=== PATIENT | female | born 1970 | race Caucasian/White ===

== ENCOUNTER 2020-04-15 09:43 | Outpatient (REF) | payer OTHER, SELFPAY ==
--- NOTE | 2020-04-15 | MM_ITS ---
EXAMINATION: MM SCREENING DIGITAL BREAST TOMOSYNTHESIS, BILATERAL CLINICAL INFORMATION: Screening. Asymptomatic. The lifetime risk of breast cancer based on the Tyrer-Cuzick Model is 11%. COMPARISON: Mammography: 04/10/2019, 04/07/2018 TECHNIQUE: Digital breast tomosynthesis is performed in both the craniocaudal and mediolateral oblique views along with computer-aided detection (CAD). Synthesized 2D images are generated from the tomosynthesis. FINDINGS: There are scattered areas of fibroglandular density (ACR BI-RADS breast composition Category b). There are no significant masses, abnormal calcifications, or other abnormalities. The skin contours are smooth. No significant changes. IMPRESSION: No mammographic evidence of malignancy. ASSESSMENT: BI-RADS 1: Negative RECOMMENDATION: Routine annual mammography screening. This patient's information was entered into a reminder system with a target due date for their next mammogram.
== END 2020-04-15 09:44 | disposition home or self-care (01) ==
LOC: HO.MAMMO 09:43
PROVIDERS: PCP Internal Medicine; Visit Provider Internal Medicine
DX: Z12.31 Encounter for screening mammogram for malignant neoplasm of breast (principal)
CPT/HCPCS: 77063; 77067

== ENCOUNTER 2020-08-25 10:12 | Day surgery (SDC) | payer OTHER, SELFPAY ==
[2020-08-21 15:36] VITALS: BMI 27.9
[2020-08-22 09:03] VITALS: BMI 27.9
--- NOTE | 2020-08-23 14:17 | P.CONAN_ITS ---
HPI - Anesthesia Eval Consult details Narrative: 50yo F for Colonoscopy [facility] Past Medical History Medical History (Updated 08/21/20 @ 15:35 by Trish Lopez) History of anxiety Social History Social History (Updated 08/21/20 @ 15:35 by Trish Lopez) Smoking Status: Current every day smoker Tobacco Type: Cigarette Cigarettes Per Day: 10 Years Smoked: 33 Advance Directives Information Provided: No Meds Allergies Allergy/AdvReac Type Severity Reaction Status Date / Time No Known Allergies Allergy Verified 08/21/20 15:36 Home Medications Medication Instructions Recorded Confirmed Last Taken Type fluoxetine 1 cap PO DAILY 08/21/20 08/25/20 08/25/20 07:30 History 10 mg norethindrone (contraceptive) 1 tab PO DAILY 08/21/20 08/21/20 Unknown History vitamin B complex 1 tab PO DAILY 08/21/20 08/21/20 Unknown History Exam Exam Date and Time: August 23, 2020 1417 Height,Weight and Vital Signs: Height 5 ft 4 in Weight 73.936 kg Assessment and Plan Assessment Anesthesia Assessment: Chart Reviewed
[2020-08-25] VITALS (9 sets, daily range): BP systolic 134–182; BP diastolic 69–90; PULSE 56–68; RESP 17–20; TEMP 36.3–36.6; O2SAT 96–100
[2020-08-25 11:39] LABS: UPreg QC Valid YES; Urine Pregnancy NEGATIVE (NEGATIVE)
[2020-08-25] MEDS: Lactated Ringers 1,000 ML 100 ML IVCONT (11:54)
--- NOTE | 2020-08-25 11:57 | MHC.SHP ---
Pre-Procedural Eval Section A The patient is an INPATIENT: No Changes since office visit: No Cold of Flu in the past 2 weeks, No New Medical Problems, No Changes in Medication and No Patient answered all questions The History & Physical has been completed within 30 days and I have reviewed it.: Yes Section B Chief Complaint: bowel change Allergies: Allergies Allergy/AdvReac Type Severity Reaction Status Date / Time No Known Allergies Allergy Verified 08/21/20 15:36 Plan I have reviewed the history and physical and performed a pertinent physical examination on my patient. No changes have occurred unless specified.
--- NOTE | 2020-08-25 13:18 | PM.OP ---
Brief Operative Note Date of Service: 08/25/20 Pre-op diagnosis: change in bowels Post-op diagnosis: same (colon polyps) Surgeon: Jam Kebede Anesthesia: MAC Estimated blood loss (mL): 10 Pathology: other (multiple polyps, bxs, see nursing note) Condition: stable Disposition: PACU
[2020-08-25] MEDS: ondansetron HCL 4 MG/2 ML VIAL IVPUSH (15:13)
--- NOTE | 2020-08-25 23:15 | OP_ITS ---
SURGEON: Jam Kebede MD INDICATIONS: Change in bowel habits. PREOPERATIVE DIAGNOSIS: POSTOPERATIVE DIAGNOSIS: PROCEDURE PERFORMED: Colonoscopy to the terminal ileum with biopsy, snare polypectomy, and cauterization of colon polyps. ESTIMATED BLOOD LOSS: COMPLICATIONS: ANESTHESIA: ASSISTANTS: SPECIMENS: MEDICATIONS: Monitored anesthesia care. DESCRIPTION OF PROCEDURE: History and physical performed. The risks and benefits of the procedure were explained to the patient. Informed consent was obtained. The patient was placed in left lateral decubitus position. A digital rectal exam was performed and was found to be normal. The Olympus pediatric video colonoscope was introduced into the rectum and advanced to the cecum without difficulty. The cecum was identified by transillumination, palpation, and identification of ileocecal valve. Examination was performed and the scope was removed. She tolerated the procedure well and was taken to recovery area in stable condition. FINDINGS: The terminal ileum was normal. The visualized colonic mucosa was normal. There was no evidence of Crohn disease or inflammatory bowel disease. Random sigmoid biopsies were obtained to rule out microscopic colitis rather as well. Multiple colonic polyps were present. These were removed with combination of snare polypectomy, biopsy and cauterization. Several were large and required piecemeal resection with a Grey Net removal. This made the procedure extended and difficult. The polyps were located as follows. 1. 5 mm in the cecum removed with a snare and recovered by suction. 2. 3 x 2 sessile polyp in the cecum, piecemeal resected and the base cauterized. Question if resection is complete. 3. Right colon polyps x2, largest measuring 15 mm piecemeal snare resected and recovered with the Grey Net, second one less than 5 mm snared and suctioned. 4. The polyp at 70 cm was removed with a snare and recovered via suction measuring less than 5 mm. 5. At 10 cm, was a 3.5 cm polyp, which was piecemeal resected with a snare and then recovered with a Grey Net and by suction. The base was cauterized. Retroflexed examination showed internal hemorrhoids. Moderate sized diverticulosis was noted in the sigmoid. IMPRESSION: 1. Diverticulosis. 2. Multiple colonic polyps. 3. Extended/difficult procedure. RECOMMENDATIONS: 1. Follow up the biopsy results. 2. The polyp in the cecum will need followup endoscopy in the next 3 to 6 months pending the pathology results to assure completeness of resection. MD JONATHAN Hudson/[place] / [id number]
== END 2020-08-25 16:55 | disposition home or self-care (01) ==
PROVIDERS: Nurse Practitioner; PCP Internal Medicine; Visit Provider Internal Medicine Gastroenterology
PROC: 0DJD8ZZ Inspection of Lower Intestinal Tract, Via Natural or Artificial Opening Endoscopic (ICD-10-PCS; CPT 45378; principal; 2020-08-25 12:10)
DX: R19.4 Change in bowel habit (principal); K63.5 Polyp of colon; K62.1 Rectal polyp; K57.30 Diverticulosis of large intestine without perforation or abscess without bleeding; K64.8 Other hemorrhoids; F17.210 Nicotine dependence, cigarettes, uncomplicated; Z79.899 Other long term (current) drug therapy
CPT/HCPCS: 45385; 45380; 81025; 88305; 88341; 88342; J2405; J3010

== ENCOUNTER 2021-02-02 07:36 | Day surgery (SDC) | payer OTHER, SELFPAY ==
[2021-01-26 15:25] VITALS: BMI 27.9
--- NOTE | 2021-02-01 09:25 | P.CONAN_ITS ---
Documented by User: Licha Parks 02/01/21 09:25 HPI - Anesthesia Eval Consult details Narrative: 51yo F for Colonoscopy s/p colo with MAC 07/2020 [facility] Past Medical History Medical History History of anxiety Surgical History Surgical History H/O colonoscopy Social History Social History Patient Tobacco Use Status: Current everyday Tobacco user Tobacco use type: Cigarette Cigarettes Per Day: 10 Years Smoked: 34 Use of substances other than those prescribed or required for medical reasons: No Advance Directives Information Provided: No Meds Allergies Allergy/AdvReac Type Severity Reaction Status Date / Time No Known Allergies Allergy Verified 08/21/20 15:36 Home Medications Medication Instructions Recorded Confirmed Last Taken Type fluoxetine 10 mg capsule 1 cap PO DAILY 08/21/20 01/26/21 08/25/20 07:30 History 10 mg norethindrone (contraceptive) 0.35 1 tab PO DAILY 08/21/20 01/26/21 Unknown History mg tablet vitamin B complex 1 tab PO DAILY 08/21/20 01/26/21 Unknown History Exam Exam Date and Time: February 01, 2021 0925 Height,Weight and Vital Signs: Height 5 ft 4 in Weight 73.936 kg Assessment and Plan Assessment Anesthesia Assessment: Chart Reviewed Documented by User: Andriy Penn 02/02/21 08:07 [facility] Past Medical History Medical History History of anxiety Cognitive capacity: AAO X3 Functional capacity: independent ambulation Patient : No Family History Family history of problems with anesthesia: No Surgical History Surgical History H/O colonoscopy History of Problems with Anesthesia: No Social History Social History Patient Tobacco Use Status: Current everyday Tobacco user Tobacco use type: Cigarette Cigarettes Per Day: 10 Years Smoked: 34 Use of substances other than those prescribed or required for medical reasons: No Advance Directives Information Provided: No Meds Allergies Allergy/AdvReac Type Severity Reaction Status Date / Time No Known Allergies Allergy Verified 08/21/20 15:36 Home Medications Medication Instructions Recorded Confirmed Last Taken Type fluoxetine 10 mg capsule 1 cap PO DAILY 08/21/20 01/26/21 08/25/20 07:30 History 10 mg norethindrone (contraceptive) 0.35 1 tab PO DAILY 08/21/20 01/26/21 Unknown History mg tablet vitamin B complex 1 tab PO DAILY 08/21/20 01/26/21 Unknown History Exam Airway Mallampati Class: II TM Dist: >3cm Neck ROM: Full Loose/Missing/Broken Teeth: No Heart: rr+[id number] Lungs: cta b/l Assessment and Plan Assessment Anesthesia Assessment: Anesthesia Plan Discussed and PAT Visit Final Anesthetic Review Family History of Problems with Anesthesia: No History of Problems with Anesthesia: No NPO: Yes ASA Class: II Final Preanesthetic Review: No Changes in Pt Med Stat, Meds/Allgs Chart Reviewed, Consent Obtained/Reviewed and Anes Risks/Benef Reviewed Patient Risk: Low Procedure Risk: Low Assessment/Block/Sedation in SS: Assess/Block/Sedation-SS Anesthetic Plan Anesthetic Plan: MAC: and Agree w/ Assess. and Plan Disposition: Standard PACU
[2021-02-02 07:59] VITALS: BP 124/72; PULSE 61; RESP 18; TEMP 36.3; O2SAT 97
--- NOTE | 2021-02-02 08:21 | HO.ANESPROP2 ---
[facility] Past Medical History Medical History History of anxiety Functional capacity: independent ambulation Patient : No Family History Family history of problems with anesthesia: No Surgical History Surgical History H/O colonoscopy History of Problems with Anesthesia: No Social History Social History Patient Tobacco Use Status: Current everyday Tobacco user Tobacco use type: Cigarette Cigarettes Per Day: 10 Years Smoked: 34 Use of substances other than those prescribed or required for medical reasons: No Advance Directives Information Provided: No Patient : No Meds Allergies Allergy/AdvReac Type Severity Reaction Status Date / Time No Known Allergies Allergy Verified 08/21/20 15:36 Active Medications: Current Medications Generic Name Dose Route Start Last Admin Trade Name Freq PRN Reason Stop Dose Admin Acetaminophen 650 mg 02/02/21 08:07 Acetaminophen 325 Mg Tablet PO ONCE PRN Pain, Mild (Pain Scale 1-3) Ondansetron HCl 4 mg 02/02/21 08:07 Ondansetron Hcl 4 Mg/2 Ml Vial IVPUSH ONCE PRN Nausea and Vomiting Home Medications Medication Instructions Recorded Confirmed Last Taken Type fluoxetine 10 mg capsule 1 cap PO DAILY 08/21/20 01/26/21 08/25/20 07:30 History 10 mg norethindrone (contraceptive) 0.35 1 tab PO DAILY 08/21/20 01/26/21 Unknown History mg tablet vitamin B complex 1 tab PO DAILY 08/21/20 01/26/21 Unknown History Exam Exam Date and Time: February 02, 202121 Height,Weight and Vital Signs: Height 5 ft 4 in Weight 73.936 kg Last Vital Signs Temp 97.4 F 02/02/21 07:59 Pulse 61 02/02/21 07:59 Resp 18 02/02/21 07:59 BP 124/72 02/02/21 07:59 Pulse Ox 97 02/02/21 07:59 Airway TM Dist: >3cm Neck ROM: Full Heart: RRR Lungs: CTA Assessment and Plan Final Anesthetic Review Family History of Problems with Anesthesia: No History of Problems with Anesthesia: No
--- NOTE | 2021-02-02 08:27 | MHC.SHP ---
Pre-Procedural Eval Section A Date of Service: 02/02/21 Section B Chief Complaint: benign neoplasm of colon Details of Present Illness: colon polyps Relevant Family History (Specify if Yes): No Relevant Social History: None Present Medications: see Short Stay Collaborative assessment Medical History: No relevant PMH History of Previous Operations: No relevant previous surgery Allergies: Allergies Allergy/AdvReac Type Severity Reaction Status Date / Time No Known Allergies Allergy Verified 08/21/20 15:36 Review of Systems Sugical H&P ROS: Negative: Constitution, Cardiovascular, Respiratory, Neurological, Psychiatric, Hem-Onc, Allergic/Immunologic, Gastrointestinal, Genitourinary, Musculoskeletal, Integumentary, Endocrine and Eyes/Ears/Nose/Throat Exam Surgical H&P Exam: Normal: HEENT, Normal: Heart, Normal: Lungs, Normal: Extremities, Normal: Abdomen, Normal: Skin and Normal: Neurological Plan Diagnosis/Plan: Unchanged I have reviewed the history and physical and performed a pertinent physical examination on my patient. No changes have occurred unless specified.
--- NOTE | 2021-02-02 08:44 | P.CONAN_ITS ---
[facility] Past Medical History Medical History History of anxiety Functional capacity: independent ambulation Family History Family history of problems with anesthesia: No Surgical History Surgical History H/O colonoscopy History of Problems with Anesthesia: No Social History Social History Patient Tobacco Use Status: Current everyday Tobacco user Tobacco use type: Cigarette Cigarettes Per Day: 10 Years Smoked: 34 Use of substances other than those prescribed or required for medical reasons: No Advance Directives Information Provided: No Patient : No Meds Allergies Allergy/AdvReac Type Severity Reaction Status Date / Time No Known Allergies Allergy Verified 08/21/20 15:36 Active Medications: Current Medications Generic Name Dose Route Start Last Admin Trade Name Freq PRN Reason Stop Dose Admin Acetaminophen 650 mg 02/02/21 08:07 Acetaminophen 325 Mg Tablet PO ONCE PRN Pain, Mild (Pain Scale 1-3) Ondansetron HCl 4 mg 02/02/21 08:07 Ondansetron Hcl 4 Mg/2 Ml Vial IVPUSH ONCE PRN Nausea and Vomiting Oxycodone HCl 5 mg 02/02/21 08:22 Oxycodone Hcl Immed Release 5 Mg Tablet PO ONCE PRN Pain, Severe (Pain Scale 7-10) Home Medications Medication Instructions Recorded Confirmed Last Taken Type fluoxetine 10 mg capsule 1 cap PO DAILY 08/21/20 01/26/21 08/25/20 07:30 History 10 mg norethindrone (contraceptive) 0.35 1 tab PO DAILY 08/21/20 01/26/21 Unknown History mg tablet vitamin B complex 1 tab PO DAILY 08/21/20 01/26/21 Unknown History Exam Exam Date and Time: February 02, 2021 0844 Height,Weight and Vital Signs: Height 5 ft 4 in Weight 73.936 kg Last Vital Signs Temp 97.4 F 02/02/21 07:59 Pulse 61 02/02/21 07:59 Resp 18 02/02/21 07:59 BP 124/72 02/02/21 07:59 Pulse Ox 97 02/02/21 07:59 Assessment and Plan Final Anesthetic Review Family History of Problems with Anesthesia: No History of Problems with Anesthesia: No
[2021-02-02 09:16] VITALS: BP 121/67; PULSE 62; RESP 16; TEMP 36.6; O2SAT 100
--- NOTE | 2021-02-02 09:26 | PM.OP ---
Brief Operative Note Date of Service: 02/02/21 Pre-op diagnosis: colon polyp Post-op diagnosis: same Procedure: colonoscopy Surgeon: Jam Kebede Anesthesia: MAC Was an Logging Engineer used for this Procedure?: No Estimated blood loss (mL): 5 Pathology: other (polyps) Condition: stable Disposition: PACU
[2021-02-02 09:31] VITALS: BP 142/69; PULSE 57; RESP 16; TEMP 36.6; O2SAT 100
--- NOTE | 2021-02-02 09:51 | OP_ITS ---
SURGEON: Jam Kebede MD INDICATIONS: Prior history of colon polyps and intramucosal adenocarcinoma. PREOPERATIVE DIAGNOSIS: POSTOPERATIVE DIAGNOSIS: PROCEDURE PERFORMED: Colonoscopy to the terminal ileum with snare polypectomy, biopsy, and an injection of Norma ink. ESTIMATED BLOOD LOSS: COMPLICATIONS: ANESTHESIA: Medications, monitored anesthesia care. ASSISTANTS: SPECIMENS: DESCRIPTION OF PROCEDURE: History and physical performed. The risks and benefits of the procedure were explained to the patient. An informed consent was obtained. The patient was placed in left lateral decubitus position. A digital rectal exam was performed and was found to be normal. The Olympus pediatric video colonoscope was introduced into the rectum and advanced to the cecum without difficulty. The cecum was identified by transillumination, palpation, and identification of ileocecal valve. Examination was performed. The scope was removed. She tolerated the procedure well and was taken to recovery area in stable condition. FINDINGS: The terminal ileum was examined and appeared normal. The visualized colonic mucosa was normal. The quality of the prep was good. In the cecum, there was a 2.5 x 3 cm sessile polyp on a fold. Piecemeal resection was attempted, but it became obvious that this polyp could not be resected endoscopically based on its configuration. The polyp was located in the cecum across from the ileocecal valve. A total of 2 mL of Norma ink were injected in the vicinity of the polyp using sclerotherapy needle. The remainder of the colon appeared within normal limits without evidence of colitis. There was diverticulosis present throughout the colon. In the rectum, the site of the previously resected polyp with intramucosal adenocarcinoma was identified. Two biopsies were taken from the polypectomy site where scar tissue was present, but no residual polyp was present. Two other less than 10 mm polyps in the rectum were resected using a snare. Retroflexed examination showed moderate-sized internal hemorrhoids. IMPRESSION: 1. Cecal polyp, unresectable endoscopically. 2. Rectal polyps. 3. Diverticulosis. RECOMMENDATION: 1. Followup biopsy results. 2. Referral for surgical resection of the cecal polyp. MD JONATHAN Hudson/[place] / [id number]
--- NOTE | 2021-02-02 12:18 | HO.POSTANES ---
Post Anesthesia Evaluation Post Anesthesia Evaluation Vital Signs: Vital Signs Temp Pulse Resp BP Pulse Ox 02/02/21 09:31 97.8 F 57 16 142/69 H 100 02/02/21 09:16 97.8 F 62 16 121/67 100 02/02/21 07:59 97.4 F 61 18 124/72 97 Anesthesia: Monitored Mental Status: Awake Pain Control: Satisfactory Hydration: Adequate Anesthesia-Related Issues: No Anes. Related Issues
== END 2021-02-02 10:08 | disposition home or self-care (01) ==
PROVIDERS: PCP Internal Medicine; Visit Provider Internal Medicine Gastroenterology
PROC: 0DJD8ZZ Inspection of Lower Intestinal Tract, Via Natural or Artificial Opening Endoscopic (ICD-10-PCS; CPT 45378; principal; 2021-02-02 08:30)
DX: Z12.11 Encounter for screening for malignant neoplasm of colon (principal); Z85.038 Personal history of other malignant neoplasm of large intestine; Z86.010 Personal history of colon polyps; D12.0 Benign neoplasm of cecum; D12.8 Benign neoplasm of rectum; K63.89 Other specified diseases of intestine; K57.30 Diverticulosis of large intestine without perforation or abscess without bleeding; K64.8 Other hemorrhoids; F41.9 Anxiety disorder, unspecified; F17.210 Nicotine dependence, cigarettes, uncomplicated; Z79.899 Other long term (current) drug therapy
CPT/HCPCS: 45385; 45380; 45381; 88305

== ENCOUNTER 2021-03-01 15:45 | Outpatient (REF) | payer OTHER, SELFPAY ==
[2021-03-01 17:15] LABS: Blood Urea Nitrogen 11 mg/dL (9-16); Estimated Glomerular Filt Rate 57
== END 2021-03-01 15:46 | disposition home or self-care (01) ==
LOC: HO.LAB 15:45
PROVIDERS: PCP Internal Medicine; Referring Provider Internal Medicine; Visit Provider Surgery
DX: D12.0 Benign neoplasm of cecum (principal)
CPT/HCPCS: 36415; 82565; 84520

== ENCOUNTER 2021-03-15 15:40 | Outpatient (REF) | payer OTHER, SELFPAY ==
--- NOTE | ~2021-03-15 | CT_ITS ---
EXAMINATION: CT ABDOMEN AND PELVIS WITH CONTRAST CLINICAL INFORMATION: Benign neoplasm of cecum. COMPARISON: None TECHNIQUE: Multidetector volumetric images were obtained from the superior aspect of the liver through the pubic symphysis following administration 85 mL of Omnipaque 350 intravenous contrast. Sagittal and coronal reformatted images were obtained on the technologist's workstation. Oral Contrast: No. This CT examination was performed using dose optimization techniques as appropriate, variously including the following: *Automated exposure control. *Adjustment of mA and/or kV according to patient size (this includes techniques or standardized protocols for targeted exams where dose is matched to indication/reason for exam; i.e. extremities or head). *Use of iterative reconstruction technique. DLP: 549 mGy-cm FINDINGS: LUNG BASES: The visualized lung bases are unremarkable. LIVER, GALLBLADDER, AND BILIARY TREE: The liver is normal in size, shape, and attenuation. No focal hepatic lesion or biliary ductal dilatation is present. The gallbladder is unremarkable with no evidence of radiopaque gallstones, gallbladder wall thickening, or obvious pericholecystic inflammatory changes. PANCREAS: Unremarkable. SPLEEN: Unremarkable. ADRENAL GLANDS: Unremarkable. KIDNEYS AND URETERS: The kidneys are normal in size, shape, and attenuation. No hydronephrosis, hydroureter, or calculi seen. No perinephric stranding. Small 7 mm cyst lower pole left kidney. BLADDER: Unremarkable. GASTROINTESTINAL TRACT: There is diffuse colonic diverticulosis without diverticulitis. There is mild mural thickening involving the cecum. The appendix appears normal caliber. No pericolic fat stranding seen. The small bowel loops are normal caliber. The stomach is distended with recently ingested food. ABDOMINAL WALL: No significant hernia is appreciated. LYMPH NODES: Normal. VASCULAR: Unremarkable. PELVIC VISCERA: The uterus is anteverted and appears unremarkable. There is no free fluid. No abnormal lymph nodes seen. OSSEOUS STRUCTURES: Mild degenerative disc changes with vacuum disc phenomena at L5-S1 disc level with endplate sclerosis. CT/CT abdomen pelvis w con IMPRESSION: 1. Mild mural thickening involving the cecum but no pericolic fat stranding seen. The ileocecal junction is normal. 2. Colonic diverticulosis without diverticulitis. Mild constipation. 3. No abnormal retroperitoneal mesenteric lymphadenopathy.
[2021-03-15] MEDS: iohexoL 350 MG/ML 100 ML INFUS..BTL IV (17:16)
== END 2021-03-15 15:41 | disposition home or self-care (01) ==
LOC: HO.CT 15:40
PROVIDERS: Visit Provider Surgery
DX: D12.0 Benign neoplasm of cecum (principal)
CPT/HCPCS: 74177; Q9967

== ENCOUNTER 2021-03-30 10:30 | Inpatient (IN) | payer OTHER, SELFPAY ==
--- NOTE | 2021-03-19 | ECG_ITS ---
Test Reason : preop, smoker Blood Pressure : / mmHG Vent. Rate : 050 BPM Atrial Rate : 050 BPM P-R Int : 118 ms QRS Dur : 080 ms QT Int : 466 ms P-R-T Axes : 064 050 055 degrees QTc Int : 424 ms Sinus bradycardia Possible Left atrial enlargement Borderline ECG No previous ECGs available Referred By: Licha Parks Electronically Signed By:SAE ALMEIDA
[2021-03-19 11:55] VITALS: BP 144/82; PULSE 59; RESP 16; O2SAT 97; BMI 27.8
--- NOTE | 2021-03-19 12:28 | P.CONAN_ITS ---
Documented by User: Licha Parks NP 03/26/21 15:32 HPI - Anesthesia Eval Consult details Narrative: 51yo F for Hand Assisted Laparoscopic Right Colon Resection, Poss Open 03/30/21 s/p colonoscopy 07/2020 and 01/2021 with MAC PMFSH Active Problems Active Problems: All Active Problems (Updated 03/19/21 @ 12:19 by Nissa Hollins RN) Adenomatous polyp of cecum (Acute) Past Medical History Medical History Adenomatous polyp of cecum Arthritis Depression History of anxiety History of kidney infection Spinal stenosis Family History Family history of problems with anesthesia: No Surgical History Surgical History H/O colonoscopy History of Problems with Anesthesia: No Social History Social History Are you a primary residential care officer to a significant other at home: Yes (S.O. at home disabled) Do you presently have visiting nurse or other home services: No Patient Tobacco Use Status: Current everyday Tobacco user Tobacco use type: Cigarette Cigarettes Per Day: 9 Years Smoked: 37 Second Hand Smoke Exposure: Yes Use of substances other than those prescribed or required for medical reasons: Yes Substance Use Type: Marijuana Substance Use Frequency: Daily Narrative Narrative: No recent illness No CP/SOB with walking. >4 mets Meds Allergies Allergy/AdvReac Type Severity Reaction Status Date / Time Latex, Natural Rubber Allergy Rash Verified 03/19/21 12:16 Home Medications Medication Instructions Recorded Confirmed Last Taken Type fluoxetine 10 mg capsule 1 cap PO DAILY 08/21/20 03/19/21 03/30/21 History norethindrone (contraceptive) 0.35 1 tab PO DAILY 08/21/20 03/19/21 03/30/21 History mg tablet buspirone 5 mg tablet 1 tab PO BID PRN 03/20/21 03/20/21 Unknown History Exam Exam Date and Time: March 19, 2021 1228 Height,Weight and Vital Signs: Height 5 ft 3 in Weight 71.2 kg Last Vital Signs Pulse 59 03/19/21 11:55 Resp 16 03/19/21 11:55 BP 144/82 H 03/19/21 11:55 Pulse Ox 97 09/20/21 11:55 Pertinent Lab Results Pertinent Lab Results: Lab Results 03/19/21 03/19/21 03/19/21 Range/Units 13:07 13:07 13:07 WBC 8.4 (4.8-10.8) X10*3/uL RBC 4.70 (4.20-5.50) X10*6/uL Hgb 14.6 (12.0-16.0) g/dl Hct 43.3 (37-47) % MCV 92.1 (80-98) fL MCH 31.1 (27.0-33.0) pg MCHC 33.7 (31.0-35.0) g/dl RDW 12.1 (11.0-16.0) % Plt Count 337 (160-400) X10*3/uL MPV 9.7 (9.4-12.3) fL Absolute Nucleated RBC 0.000 (0.0-0.012) X10*3/uL Nucleated RBC % (auto) 0.0 (0.0-0.2) /100WBC Sodium 141 (135-145) mmol/L Potassium 4.5 (3.3-5.1) mmol/L Chloride 106 (96-108) mmol/L Carbon Dioxide 26 (22-29) mmol/L Anion Gap 14 (12-20) BUN 8 L (9-16) mg/dL Creatinine 0.82 (0.5-1.4) mg/dL Estim Creat Clear Calc 77.6 Estimated GFR > 60 Random Glucose 92 (60-115) mg/dL Calcium 10.0 (8.4-10.2) mg/dL Blood Type O Positive Antibody Screen NEGATIVE Narrative Narrative: EKG 02/2021 SB@50 ?LAE Airway Mallampati Class: II TM Dist: >3cm Neck ROM: Full Loose/Missing/Broken Teeth: No Heart: RRR Lungs: CTAB Assessment and Plan Assessment Anesthesia Assessment: Anesthesia Plan Discussed and PAT Visit Final Anesthetic Review Family History of Problems with Anesthesia: No History of Problems with Anesthesia: No Documented by User: Frances Mcqueen MD 03/30/21 08:21 PMFSH Past Medical History Medical History Adenomatous polyp of cecum Arthritis Depression History of anxiety History of kidney infection Spinal stenosis Surgical History Surgical History H/O colonoscopy Social History Social History Are you a primary residential care officer to a significant other at home: Yes (S.O. at home disabled) Do you presently have visiting nurse or other home services: No Patient Tobacco Use Status: Current everyday Tobacco user Tobacco use type: Cigarette Cigarettes Per Day: 9 Years Smoked: 37 Second Hand Smoke Exposure: Yes Use of substances other than those prescribed or required for medical reasons: Yes Substance Use Type: Marijuana Substance Use Frequency: Daily Meds Allergies Allergy/AdvReac Type Severity Reaction Status Date / Time Latex, Natural Rubber Allergy Rash Verified 03/19/21 12:16 Home Medications Medication Instructions Recorded Confirmed Last Taken Type fluoxetine 10 mg capsule 1 cap PO DAILY 08/21/20 03/19/21 03/30/21 History norethindrone (contraceptive) 0.35 1 tab PO DAILY 08/21/20 03/19/21 03/30/21 History mg tablet buspirone 5 mg tablet 1 tab PO BID PRN 03/20/21 03/20/21 Unknown History Assessment and Plan Final Anesthetic Review ASA Class: II Final Preanesthetic Review: Meds/Allgs Chart Reviewed, Consent Obtained/Reviewed and Anes Risks/Benef Reviewed Patient Risk: Low Procedure Risk: Intermediate Anesthetic Plan Anesthetic Plan: GA Disposition: Standard PACU
[2021-03-19 14:02] LABS: Hematocrit 43.3 % (37-47); Hemoglobin 14.6 g/dl (12.0-16.0); Mean Corpuscular HGB Conc 33.7 g/dl (31.0-35.0); Mean Corpuscular Hemoglobin 31.1 pg (27.0-33.0); Mean Corpuscular Volume 92.1 fL (80-98); Mean Platelet Volume 9.7 fL (9.4-12.3); Platelet Count 337 X10*3/uL (160-400); Red Cell Distribution Width 12.1 % (11.0-16.0); White Blood Count 8.4 X10*3/uL (4.8-10.8)
[2021-03-19 15:11] LABS: Anion Gap 14 (12-20); Blood Urea Nitrogen 8 mg/dL (9-16); Carbon Dioxide 26 mmol/L (22-29); Chloride 106 mmol/L (96-108); Creatinine Clr Calc Pharmacy 77.6; Estimated Glomerular Filt Rate > 60; Glucose Random 92 mg/dL (60-115); Potassium 4.5 mmol/L (3.3-5.1); Sodium 141 mmol/L (135-145)
[2021-03-30] VITALS (15 sets, daily range): BP systolic 119–159; BP diastolic 59–85; PULSE 51–79; RESP 12–18; TEMP 35.9–37.3; O2SAT 94–99
[2021-03-30 06:40] LABS: UPreg QC Valid YES; Urine Pregnancy NEGATIVE (NEGATIVE)
[2021-03-30] MEDS: Lactated Ringers 1,000 ML 50 ML IVCONT (06:50)
[2021-03-30 06:57] LABS: COVID-19 Test Negative (Negative)
--- NOTE | 2021-03-30 10:12 | P.OP_ITS ---
Operative Note Operative Note Date of Service: 03/30/21 Narrative: Preop diagnosis: Cecal polyp Postop diagnosis: Cecal polyp Procedure: Hand assisted laparoscopic right colon resection, extensive lysis of adhesions with the LigaSure Surgeon: Kieran Villanueva MD 1st certified ophthalmic assistant: NITESH Brown The patient is a 51-year-old female who had undergone anoscopy with Dr. Kebede and was noted to have an unresectable polyp in the cecum. This was relatively flat and regards. She was therefore referred to me for resection. I had a long discussion with her about the technique of hand assisted laparoscopic right colon resection. I reviewed the risks including but not limited to bleeding, infections, bowel injury, staple line leak, obstruction, as well as the benefits and alternatives. She understood and had given consent. I had reviewed her CAT scan images as well. She was brought to the operating room and placed supine on the table under general anesthesia via endotracheal tube. Both arms were tucked at the side with pressure points protected. The abdomen is prepped and draped in the usual sterile fashion. A surgical time-out was done. The patient received Cefotan 2 g IV preoperatively. I made a short incision on the skin on the midline just at the level of the umbilicus using blade 15. And this carried down through the full-thickness of the skin subcutaneous fat down to the fascia. The fascia was incised. The peritoneum was entered and the incision was enlarged to accommodate my hand through a GelPort. The Otis wound retractor was position. The GelPort along with a 5/12 mm port is then applied to the wound retractor. Insufflation was done a pressure 15 minutes mercury. The laparoscope was positioned through this port. With laparoscopic visualization, I proceeded to then apply a 5/12 mm port in the epigastric area below the subcostal margin. The camera was then transferred to this. I inserted my hand through the GelPort . The patient was then placed in a head-down [id number]-[id number]-[id number] position to retract the bowel loops away from the right side. I inserted 5 mm port through a small stab incision in the left upper quadrant. At this point we werel using a 30 degree 10 mm scope. There was note of large amounts of adhesions on the right lower quadrant and the right colon involving omentum. Had to do a lot of dissection with the LigaSure to carefully free this up starting from the right lower quadrant at the pelvis all the way to the right upper quadrant using the LigaSure. This took some time for able to completely release all these adhesions and omental fat. Ventrio is able to release the omentum and have good visualization and exposure of the right colon. laparoscopic visualization, I proceeded to then reflect all the rest of the bowel loops away from the right lower quadrant. I was able to see the cecum. The tattoo marking from the recent colonoscopy was seen at the cecum itself. I mobilized the cecum by dividing the its ligamentous attachments along the white line of Toldt using the LigaSure. We continued to do this dissection with the LigaSure all the way to the hepatic flexure. I then proceeded to turn the patient in head-up position to allow the transverse colon retract downwards. By doing so was able to visualize the hepatic colic ligaments. I gently retracted the hepatic flexure off of the liver to carefully visualize the hepatic colic ligaments. I dissected this hepatic colic ligaments using the LigaSure from lateral to medial. Proceeded to also gently sweep off the filmy adhesions to the retroperitoneum to further mobilize the right colon and hepatic flexure By doing so was able to eventually see the duodenum and this defined the limits of medial mobilization. I continue to therefore divide the adhesions along the retroperitoneum of the mesentery of the right colon using the LigaSure, carefully protecting the duodenum during this part of the procedure. I had to continue to further divide more of the hepatic colic ligaments towards the distal transverse colon. Eventually, I felt that we had adequate mobilization of the right colon and the hepatic flexure at this point. I then proceeded to continue to mobilize the cecum. The cecum appeared to be tethered to the right lower quadrant from multiple adhesions. The appendix was also stuck to the area of the ovaries and the fallopian tube. I had to carefully and gently divide the rest of this adhesions on this side of the cecum until was able to clearly define the appendix. I traced the appendix and carefully dissected with my index finger to free this up from the fallopian tube and the right ovary. Eventually I was able to release this appendix and bring this up into the field of view. I continued to divide the ligamentous attachments surrounding cecum and the terminal ileum to free this up. I proceeded to test the entire right colon, terminal ileum and hepatic flexure for mobilization and this seemed to reach the incision without difficulty. At this point therefore I opened up the GelPort and released desufflation. I proceeded to pull up the terminal ileum, cecum, right colon and hepatic flexure out in the field. I was able to feel a small mass in the cecum. There were no other palpable masses in the right colon. I proceeded to choose a my point of dissection in the distal ileum about 10 cm from the ileocecal valve. I created a mesenteric window through this and transected the terminal ileum using PAUL 60 mm stapler. I proceeded to then define my point of transection in the hepatic flexure at the proximal transverse. I created a mesenteric window as well and used the PAUL 80 mm s tapler to divide this. At this point therefore we proceeded to then pull up the colon to put the mesentery on stretch. I marked my planned resection on the mesentery by scoring the peritoneum. I then used the LigaSure starting from the ileal side to divide the mesentery. I alternated this with dividing the mesentery of the colon from the distal transection side. We proceeded to then continue to divide all the way to the palpable pulsation of the ileo colic pedicle. I paid particular attention to including the mesenteric lymph node basin of the right colon with the high ligation of the pedicle. I thinned out the pedicle with electrocautery. I applied clamps across the pedicle. The pedicle was then divided with Metzenbaum scissors. The right colon was therefore completely and was sent for immediate gross exam. I doubly ligated the pedicle at the proximal side. Clamp was released and there was note of good hemostasis. There was note of some oozing from the mesentery which had to control with the LigaSure however. At this point therefore, I proceeded to prepare the hepatic flexure for our anastomosis. There was note of large amounts of omentum adherent to this area so we had to clear this up using the LigaSure to make sure that we had good visualization of the colon wall for our [id number]-st-owiu anastomosis. We had to do extensive dissection of the adherent omentum to be able to achieve this. I noticed that there was a small diverticulum near the staple line so we had to resect more of the staple line to avoid this diverticulum. I also noticed that we had excised a lot of the attached mesentery of the divided distal ileum so I decided to resect more of the length of this distal ileum to avoid ischemia of the remaining stump. Again I resected more of the distal ileum proximal to the original staple line using the PAUL 60 mm stapler I then proceeded to align our staple lines together and positioned the limbs of the colon and the terminal ileum in a [id number] fashion. I opened up the apex of each staple line. I entered the lumen and positioned each arm of the PAUL 60 mm stapler through the lumen. I positioned the staplers to lock them in place at the anti mesenteric border, with care being taken so as to make sure that we were not catching any bowel loop nor mesentery. Once this was confirmed, we fired the PAUL 60 mm stapler to create our [id number]-[id number] anastomosis. The anastomosis was completed by closing the enterotomy with a TA 60 mm stapler. I examined the staple lines and these all appeared to be intact. There was no evidence of any ischemia of the anastomotic site. I then closed the mesenteric defect with Dexon 3-0 running stitch. I examined the staple lines further and this again appeared to be intact and viable I replaced this back into the peritoneal cavity. I re-insufflated. I reapplied the GelPort and the camera. I had changed gloves at this time. With laparoscopic mobilization again I proceeded to examine the entire peritoneal cavity. There was note of some old blood on the right gutter from previous dissection but there was no active bleeding. I suctioned this out and irrigated a little bit, and examined all 4 quadrants. There was no evidence of any bowel injury any other pathology. I positioned the omentum to cover the area of the anastomosis. Once hemostasis was ensured, I proceeded then desufflate through the port sites. All the ports were removed and the Otis wound retractor was removed as well. I closed the fascia of the midline incision with a running Maxon 1 stitch. The subcutaneous layer of all the incisions were irrigated. I closed all incisions with subcuticular running Dexon 4-0 sutures. All incisions were infiltrated with Marcaine 0.5% for postop analgesia. Steri-Strips and dressings were applied. The procedure was then completed. The patient tolerated the procedure well. There were no complications noted. Initial and final counts of sponges and instruments were correct. Estimated blood loss was about 200 cc. The patient was extubated without difficulty and transferred to the recovery room with stable vital signs. Colon Resection Tumor location: Right colon Extent of lymphovascular resection Right colon (cecum and ascending colon): from distal ileum to proximal transverse at the proximal ileocolic pedicle General Surg. - Synoptic Notes Colon Resection Tumor location: Right colon Extent of Lymphovascular Resection: Right colon (cecum and ascending colon): from distal ileum to proximal transverse at the proximal ileocolic pedicle
--- NOTE | 2021-03-30 10:28 | PM.OP ---
Brief Operative Note Date of Service: 03/30/21 <Sheyla Brown PA-C - Last Filed: 03/30/21 10:29> Pre-op diagnosis: Cecal polyp <Sheyla Brown PA-C - Last Filed: 03/30/21 10:29> Post-op diagnosis: same <Sheyla Brown PA-C - Last Filed: 03/30/21 10:29> Procedure: hand assisted laparoscopic right colon resection <Sheyla Brown PA-C - Last Filed: 03/30/21 10:29> hand assisted laparoscopic right colon resection, extensive lysis of adhesions <Leslie Knapp MD - Last Filed: 03/30/21 10:30> Surgeon: LESLIE KNAPP MD <Sheyla Brown PA-C - Last Filed: 03/30/21 10:29> Anesthesia: GETA <Sheyla Brown PA-C - Last Filed: 03/30/21 10:29> Was an Mattress Renovator used for this Procedure?: Yes <Sheyla Brown PA-C - Last Filed: 03/30/21 10:29> No <Leslie Knapp MD - Last Filed: 03/30/21 10:30> Mattress Renovator: Sheyla Brown <Sheyla Brown PA-C - Last Filed: 03/30/21 10:29> Estimated blood loss (mL): 200 <Sheyla Brown PA-C - Last Filed: 03/30/21 10:29> Pathology: other (CECAL POLYP, SMALL BOWEL) <Sheyla Brown PA-C - Last Filed: 03/30/21 10:29> Condition: stable <EMMA Steen Last Filed: 03/30/21 10:29> Disposition: PACU <EMMA Steen Last Filed: 03/30/21 10:29>
[2021-03-30] MEDS: ondansetron HCL 4 MG/2 ML VIAL IVPUSH ×3 (10:37→21:01)
[2021-03-30] MEDS: Scopolamine 1.5 MG PATCH.TD.3 TRANSDERMA (10:52)
[2021-03-30] MEDS: HYDROmorphone HCl 0.5 MG/0.5 ML SYRINGE 0.25 MG IVPUSH (11:02)
[2021-03-30] MEDS: oxyCODONE HCl Immed Release 5 MG TABLET 10 MG PO (12:26)
[2021-03-30] MEDS: Lactated Ringers 1,000 ML 80 ML IVCONT (12:27)
[2021-03-30] MEDS: 0.9 % Sodium Chloride Flush 3 ML SYRINGE IVFLUSH (14:29)
[2021-03-30] MEDS: Morphine Sulfate 2 MG/ML CARTRIDGE 4 MG IVPUSH (14:29)
--- NOTE | 2021-03-30 15:22 | PM.EVENT ---
Event Note Date of Service: 03/30/21 Event Note: Seen postop - underwent right colon resection with extensive lysis of adhesions earlier Complaints of nausea Pain level okay Stable vital signs Abdomen soft Good urine output Continue pain management Out of bed Doing well postoperatively [place] updated [phone]
[2021-03-31] MEDS: Lactated Ringers 1,000 ML 80 ML IVCONT ×2 (00:23→13:12)
[2021-03-31 04:00] VITALS: BP 149/75; PULSE 78; RESP 16; TEMP 36.7; O2SAT 93
[2021-03-31 05:58] LABS: MANUAL DIFF FLAG NO
[2021-03-31 06:11] LABS: Basophils Percent Auto 0.1 % (0-2); Hematocrit 31.8 % (37-47); Hemoglobin 10.8 g/dl (12.0-16.0); Imm Gran Abs Auto 0.07 X10*3/uL (0.00-0.03); Imm Gran Pct Auto 0.5 % (0.0-0.4); Lymphocytes Absolute Auto 2.1 X10*3/uL (1.2-4.9); Lymphocytes Percent Auto 15.3 % (20-40); Mean Corpuscular Hemoglobin 30.7 pg (27.0-33.0); Mean Corpuscular Volume 90.3 fL (80-98); Monocytes Percent Auto 6.9 % (2-11); Neutrophils Absolute Auto 10.6 X10*3/uL (2.0-8.3); Neutrophils Percent Auto 77.2 % (45-73); Platelet Count 297 X10*3/uL (160-400); Red Blood Count 3.52 X10*6/uL (4.20-5.50); Red Cell Distribution Width 12.2 % (11.0-16.0); White Blood Count 13.8 X10*3/uL (4.8-10.8)
[2021-03-31 06:44] LABS: Anion Gap 12 (12-20); Blood Urea Nitrogen 8 mg/dL (9-16); Calcium 8.4 mg/dL (8.4-10.2); Carbon Dioxide 26 mmol/L (22-29); Chloride 106 mmol/L (96-108); Creatinine Clr Calc Pharmacy 84.8; Estimated Glomerular Filt Rate > 60; Glucose Random 151 mg/dL (60-115); Potassium 3.8 mmol/L (3.3-5.1); Sodium 140 mmol/L (135-145)
[2021-03-31 07:35] VITALS: BP 139/69; PULSE 73; RESP 18; TEMP 37.4; O2SAT 93
--- NOTE | 2021-03-31 09:34 | PM.PNGS ---
Subjective Subjective Date of Service: 03/31/21 Interval history: Feels better. Has good pain control. Nausea has resolved. Has not passed flatus yet. Not taking much p.o.. Physical Exam Vital Signs: Vital Signs: Last Vital Signs Temp 99.3 F 03/31/21 07:35 Pulse 73 03/31/21 07:35 Resp 18 03/31/21 07:35 BP 139/69 03/31/21 07:35 Pulse Ox 93 03/31/21 07:35 Body Mass Index 27.8 Const: General: cooperative, comfortable and no acute distress Resp: Effort & Inspection: normal respiratory effort Auscultation: clear to auscultation bilaterally Cardio: Rate: regular rate Rhythm: regular rhythm GI: Other: Soft, round, bowel sounds active, dressings clean dry and intact Skin: Other: Warm and dry Procedures Date of Service Date of Service: 03/31/21 Progress Note: A&P Assessment and plan (1) S/P right colectomy: Status: Acute (2) Adenomatous polyp of cecum: Status: Acute Assessment and Plan: Postop day 1 following hand assisted laparoscopic right colectomy for sessile polyp. She appears stable, but no flatus yet and not much appetite. Will continue IV fluids, clear liquid diet. DC Pan. Ambulate. Fall Risk Details Current Medications: Current Medications Buspirone HCl (Buspirone Hcl 5 Mg Tablet) 5 mg PO BID PRN PRN Reason: Anxiety Diphenhydramine HCl (Diphenhydramine Hcl 50 Mg/Ml Vial) 25 mg IVPUSH Q6H PRN PRN Reason: Itching Fluoxetine HCl (Fluoxetine Hcl 10 Mg Capsule) 10 mg PO DAILY CHENTE Heparin Sodium (Porcine) (Heparin Sodium,Porcine 5,000 Unit/Ml Vial) 5,000 unit SUBCUT Q8H CHENTE Acetaminophen (Ofirmev) 1,000 mg in 100 mls @ 400 mls/hr IV Q6H CHENTE Last Infusion: 03/31/21 04:57 Dose: Infused Documented by: Lactated Ringer's (Lr) 1,000 mls @ 80 mls/hr IVCONT .[id number] CHENTE Last Admin: 03/31/21 00:23 Dose: 80 mls/hr Documented by: Promethazine HCl 6.25 mg/ (Sodium Chloride) 50.25 mls @ 201 mls/hr IV ONCE PRN PRN Reason: Nausea and Vomiting Last Infusion: 03/30/21 11:58 Dose: Infused Documented by: Promethazine HCl 12.5 mg/ (Sodium Chloride) 50.5 mls @ 202 mls/hr IV Q6H PRN PRN Reason: Nausea and Vomiting Last Infusion: 03/30/21 15:47 Dose: Infused Documented by: Morphine Sulfate (Morphine Sulfate 2 Mg/Ml Cartridge) 4 mg IVPUSH Q4H PRN; Protocol PRN Reason: Pain, Severe (Pain Scale 7-10) Last Admin: 03/30/21 14:29 Dose: 4 mg Documented by: Ondansetron HCl (Ondansetron Hcl 4 Mg/2 Ml Vial) 4 mg IVPUSH Q8H PRN PRN Reason: Nausea and Vomiting Last Admin: 03/30/21 21:01 Dose: 4 mg Documented by: Ondansetron HCl (Ondansetron Hcl 4 Mg/2 Ml Vial) 4 mg IVPUSH ONCE PRN PRN Reason: Nausea and Vomiting Last Admin: 03/30/21 10:37 Dose: 4 mg Documented by: Oxycodone HCl (Oxycodone Hcl Immed Release 5 Mg Tablet) 5 mg PO Q4H PRN PRN Reason: Pain, Moderate (Pain Scale 4-6 Oxycodone HCl (Oxycodone Hcl Immed Release 5 Mg Tablet) 10 mg PO Q4H PRN PRN Reason: Pain, Severe (Pain Scale 7-10) Last Admin: 03/30/21 12:26 Dose: 10 mg Documented by: Sodium Chloride (0.9 % Sodium Chloride Flush 3 Ml Syringe) 3 ml [facility] [place] Last Admin: 03/31/21 00:02 Dose: Not Given Documented by: Zolpidem Tartrate (Zolpidem Tartrate 5 Mg Tablet) 5 mg PO BEDTIME PRN PRN Reason: Insomnia Time Spent With Patient Time: Total time spent is greater than 50% in coordination of care (as documented) at patient's floor/unit and/or counseling patient: Time with patient: less than 15 minutes Quality Stroke Does the patient have a stroke diagnosis?: No VTE Prior VTE?: No VTE Risk Level:: Surgical - moderate VTE Device Contraindication: N/A - Device Ordered VTE Drug Contraindication: Treatment Not Indicated
[2021-03-31] MEDS: Heparin Sodium,Porcine 5,000 UNIT/ML VIAL 5000 UNIT SUBCUT ×2 (10:17→18:23)
[2021-03-31] MEDS: FLUoxetine HCl 10 MG CAPSULE PO (10:18)
--- NOTE | 2021-03-31 10:37 | HO.POSTANES ---
Post Anesthesia Evaluation Post Anesthesia Evaluation Vital Signs: Vital Signs Temp Pulse Resp BP Pulse Ox 03/31/21 07:35 99.3 F 73 18 139/69 93 03/31/21 04:00 98.1 F 78 16 149/75 H 93 03/30/21 23:21 98.3 F 66 16 140/73 H 94 Anesthesia: General Endotracheal-GETA Mental Status: Awake Pain Control: Satisfactory Nausea/Vomiting: None Hydration: Adequate Anesthesia-Related Issues: No Anes. Related Issues
[2021-03-31 12:00] VITALS: BP 145/68; PULSE 68; RESP 18; TEMP 37.5; O2SAT 94
--- NOTE | 2021-03-31 15:59 | MHC.CM.PN ---
CM MET WITH PT WHO REPORTS SHE LIVES WITH HER S/O. PT REPORTS SHE IS INDEPENDENT, WORKS AND DRIVES PT DENIES USE OF DME OR HOME SERVICES PT CONFIRMS HER PCP IS LESLIE LOPEZ PT COMPLETED A HCP TODAY NAMING HER S/O, NEAL QUIROS, HER AGENT. CURRENT DC PLAN IS HOME WITH NO SERVICES PT TO ARRANGE TRANSPORT
[2021-03-31 16:00] VITALS: BP 152/76; PULSE 72; RESP 16; TEMP 36.6; O2SAT 95
[2021-03-31 19:08] VITALS: BP 144/64; PULSE 64; RESP 18; TEMP 37.3; O2SAT 94
[2021-03-31 23:16] VITALS: BP 141/81; PULSE 70; RESP 16; TEMP 35.7; O2SAT 95
[2021-04-01] VITALS (7 sets, daily range): BP systolic 105–146; BP diastolic 55–69; PULSE 55–70; RESP 16–18; TEMP 36.8–37.3; O2SAT 93–97
[2021-04-01] MEDS: Lactated Ringers 1,000 ML 80 ML IVCONT (01:12)
[2021-04-01] MEDS: Heparin Sodium,Porcine 5,000 UNIT/ML VIAL 5000 UNIT SUBCUT ×3 (01:15→17:56)
[2021-04-01] MEDS: FLUoxetine HCl 10 MG CAPSULE PO (09:49)
[2021-04-01] MEDS: 0.9 % Sodium Chloride Flush 3 ML SYRINGE IVFLUSH ×2 (09:49→17:53)
[2021-04-01] MEDS: Acetaminophen 325 MG TABLET 650 MG PO ×2 (11:11→17:52)
--- NOTE | 2021-04-01 12:54 | PM.PNGS ---
Subjective Subjective Date of Service: 04/01/21 Interval history: Feels better. Nausea has resolved. Tolerating clear liquid diet. Incisional pain is decreasing. Physical Exam Vital Signs: Vital Signs: Last Vital Signs Temp 99.1 F 04/01/21 11:55 Pulse 62 04/01/21 11:55 Resp 18 04/01/21 11:55 BP 125/65 04/01/21 11:55 Pulse Ox 96 04/01/21 11:55 Body Mass Index 27.8 Const: General: cooperative, comfortable and alert Resp: Effort & Inspection: normal respiratory effort Auscultation: clear to auscultation bilaterally Cardio: Rate: regular rate Rhythm: regular rhythm GI: Other: Soft, nondistended, bowel sounds active. Incisions intact, clean and dry. Nontender generally with appropriate incisional tenderness. Skin: Other: Warm and dry General skin exam: no rashes or lesions noted Procedures Date of Service Date of Service: 04/01/21 Progress Note: A&P Assessment and plan (1) S/P right colectomy: Status: Acute (2) Adenomatous polyp of cecum: Status: Acute Assessment and Plan: Day 2 post hand assisted laparoscopic right colectomy for sessile adenomatous polyp. She is doing well. Will advance to low residue diet, discontinue IV fluids, switch acetaminophen to p.o. continue to increase ambulation. Fall Risk Details Current Medications: Current Medications Acetaminophen (Acetaminophen 325 Mg Tablet) 650 mg PO Q6H [facility] Last Admin: 04/01/21 11:11 Dose: 650 mg Documented by: Buspirone HCl (Buspirone Hcl 5 Mg Tablet) 5 mg PO BID PRN PRN Reason: Anxiety Diphenhydramine HCl (Diphenhydramine Hcl 50 Mg/Ml Vial) 25 mg IVPUSH Q6H PRN PRN Reason: Itching Fluoxetine HCl (Fluoxetine Hcl 10 Mg Capsule) 10 mg PO DAILY [facility] Last Admin: 04/01/21 09:49 Dose: 10 mg Documented by: Heparin Sodium (Porcine) (Heparin Sodium,Porcine 5,000 Unit/Ml Vial) 5,000 unit SUBCUT Q8H [facility] Last Admin: 04/01/21 09:48 Dose: 5,000 unit Documented by: Promethazine HCl 6.25 mg/ (Sodium Chloride) 50.25 mls @ 201 mls/hr IV ONCE PRN PRN Reason: Nausea and Vomiting Last Infusion: 03/30/21 11:58 Dose: Infused Documented by: Promethazine HCl 12.5 mg/ (Sodium Chloride) 50.5 mls @ 202 mls/hr IV Q6H PRN PRN Reason: Nausea and Vomiting Last Infusion: 03/31/21 17:40 Dose: Infused Documented by: Morphine Sulfate (Morphine Sulfate 2 Mg/Ml Cartridge) 4 mg IVPUSH Q4H PRN; Protocol PRN Reason: Pain, Severe (Pain Scale 7-10) Last Admin: 03/30/21 14:29 Dose: 4 mg Documented by: Ondansetron HCl (Ondansetron Hcl 4 Mg/2 Ml Vial) 4 mg IVPUSH Q8H PRN PRN Reason: Nausea and Vomiting Last Admin: 03/30/21 21:01 Dose: 4 mg Documented by: Ondansetron HCl (Ondansetron Hcl 4 Mg/2 Ml Vial) 4 mg IVPUSH ONCE PRN PRN Reason: Nausea and Vomiting Last Admin: 03/30/21 10:37 Dose: 4 mg Documented by: Oxycodone HCl (Oxycodone Hcl Immed Release 5 Mg Tablet) 5 mg PO Q4H PRN PRN Reason: Pain, Moderate (Pain Scale 4-6 Oxycodone HCl (Oxycodone Hcl Immed Release 5 Mg Tablet) 10 mg PO Q4H PRN PRN Reason: Pain, Severe (Pain Scale 7-10) Last Admin: 03/30/21 12:26 Dose: 10 mg Documented by: Sodium Chloride (0.9 % Sodium Chloride Flush 3 Ml Syringe) 3 ml [facility] Last Admin: 04/01/21 09:49 Dose: 3 ml Documented by: Zolpidem Tartrate (Zolpidem Tartrate 5 Mg Tablet) 5 mg PO BEDTIME PRN PRN Reason: Insomnia Time Spent With Patient Time: Total time spent is greater than 50% in coordination of care (as documented) at patient's floor/unit and/or counseling patient: Time with patient: less than 15 minutes Quality Stroke Does the patient have a stroke diagnosis?: No VTE Prior VTE?: No VTE Risk Level:: Surgical - moderate VTE Device Contraindication: N/A - Device Ordered VTE Drug Contraindication: Treatment Not Indicated
[2021-04-02] MEDS: 0.9 % Sodium Chloride Flush 3 ML SYRINGE IVFLUSH ×2 (03:35→10:02)
[2021-04-02] MEDS: Heparin Sodium,Porcine 5,000 UNIT/ML VIAL 5000 UNIT SUBCUT ×2 (03:35→10:01)
[2021-04-02] MEDS: Acetaminophen 325 MG TABLET 650 MG PO ×2 (03:35→13:41)
[2021-04-02 04:00] VITALS: BP 131/65; PULSE 66; RESP 17; TEMP 36.7; O2SAT 96
[2021-04-02 08:00] VITALS: BP 118/64; PULSE 55; RESP 18; TEMP 36.8; O2SAT 98
--- NOTE | 2021-04-02 08:06 | P.PNGS_ITS ---
Subjective Subjective Date of Service: 04/02/21 Interval history: Feels well Pain level acceptable Passing flatus Tolerating diet Physical Exam Vital Signs: Vital Signs: Last Vital Signs Temp 98.3 F 04/02/21 08:00 Pulse 55 04/02/21 08:00 Resp 18 04/02/21 08:00 BP 118/64 04/02/21 08:00 Pulse Ox 98 04/02/21 08:00 Body Mass Index 27.8 Const: General: comfortable and no acute distress Resp: Effort & Inspection: normal respiratory effort Cardio: Rhythm: regular rhythm GI: Other: Incisions clean and dry Palpation (GI): Soft to palpation, not firm, no guarding and not rigid Procedures Date of Service Date of Service: 04/02/21 Progress Note: A&P Assessment and plan (1) Adenomatous polyp of cecum: Status: Acute Assessment and Plan: Status post right colon resection Clinically doing very well Pain well controlled Abdomen soft Good vital signs Possible DC home today Fall Risk Details Current Medications: Current Medications Acetaminophen (Acetaminophen 325 Mg Tablet) 650 mg PO Q6H [facility] Last Admin: 04/02/21 03:35 Dose: 650 mg Documented by: Buspirone HCl (Buspirone Hcl 5 Mg Tablet) 5 mg PO BID PRN PRN Reason: Anxiety Diphenhydramine HCl (Diphenhydramine Hcl 50 Mg/Ml Vial) 25 mg IVPUSH Q6H PRN PRN Reason: Itching Fluoxetine HCl (Fluoxetine Hcl 10 Mg Capsule) 10 mg PO DAILY [facility] Last Admin: 04/01/21 09:49 Dose: 10 mg Documented by: Heparin Sodium (Porcine) (Heparin Sodium,Porcine 5,000 Unit/Ml Vial) 5,000 unit SUBCUT Q8H [facility] Last Admin: 04/02/21 03:35 Dose: 5,000 unit Documented by: Promethazine HCl 6.25 mg/ (Sodium Chloride) 50.25 mls @ 201 mls/hr IV ONCE PRN PRN Reason: Nausea and Vomiting Last Infusion: 03/30/21 11:58 Dose: Infused Documented by: Promethazine HCl 12.5 mg/ (Sodium Chloride) 50.5 mls @ 202 mls/hr IV Q6H PRN PRN Reason: Nausea and Vomiting Last Infusion: 03/31/21 17:40 Dose: Infused Documented by: Morphine Sulfate (Morphine Sulfate 2 Mg/Ml Cartridge) 4 mg IVPUSH Q4H PRN; Protocol PRN Reason: Pain, Severe (Pain Scale 7-10) Last Admin: 03/30/21 14:29 Dose: 4 mg Documented by: Ondansetron HCl (Ondansetron Hcl 4 Mg/2 Ml Vial) 4 mg IVPUSH Q8H PRN PRN Reason: Nausea and Vomiting Last Admin: 03/30/21 21:01 Dose: 4 mg Documented by: Ondansetron HCl (Ondansetron Hcl 4 Mg/2 Ml Vial) 4 mg IVPUSH ONCE PRN PRN Reason: Nausea and Vomiting Last Admin: 03/30/21 10:37 Dose: 4 mg Documented by: Oxycodone HCl (Oxycodone Hcl Immed Release 5 Mg Tablet) 5 mg PO Q4H PRN PRN Reason: Pain, Moderate (Pain Scale 4-6 Oxycodone HCl (Oxycodone Hcl Immed Release 5 Mg Tablet) 10 mg PO Q4H PRN PRN Reason: Pain, Severe (Pain Scale 7-10) Last Admin: 03/30/21 12:26 Dose: 10 mg Documented by: Sodium Chloride (0.9 % Sodium Chloride Flush 3 Ml Syringe) 3 ml [facility] Last Admin: 04/02/21 03:35 Dose: 3 ml Documented by: Zolpidem Tartrate (Zolpidem Tartrate 5 Mg Tablet) 5 mg PO BEDTIME PRN PRN Reason: Insomnia Time Spent With Patient Time: Total time spent is greater than 50% in coordination of care (as documented) at patient's floor/unit and/or counseling patient: Time with patient: 15 - 24 minutes Quality Stroke Does the patient have a stroke diagnosis?: No VTE Prior VTE?: No VTE Risk Level:: Surgical - moderate VTE Device Contraindication: N/A - Device Ordered VTE Drug Contraindication: Treatment Not Indicated
--- NOTE | 2021-04-02 09:30 | MHC.CLN ---
NUTRITION REVIEW OF WEIGHT HISTORY SHOWS -3.7% WEIGHT LOSS X 7 MONTHS. WEIGHT LOSS NOT SIGNIFICANT.
[2021-04-02] MEDS: FLUoxetine HCl 10 MG CAPSULE PO (10:01)
[2021-04-02 11:43] VITALS: BP 115/63; PULSE 61; RESP 18; TEMP 37.1; O2SAT 95
[2021-04-02 15:36] VITALS: BP 123/61; PULSE 63; RESP 18; TEMP 36.8; O2SAT 96
--- NOTE | 2021-04-02 16:42 | PM.EVENT ---
Event Note Date of Service: 04/02/21 Event Note: She remains comfortable Denies significant pain Passing good amount of flatus Abdomen soft, minimally tender on in incisions, nondistended Tolerating diet well She says she wants to go home Okay to discharge home and given discharge instructions Patient looks well
--- NOTE | 2021-04-03 09:41 | PM.DS ---
DS: Providers Provider Date of Service: 04/02/21 Date of admission: 03/30/21 10:30 Primary care physician: Kieran Mayo MD Attending physician on discharge: Kieran Villanueva DS: Diagnosis Discharge Diagnosis (1) Adenomatous polyp of cecum: Status: Acute DS: Summary Hospital Course Hospital Course: BRIEF HPI: The patient is a 51-year-old female who had undergone colonoscopy with Dr. Kebede and was noted to have an unresectable sessile polyp in the cecum. Pathology revealed tubular adenoma with focal high-grade dysplasia.?She was therefore referred to Dr. Villanueva for resection.? She now presents for the procedure. HOSPITAL COURSE: On 03/30/21, a FLORES right colon resection was performed by Dr. Villanueva without complication. The patient tolerated the procedure well, completed routine recovery in PACU and was admitted to the medical/surgical floor for observation. She had an uncomplicated recovery course. On POD #1, she had some nausea and her appetite was poor. She was continued on clear liquids. Her pain control was adequate. Her rodgers was removed and she was ambulated. Over the next two days, her nausea resolved and she was tolerating clear liquids. She was advanced to a solid diet. Her incisional pain improved. She began to pass flatus. On POD #3, she felt well with her pain controlled on PO analgesics, she was tolerating a solid diet without N/V, was ambulating without difficulty with good flatus. Her abdomen was benign with appropriate post op tenderness and clean incision. She felt ready for discharge to home. She was discharged to home on 04/02/21 in stable condition. She is to follow up with Dr. Villanueva in office 2 weeks. Status at Discharge Functional status at discharge: independent ambulation Overall status at discharge: patient is progressing back to baseline Time Spent with Patient Time attestation: Total time spent providing and/or coordinating discharge services: Discharge coordination time: Greater than 30 minutes Quality: Stroke Does the patient have a stroke diagnosis?: No Physical Exam Vital Signs: Vital Signs: Last Vital Signs Temp 98.2 F 04/02/21 15:36 Pulse 63 04/02/21 15:36 Resp 18 04/02/21 15:36 BP 123/61 04/02/21 15:36 Pulse Ox 96 04/02/21 15:36 Body Mass Index 27.8 Const: General: healthy appearing, comfortable, no acute distress and alert Orientation/consciousness: patient oriented x3 Resp: Effort & Inspection: normal respiratory effort GI: Inspection: No distended and Yes incision (clean) Palpation (GI): Soft to palpation, Tenderness to palpation present (GI) (mild, incisional), no guarding and not rigid Percussion: Yes normal to percussion Skin: General skin exam: no rashes or lesions noted Neuro: General: patient oriented x3 Extrem: General: Yes no clubbing, cyanosis or edema DS: Data Data Completed and Pending Pending studies at discharge: Pending at discharge 03/30/21 09:21 Surgical [PTH] Stat Discharge Plan Discharge Patient Disposition: Home, Self-Care Discharge Diagnosis: cecal polyp Referrals: Kieran Mayo MD [Primary Care Provider] - 1 Week Kieran Villanueva MD [Physician] - 2 Weeks Discharge Medications: New oxycodone-acetaminophen [Percocet] 5-325 mg tablet 1 tab PO Q4-6H PRN (Reason: pain) Qty: 30 RF: 0 ibuprofen 600 mg tablet 600 mg PO Q6H PRN (Reason: pain) Qty: 30 RF: 0 Continued buspirone 5 mg tablet 1 tab PO BID PRN (Reason: Anxiety) RF: 0 fluoxetine 10 mg capsule 1 cap PO DAILY RF: 0 norethindrone (contraceptive) 0.35 mg tablet 1 tab PO DAILY RF: 0 Discharge Orders: Discharge Order (Routine); Ordered 04/02/21 Ordered By: Kieran Villanueva Diet: advance to usual diet Activity on Discharge: No heavy lifting Stand Alone Forms: Patient Portal Discharge page Activity Restrictions/Additional Instructions: If the incision area is tender, you may apply an ice pack for short intervals (No more than 20 minutes on, followed by at least 20 minutes off). Do not apply heat. Do not use creams, lotions, or topical antibiotics unless instructed to do so by your surgeon. These can cause infection or allergic reaction. OK to shower No lifting more than 20 lb No strenuous activities Call the office for follow-up in 2 weeks - with Dr. Villanueva Call Your Doctor If: -Your temperature exceeds 101.5? F -You experience excessive pain or swelling -You have an unexpected reaction to medication -You have excessive bleeding -You experience continued vomiting/nausea -Your incision begins to separate -Your incision shows signs of infection such as increased redness, swelling, excessive pain, drainage (light blood or clear fluid is normal) or heat Care Plan Goals: pain control with oral meds Health Concerns: cecal polyp Plan of Treatment: oral pain meds ffu[ in office Assessment: doing very well Discharge Date/Time: 04/02/21 17:45
== END 2021-04-02 17:45 | disposition home or self-care (01) | DRG 231 ==
LOC: HO.SSSA 10:43 → HO.S3 11:08
PROVIDERS: Nurse Practitioner; Physician Assistant Surgical; Admitting Provider Surgery; PCP Internal Medicine; Visit Provider Surgery
PROC: 0DBF0ZZ Excision of Right Large Intestine, Open Approach (ICD-10-PCS; principal; 2021-03-30 07:30)
DX: D12.0 Benign neoplasm of cecum (principal); F17.210 Nicotine dependence, cigarettes, uncomplicated; N73.6 Female pelvic peritoneal adhesions (postinfective); Z71.6 Tobacco abuse counseling; Z20.822 Contact with and (suspected) exposure to COVID-19; Z79.3 Long term (current) use of hormonal contraceptives; Z79.899 Other long term (current) drug therapy
CPT/HCPCS: 36415; 80048; 81025; 85025; 85027; 86850; 86900; 86901; 87635; 88305; 88307; 88309; 88329; 88341; 88342; 93005; 99024; C1758; J0131; J1100; J1170; J1885; J2250; J2270; J2405; J2550; J3010

== ENCOUNTER 2021-04-12 10:25 | Outpatient (REF) | payer OTHER, SELFPAY | END 2021-04-12 10:26 | disposition home or self-care (01) | LOC: HO.LAB 10:25 | PROVIDERS: PCP Internal Medicine; Visit Provider Surgery | DX: Z48.3 Aftercare following surgery for neoplasm (principal); C18.9 Malignant neoplasm of colon, unspecified | CPT/HCPCS: 36415; 82378 ==

== ENCOUNTER → 2021-04-13 11:20 | Outpatient (BNV) | payer OTHER, SELFPAY | PROVIDERS: Referring Provider Surgery; Visit Provider Internal Medicine | DX: C18.9 Malignant neoplasm of colon, unspecified (principal) | CPT/HCPCS: 99204; 99213; 99214 ==

== ENCOUNTER 2021-04-26 07:48 | Day surgery (SDC) | payer OTHER, SELFPAY ==
--- NOTE | ~2021-04-26 | IR_ITS ---
CLINICAL HISTORY: The patient is a 51-year-old female with colon cancer requiring chemotherapy, who presents to interventional radiology for placement of a right chest port as requested. PROCEDURES: 1. Real-time ultrasound-guided access into the right internal jugular vein after documentation of selected vessel patency, and permanent imaging storing in the patient records. 2. Placement of single lumen port catheter. FLUOROSCOPY TIME: 0.7 minutes DAP: 101 cGy centimeter squared PROCEDURE NOTE: Informed consent was obtained from the patient prior to the procedure. During this process, the procedure and potential alternatives were explained along with the intended outcome and benefits. The risks of the procedure, including the possibility of an unsuccessful procedure, as well as the risk of not doing the procedure, were discussed. The patient was given the opportunity to ask questions regarding the procedure and appeared competent to make decisions. A signed consent form documenting this discussion was placed in the medical record. A time-out procedure was performed. The patient was placed supine on the fluoroscopy table. The right neck and chest were prepped and draped in usual sterile fashion. ?All elements of maximal sterile barrier technique followed including use of cap, mask, sterile gown, sterile gloves, a sterile full body drape and hand hygiene. Also followed skin preparation with 2% chlorhexidine for cutaneous antisepsis, and sterile ultrasound preparation with sterile gel and probe cover when applicable.? Venous access was achieved into the right IJ vein using ultrasound and fluoroscopic guidance with a 5 F Micropuncture set. A small skin tawanna was made at the access site. The 0.018 wire was exchanged for a 0.035 in J wire, which was advanced to the IVC to maintain access during dissection of the pocket and the tunneling process. Attention was then directed to the chest where the port pocket was to be made a few centimeters below the clavicle. Lidocaine with 1:100,000 epinephrine was used for local anesthetic and a 3 cm incision was made. The pocket was dissected to the size of the port and then a subcutaneous tunnel was made to connect to the venotomy site. The pocket was flushed with normal saline. The catheter was pulled through the tunnel. The micropuncture set sheath in the IJ was exchanged over the wire for a peel-away sheath. The inner dilator and J wire were removed and the catheter was advanced through the peel away sheath until the tip lying within the region of the proximal and mid right atrium. The peel away sheath was subsequently removed. The catheter was then trimmed to size at the port pocket and connected to the port reservoir. The port was then sutured in the pocket with 2-0 monofilament sutures. The port incision site was closed with a running 4-0 absorbable suture. Dermabond was placed over the port pocket incision site and the internal jugular puncture site in the neck. The port reservoir was accessed and flushed without difficulty. FINDINGS: 1. Patent right IJ vein. 2. Tip of catheter in the proximal to mid right atrium. 3. Catheter flushes and aspirates well. 4. No pneumothorax. 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
[2021-04-26 08:14] VITALS: BMI 25.7
[2021-04-26 08:25] LABS: MANUAL DIFF FLAG NO
[2021-04-26 08:27] LABS: Basophils Percent Auto 0.6 % (0-2); Eosinophils Absolute Auto 0.4 X10*3/uL (0.0-0.4); Eosinophils Percent Auto 4.8 % (0-4); Hematocrit 35.1 % (37-47); Hemoglobin 11.9 g/dl (12.0-16.0); Imm Gran Abs Auto 0.02 X10*3/uL (0.00-0.03); Imm Gran Pct Auto 0.3 % (0.0-0.4); Lymphocytes Absolute Auto 2.9 X10*3/uL (1.2-4.9); Lymphocytes Percent Auto 39.6 % (20-40); Mean Corpuscular HGB Conc 33.9 g/dl (31.0-35.0); Mean Corpuscular Hemoglobin 31.4 pg (27.0-33.0); Mean Corpuscular Volume 92.6 fL (80-98); Mean Platelet Volume 8.9 fL (9.4-12.3); Monocytes Absolute Auto 0.4 X10*3/uL (0.1-1.2); Monocytes Percent Auto 5.9 % (2-11); Neutrophils Absolute Auto 3.5 X10*3/uL (2.0-8.3); Neutrophils Percent Auto 48.8 % (45-73); Platelet Count 336 X10*3/uL (160-400); Red Blood Count 3.79 X10*6/uL (4.20-5.50); Red Cell Distribution Width 13.1 % (11.0-16.0); White Blood Count 7.2 X10*3/uL (4.8-10.8)
[2021-04-26 08:35] LABS: Prothrombin Time 11.2 SEC (9.9-13.0)
[2021-04-26 08:50] LABS: Partial Thromboplastin Time 43.5 SEC (24.1-38.0)
[2021-04-26] MEDS: Lidocaine HCl 1 % MPF 5 ML VIAL SUBCUT (11:14)
[2021-04-26 11:34] VITALS: BP 101/61; PULSE 60; RESP 18; TEMP 36.4; O2SAT 95
[2021-04-26 11:50] VITALS: BP 110/69; PULSE 59; RESP 16; O2SAT 96
[2021-04-26 12:05] VITALS: BP 103/63; PULSE 62; RESP 16; TEMP 36.4; O2SAT 97
[2021-04-26 12:45] VITALS: BP 113/64; PULSE 58; RESP 16; O2SAT 97
== END 2021-04-26 13:04 | disposition home or self-care (01) ==
PROVIDERS: Radiology Diagnostic Radiology; PCP Internal Medicine; Visit Provider Radiology Diagnostic Radiology
DX: C18.9 Malignant neoplasm of colon, unspecified (principal); Z90.49 Acquired absence of other specified parts of digestive tract; F32.9 Major depressive disorder, single episode, unspecified; M48.00 Spinal stenosis, site unspecified; Z79.1 Long term (current) use of non-steroidal anti-inflammatories (NSAID); Z79.899 Other long term (current) drug therapy; Z91.040 Latex allergy status; F17.210 Nicotine dependence, cigarettes, uncomplicated
CPT/HCPCS: 36415; 36561; 76937; 85025; 85610; 85730; 99152; 99153; C1769; C1788; J0690; J2250; J2405; J3010

== ENCOUNTER 2021-05-04 08:50 | Outpatient (REF) | payer OTHER, SELFPAY ==
--- NOTE | ~2021-05-04 | PE_ITS ---
EXAMINATION: FLUORINE-18 FDG PET/CT SCAN CLINICAL INDICATION: Initial treatment management. Colon cancer, staging. COMPARISON: CT scan of the abdomen and pelvis 03/15/2021 TECHNIQUE: 60 minutes following the intravenous administration of 16.2 mCi of fluorine 18 FDG, images from the base of the skull to the mid thighs were obtained using a combined PET/CT scanner with CT scan based attenuation correction. No intravenous contrast was administered. Oral contrast consisting of 450 mL of Readi-Cat was administered prior to the scan. No oral contrast was administered. Transverse, coronal, sagittal, and volume reconstruction projections were obtained. The patient's blood glucose as determined by a finger stick, was 91 mg/dL immediately prior to injection. DLP: 456.57 mGy-cm FINDINGS: NECK AND VISUALIZED HEAD: No abnormal FDG activity. Physiologic FDG activity is noted within the head and neck, with mildly intense uptake in the lingual tonsils. No pathologically enlarged cervical lymph nodes. There is mucoperiosteal thickening in the right maxillary sinus. THORAX: There is a 4 mm nodule at the right lung apex (image 54/287). There is a 4 mm subpleural nodule in the right upper lobe posteriorly (image 57/267). There is a 4 mm subpleural nodule in the right upper lobe anteriorly (image 70/267). There is a 4 mm subpleural nodule in the left upper lobe (image 62/267). None of these foci demonstrate abnormal FDG uptake. There is no abnormal FDG uptake elsewhere. There is mild activity in the region of the surgery in the cecum, with a maximum SUV of 3.5. No edema, effusion, consolidation or pneumothorax. No pathologically enlarged mediastinal or axillary lymphadenopathy. A Port-A-Cath is noted from the right chest. Physiologic myocardial uptake is present. ABDOMEN AND PELVIS: No abnormal FDG activity within the liver, spleen, pancreas, gallbladder, adrenal glands or kidneys. The liver, gallbladder, spleen, pancreas, adrenal glands and kidneys are unremarkable on this unenhanced scan. There is a small hiatal hernia. There is diverticulosis involving the entire bowel. There are now surgical clips in the region of the cecum. There is mild activity in the anterior abdominal wall with slight increased attenuation in the fat with an SUV of 2.4; this is consistent with postoperative changes. No pathologically enlarged mesenteric, retroperitoneal or inguinal lymphadenopathy. The uterus appears normal. MUSCULOSKELETAL: No pathologic metabolically active areas are noted within the soft tissues or osseous structures. Multifocal mild non-specific abnormalities which are likely arthritic or traumatic in etiology. VASCULAR: Minimal atherosclerotic calcification is visualized. PET/PET CT fusion skull to thigh IMPRESSION: 1. There is no abnormal FDG activity to suggest focal, metastatic or recurrent tumor. 2. There is diffuse diverticulosis in the bowel. There are surgical clips in the region of the cecum. There is a small hiatal hernia. 3. There are multiple small nodules in the lungs, without abnormal FDG uptake. According to the UPDATED 2017 Fleischner Society recommendations, the advised followup imaging for solid nodules < 6 mm is: LOW RISK PATIENT: No routine followup. HIGH RISK PATIENT: Optional CT at 12 months.
== END 2021-05-04 08:51 | disposition home or self-care (01) ==
LOC: HO.PET 08:50
PROVIDERS: Visit Provider Internal Medicine
DX: Z13.89 Encounter for screening for other disorder (principal)

== ENCOUNTER → 2021-05-14 15:56 | Outpatient (BNVA) | payer OTHER, SELFPAY | PROVIDERS: PCP Internal Medicine; Referring Provider Internal Medicine; Visit Provider Surgery ==

== ENCOUNTER 2021-05-28 16:19 | Outpatient (REF) | payer OTHER, SELFPAY ==
--- NOTE | ~2021-05-28 | MM_ITS ---
EXAMINATION: MM SCREENING DIGITAL BREAST TOMOSYNTHESIS, BILATERAL CLINICAL INFORMATION: Screening. Asymptomatic. The lifetime risk of breast cancer based on the Tyrer-Cuzick Model is 11%. COMPARISON: Mammography: 04/15/2020, 04/10/2019, 04/07/2018 TECHNIQUE: Digital breast tomosynthesis is performed in both the craniocaudal and mediolateral oblique views along with computer-aided detection (CAD). Synthesized 2D images are generated from the tomosynthesis. Additional right MLO view is provided. FINDINGS: There are scattered areas of fibroglandular density (ACR BI-RADS breast composition Category b). Breast tissue composition borders on predominantly fatty. Background fibroglandular and stromal densities are stable. No interval mass or architectural abnormality. No abnormal calcifications. MM/MM tomosynthesis screening BI IMPRESSION: No mammographic evidence of malignancy. ASSESSMENT: BI-RADS 1: Negative RECOMMENDATION: Routine annual mammography screening. This patient's information was entered into a reminder system with a target due date for their next mammogram.
== END 2021-05-28 16:20 | disposition home or self-care (01) ==
LOC: HO.MAMMO 16:19
PROVIDERS: Visit Provider Internal Medicine
DX: Z12.31 Encounter for screening mammogram for malignant neoplasm of breast (principal)
CPT/HCPCS: 77063; 77067

== ENCOUNTER 2021-12-20 07:38 | Outpatient (REF) | payer OTHER, SELFPAY ==
--- NOTE | ~2021-12-20 | CT_ITS ---
EXAMINATION: CT CHEST WITH CONTRAST CT ABDOMEN PELVIS WITH CONTRAST CLINICAL INFORMATION: Surveillance for colon cancer. COMPARISON: CT PET exam 05/04/2021. TECHNIQUE: 5 mm thin axial and reformatted 3 mm thin sagittal and coronal images of chest, abdomen pelvis were obtained following IV 85 mL Omnipaque 350. DLP: 387 mGy-cm FINDINGS: CHEST: Lungs: There is a 3 mm nodule right posterior lung apex image 34/6, 3 mm nodule right upper lobe adjacent to the major fissure axial image 209/6. No additional lung nodules seen. No acute process. Mediastinum: There is asymmetry of thyroid gland with the right thyroid lobe appearing slightly enlarged. The central trachea and the bronchi are widely patent. The heart size and the great vessels are normal caliber. There is no pericardial effusion. No abnormal sized mediastinal or hilar lymph nodes seen. There are tortuous vessels seen in esophageal hiatus likely varices secondary to portal hypertension. Pleura: There is no pleural effusion or thickening. Axilla: There are no abnormal axillary lymph nodes. The chest wall is unremarkable. ABDOMEN AND PELVIS: Liver, Ducts and Gallbladder: The liver is diffusely attenuated without any focal lesion. No intrahepatic ductal dilatation seen. The portal vein is patent. Hepatic veins are patent as well. The gallbladder is unremarkable. Spleen: There is borderline splenomegaly with spleen measuring 14 cm. Pancreas: Unremarkable. Kidneys, Ureter and Bladder: Both kidney nephrograms are symmetrical in size, contour and position. There is a nonenhancing 8 mm hypodensity lower pole left kidney. No additional lesions seen. There is no radiopaque calculi or hydronephrosis. The bladder is nondistended and appears unremarkable. Lymphovascular Structures: There are no abnormal size pretracheal lymph nodes. The abdominal aorta is normal caliber. Abdominal Wall: There are postsurgical changes along the mid abdominal wall from previous intervention. No evidence of hernia seen. GI Tract: There is scattered oral contrast. Diverticula are seen throughout the colon without distention or diverticulitis. Mild nonspecific mural thickening involving the rectum and distal sigmoid colon is noted. The small bowel loops are normal caliber. Appendix not seen. There is mild fat stranding seen in the right paracolic gutter likely postoperative changes similar to previous CT. Pelvis: The uterus is anteverted and appears unremarkable. There is a 2.24 cm cyst in right adnexa. There is no free fluid. No solid adnexal mass or abnormal lymphadenopathy seen. Osseous Structures: No aggressive lytic or sclerotic process seen. There are mild degenerative disc changes with vacuum disc phenomena L5-S1 disc level and mild ventral and posterior spondylosis. CT/CT abdomen pelvis w con IMPRESSION: Only 2 right upper lobe lung former nodules are seen instead of 3 visualized on the previous PET/CT exam 05/04/2021. No additional lung nodules, mass or consolidation seen. No abnormal mediastinal or axillary lymphadenopathy. Diffuse hepatic steatosis without focal lesion. Varices at the esophageal hiatus likely from elevated portal hypertension. Borderline splenomegaly. No abnormal retroperitoneal or pelvic lymphadenopathy seen. Likely small cyst lower pole left kidney. Postsurgical changes mid abdominal wall. Sigmoid colon diverticulosis with mild constipation and mild fat stranding along the right paracolic gutter likely postsurgical.
[2021-12-20] MEDS: iohexoL 350 MG/ML 100 ML INFUS..BTL IV (11:16)
[2021-12-20] MEDS: Barium Sulfate Oral (Berry) 450 ML ORAL.SUSP 900 ML PO (11:16)
== END 2021-12-20 07:39 | disposition home or self-care (01) ==
LOC: HO.CT 07:38
PROVIDERS: PCP Internal Medicine; Visit Provider Internal Medicine
DX: C18.9 Malignant neoplasm of colon, unspecified (principal); R91.1 Solitary pulmonary nodule
CPT/HCPCS: 71260; 74177; Q9967

== ENCOUNTER 2022-05-10 07:07 | Day surgery (SDC) | payer OTHER, SELFPAY ==
--- NOTE | 2022-05-09 09:06 | P.CONAN_ITS ---
Documented by User: Licha Parks NP 05/09/22 09:08 HPI - Anesthesia Eval Consult details Narrative: 52yo F for Upper Endoscopy and Colonoscopy Colon ca s/p resection 2020 and chemo PMFSH Active Problems Active Problems: All Active Problems (Updated 07/11/21 @ 11:33 by Tessa Joyce MD) Colon cancer (Chronic) S/P right colectomy (Acute) Past Medical History Medical History Adenomatous polyp of cecum Arthritis Colon cancer Depression History of anxiety History of kidney infection Spinal stenosis Family History Family History Mother Diabetes Afib Heart murmur Family history of problems with anesthesia: No Surgical History Surgical History H/O colonoscopy History of colon resection History of Problems with Anesthesia: No Social History Social History Household Members: Significant Other Housing: House Are you a primary physician primary care sports medicine to a significant other at home: No (S.O. at home disabled) Do you presently have visiting nurse or other home services: No Patient Tobacco Use Status: Current everyday Tobacco user Tobacco use type: Cigarette Cigarettes Per Day: 5 Years Smoked: 37 Second Hand Smoke Exposure: Yes Use of substances other than those prescribed or required for medical reasons: Yes Substance Use Type: Marijuana Advance Directives: No Advance Directives Information Provided: Yes service: No Current occupational status: employed Current occupation: billing Meds Allergies Allergy/AdvReac Type Severity Reaction Status Date / Time mushroom Allergy Intermediate Vomiting Verified 12/14/21 13:36 Latex, Natural Rubber Allergy Rash Verified 12/14/21 13:35 Home Medications Medication Instructions Recorded Confirmed Last Taken Type fluoxetine 10 mg capsule 1 cap PO DAILY 08/21/20 03/15/22 03/30/21 History Vitamin B and C 1 tab PO DAILY 08/01/21 03/15/22 Unknown History Vitamin D3 1 tab PO DAILY 08/01/21 03/15/22 Unknown History Exam Exam Date and Time: May 09, [id number] Pertinent Lab Results Pertinent Lab Results: Laboratory Tests 03/15/22 03/15/22 14:47 14:47 WBC 6.6 Hgb 12.0 Hct 35.1 L Plt Count 102 L D Sodium 142 Potassium 4.1 D Chloride 104 Carbon Dioxide 27 BUN 7 L Creatinine 0.77 Assessment and Plan Assessment Anesthesia Assessment: Chart Reviewed Final Anesthetic Review Family History of Problems with Anesthesia: No History of Problems with Anesthesia: No Documented by User: Andriy Penn MD 05/10/22 07:50 PMFSH Past Medical History Medical History Adenomatous polyp of cecum Arthritis Colon cancer Depression History of anxiety History of kidney infection Spinal stenosis Family History Family History Mother Diabetes Afib Heart murmur Surgical History Surgical History H/O colonoscopy History of colon resection Social History Social History Household Members: Significant Other Housing: House Are you a primary physician primary care sports medicine to a significant other at home: No (S.O. at home disabled) Do you presently have visiting nurse or other home services: No Patient Tobacco Use Status: Current everyday Tobacco user Tobacco use type: Cigarette Cigarettes Per Day: 5 Years Smoked: 37 Second Hand Smoke Exposure: Yes Use of substances other than those prescribed or required for medical reasons: Yes Substance Use Type: Marijuana Advance Directives: No Advance Directives Information Provided: Yes service: No Current occupational status: employed Current occupation: billing Meds Allergies Allergy/AdvReac Type Severity Reaction Status Date / Time mushroom Allergy Intermediate Vomiting Verified 12/14/21 13:36 Latex, Natural Rubber Allergy Rash Verified 12/14/21 13:35 Home Medications Medication Instructions Recorded Confirmed Last Taken Type fluoxetine 10 mg capsule 1 cap PO DAILY 08/21/20 03/15/22 03/30/21 History Vitamin B and C 1 tab PO DAILY 08/01/21 03/15/22 Unknown History Vitamin D3 1 tab PO DAILY 08/01/21 03/15/22 Unknown History Exam Airway Mallampati Class: II TM Dist: >3cm Neck ROM: Full Loose/Missing/Broken Teeth: No Heart: rrr+[id number] Lungs: cta b/l Assessment and Plan Assessment Anesthesia Assessment: Anesthesia Plan Discussed Final Anesthetic Review NPO: Yes ASA Class: III Final Preanesthetic Review: No Changes in Pt Med Stat, Meds/Allgs Chart Reviewed, Consent Obtained/Reviewed and Anes Risks/Benef Reviewed Patient Risk: Intermediate Procedure Risk: Intermediate Assessment/Block/Sedation in SS: Assess/Block/Sedation-SS Anesthetic Plan Anesthetic Plan: MAC: and Agree w/ Assess. and Plan Disposition: Standard PACU
[2022-05-10 07:18] VITALS: BMI 21.4
[2022-05-10 07:42] LABS: Hematocrit 43.8 % (37.0-47.0); Mean Corpuscular HGB Conc 34.2 g/dl (31.0-35.0); Mean Corpuscular Hemoglobin 30.5 pg (27.0-33.0); Mean Platelet Volume 8.6 fL (9.4-12.3); Platelet Count 161 X10*3/uL (160-400); Red Blood Count 4.92 X10*6/uL (4.20-5.50); Red Cell Distribution Width 13.9 % (11.0-16.0); White Blood Count 11.5 X10*3/uL (4.8-10.8)
[2022-05-10] MEDS: Lactated Ringers 1,000 ML 100 ML IVCONT (07:46)
[2022-05-10 07:47] VITALS: BP 110/68; PULSE 82; RESP 16; TEMP 36.8; O2SAT 97
--- NOTE | 2022-05-10 08:28 | MHC.SHP ---
Pre-Procedural Eval Section A Date of Service: 05/10/22 The patient is an INPATIENT: No Changes since office visit: No Cold of Flu in the past 2 weeks, No New Medical Problems, No Changes in Medication and No Patient answered all questions The History & Physical has been completed within 30 days and I have reviewed it.: Yes Section B Chief Complaint: Malignant neoplasm of colon,abnormal findings Allergies: Allergies Allergy/AdvReac Type Severity Reaction Status Date / Time mushroom Allergy Intermediate Vomiting Verified 12/14/21 13:36 Latex, Natural Rubber Allergy Rash Verified 12/14/21 13:35 Plan I have reviewed the history and physical and performed a pertinent physical examination on my patient. No changes have occurred unless specified.
[2022-05-10 09:25] VITALS: BP 125/75; PULSE 74; RESP 16; TEMP 36.9; O2SAT 98
--- NOTE | 2022-05-10 09:25 | PM.OP ---
Brief Operative Note Date of Service: 05/10/22 Pre-op diagnosis: abnl ct colon cancer Post-op diagnosis: same Surgeon: Jam Kebede Anesthesia: MAC Was an Inker [employer] O[employer] used for this Procedure?: No Estimated blood loss (mL): 5 Pathology: other Condition: stable Disposition: PACU
[2022-05-10 09:40] VITALS: BP 109/59; PULSE 61; RESP 18; TEMP 36.7; O2SAT 96
--- NOTE | 2022-05-10 12:10 | OP_ITS ---
SURGEON: Jam Kebede MD INDICATIONS: 1. Abnormal CT scan of the GI tract. 2. Adenocarcinoma of the colon. PREOPERATIVE DIAGNOSIS: POSTOPERATIVE DIAGNOSIS: PROCEDURE PERFORMED: Upper with biopsy, colonoscopy to the neoterminal ileum with balloon dilation and biopsy. ESTIMATED BLOOD LOSS: COMPLICATIONS: ANESTHESIA: Monitored anesthesia care. ASSISTANTS: SPECIMENS: DESCRIPTION OF PROCEDURE: The procedure was performed on 05/10/2022. History and physical performed. The risks and benefits of the procedure were explained to the patient. Informed consent was obtained. The patient was placed in the left lateral decubitus position. The Olympus video gastroscope was introduced into the esophagus, stomach, and duodenum. Examination was performed. The scope was removed. She was repositioned for colonoscopy. A digital rectal exam was performed and was found to be normal. The Olympus pediatric video colonoscope was introduced into the a rectum and advanced to the ileocolonic anastomosis which was at about an 80 cm. Examination was performed and scope was removed. She tolerated both procedures well and was returned to the recovery area in stable condition. FINDINGS: Upper endoscopy: 1. Esophagus: The esophagus showed 3 chains of grade 1 varices extending from the EG junction at 36 cm to about 28 cm. There was no stigmata of recent hemorrhage. No therapy was performed. 2. Stomach: The stomach showed portal hypertensive gastropathy. There were several less than 10 mm benign-appearing gastric polyps, 2 of these were biopsied. Antral biopsies were obtained to rule out H pylori. 3. Duodenum: The bulb and second portion were normal. Colonoscopy: There was a mild stricture at the ileocolonic anastomosis, which did not permit passage of the pediatric colonoscope. This was dilated with a balloon from 15 to 18 mm with multiple inflations at the recommended pressures for 60 seconds each. The stricture was widely patent at the termination of the procedure. There was no evidence of recurrent adenocarcinoma. There were mild inflammatory changes at the stricture consistent with postoperative changes. Biopsies were obtained from the stricture. The remainder of the colon appeared within normal limits. The juan miguel terminal ileum was normal. No polyps were identified. There was diffuse diverticulosis of the colon. The quality of the prep was good. Retroflexed examination showed some hypertrophic anal papillae and moderate-sized internal hemorrhoids. IMPRESSION: 1. Esophageal varices. 2. Portal hypertensive gastropathy. 3. Mild stricture at the ileocolonic anastomosis, dilated and biopsied. RECOMMENDATION: Follow up the biopsy results. MD JONATHAN Hudson/[place] / [id number] MTDD
== END 2022-05-10 10:45 | disposition home or self-care (01) ==
PROVIDERS: Nurse Practitioner; PCP Internal Medicine; Visit Provider Internal Medicine Gastroenterology
PROC: (CPT 45380; principal; 2022-05-10 07:30)
DX: C18.9 Malignant neoplasm of colon, unspecified (principal); K91.89 Other postprocedural complications and disorders of digestive system; Z98.0 Intestinal bypass and anastomosis status; K57.30 Diverticulosis of large intestine without perforation or abscess without bleeding; K64.8 Other hemorrhoids; Y83.2 Surgical operation with anastomosis, bypass or graft as the cause of abnormal reaction of the patient, or of later complication, without mention of misadventure at the time of the procedure; Y73.3 Surgical instruments, materials and gastroenterology and urology devices (including sutures) associated with adverse incidents; Y92.9 Unspecified place or not applicable; R93.3 Abnormal findings on diagnostic imaging of other parts of digestive tract; I85.00 Esophageal varices without bleeding; K76.6 Portal hypertension; K31.89 Other diseases of stomach and duodenum; K31.7 Polyp of stomach and duodenum; F17.210 Nicotine dependence, cigarettes, uncomplicated; F12.90 Cannabis use, unspecified, uncomplicated
CPT/HCPCS: 45380; 45386; 43239; 36415; 85027; 88305; 88342; C1726

== ENCOUNTER 2022-05-24 08:12 | Outpatient (REF) | payer OTHER, SELFPAY | END 2022-05-24 08:13 | disposition home or self-care (01) | LOC: HO.US 08:12 | PROVIDERS: Visit Provider Internal Medicine Gastroenterology | DX: Z13.89 Encounter for screening for other disorder (principal) ==

== ENCOUNTER 2022-05-31 09:18 | Outpatient (REF) | payer OTHER, SELFPAY ==
--- NOTE | ~2022-05-31 | US_ITS ---
EXAMINATION: US ABDOMEN LIMITED WITH LIVER ELASTOGRAPHY CLINICAL INFORMATION: Elevated liver function tests COMPARISON: Previous CT November 2021. TECHNIQUE: Real-time imaging of the abdominal viscera. Noninvasive ultrasound liver fibrosis assessment is performed using Jonathan ElastPQ point quantification shear wave elastography (2D-SWE) with a C5-2 MHz transducer. Multiple elastography samples are obtained. FINDINGS: PANCREAS: Slightly heterogeneous-appearing pancreas. No focal lesion. LIVER: Echogenic liver. Normal contour and size. No focal lesion or intrahepatic biliary duct dilatation. The right lobe measures 13 cm in length. The left lobe measures 8 cm in length. Portal flow is normal/hepatopedal. Shear wave liver elastography median stiffness is 2 m/s (reference: normal median stiffness is 1.3 m/s or less). IQR/median stiffness to assess sampling precision is 0.12 (reference: good quality data set is IQR/median stiffness of 0.15 or less). GALLBLADDER: Multiple gallbladder wall polyps, largest measuring 1 x 8 x 7 mm. No gallstones. COMMON BILE DUCT: Normal in caliber measuring 0.6 cm in diameter. RIGHT KIDNEY: Normal. No hydronephrosis. No renal calculi or focal parenchymal lesions. The kidney measures 10 cm in maximum dimension. FREE FLUID: None US/US abdomen camarena w elastography IMPRESSION: 1. Echogenic liver. Multiple gallbladder wall polyps largest measuring 1 x 0.8 x 0.7 cm. Ultrasound followup in 6 months recommended as large polyps have increased risk of malignancy. Slightly heterogeneous appearance of the pancreas. No focal pancreatic lesion. 2. Liver elastography: Adequate liver sampling. Slightly increased liver stiffness. Suggestive of compensated advanced chronic liver disease but need further test for confirmation. REFERENCE: Society of Radiologists in Ultrasound Liver Stiffness Thresholds (2020): LIVER STIFFNESS THRESHOLDS: *Liver Stiffness equal or less than 1.3 m/s: High probability of being normal. *Liver Stiffness less than 1.7 m/s: In the absence of other known clinical signs, rules out compensated advanced chronic liver disease. *Liver Stiffness 1.7-2.1 m/s: Suggestive of compensated advanced chronic liver disease but need further test for confirmation. *Liver Stiffness over 2.1 m/s: Rules in compensated advanced chronic liver disease. *Liver Stiffness over 2.4 m/s: Suggestive of clinically significant portal hypertension. QUALITY OF DATA SET: *IQR/Median value equal or less than 0.15 implies a quality data set. *IQR/Median value over 0.15 implies a poor quality data set. SIGNIFICANT CHANGE FROM PRIOR EXAM: Significant change if liver stiffness measurement is 10% or greater from prior exam. OTHER CONSIDERATIONS: The stage of liver fibrosis may be overestimated in the setting of acute hepatitis, liver inflammation, elevated liver function tests, hepatic vascular congestion, obstructive cholestasis, non-fasting state, and infiltrative diseases such as amyloidosis and lymphoma. In some patients with NAFLD, the liver stiffness thresholds for compensated advanced chronic liver disease may be lower. In causes other than viral hepatitis and NAFLD, liver stiffness thresholds are not well established.
== END 2022-05-31 09:19 | disposition home or self-care (01) ==
LOC: HO.US 09:18
PROVIDERS: PCP Internal Medicine; Visit Provider Internal Medicine Gastroenterology
DX: R79.89 Other specified abnormal findings of blood chemistry (principal)
CPT/HCPCS: 76705; 76981

== ENCOUNTER 2022-08-16 07:42 | Outpatient (REF) | payer OTHER, SELFPAY ==
--- NOTE | ~2022-08-16 | CT_ITS ---
EXAMINATION: CT ABDOMEN AND PELVIS WITH CONTRAST CLINICAL INFORMATION: Colon cancer COMPARISON: 12/20/2021, 03/15/2021 TECHNIQUE: Multidetector volumetric images were obtained from the superior aspect of the liver through the pubic symphysis following administration 85 mL of Omnipaque 350 intravenous contrast. Sagittal and coronal reformatted images were obtained on the technologist's workstation. Oral contrast: No This CT examination was performed using dose optimization techniques as appropriate, variously including the following: *Automated exposure control *Adjustment of mA and/or kV according to patient size (this includes techniques or standardized protocols for targeted exams where dose is matched to indication/reason for exam; i.e. extremities or head) *Use of iterative reconstruction technique DLP: 279 mGy-cm FINDINGS: LUNG BASES: The visualized lung bases are unremarkable. LIVER, GALLBLADDER, AND BILIARY TREE: Hepatic dome 6 mm hypoattenuating lesion (3:10) not definitively seen on most recent prior study, but unchanged since 03/15/2021. The gallbladder is unremarkable with no evidence of radiopaque gallstones, gallbladder wall thickening, or obvious pericholecystic inflammatory changes. PANCREAS: Unremarkable. SPLEEN: Unremarkable. ADRENAL GLANDS: Left adrenal gland 1.1 x 1.0 cm nodule is unchanged (3:25). KIDNEYS AND URETERS: The kidneys are normal in size, shape, and attenuation. No hydronephrosis, hydroureter, or calculi seen. No perinephric stranding. BLADDER: Unremarkable. GASTROINTESTINAL TRACT: Colonic diverticulosis no CT findings of diverticulitis. Status post right partial colectomy. ABDOMINAL WALL: The midline anterior abdominal wall again seen is soft tissue nodularity (3:36), unchanged from prior study and may be postsurgical in nature. Redemonstration of 2.2 cm cyst in the right adnexal region. LYMPH NODES: Normal. VASCULAR: Unremarkable. PELVIC VISCERA: Unremarkable. OSSEOUS STRUCTURES: Unremarkable. CT/CT abdomen pelvis w IV con IMPRESSION: 1. Hepatic dome 6 mm hypoattenuating lesion, not definitively seen on most recent prior study, but unchanged since 03/15/2021. 2. Left adrenal gland 1.1 cm nodule is unchanged. Fleischner guidelines were followed.
[2022-08-16] MEDS: iohexoL 350 MG/ML 100 ML INFUS..BTL IV (08:38)
== END 2022-08-16 07:43 | disposition home or self-care (01) ==
LOC: HO.CT 07:42
PROVIDERS: PCP Internal Medicine; Visit Provider Internal Medicine
DX: C18.9 Malignant neoplasm of colon, unspecified (principal)
CPT/HCPCS: 74177; Q9967

== ENCOUNTER 2022-11-08 08:44 | Outpatient (REF) | payer OTHER, SELFPAY ==
--- NOTE | ~2022-11-08 | US_ITS ---
EXAMINATION: US ABDOMEN LIMITED CLINICAL INFORMATION: Gallbladder polyp. COMPARISON: CT abdomen and pelvis 08/16/2022. Limited abdominal ultrasound with elastography 05/31/2022. TECHNIQUE: Real-time imaging of the right upper quadrant abdominal viscera. FINDINGS: PANCREAS: Visualized portions of pancreas are normal in appearance. LIVER: The liver is normal in size. The liver contour is normal. Liver echogenicity is increased diffusely. No focal hepatic lesion. There is no intrahepatic biliary duct dilatation seen. GALLBLADDER: The gallbladder is physiologically distended. There are a few echogenic nonshadowing foci contiguous with the gallbladder wall which are most suggestive of polyps, largest measuring 1.2 cm. No definitive shadowing gallstones identified. No gallbladder wall thickening or pericholecystic fluid appreciated. Negative sonographic Lloyd's sign. COMMON BILE DUCT: Normal in caliber measuring 0.3 cm in diameter. RIGHT KIDNEY: Normal. No hydronephrosis. No renal calculi or focal parenchymal lesions. The kidney measures 8.7 cm in maximum dimension. FREE FLUID: None. US/US abdomen limited IMPRESSION: 1. Suspected gallbladder polyps, the largest measuring 1.2 cm. (Previously 1 cm). No definitive shadowing gallstones identified. No ultrasound evidence to suggest acute cholecystitis. 2. Diffusely increased liver echogenicity. This is a nonspecific finding but most suggestive of hepatic steatosis. Correlation with liver enzymes recommended.
== END 2022-11-08 08:45 | disposition home or self-care (01) ==
LOC: HO.US 08:44
PROVIDERS: PCP Internal Medicine; Visit Provider Internal Medicine Gastroenterology
DX: K82.4 Cholesterolosis of gallbladder (principal)
CPT/HCPCS: 76705

== ENCOUNTER → 2022-11-27 14:41 | Outpatient (BNVA) | payer OTHER, SELFPAY | PROVIDERS: PCP Internal Medicine; Referring Provider Internal Medicine Gastroenterology; Visit Provider Surgery ==

== ENCOUNTER 2023-01-03 08:50 | Day surgery (SDC) | payer OTHER, SELFPAY ==
[2023-01-01 15:13] VITALS: BMI 22.7
--- NOTE | 2023-01-02 08:49 | HO.ANESPROP2 ---
Documented by User: Licha Parks NP 01/02/23 08:50 HPI - Anesthesia Eval Consult details Narrative: 52yo F for Cholecystectomy Laparoscopic,poss open s/p colo and egd 04/2022 with MAC Colon ca s/p resection 2020 and chemo PMFSH Active Problems Active Problems: All Active Problems (Updated 11/27/22 @ 14:52 by Kieran Villanueva MD) Gallbladder polyp (Acute) Colon cancer (Chronic) S/P right colectomy (Acute) Past Medical History Medical History Adenomatous polyp of cecum Arthritis Colon cancer Depression Gallbladder polyp History of anxiety History of kidney infection Port-A-Cath in place Spinal stenosis Family History Family History Mother Diabetes Afib Heart murmur Family history of problems with anesthesia: No Surgical History Surgical History H/O colonoscopy History of colon resection History of Problems with Anesthesia: No Social History Social History Household Members: Significant Other Housing: House Are you a primary career development coordinator/teacher to a significant other at home: No (S.O. at home disabled) Do you presently have visiting nurse or other home services: No Alcohol intake: current Alcohol intake frequency: holidays/special occasions only Patient Tobacco Use Status: Current everyday Tobacco user Tobacco use type: Cigarette Cigarettes Per Day: 6 Years Smoked: 37 Second Hand Smoke Exposure: Yes Use of substances other than those prescribed or required for medical reasons: Yes Substance Use Type: Marijuana Are you DNR?: No Advance Directives: No Advance Directives Information Provided: Yes service: No Current occupational status: employed Current occupation: billing Meds Allergies Allergy/AdvReac Type Severity Reaction Status Date / Time mushroom Allergy Intermediate Vomiting Verified 11/27/22 14:47 Latex, Natural Rubber Allergy Rash Verified 11/27/22 14:47 Home Medications Medication Instructions Recorded Confirmed Last Taken Type fluoxetine 10 mg capsule 1 cap PO DAILY 08/21/20 07/19/22 03/30/21 History Vitamin B and C 1 tab PO DAILY 08/01/21 07/19/22 Unknown History Vitamin D3 1 tab PO DAILY 08/01/21 07/19/22 Unknown History Exam Exam Date and Time: January 02, 2023 0849 Height,Weight and Vital Signs: Height 5 ft 3 in Weight 58.06 kg Pertinent Lab Results Pertinent Lab Results: Laboratory Tests 09/13/22 09/13/22 14:45 14:45 WBC 6.0 Hgb 12.2 Hct 35.6 L Plt Count 164 D Sodium 142 Potassium 3.7 Chloride 106 Carbon Dioxide 26 BUN 11 Creatinine 0.87 Assessment and Plan Assessment Anesthesia Assessment: Chart Reviewed Final Anesthetic Review Family History of Problems with Anesthesia: No History of Problems with Anesthesia: No Documented by User: Trisha Brand MD 01/03/23 09:12 PMFSH Past Medical History Medical History Adenomatous polyp of cecum Arthritis Colon cancer Depression Gallbladder polyp History of anxiety History of kidney infection Port-A-Cath in place Spinal stenosis Family History Family History Mother Diabetes Afib Heart murmur Surgical History Surgical History H/O colonoscopy History of colon resection Social History Social History Household Members: Significant Other Housing: House Are you a primary career development coordinator/teacher to a significant other at home: No (S.O. at home disabled) Do you presently have visiting nurse or other home services: No Alcohol intake: current Alcohol intake frequency: holidays/special occasions only Patient Tobacco Use Status: Current everyday Tobacco user Tobacco use type: Cigarette Cigarettes Per Day: 6 Years Smoked: 37 Second Hand Smoke Exposure: Yes Use of substances other than those prescribed or required for medical reasons: Yes Substance Use Type: Marijuana Are you DNR?: No Advance Directives: No Advance Directives Information Provided: Yes service: No Current occupational status: employed Current occupation: billing Meds Allergies Allergy/AdvReac Type Severity Reaction Status Date / Time mushroom Allergy Intermediate Vomiting Verified 11/27/22 14:47 Latex, Natural Rubber Allergy Rash Verified 11/27/22 14:47 Home Medications Medication Instructions Recorded Confirmed Last Taken Type fluoxetine 10 mg capsule 1 cap PO DAILY 08/21/20 07/19/22 03/30/21 History Vitamin B and C 1 tab PO DAILY 08/01/21 07/19/22 Unknown History Vitamin D3 1 tab PO DAILY 08/01/21 07/19/22 Unknown History Exam Airway Mallampati Class: II TM Dist: >3cm Neck ROM: Full Heart: rrr Lungs: cta Assessment and Plan Assessment Anesthesia Assessment: Anesthesia Plan Discussed and Chart Reviewed Final Anesthetic Review NPO: Yes ASA Class: III Final Preanesthetic Review: No Changes in Pt Med Stat, Meds/Allgs Chart Reviewed, Consent Obtained/Reviewed and Anes Risks/Benef Reviewed Patient Risk: Intermediate Procedure Risk: Intermediate Anesthetic Plan Anesthetic Plan: GA and Agree w/ Assess. and Plan Disposition: Standard PACU (continues to smoke, smoked this Am, marihuana smoker , high use )
[2023-01-03] VITALS (8 sets, daily range): BP systolic 114–136; BP diastolic 63–72; PULSE 58–89; RESP 13–20; TEMP 36.4–36.6; O2SAT 96–99; BMI 21.9
--- NOTE | 2023-01-03 09:08 | MHC.SHP ---
Pre-Procedural Eval Section A Date of Service: 01/03/23 Section B Chief Complaint: Cholesterolosis of gallbladder Details of Present Illness: has GB polyp with increasing size, now 1.2 cm Relevant Family History (Specify if Yes): No Relevant Social History: None Present Medications: None Medical History: Significant History (hx of colon ca;) History of Previous Operations: Relevant previous surgery/procedure and date(s) (right colon resection in 2020) Allergies: Allergies Allergy/AdvReac Type Severity Reaction Status Date / Time mushroom Allergy Intermediate Vomiting Verified 11/27/22 14:47 Latex, Natural Rubber Allergy Rash Verified 11/27/22 14:47 Review of Systems Sugical H&P ROS: Negative: Constitution, Cardiovascular, Respiratory, Neurological, Psychiatric, Hem-Onc, Allergic/Immunologic, Gastrointestinal, Genitourinary, Musculoskeletal, Integumentary, Endocrine and Eyes/Ears/Nose/Throat Exam Surgical H&P Exam: Normal: HEENT, Normal: Heart, Normal: Lungs, Normal: Extremities, Normal: Abdomen, Normal: Skin and Normal: Neurological Plan Diagnosis/Plan: Unchanged I have reviewed the history and physical and performed a pertinent physical examination on my patient. No changes have occurred unless specified. Time Spent With Patient Time: Total time managing care of this patient today ____ minutes.
--- NOTE | 2023-01-03 10:34 | W.PM.OPN ---
Operative Note Operative Note Date of Service: 01/03/23 Narrative: Preop diagnosis: Gallbladder polyp, increasing in size Postop diagnosis: The same Procedure: Laparoscopic cholecystectomy Surgeon: Kieran Villanueva MD assistant speech language pathologist: NITESH Brown The patient is a 52 year female, with note of a gallbladder polyp that had been increasing in size on ultrasound. She understood the technique of laparoscopic cholecystectomy. She was aware of the risks, benefits, and alternatives and had given consent She was brought to the operating room. She was placed supine under general anesthesia via endotracheal tube. The abdomen was prepped and draped in the usual sterile fashion. A surgical time-out was done. The patient received Cefotan 2 g IV preoperatively I made a short incision on the supraumbilical margin using blade 15. The patient had previous surgery in this area is note of significant fibrosis but were able to eventually expose the fascia. The fascia was incised. The peritoneum was entered. Through this incision a Krystal port was introduced. Pneumoperitoneum was introduced to a pressure of 15 mm hg. From here on the rest of the procedure was done under vision with the laparoscope. Laparoscopic visualization using a 10 mm scope, I proceeded to insert a 5/12 mm port in the epigastric area below the subcostal margin through a small stab incision. Two 5 mm ports introduced a small seizures below the subcostal margin along the anterior axillary and midclavicular line. Graspers were placed through these working ports. The patient was placed in head-up and [id number] position Gallbladder was seen. This was supple and non inflamed. I was able to apply a grasper at its fundus and this was used to retract the gallbladder cephalad. Another grasper was light towards the pouch to retract this laterally. The gallbladder was therefore being placed on a cephalad and lateral fashion to place the cystic duct on stretch. The cystic duct was seen and a. I carefully dissected this using the [place] dissector to these off peritoneal tissue and define its he wants a neck of the gallbladder. Once this was done, I was able to this confluence with the neck of the gallbladder. I was able to therefore achieve a critical view as well of the hepatocystic triangle. A small cystic artery could be seen as well adjacent to this. I apply clips on the cystic duct with 2 clips to blade distally. The cystic duct was transected clips with Endo scissors I applied clips on the cystic artery as well and this was transected between clips with Endo scissors. With traction on the gallbladder off of the liver bed, proceeded then divide through the hilum using the electrocautery spatula. I incised the peritoneum of the gallbladder using the spatula and carefully separate the gallbladder from the liver bed along this well-defined plane using a combination of electrocautery as well as blood dissection with the tip of the spatula all to the fundus. The entire gallbladder was completely . This was retrieved through an endobag through the umbilical incision. I reinserted all ports and re-insufflated I cauterized some of the liver bed because of some oozing to achieve hemostasis . Once hemostasis was confirmed, I irrigated the area as there was a little bit of bile spillage from a small tear of the gallbladder. I examined the peritoneal cavity. There was note of some adhesions immediatelu to the right of the midline of the supraumbilical port site but there was no bowel seen adjacent to this and there was no evidence any injury Once examination of the peritoneal cavity did reveal any obvious in bowel injury or any bile leak or bleeding, I proceeded to then desufflate through the port sites. I removed all ports under vision with the laparoscope. The umbilical port was removed last. The fascia of the umbilical incision was closed with a figure-eight extensor stitch. Skin incisions were closed with subcuticular running polyps of 4-0sutures. All incisions were infiltrated with Marcaine 0.5% for postop analgesia. Dressings were applied and the procedure was completed The patient tolerated procedure well. There were no immediate complications. Initial and final counts of sponges and instruments were correct. Estimated blood loss was about 20 cc. The patient was extubated without difficulty and transferred to the recovery room with stable vital signs.
== END 2023-01-03 12:00 | disposition home or self-care (01) ==
PROVIDERS: PCP Internal Medicine; Visit Provider Surgery
PROC: 0FT44ZZ Resection of Gallbladder, Percutaneous Endoscopic Approach (ICD-10-PCS; CPT 47562; principal; 2023-01-03 11:50)
DX: K81.1 Chronic cholecystitis (principal); K82.8 Other specified diseases of gallbladder; Z85.038 Personal history of other malignant neoplasm of large intestine; Z92.21 Personal history of antineoplastic chemotherapy; M19.90 Unspecified osteoarthritis, unspecified site; F32.A Depression, unspecified; Z90.49 Acquired absence of other specified parts of digestive tract; Z91.040 Latex allergy status; F17.210 Nicotine dependence, cigarettes, uncomplicated; F12.90 Cannabis use, unspecified, uncomplicated
CPT/HCPCS: 47562; 88304; 94640; J0131; J1100; J1885; J2250; J2405; J2795; J3010

== ENCOUNTER → 2023-01-03 08:50 | Outpatient (BNV) | payer OTHER, SELFPAY | PROVIDERS: PCP Internal Medicine; Visit Provider Surgery | DX: K82.4 Cholesterolosis of gallbladder (principal) | CPT/HCPCS: 47562 ==

== ENCOUNTER 2023-01-15 15:20 | Outpatient (AMB) | payer OTHER, SELFPAY ==
--- NOTE | 2023-01-15 15:22 | A.OFFVIS_ITS ---
Intake Vital Signs 01/15/23 15:29 Weight 130 lb BP 120/61 Blood Pressure Location Rt brachial Position Sitting Pulse 60 Intake Visit Reasons: Post-op lap walt Intake Note: This patient presents for a post-op assessment status post laparoscopic cholecystectomy. Patient denies complaints at this time. Md Urologist Required: No Accompanied by: Self / Same As Patient Allergies mushroom Allergy (Intermediate, Verified 01/15/23 15:29) Vomiting Latex, Natural Rubber Allergy (Verified 01/15/23 15:29) Rash HPI Post-op lap walt HPI Details She underwent uneventful laparoscopic cholecystectomy for a preop diagnosis of gallbladder polyps last 01/03/2023. She tolerated procedure well. She currently denies significant complaints. She has good oral intake. [facility] Medical History Adenomatous polyp of cecum Arthritis Colon cancer Depression Gallbladder polyp History of anxiety History of kidney infection Port-A-Cath in place Spinal stenosis Surgical History H/O colonoscopy History of colon resection Family History Mother Diabetes Afib Heart murmur Social History Household Members: Significant Other Housing: House Are you a primary child care attendant school to a significant other at home: No (S.O. at home disabled) Do you presently have visiting nurse or other home services: No Alcohol intake: current Alcohol intake frequency: holidays/special occasions only Patient Tobacco Use Status: Current everyday Tobacco user Tobacco use type: Cigarette Cigarettes Per Day: 6 Years Smoked: 37 Second Hand Smoke Exposure: Yes Substance Use Type: Marijuana service: No Current occupational status: employed Current occupation: billing Review of Systems Const Denies chills and Denies fever(s) Card Denies chest pain, Denies dyspnea and Denies dyspnea on exertion Resp Denies cough, Denies dyspnea and Denies dyspnea on exertion GI Denies hematochezia and Denies change in bowel habits Denies hematuria Musc Denies back pain and Denies limited range of motion Neuro Denies focal weakness and Denies convulsions Psych Denies depression and Denies mood swings Physical Exam Const General: comfortable and no acute distress Eyes Sclerae: sclerae normal GI Other: All incisions are well healing Palpation (GI): Soft to palpation, not firm, nontender and no guarding Assessment & Plan Assessment & Plan (1) Gallbladder polyp: Code(s): K82.4 - Cholesterolosis of gallbladder Plan: Status post laparoscopic cholecystectomy. All incisions are well healed. Her path report shows chronic cholecystitis although there was no large gallbladder polyp seen. She advised to avoid any lifting more than 20 lb for at least 2 more weeks. She can otherwise follow up on a p.r.n. basis. Coding Level of Care Code Global (29504) Diagnoses Gallbladder polyp K82.4
[2023-01-15 15:29] VITALS: BP 120/61; PULSE 60
== END 2023-01-15 15:33 | disposition home or self-care (01) ==
PROVIDERS: PCP Internal Medicine; Visit Provider Surgery
DX: K82.4 Cholesterolosis of gallbladder (principal)
CPT/HCPCS: 99024

== ENCOUNTER → 2023-01-15 15:20 | Outpatient (BNVA) | payer OTHER, SELFPAY | PROVIDERS: PCP Internal Medicine; Visit Provider Surgery ==

== ENCOUNTER 2023-02-28 09:48 | Outpatient (REF) | payer OTHER, SELFPAY ==
--- NOTE | ~2023-02-28 | CT_ITS ---
EXAMINATION: CT CHEST WITH INTRAVENOUS CONTRAST CT ABDOMEN AND PELVIS WITH INTRAVENOUS CONTRAST CLINICAL INDICATION: Colon cancer surveillance. COMPARISON: CT abdomen and pelvis 08/16/2022. TECHNIQUE: 5 mm thin axial and reformatted 3 mm thin sagittal and coronal images of chest, abdomen and pelvis were obtained following IV 100 mL Omnipaque 350. This CT examination was performed using dose optimization technique as appropriate, variously including the following: Automated exposure control Adjustment of MA and/or KV according to patient size(this includes techniques or standardized protocols for targeted exams where dose is matched to indication/reason for exam; extremities or head. Use of iterative reconstruction techniques. DLP 353 mGy-cm FINDINGS: CHEST: Lungs: The lungs are well-expanded without acute pneumonic process. There is a 3 mm nodule right upper lobe axial image 104/6, two small nodules measuring 2 mm and 3 mm adjacent to each other right upper lobe axial image 112/6, 3 mm peripheral nodule left upper lobe axial image 156/6, several scattered 2 mm pulmonary nodules in both upper lobes and lower lobes. A 3 mm nodule right lower lobe image 235/6 and a 5 mm nodule left lower lobe axial image 395/6. Mediastinum: The thyroid lobes are asymmetric with likely small nonenhancing 6 mm nodule left lobe. The central trachea and the bronchi are widely patent. The heart size and the great vessels are normal caliber. Thoracic aorta is of normal caliber. There are small shotty lymph nodes in the left para-aortic and pretracheal space. The largest lymph node short axis para-aortic measures 4 mm and 5 mm in the precarinal space. A right chest wall port is noted with its tip at the cavoatrial junction. Pleura: There is no pleural thickening, effusion or calcification. Axillae: No abnormal size axillary lymph nodes seen. There is a right chest wall port. Osseous structures: No aggressive lytic or sclerotic process seen. The paravertebral soft tissues are normal. ABDOMEN AND PELVIS: Liver, ducts and gallbladder: The liver is normal size, contour and density. There is a 7 mm hypodensity segment 8 along the dome of diaphragm image 5/3, stable. No additional lesions seen. No intrahepatic duct dilatation. Gallbladder has been surgically removed. Spleen: Unremarkable. Adrenal glands: A 1.1 cm nodule left adrenal gland is stable. The right adrenal gland is unremarkable.. Genitourinary tract: There is normal symmetry of bilateral kidney nephrograms without radiopaque calculi, enhancing renal mass or hydronephrosis. There is a small 8 mm cyst lower pole left kidney. Lymphovascular structures: Abdominal aorta is of normal caliber. There are small shotty lymph nodes in the retroperitoneum which are nonspecific. Abdominal wall: There are post-incisional changes along the anterior abdominal wall at the level of umbilicus. There is some scarring along the anterior peritoneum. GI tract: There is scattered stool, gas and diverticula seen in the colon without distention. There is annular suture in right colon with mild narrowing but patent lumen. Pelvis: The uterus is anteverted and unremarkable. No free fluid. No adnexal mass or lymph nodes. The bladder is nondistended. Osseous structures: There is a small sclerotic lesion left posterior iliac bone, stable. There is vacuum disc phenomenon and endplate sclerosis L5-S1 disc level. CT/CT abdomen pelvis w IV con IMPRESSION: Tiny pulmonary nodules largest measuring 5 mm, suspicious. No abnormal mediastinal axillary lymphadenopathy seen. Stable hypoattenuating lesion left hepatic lobe. No additional lesions seen. Anastomotic suture line along the right colon is slightly narrowed but no obstruction seen. Colonic diverticulosis without diverticulitis. Postsurgical changes midline anterior abdominal wall periumbilical region. Sclerotic lesion left posterior iliac bone, stable. Vacuum disc phenomenon and degenerative disc changes L5-S1 disc level are stable.
[2023-02-28] MEDS: iohexoL 350 MG/ML 100 ML INFUS..BTL IV (10:35)
[2023-02-28 13:19] LABS: Creatinine POC 0.6 mg/dL (0.5-1.4); GFR POC > 60
== END 2023-02-28 09:49 | disposition home or self-care (01) ==
LOC: HO.CT 09:48
PROVIDERS: PCP Internal Medicine; Visit Provider Internal Medicine
DX: C18.9 Malignant neoplasm of colon, unspecified (principal)
CPT/HCPCS: 71260; 74177; 82565; Q9967

== ENCOUNTER 2023-07-16 14:17 | Outpatient (REF) | payer OTHER, SELFPAY ==
--- NOTE | ~2023-07-16 | CT_ITS ---
EXAMINATION: CT CHEST WITH CONTRAST CLINICAL INFORMATION: Evaluate for pulmonary metastases. History of colon cancer. Rising CEA level. COMPARISON: 02/28/2023 and 12/20/2021 TECHNIQUE: Multidetector volumetric CT imaging of the chest was obtained after the administration of 65 mL of Omnipaque 350 intravenous contrast without immediate adverse reactions. Axial MIP volume rendering provided. Sagittal and coronal reformatted images were obtained. This CT examination was performed using dose optimization techniques as appropriate, variously including the following: *Automated exposure control *Adjustment of mA and/or kV according to patient size (this includes techniques or standardized protocols for targeted exams where dose is matched to indication/reason for exam; i.e. extremities or head) *Use of iterative reconstruction technique DLP: 132 mGy-cm FINDINGS: LUNGS: There are numerous bilateral pulmonary nodules involving all 5 lobes. The largest pulmonary nodule measures 1.1 cm in the left lower lobe on image 118, previously measuring 0.8 cm. There has been interval increase in number and size compared with 02/28/2023. MEDIASTINUM: Imaged thyroid gland is heterogeneous. Great vessels are of normal caliber. Heart size is normal. No pericardial effusion. No bulky axillary, hilar or mediastinal lymphadenopathy. Paraesophageal hernia containing fat. PLEURA: There is no pleural effusion. No pleural mass or thickening. CHEST WALL: Right chest wall Port-A-Cath with tip at the cavoatrial junction. UPPER ABDOMEN: Hepatic steatosis. 8 mm hypodensity at the hepatic dome is unchanged. Status post cholecystectomy. 1.0 cm indeterminate left adrenal nodule is stable. OSSEOUS STRUCTURES: No destructive bone lesions. CT/CT chest w IV con IMPRESSION: Marked interval increase in number and size of innumerable pulmonary nodules with the largest measuring 1.1 cm in the left lower lobe. This most likely represents pulmonary metastatic disease.
[2023-07-16] MEDS: iohexoL 350 MG/ML 75 ML INFUS..BTL 65 ML IV (14:45)
== END 2023-07-16 14:18 | disposition home or self-care (01) ==
LOC: HO.CT 14:17
PROVIDERS: PCP Internal Medicine; Visit Provider Internal Medicine
DX: R91.1 Solitary pulmonary nodule (principal); C18.9 Malignant neoplasm of colon, unspecified
CPT/HCPCS: 71260; Q9967

== ENCOUNTER 2023-08-05 09:54 | Outpatient (REF) | payer OTHER, SELFPAY ==
--- NOTE | ~2023-08-05 | PE_ITS ---
EXAMINATION: Fluorine-18 FDG PET/CT Scan CLINICAL INDICATION: Subsequent treatment management. History of colon cancer with rising CEA. For restaging. PROCEDURE: 61 minutes following the intravenous administration of 16.16 mCi of fluorine 18 FDG, images from the base of the skull to the mid thighs were obtained using a combined PET/CT scanner with CT scan based attenuation correction. No intravenous contrast was administered. Transverse, coronal, sagittal, and volume reconstruction projections were obtained. The patient's blood glucose as determined by a finger stick, was 88 mg/dl immediately prior to injection. The radiotracer was injected intravenously through the left antecubital superficial vein, without any complications. Total CT exam dose-length product 607.68 mGy-cm * These CT images were obtained using dose optimization techniques as appropriate, variously including the following: Automated exposure control * Adjustment of mA and/or kV according to patient size (this includes techniques or standardized protocols for targeted exams where dose is matched to indication/reason for exam; i.e. extremities or head) * Use of iterative reconstruction technique COMPARISON: Baseline PET/CT study done on 05/04/[address] of the chest abdomen and pelvis done on 02/28/[address] of the chest done on 07/16/2023. FINDINGS: SUV max REFERENCE: Blood: 3.8 (current). 2.7 (baseline-05/04/2021). Liver: 3.0 (current). 3.6 (baseline-05/04/2021). HEAD AND NECK: No abnormal radiotracer uptake. No large intracranial hemorrhage, acute territorial infarct or significant shift of midline structures. CHEST: Ports and Devices: Right-sided Port-A-Cath is noted with its tip seen at the cavoatrial junction, unchanged. Lungs: Previously documented multiple subcentimeter scattered bilateral noncalcified lung nodules are noted, appear similar to most recent prior CT of the chest done on 07/16/2023, appear new since the baseline study dated 05/04/2021. Nonspecific patchy groundglass airspace disease is noted at left lower lobe of the lung associated with no significant tracer avidity (119/349), new since 07/16/2023. Previously documented dominant 1.1 cm central left lower lobar lung nodule is not tracer avid that evaluation however is technically limited due to motion artifacts. Subcentimeter subpleural lung nodule seen at right lower lobe posteromedially however shows mild tracer avidity just above the background with SUV max of 1.7 (99/267). The findings remain suspicious for evolving pulmonary metastases. Pleura: No significant pleural effusion. Lymph Nodes: No tracer-avid mediastinal, hilar or internal mammary or axillary lymphadenopathy. Mediastinum: There is no significant pericardial effusion/thickening. Breasts/Chest Wall: No abnormal radiotracer uptake. ABDOMEN/PELVIS: Liver/Biliary System: No focal tracer-avid liver lesion. The gallbladder is surgically absent. Pancreas: Normal.No evidence of pancreatic ductal dilatation. Spleen: No abnormal radiotracer uptake. No evidence of splenomegaly. Adrenal Glands: No abnormal radiotracer uptake. Kidneys: No hydronephrosis, hydroureter or renal calculi bilaterally. Bowel: Focal tracer avidity is noted just above the surgical anastomosis site at the right mid to upper abdomen with SUV max of 5.8 (150/267), new since baseline PET/CT study done on 05/04/2021. Follow-up direct visualization is recommended for further clarification. Moderate size hiatal hernia. Significant fecal residual within the large bowel. Lymph Nodes: No tracer avid retroperitoneal, mesenteric or pelvic and/or groin lymphadenopathy. Pelvic Organs: The urinary bladder is underdistended. A fluid containing partially rim calcified nontracer avid soft tissue mass is noted within the right superior lateral hemipelvis, measures 3.3 x 2.0 cm with mean Hounsfield value of 13.9 (250/349), has increased since the baseline study dated 05/04/2021 and appears much more pronounced since 02/28/2023. MUSCULOSKELETAL: No suspicious focal tracer avid disease. VASCULAR: No significant calcific atherosclerotic disease of the thoracic aorta or coronary arteries. Calcific infrarenal atherosclerotic disease of the abdominal aorta and is branches is however noted. THE SITE(S) OF MOST INTENSE FDG AVIDITY AND SUV max: Subcentimeter subpleural noncalcified mild tracer avid right lower lobar lung nodule seen posteromedially with SUV max of 1.7, suspicious for evolving pulmonary metastases. Focal tracer avidity involving the right-sided colon above the surgical anastomosis with SUV max of 5.8. PET/PET CT fusion skull to thigh IMPRESSION: 1. Previously documented enlarging multifocal bilateral noncalcified subcentimeter lung nodules are not optimally characterized given their size as well as related to motion. However the findings remain suspicious for evolving pulmonary metastases, better visualized and evaluated on prior diagnostic CT of the chest done on 07/16/2023. Note is made of mild tracer avidity involving the right lower lobar subpleural subcentimeter noncalcified nodule with SUV max of 1.7. 2. No evidence of tracer avid focal liver disease to suspect hepatic metastases. 3. Interval development of focal tracer avidity (SUV max of 5.8) just superior to the anastomotic site involving the right-sided colon for which direct visualization is recommended. 4. Enlarging partially calcified right superior lateral hemipelvic cystic lesion, may represent ovarian/adnexal cyst. Follow-up pelvic ultrasound and/or pelvic MRI as appropriate may be considered for further clarification.
== END 2023-08-05 09:55 | disposition home or self-care (01) ==
LOC: HO.PET 09:54
PROVIDERS: PCP Internal Medicine; Visit Provider Internal Medicine
DX: Z13.89 Encounter for screening for other disorder (principal)

== ENCOUNTER 2023-11-28 14:25 | Outpatient (REF) | payer OTHER, SELFPAY | END 2023-11-28 14:26 | disposition home or self-care (01) | LOC: HO.MAMMO 14:25 | PROVIDERS: PCP Internal Medicine; Visit Provider Internal Medicine | DX: Z12.31 Encounter for screening mammogram for malignant neoplasm of breast (principal) | CPT/HCPCS: 77063; 77067 ==

== ENCOUNTER → 2023-11-28 15:30 | Outpatient (BNV) | payer OTHER, SELFPAY | PROVIDERS: PCP Internal Medicine; Visit Provider Radiology Diagnostic Radiology | DX: Z12.31 Encounter for screening mammogram for malignant neoplasm of breast (principal) | CPT/HCPCS: 77063; 77067 ==

== ENCOUNTER 2024-01-27 07:31 | Outpatient (REF) | payer OTHER, SELFPAY ==
--- NOTE | ~2024-01-27 | CT_ITS ---
EXAMINATION: CT ABDOMEN AND PELVIS WITH CONTRAST CLINICAL INFORMATION: Evaluate response to treatment,: Colon CA status post resection, increasing activity on PET/CT abutting anastomotic site. COMPARISON: PET/CT dated 08/05/2023, CT abdomen and pelvis 02/28/2023, 08/16/2022, 12/20/2021. TECHNIQUE: Multidetector volumetric images were obtained from the superior aspect of the liver through the pubic symphysis following administration 85 mL of Omnipaque 350 intravenous contrast. Sagittal and coronal reformatted images were obtained on the technologist's workstation. Oral contrast: No This CT examination was performed using dose optimization techniques as appropriate, variously including the following: *Automated exposure control *Adjustment of mA and/or kV according to patient size (this includes techniques or standardized protocols for targeted exams where dose is matched to indication/reason for exam; i.e. extremities or head) *Use of iterative reconstruction technique DLP: 281 mGy-cm FINDINGS: LUNG BASES: Refer to the dedicated chest CT performed concurrently. LIVER, GALLBLADDER, AND BILIARY TREE: Mild diffuse fatty infiltration. The liver demonstrates a tiny poorly defined hypoechoic focus segment 8 measuring approximately 7 mm along the dome of the diaphragm, similar to the prior exams. No PET avid activity in the liver on recent scan. -The gallbladder is surgically absent. The common bile duct is prominent, measuring up to 13 mm in the temo hepatis and gradually tapering into the papilla. Minimal intrahepatic biliary dilatation is also noted, which is stable and likely due to the post cholecystectomy state. PANCREAS: Unremarkable. SPLEEN: Unremarkable. ADRENAL GLANDS: Right is normal. Tiny nodule lateral hilda left adrenal gland is stable measuring 1.1 cm. This is most likely an adenoma. KIDNEYS AND URETERS: The kidneys are normal in size, shape, and attenuation. No hydronephrosis, hydroureter, or calculi seen. No perinephric stranding. Stable lower pole 8 mm cyst left kidney. BLADDER: Bladder is decompressed but images grossly normally. GASTROINTESTINAL TRACT: -There is a small type I hiatus hernia containing fat with small anterior esophageal varices. The stomach is somewhat decompressed but appears grossly normal. The duodenal sweep appears normal. -The small bowel appears normal in course and caliber without wall thickening or dilatation. -Patient is status post right hemicolectomy with: Coloenteric anastomosis in the right midabdomen. The anastomosis appears patent, with no CT evidence of stricturing. -There is a mild rind of soft tissue immediately proximal to the anastomosis measuring up to 6 mm (series 4, image 36) possibly postsurgical although recurrent disease would be difficult to exclude. In addition, just proximal to the anastomotic suture within the right colon, there is an area of mild narrowing (series 3, image 41) which may correlate with the increased FDG activity on PET. The sagittal and coronal reformats this appears to represent a normal haustra with no definite associated soft tissue mass. Findings on PET could have been inflammatory. -The remainder of the colon demonstrates diffuse mild wall thickening, suggestive of colitis. This involves the entire residual colon, and appears to involve the rectum as well. This could be inflammatory or infectious. ABDOMINAL WALL: Post laparoscopy changes in the periumbilical region. No hernia or adenopathy identified. LYMPH NODES: No abnormal lymphadenopathy. No lymph nodes are present abutting the anastomotic site or within the ileocolonic mesentery. No retroperitoneal nodes. VASCULAR: Mild to moderate calcification of the aorta and iliac arteries with no aneurysm. No venous thrombosis identified. PELVIC VISCERA: 2.1 cm peripherally calcified right adnexal cystic lesion, unchanged from 02/28/2023. No FDG activity. Normal left ovary. Uterus unremarkable. PERITONEUM: No free air and no free fluid. OSSEOUS STRUCTURES: Minimal wedging of the superior endplate of L3. Sclerotic changes L5-S1 with severe disc degeneration and vacuum phenomenon, similar. There is a bone island in the left medial iliac bone. This is unchanged. A second enostosis is present in the right femoral head. These are benign and unchanged from 2020. There are no foci suspicious for osseous metastases. CT/CT abdomen pelvis w IV con IMPRESSION: 1. Diffuse thickening of the entire colon extending from the anastomosis to the rectum, most likely representing MOONEY COLITIS, either infectious or inflammatory. Consider C. difficile colitis. 2. Increased area of FDG uptake on the recent PET/CT shows no definitive soft tissue correlate on today's examination, and may have been the beginning of inflammatory or infectious colitis. Continued CT monitoring highly suggested. 3. There are no abnormal lymph nodes or evidence of metastatic disease. 4. Sclerotic bony foci in the left medial iliac bone and right femoral head are consistent with enostoses and unchanged from 2020. 5. Fatty infiltration of the liver. Stable 7 mm segment 8 hypoattenuating lesion appears benign with no previous FDG uptake. No new liver abnormality. 6. Mild intra and more prominent extrahepatic biliary dilatation, most likely on the basis of reservoir effect from cholecystectomy. Correlate with laboratory values. 7. No change in the peripherally calcified cystic right adnexal lesion measuring 2.1 cm. This did not demonstrate increased FDG uptake, presumably a benign entity although continued monitoring recommended. 8. Small to moderate-sized type I hiatus hernia. There are small anterior esophageal varices. 9. Refer to the dedicated chest CT report for thoracic findings.
--- NOTE | ~2024-01-27 | CT_ITS ---
EXAMINATION: CT CHEST WITH CONTRAST CLINICAL INFORMATION: Colon CA, assess response to therapy. Pulmonary nodules. COMPARISON: Recent PET/CT to 08/05/2023. CT chest 07/16/2023, and 02/28/2023. TECHNIQUE: Multidetector volumetric CT imaging of the chest was obtained after the administration of 85 mL of Omnipaque 350 intravenous contrast without immediate adverse reactions. Axial MIP volume rendering provided. Sagittal and coronal reformatted images were obtained. This CT examination was performed using dose optimization techniques as appropriate, variously including the following: *Automated exposure control *Adjustment of mA and/or kV according to patient size (this includes techniques or standardized protocols for targeted exams where dose is matched to indication/reason for exam; i.e. extremities or head) *Use of iterative reconstruction technique DLP: 137 mGy-cm Please note, due to [employer] technical systems, staffing, and internal issues, this examination was not available for dictation until 02/04/2024. FINDINGS: GEODETIC ADVISOR: Surgical clips seen right upper quadrant. Right-sided chest wall port in place with tip extending into the cavoatrial junction region. LUNGS: -Innumerable bilateral pulmonary nodules previously seen 07/16/2023 have all significantly decreased in size. -For example, the previously seen anterior segment subpleural right upper lobe pair of nodules has significantly decreased in size, previously measuring 8 mm and 5 mm respectively, and currently measuring 4 mm, and 3 mm (series 8, image 44). -A previously seen 5 mm nodule in the subpleural superior segment left lower lobe has decreased to 2 mm. A more medial 8 mm nodule at this level has also near completely resolved. (Series 8, image 51). -A superior lingular nodule previously measuring 5 mm in diameter, currently measures 2 mm in diameter (series 8, image 59). -A prominent right middle lobe subpleural nodule previously measured approximately 7 mm in diameter, currently measuring 4 mm in diameter (series 8, image 75). -No definitive new nodules are identified. -There are no airspace opacities or groundglass opacities. -The trachea and major bronchi are normal in appearance without evidence of thickening or bronchiectasis. MEDIASTINUM: -Small calcification in the right thyroid lobe, and subcentimeter nodule in the left thyroid lobe. Thyroid otherwise normal. -There is a two-vessel branching pattern of the aortic arch, which is normal in course and caliber. There is no significant atheromatous calcification. -Main pulmonary artery is normal in size. -The esophagus appears normal aside from a small to moderate-sized type I hiatus hernia with associated fat and tiny anterior esophageal varices. -There is a 5 mm lymph node just posterior to the distal esophagus (series 3, image 42), previously measuring 9 mm in diameter. -No additional mediastinal lymphadenopathy is present on the current exam. Small previously seen Station 4R lymph nodes have remained similar in appearance without enlargement. -Heart size is normal. There is lipomatous infiltration of the intra-atrial septum. No significant coronary calcification. PLEURA: There is no pleural effusion. No pleural mass or thickening. AXILLA/CHEST WALL: No lymphadenopathy. No mass is identified. Right chest port in place. UPPER ABDOMEN: Refer to the dedicated CT abdomen and dictated separately. OSSEOUS STRUCTURES: There is a tiny sclerotic focus in the base of the coracoid process the left shoulder, stable from previous, indeterminate. No definite lytic or blastic suspicious lesions identified. CT/CT chest w IV con IMPRESSION: 1. Markedly improved examination; innumerable pulmonary nodules either resolved or significantly smaller than when compared with 07/16/2023. No new or enlarging nodules. No evidence of osseous metastases. 2. No pathologic adenopathy. A retroesophageal lymph node has decreased in size from 9 mm to 5 mm as discussed. 3. Lungs are clear, there is no active lung disease. 4. Right-sided chest port with tip in the cavoatrial junction. 5. Small to moderate-sized type I hiatus hernia. 6. Please refer to the body the report for additional ancillary findings. Fleischner guidelines were followed.
[2024-01-27] MEDS: iohexoL 350 MG/ML 100 ML INFUS..BTL IV (08:37)
== END 2024-01-27 07:32 | disposition home or self-care (01) ==
LOC: HO.CT 07:31
PROVIDERS: PCP Internal Medicine; Visit Provider Internal Medicine
DX: C18.9 Malignant neoplasm of colon, unspecified (principal)
CPT/HCPCS: 71260; 74177; Q9967

== ENCOUNTER → 2024-01-27 07:34 | Outpatient (BNV) | payer OTHER, SELFPAY | PROVIDERS: PCP Internal Medicine; Visit Provider Radiology Diagnostic Radiology | DX: C18.9 Malignant neoplasm of colon, unspecified (principal); R91.8 Other nonspecific abnormal finding of lung field | CPT/HCPCS: 71260; 74177 ==

== ENCOUNTER 2024-05-04 12:37 | Outpatient (REF) | payer OTHER, SELFPAY ==
--- NOTE | ~2024-05-04 | PE_ITS ---
EXAMINATION: FLUORINE-18 FDG PET/CT SCAN CLINICAL INFORMATION: Subsequent treatment management. A 54-year-old female with history of colon cancer. For follow-up/restaging. TECHNIQUE: 74 minutes following the intravenous administration of 17.6 mCi of fluorine 18 FDG, images from the base of skull to mid-thigh were obtained using a combined PET/CT scanner with CT scan based attenuation correction. No intravenous contrast was administered. Transverse, coronal, sagittal, and volume reconstruction projections were obtained. The patient's blood glucose as determined by a finger stick, was 91 mg/dL immediately prior to injection. The radiotracer was injected intravenously through a left antecubital superficial vein, without any complications. Total CT exam dose-length product 544.27 mGy-cm. * These CT images were obtained using dose optimization techniques as appropriate, variously including the following: Automated exposure control * Adjustment of mA and/or kV according to patient size (this includes techniques or standardized protocols for targeted exams where dose is matched to indication/reason for exam; i.e. extremities or head) * Use of iterative reconstruction technique COMPARISON: Most recent prior PET CT scan done on 08/05/2023 and the baseline study done on 05/04/[address] of the chest abdomen and pelvis done on 01/27/2024. FINDINGS: SUV MAX REFERENCE: Blood: 2.3 (2.9-prior and 2.4 on the baseline). Liver: 3.3 (2.6-prior and 2.8-baseline). HEAD AND NECK: No abnormal radiotracer uptake. No large intracranial hemorrhage, acute territorial infarct or significant shift of midline structures. CHEST: Ports and Devices: Right-sided Port-A-Cath its tip seen at the distal SVC, unchanged. Lungs: No abnormal radiotracer uptake. Pleura: No significant pleural effusion. Lymph Nodes: No tracer-avid mediastinal, hilar or internal mammary or axillary lymphadenopathy. Mediastinum: There is no significant pericardial effusion/thickening. Esophagus: Mild focal tracer activity involving mid thoracic esophagus and the distal thoracic esophagus with SUV max of 5.0 (168/267) may represent inflammatory changes including reflux. Breasts/Chest Wall: No abnormal radiotracer uptake. ABDOMEN/PELVIS: Liver/Biliary System: No focal tracer avid liver lesion. The gallbladder is surgically absent. Pancreas: Normal. Spleen: No abnormal radiotracer uptake. No evidence of splenomegaly. Adrenal Glands: No abnormal radiotracer uptake. Kidneys: No hydronephrosis, hydroureter or renal calculi bilaterally. Bowel: There is no significant bowel dilatation to suggest obstruction. Moderate size hiatal hernia, unchanged. Focal tracer activity at the ileocolic anastomotic site within the right mid abdomen persists, for which direct visualization may be considered if clinically appropriate. Nonspecific heterogenous diffuse tracer activity within the remainder of the large bowel may represent physiologic variable uptake versus changes related to mild colitis, effect of metformin or combination thereof. Lymph Nodes: No tracer avid retroperitoneal, mesenteric or pelvic and/or groin lymphadenopathy. Pelvic Organs: The urinary bladder is underdistended. MUSCULOSKELETAL: No suspicious focal tracer avid disease. VASCULAR: Mild calcific atherosclerotic disease. No evidence of aneurysm. THE SITE(S) OF MOST INTENSE FDG AVIDITY AND SUV MAX: The distal thoracic esophagus with SUV max of 5.3. PET/PET CT fusion skull to thigh IMPRESSION: * Compared to most recent prior PET CT scan done on 08/05/2023: * Persistent focal tracer activity at the ileocolic anastomotic site within the right mid abdomen, for which direct visualization may be considered if clinically appropriate. * Nonspecific heterogenous diffuse tracer activity within the remainder of the large bowel may represent physiologic variable uptake versus changes related to mild colitis, effect of metformin or combination thereof. * Mild focal tracer activity involving mid thoracic esophagus and the distal thoracic esophagus with SUV max of 5.0 may represent inflammatory changes including reflux. * No other significant change. Electronically signed by: Sam Jorgensen MD 05/12/2024 12:23 PM [facility]
== END 2024-05-04 12:38 | disposition home or self-care (01) ==
LOC: HO.PET 12:37
PROVIDERS: PCP Internal Medicine; Visit Provider Internal Medicine
DX: Z13.89 Encounter for screening for other disorder (principal)

== ENCOUNTER 2024-10-27 08:06 | Emergency (ER) | payer OTHER, SELFPAY ==
[2024-10-27 08:12] VITALS: BP 139/84; PULSE 66; RESP 14; TEMP 36; O2SAT 96; BMI 21.3
--- NOTE | 2024-10-27 08:38 | ED.NAVMDI ---
HPI - Nausea/Vomiting/Diarrhea General Chief complaint: Nausea/Vomiting/Diarrhea Stated complaint: Vomiting Time Seen by Provider: 10/27/24 08:20 Source: patient, RN notes reviewed and old records reviewed Mode of arrival: ambulatory Limitations: no limitations History of Present Illness ED Provider: Pop Bates PA-C HPI Narrative: 54 yo female with history of stage IV colon cancer s/p right hemicolectomy on chemotherapy w/ Dr. Joyce who presents to the ER for evaluation of nausea and vomiting since yesterday afternoon. Symptoms started shortly after went out to lunch at [facility]. She ate pot roast and chicken. She started vomiting 1 hour after she got home and has vomited several times since. Her vomitus is bilious and nonbloody. She denies any associated diarrhea, she has chronically loose stools. No blood. She reports upset upper stomach and soreness but no severe abdominal pain. No fever, chills, urinary symptoms. Her last chemo was about 1 month ago. MD elicited complaint: nausea, vomiting and abdominal pain Pertinent past history: other (history of colon cancer) Onset (ago): day(s) (1) Description of vomiting: bilious Description of diarrhea: loose Associated nausea: Yes Associated abdominal pain: Yes Location of pain: epigastric Pain consistency: intermittent Severity: moderate Exacerbating factors: none Relieving factors: none Context: possible food poisoning Associated symptoms: denies other symptoms Treatment prior to arrival: other (zofran) Related Data Home Medications ?Medication ?Instructions ?Recorded ?Confirmed fluoxetine 10 mg capsule 30 mg PO DAILY 08/21/20 06/29/24 Vitamin B and C 1 tab PO DAILY 08/01/21 06/29/24 Vitamin D3 1 tab PO DAILY 08/01/21 06/29/24 Previous Rx's ?Medication ?Instructions ?Recorded ibuprofen 600 mg tablet 600 mg PO Q6H PRN pain #30 tabs 04/02/21 dexamethasone 2 mg tablet 2 mg PO BID #30 tabs 09/19/23 loperamide 2 mg capsule (Imodium 2 mg PO Q6H PRN Diarrhea #30 caps 09/19/23 A-D) ondansetron 8 mg disintegrating 8 mg PO Q8H PRN Nausea #60 tabs 09/19/23 tablet prochlorperazine maleate 10 mg 10 mg PO Q6H PRN Nausea #30 tabs 10/08/23 tablet Magic Mouthwash 5 ml PO 3XD #240 mL 10/21/23 Diphen/Nystat/Antacid 1:1:1 240 mL suspension sennosides 8.6 mg-docusate sodium 1 tab-cap PO BEDTIME PRN 10/24/23 50 mg tablet (Senna with Docusate Constipation #30 tabs Sodium) lisinopril 10 1 tab PO DAILY #30 tabs 11/19/23 mg-hydrochlorothiazide 12.5 mg tablet chlorhexidine gluconate 0.12 % 15 ml buccal BID #100 mL 12/02/23 mouthwash (Paroex Oral Rinse) meclizine 25 mg tablet 25 mg PO TID PRN Vertigo #15 tabs 09/29/24 prochlorperazine maleate 10 mg 10 mg PO Q8H PRN nausea and 10/27/24 tablet (Compazine) vomiting #10 tabs Allergies Allergy/AdvReac Type Severity Reaction Status Date / Time mushroom Allergy Intermediate Vomiting Verified 10/27/24 08:15 Latex, Natural Rubber Allergy Rash Verified 10/27/24 08:15 Review of Systems Review of Systems: Yes all other systems are reviewed and are negative Gastrointestinal: Gastrointestinal: Reports nausea PMFSH Past Medical History Medical History Adenomatous polyp of cecum Arthritis Colon cancer Depression Gallbladder polyp History of anxiety History of kidney infection Port-A-Cath in place Spinal stenosis Surgical History H/O colonoscopy History of colon resection History of laparoscopic cholecystectomy Family History Family History Mother Diabetes Afib Heart murmur Social History Social History Household Members: Significant Other Housing: House Are you a primary healthcare consultant to a significant other at home: No (S.O. at home disabled) Do you presently have visiting nurse or other home services: No Alcohol intake: current Alcohol intake frequency: holidays/special occasions only Patient Tobacco Use Status: Current everyday Tobacco user Tobacco use type: Cigarette Cigarettes Per Day: 6 Years Smoked: 37 Smoked in Last 30 Days: No Second Hand Smoke Exposure: Yes Use of substances other than those prescribed or required for medical reasons: No Substance Use Type: Marijuana Advance Directives: No Advance Directives Information Provided: Yes Patient : No service: No Current occupational status: employed Current occupation: billing Physical Exam Vital Signs: Vital Signs: Last Vital Signs Temp 97.9 F 10/27/24 09:27 Pulse 55 10/27/24 09:27 Resp 20 10/27/24 09:27 BP 163/76 H 10/27/24 09:27 Pulse Ox 94 10/27/24 09:27 O2 Del Method Room Air 10/27/24 09:27 BMI result Body Mass Index 21.3 Appearance: Alert. Oriented X3. No acute distress. Head: normocephalic, atraumatic. Eyes: Pupils equal, round and reactive to light. ENT: Pharynx normal. No tonsillar swelling or exudate. Neck: Normal inspection. Neck supple. CVS: Normal heart rate and rhythm. Pulses normal. Respiratory: No respiratory distress. Breath sounds normal. Abdomen: Soft and nontender. decreased but present +BS x4 Skin: Skin warm and dry. Normal skin color. Normal skin turgor. No rashes. Extremities: No lower extremity edema. No joint swelling. Neuro/psych: Oriented X 3. No motor deficit. No sensory deficit. CN II-XII intact. Normal speech and cognition. Medications Administered Discontinued Medications Generic Name Dose Route Start Last Admin Trade Name Freq PRN Reason Stop Dose Admin Lactated Ringer's 1,000 mls @ 999 mls/hr 10/27/24 08:30 10/27/24 09:58 Lr IV 10/27/24 09:30 Infused .Q1H1M CHENTE Infusion Metoclopramide HCl 10 mg 10/27/24 09:15 10/27/24 09:28 Metoclopramide Hcl 10 Mg/2 Ml Vial IVPUSH 10/27/24 09:16 10 mg ONCE ONE Administration Ondansetron HCl 4 mg 10/27/24 08:21 10/27/24 08:52 Ondansetron Hcl 4 Mg/2 Ml Vial IVPUSH 10/27/24 08:22 4 mg ONCE ONE Administration Prochlorperazine Edisylate 10 mg 10/27/24 10:18 10/27/24 10:27 Prochlorperazine Edisylate 10 Mg/2 Ml Vial IVPUSH 10/27/24 10:19 10 mg ONCE ONE Administration Medical Decision Making Medical Decision Making [facility] Narrative: 54 yo female presenting with N/V after eating out yesterday. No relief w/ PO zofran at home. IVF and IV zofran given with no improvement, IV reglan ordered. Labs reassuring with no leukocytosis, no metabolic derangements 10:21 pt continues to vomit. IV compazine ordered 11:20 - after compazine patients N/V seemed to resolve. she feels much better. repeat abd exam remains benign. at this time she is stable for discharge home with PO antiemetics PRN. return precautions discussed. Differential Diagnosis Differential Diagnoses: The differential diagnosis associated with the presentation includes gastritis, food poisoning, gastroenteritis, pancreatitis, dehydration, TITO, low suspicion for bowel obstruction or acute infectious process Admission/Observation Consideration of admission/observation: Escalation of care including admission/observation considered Lab Data [facility] Lab Attestation statement: I reviewed the patient's lab results. 10/27/24 08:48 10/27/24 08:48 Labs: Lab Results 10/27/24 10/27/24 Range/Units 08:48 10:30 WBC 5.2 (4.8-10.8) X10*3/uL RBC 4.44 (4.20-5.50) X10*6/uL Hgb 13.9 (12.0-16.0) g/dl Hct 40.6 (37.0-47.0) % MCV 91.4 (80.0-98.0) fL MCH 31.3 (27.0-33.0) pg MCHC 34.2 (31.0-35.0) g/dl RDW 14.0 (11.0-16.0) % Plt Count 143 L D (160-400) X10*3/uL MPV 9.1 L (9.4-12.3) fL Immature Gran % (Auto) Cancelled Neut % (Auto) Cancelled Lymph % (Auto) Cancelled [place] % (Auto) Cancelled Eos % (Auto) Cancelled Baso % (Auto) Cancelled Lymph # (Auto) Cancelled [place] # (Auto) Cancelled Eos # (Auto) Cancelled Baso # (Auto) Cancelled Abs Immat Gran (auto) Cancelled Absolute Neuts (auto) Cancelled Absolute Nucleated RBC 0.000 (0.0-0.012) X10*3/uL Nucleated RBC % (auto) 0.0 (0.0-0.2) /100WBC Neutrophils % (Manual) 62 (45-73) % Band Neutrophils % 2 L (3-5) % Lymphocytes % (Manual) 25 (20-40) % Atypical Lymphs % (Man) 5 (0-6) % Monocytes % (Manual) 3 (2-11) % Eosinophils % (Manual) 2 (0-4) % Basophils % (Manual) 1 (0-2) % Abs Neuts (Manual) 3.3 (2.0-8.3) X10*3/uL Lymphocytes # (Manual) 1.3 (1.2-4.9) X10*3/uL Atyp Lymphs # (Manual) 0.3 x10*3/uL Monocytes # (Manual) 0.2 (0.1-1.2) X10*3/uL Eosinophils # (Manual) 0.1 (0.0-0.4) X10*3/uL Basophils # (Manual) 0.1 (0.0-0.2) X10*3/uL Platelet Estimate SLIGHTLY DECREASED (NORMAL) Plt Morphology Comment NORMAL RBC Morphology NORMAL Smear Tech's Comments MANUAL DIFF Sodium 141 (135-145) mmol/L Potassium 3.8 (3.3-5.1) mmol/L Chloride 104 (96-108) mmol/L Carbon Dioxide 25 (22-29) mmol/L Anion Gap 16 (12-20) BUN 9 (9-16) mg/dL Creatinine 0.77 (0.5-1.4) mg/dL Estim Creat Clear Calc 72.9 Estimated GFR > 60 Random Glucose 130 H (60-115) mg/dL Calcium 9.4 (8.4-10.2) mg/dL Magnesium 1.9 (1.6-2.6) mg/dL Total Bilirubin 0.6 (0.0-1.0) mg/dL Direct Bilirubin 0.2 (0.0-0.5) mg/dL AST 25 (5-31) U/L ALT 18 (0-31) U/L Alkaline Phosphatase 62 (39-117) U/L Total Protein 6.6 (6.5-8.0) g/dL Albumin 4.1 (3.5-5.0) g/dL Lipase 21 (8-78) U/L Urine Color Yellow Urine Appearance Cloudy Urine pH 7.0 (5.0-9.0) Ur Specific [place] 1.020 (1.005-1.025) Urine Protein Trace (Neg-Trace) mg/dL Urine Glucose (UA) Negative (Negative) mg/dL Urine Ketones 15 (Negative) mg/dL Urine Blood Negative (Negative) Urine Nitrite Negative (Negative) Ur Leukocyte Esterase Trace H (Negative) Urine RBC 0-2 (0-2) /HPF Urine WBC 0-5 (0-5) /HPF Ur Squamous Epith Cells 6-10 (0-2) /HPF Calcium Oxalate Crystal Present Urine Bacteria Trace (None Seen) Hyaline Casts 0-2 (0-2) /LPF External Record Review External record reviewed: Outpatient record, Prior outpatient labs and Prior outpatient radiology Tests considered The following testing was considered but not selected: considered CT abd/pelvis but low suspicion for obstruction, not an acute abdomen Prescription Management I considered prescription management with: Other (antiemetic) Chronic Conditions Patient?s care impacted by: Other (colon cancer) Critical Care Time Critical Care Time Critical Care Time: Yes Total Critical Care Time: 31 Attestation: I have personally provided critical care time exclusive of time spent on separately billable procedures. Time includes review of lab data, bedside re-evaluation after IV anti-emetics and monitoring for potential decompensation. Intervention performed as documented. Discharge Plan Discharge Clinical Impression: Nausea & vomiting Qualifiers: Vomiting type: bilious vomiting Qualified Code(s): R11.14 - Bilious vomiting Patient Disposition: Home, Self-Care Instructions: Acute Nausea and Vomiting (ED) Additional Instructions: You lab workup today was unremarkable. Treatment is supportive care, symptoms usually resolve on their own in 48-72 hours. Recommend rest and plenty of oral hydration. Stick to a bland diet like soup and toast while you are not feeling well. Take the prescribed medication as needed for nausea. Recommend over the counter Pepto Bismol or Imodium for upset stomach and diarrhea. Follow up with your doctor as needed. If you develop new or worsening symptoms call 911 or come back to the ER for further evaluation. Prescriptions: New prochlorperazine maleate [Compazine] 10 mg tablet 10 mg PO Q8H PRN (Reason: nausea and vomiting) Qty: 10 0RF No Action ibuprofen 600 mg tablet 600 mg PO Q6H PRN (Reason: pain) Qty: 30 0RF fluoxetine 10 mg capsule 30 mg PO DAILY Vitamin B and C 1 tab PO DAILY Vitamin D3 1 tab PO DAILY dexamethasone 2 mg Tablet 2 mg PO BID Qty: 30 3RF Rx Instructions: For 2 days after chemotherapy loperamide [Imodium A-D] 2 mg Capsule 2 mg PO Q6H PRN (Reason: Diarrhea) Qty: 30 2RF ondansetron 8 mg Tablet,Disintegrating 8 mg PO Q8H PRN (Reason: Nausea) Qty: 60 2RF prochlorperazine maleate 10 mg Tablet 10 mg PO Q6H PRN (Reason: Nausea) Qty: 30 3RF Magic Mouthwash Diphen/Nystat/Antacid 1:1:1 240 mL Suspension 5 ml PO 3XD Qty: 240 3RF Rx Instructions: nystatin 100,000 unit/mL oral suspension 80 mL; diphenhydramine 12.5 mg/5 mL oral liquid 80 mL; aluminum-mag hydroxide-simethicone 400 mg-400 mg-40 mg/5 mL oral susp 80 mL; Per 240 mL sennosides-docusate sodium [Senna with Docusate Sodium] 8.6-50 mg Tablet 1 tab-cap PO BEDTIME PRN (Reason: Constipation) Qty: 30 0RF lisinopril-hydrochlorothiazide 10-12.5 mg Tablet 1 tab PO DAILY Qty: 30 3RF chlorhexidine gluconate [Paroex Oral Rinse] 0.12 % Mouthwash 15 ml BUCCAL BID Qty: 100 2RF meclizine 25 mg Tablet 25 mg PO TID PRN (Reason: Vertigo ) Qty: 15 0RF Print Language: Bulgarian
[2024-10-27] MEDS: ondansetron HCL 4 MG/2 ML VIAL IVPUSH (08:52)
[2024-10-27] MEDS: Lactated Ringers 1,000 ML 999 ML IV (08:52)
[2024-10-27 08:53] LABS: Hematocrit 40.6 % (37.0-47.0); Hemoglobin 13.9 g/dl (12.0-16.0); Mean Corpuscular HGB Conc 34.2 g/dl (31.0-35.0); Mean Corpuscular Hemoglobin 31.3 pg (27.0-33.0); Mean Corpuscular Volume 91.4 fL (80.0-98.0); Mean Platelet Volume 9.1 fL (9.4-12.3); Platelet Count 143 X10*3/uL (160-400); Red Blood Count 4.44 X10*6/uL (4.20-5.50); White Blood Count 5.2 X10*3/uL (4.8-10.8)
--- OUTSIDE RECORDS SUMMARY | 2024-10-27 09:08 | XMS_ITS | Clinical Summary ---
Author Organization [employer] Address [address] [place] [address] Care Team Providers Care Pan Washer Name Role Phone Unavailable Primary Care Provider Unavailabl e Medications ofloxacin (Floxin) 300 MG tablet Take 30 mg by mouth 1 (one) time each day. Active Social History Tobacco Use Types Packs/Day Years Used Date Smoking Tobacco: Never Assessed Comments Unknown Sex and Gender Information Value Date Recorded Sex Assigned at Female 11/19/2023 1:15 PM EDT Legal Sex Female 1:14 PM EDT Gender Identity Female 11/19/2023 1:15 PM EDT Sexual Orientation Straight 11/19/2023 1: 15 PM EDT Plan of Treatment Health Maintenance Due Date Last Done Comments CT Colonography 1971 Colonoscopy 1971 Colorectal Cancer Screening 1971 Dental Oral Exam 1971 Dental Prophylaxis 1971 Dental X-Ray: Bitewings 1971 Depression Screening 1971 FIT DNA/Cologuard 1971 FIT 1971 FOBT 1971 HIV Screening 1971 SDOH Screening 1971 Sigmoidoscopy 1971 Alcohol/Substance Use Screening 1983 Tobacco Screening 1983 Hepatitis C Screening 1989 DTaP/Tdap/Td Vaccines (1 - Tdap) 1990 Hepatitis A Vaccines (1 of 2 - Risk 2-dose series) 1990 Hepatitis B Vaccines (1 of 3 - 19+ 3-dose series) 1990 Pap Smear 01/13/1992 Cervical Cancer Screening 2001 HPV/Cotest 2001 Mammogram 2011 Pneumococcal Vaccine: 50+ Ye ars (1 of 1 - PCV) 2021 Zoster Vaccines (1 of 2) 2021 COVID-19 Vaccine (2023-2 5 season) 2024 Influenza Vaccine (#1) 2024 Dental X-Ray: Full Mouth 11/19/2026 11/19/2023 RSV Patients and Pa tients Aged 60 years or older (1 - 1-dose 75+ series) 2046 HIB Vaccines Aged Out No longer eligi ble based on patient's age to complete this topic HPV Vaccines Aged Out No longer eligi ble based on patient's age to complete this topic IPV Vaccines Aged Out No longer eligi ble based on patient's age to complete this topic Meningococcal Vaccine Aged Out No becky yue eligible based on patient's age to complete this topic RSV under 20 months Aged Out No longe r eligible based on patient's age to complete this topic Rotavirus Vaccines Aged Out No longer eligible based on patient's age to complete this topic Procedures Procedure Name Priority Date/Time Associated Diagnosis Comments PANORAMIC RADIOGRAPHIC IMAGE Routine 11/19/2023 1:00 PM EDT from Last 3 Months or Most Recently Relevant to Health Maintenance
[2024-10-27 09:10] LABS: Alanine Aminotransferase 18 U/L (0-31); Albumin Level 4.1 g/dL (3.5-5.0); Alkaline Phosphatase 62 U/L (39-117); Anion Gap 16 (12-20); Aspartate Amino Transferase 25 U/L (5-31); Bilirubin Direct 0.2 mg/dL (0.0-0.5); Bilirubin Total 0.6 mg/dL (0.0-1.0); Blood Urea Nitrogen 9 mg/dL (9-16); Calcium 9.4 mg/dL (8.4-10.2); Carbon Dioxide 25 mmol/L (22-29); Chloride 104 mmol/L (96-108); Creatinine Clr Calc Pharmacy 72.9; Estimated Glomerular Filt Rate > 60; Glucose Random 130 mg/dL (60-115); Lipase 21 U/L (8-78); Magnesium 1.9 mg/dL (1.6-2.6); Potassium 3.8 mmol/L (3.3-5.1); Sodium 141 mmol/L (135-145); Total Protein 6.6 g/dL (6.5-8.0)
[2024-10-27 09:27] VITALS: BP 163/76; PULSE 55; RESP 20; TEMP 36.6; O2SAT 94
[2024-10-27] MEDS: Metoclopramide HCl 10 MG/2 ML VIAL IVPUSH (09:28)
[2024-10-27 09:39] LABS: SLIDE REVIEW MANUAL DIFF
[2024-10-27 09:57] LABS: Atypical Lymph Absolute Manual 0.3 x10*3/uL; Atypical Lymphs Percent Manual 5 % (0-6); Band Neutrophils Percent 2 % (3-5); Basophils Abs Manual 0.1 X10*3/uL (0.0-0.2); Basophils Percent Manual 1 % (0-2); Eosinophils Absolute Manual 0.1 X10*3/uL (0.0-0.4); Eosinophils Percent Manual 2 % (0-4); Lymphocytes Absolute Manual 1.3 X10*3/uL (1.2-4.9); Lymphocytes Percent Manual 25 % (20-40); Monocytes Absolute Manual 0.2 X10*3/uL (0.1-1.2); Monocytes Percent Manual 3 % (2-11); Neutrophils Absolute Manual 3.3 X10*3/uL (2.0-8.3); Neutrophils Percent Manual 62 % (45-73); Platelet Estimate SLIGHTLY DECREASED (NORMAL); RBC Morphology NORMAL
[2024-10-27 09:58] LABS: Platelet Morphology Comment NORMAL
[2024-10-27] MEDS: Prochlorperazine Edisylate 10 MG/2 ML VIAL IVPUSH (10:27)
[2024-10-27 10:47] LABS: Appearance Urine Cloudy; Color Urine Yellow; Glucose Urine UA Negative (Negative); Leukocyte Esterase Urine Trace (Negative); Nitrite Urine Negative (Negative); UMIC TRIGGER UACC YES; Urine Blood Negative (Negative); Urine Ketones 15 mg/dL (Negative); Urine Protein Trace mg/dL (Neg-Trace)
[2024-10-27 11:04] LABS: Bacteria Urine Trace (None Seen); Calcium Oxalate Crystals Urine Present; Hyaline Casts Urine 0-2 /LPF (0-2); WBC Urine 0-5 /HPF (0-5)
[2024-10-27 11:05] LABS: RBC Urine 0-2 /HPF (0-2)
[2024-10-27 11:38] VITALS: BP 157/73; PULSE 56; RESP 14; TEMP 36.9; O2SAT 97
[2024-10-27 11:48] VITALS: BP 157/73; PULSE 56; RESP 16; TEMP 36.9; O2SAT 97
== END 2024-10-27 11:48 | disposition home or self-care (01) ==
PROVIDERS: Physician Assistant; Emergency Provider Emergency Medicine; PCP Nurse Practitioner Adult Health
DX: R11.14 Bilious vomiting (principal); C18.9 Malignant neoplasm of colon, unspecified; Z92.21 Personal history of antineoplastic chemotherapy; Z90.49 Acquired absence of other specified parts of digestive tract; F17.210 Nicotine dependence, cigarettes, uncomplicated; F12.90 Cannabis use, unspecified, uncomplicated; Z79.899 Other long term (current) drug therapy
CPT/HCPCS: 36415; 80048; 80076; 81001; 83690; 83735; 85007; 85025; 85027; 96361; 96374; 96375; 99284; J0737; J2405; J2765; J7120

== ENCOUNTER 2024-11-26 08:46 | Outpatient (REF) | payer OTHER, SELFPAY ==
--- NOTE | ~2024-11-26 | CT_ITS ---
EXAMINATION: CT ABDOMEN PELVIS WITH IV CONTRAST, CT CHEST WITHOUT IV CONTRAST INDICATION: Assess response to treatment. History of colon cancer. COMPARISON: Comparison is made with the prior chest, abdomen, and pelvic CT scan dated 01/27/2024. Correlation is also made with a PET/CT scan dated 05/04/[address] dated 07/16/2023. TECHNIQUE: Unenhanced CT of the chest was performed followed by contrast-enhanced CT of the abdomen and pelvis using standard departmental protocol. The patient received a 5 mL Omnipaque 350 intravenously. Coronal and sagittal reformatted images were generated and reviewed. Oral contrast material was not administered at the request of the referring physician. This CT exam was performed with one or more of the following dose reduction techniques: automated exposure control, adjustment of the mA and/or kV according to patient size, use of iterative reconstruction technique. DLP: 378 mGy-cm CHEST: THYROID: Again seen is a calcification in the right thyroid lobe. LUNGS: There is mild emphysema. There are extensive reticulonodular opacities at the peripheral aspects of both lungs which are new from the prior study. MEDIASTINUM: A right-sided port is again seen in place. There is an 8 mm paratracheal lymph node which is new from the prior study. TIMOTEO: Evaluation of the hilar regions is limited by lack of intravenous contrast material. CARDIOVASCULATURE: The heart is normal in size. There is no pericardial effusion. The thoracic aorta is normal in caliber. DEGREE OF CORONARY CALCIFICATION: none PLEURA: There is no pleural effusion. No pneumothorax. MAIN AIRWAYS: The mainstem bronchi and proximal branches are patent. AXILLA: There is no axillary lymphadenopathy. SOFT TISSUES: Unremarkable. BONES: The bones are intact. ABDOMEN: LIVER: The liver is normal in size and contour. Again seen is a subcentimeter hypodense focus at the dome of the left lobe. No new liver mass is identified. The hepatic and portal veins are patent. GALLBLADDER / BILE DUCTS: The gallbladder is surgically absent. There is no intra or extrahepatic biliary ductal dilatation. SPLEEN: The spleen is normal in size and has an unremarkable unenhanced appearance. PANCREAS: The pancreas has an unremarkable unenhanced appearance. ADRENAL GLANDS: Unremarkable. KIDNEYS/RETROPERITONEUM: No renal calculi are identified. There is no hydronephrosis. LYMPH NODES: No retroperitoneal lymphadenopathy is identified in the abdomen or pelvis. VASCULATURE: The abdominal aorta demonstrates atherosclerotic calcification, but is normal in caliber. MESENTERY/PERITONEUM: No free fluid. No masses. There is no free intraperitoneal gas. STOMACH: Again seen is a small hiatal hernia. The stomach is otherwise unremarkable. SMALL BOWEL: The small bowel is normal in caliber. COLON: The patient is status post ascending colectomy. There is diverticulosis of the remainder of the colon, without evidence of diverticulitis. There is mucosal hyperenhancement of the transverse and descending colon without change from the prior study. APPENDIX: The appendix is surgically absent. URINARY BLADDER/PELVIC ORGANS: The urinary bladder is collapsed, limiting detailed evaluation. The uterus is unremarkable. Again seen is a 1.8 cm cystic focus in the right adnexa, likely related to the right ovary. BONES / SOFT TISSUES: There is degenerative disc disease of the spine. CT/CT abdomen pelvis w IV con IMPRESSION: 1. Diffuse reticulonodular opacities at the peripheral aspects of both lungs which are new from the prior study. Metastatic disease is not excluded. 2. New 8 mm right paratracheal lymph node. 3. Stable subcentimeter hypodense focus of the dome of the left lobe of the liver is too small to accurately characterize. 4. Stable mucosal hyperenhancement of the transverse and descending colon, of uncertain significance. Electronically signed by: Monico Godinez MD 11/26/2024 10:39 AM EDT
--- OUTSIDE RECORDS SUMMARY | 2024-11-26 08:49 | XMS_ITS | Clinical Summary ---
Author Organization [employer] Address [address] [facility] [address] [place] [address] Care Team Providers Care Mail Delivery Supervisor Name Role Phone Unavailable Primary Care Provider [...] Screening 1971 SDOH Screening 1971 Sigmoidoscopy 1971 Disability Screening 1971 Alcohol/Substance Use Screening 1983 Tobacco Screening 1983 Hepatitis C Screening 1989 DTaP/Tdap/Td Vaccines (1 - Tdap) 1990 Hepatitis B Vaccines (1 of 3 [...] on patient's age to complete this topic Hepatitis A Vaccines Aged Out No long er eligible based on patient's age to complete this topic IPV Vaccines Aged Out No longer eligi ble based on patient's age to complete this topic Meningococcal B Vaccine Aged Out No l onger eligible based on patient's age to complete [...]
[2024-11-26] MEDS: iohexoL 350 MG/ML 100 ML INFUS..BTL IV (10:02)
== END 2024-11-26 08:47 | disposition home or self-care (01) ==
LOC: HO.CT 08:46
PROVIDERS: PCP Nurse Practitioner Adult Health; Visit Provider Internal Medicine
DX: C18.9 Malignant neoplasm of colon, unspecified (principal)
CPT/HCPCS: 71250; 74177; Q9967

== ENCOUNTER → 2024-11-26 08:50 | Outpatient (BNV) | payer OTHER, SELFPAY | PROVIDERS: PCP Nurse Practitioner Adult Health; Visit Provider Radiology Diagnostic Radiology | DX: R91.8 Other nonspecific abnormal finding of lung field (principal); R59.0 Localized enlarged lymph nodes | CPT/HCPCS: 71250; 74177 ==

== ENCOUNTER 2024-11-30 11:01 | Emergency (ER) | payer OTHER, SELFPAY ==
--- NOTE | ~2024-11-30 | CT_ITS ---
EXAMINATION: CT ABDOMEN PELVIS WITH IV CONTRAST HISTORY: lower abd pain COMPARISON: Patent is made with the prior examination dated 11/26/2024. TECHNIQUE: CT scan of the abdomen and pelvis was performed following administration of 85 mL Omnipaque 350 using standard departmental protocol. Coronal and sagittal reformatted images were generated and reviewed. Oral contrast material was not administered at the request of the referring physician. This CT exam was performed with one or more of the following dose reduction techniques: automated exposure control, adjustment of the mA and/or kV according to patient size, use of iterative reconstruction technique. DLP: 3:15 2 mGy-cm FINDINGS: LOWER CHEST: Reticulonodular opacities in the lung bases are unchanged. There is no pleural effusion. CARDIOVASCULATURE: The heart is normal in size. There is no pericardial effusion. LIVER: The liver is normal in size and contour. Subcentimeter hypodensity at the dome is unchanged. The hepatic and portal veins are patent. GALLBLADDER / BILE DUCTS: The patient is status post cholecystectomy. Mild dilatation of the intra and extrahepatic bile ducts is unchanged, likely related to prior cholecystectomy. SPLEEN: The spleen is normal in size. No focal splenic lesion is identified. PANCREAS: There is a 10 mm hypodensity in the uncinate process, unchanged since 02/28/2023. The pancreatic duct is normal in caliber. ADRENAL GLANDS: Within normal limits. KIDNEYS/RETROPERITONEUM: No renal calculi are identified. There is no hydronephrosis. No renal masses are identified. LYMPH NODES: No abdominal or pelvic lymphadenopathy. VASCULATURE: The abdominal aorta is normal in caliber. MESENTERY/PERITONEUM: No free fluid. No masses. There is no free intraperitoneal gas. STOMACH: The stomach is collapsed, limiting evaluation. SMALL BOWEL: The small bowel is normal in caliber. COLON: The patient is again noted to be status post ascending colectomy. There is colonic diverticulosis without evidence of diverticulitis. APPENDIX: The appendix is surgically absent. URINARY BLADDER/PELVIC ORGANS: The urinary bladder is collapsed, limiting evaluation. The uterus and left ovary are unremarkable. Again seen is a 1.8 cm cystic focus in the right adnexa. BONES / SOFT TISSUES: Again seen are mild compression deformities of L2 and L4. CT/CT abdomen pelvis w IV con IMPRESSION: Stable exam from 11/26/2024. No acute abnormality is identified. Electronically signed by: Monico Godinez MD 11/30/2024 01:29 PM EDT
[2024-11-30 11:18] VITALS: BP 155/89; PULSE 85; RESP 16; TEMP 36.6; O2SAT 96; BMI 22.0
[2024-11-30 11:36] VITALS: BP 184/75; PULSE 59; RESP 16; O2SAT 99
--- NOTE | 2024-11-30 11:57 | ED.NAVMDI ---
HPI - Nausea/Vomiting/Diarrhea General Chief complaint: Nausea/Vomiting/Diarrhea Stated complaint: Nausea, back pain Time Seen by Provider: 11/30/24 11:33 History of Present Illness HPI Narrative: patient is a 54-year-old with a history of colon cancer metastatic to the lungs currently undergoing chemotherapy last time got chemo was about a month ago status post resection many years ago patient presented today with having nausea vomiting diarrhea generalized malaise unable to keep any food down. Patient from home. Blood in the stool Related Data Home Medications ?Medication ?Instructions ?Recorded ?Confirmed fluoxetine 10 mg capsule 30 mg PO DAILY 08/21/20 06/29/24 Vitamin B and C 1 tab PO DAILY 08/01/21 06/29/24 Vitamin D3 1 tab PO DAILY 08/01/21 06/29/24 Previous Rx's ?Medication ?Instructions ?Recorded ibuprofen 600 mg tablet 600 mg PO Q6H PRN pain #30 tabs 04/02/21 dexamethasone 2 mg tablet 2 mg PO BID #30 tabs 09/19/23 loperamide 2 mg capsule (Imodium 2 mg PO Q6H PRN Diarrhea #30 caps 09/19/23 A-D) ondansetron 8 mg disintegrating 8 mg PO Q8H PRN Nausea #60 tabs 09/19/23 tablet prochlorperazine maleate 10 mg 10 mg PO Q6H PRN Nausea #30 tabs 10/08/23 tablet Magic Mouthwash 5 ml PO 3XD #240 mL 10/21/23 Diphen/Nystat/Antacid 1:1:1 240 mL suspension sennosides 8.6 mg-docusate sodium 1 tab-cap PO BEDTIME PRN 10/24/23 50 mg tablet (Senna with Docusate Constipation #30 tabs Sodium) lisinopril 10 1 tab PO DAILY #30 tabs 11/19/23 mg-hydrochlorothiazide 12.5 mg tablet chlorhexidine gluconate 0.12 % 15 ml buccal BID #100 mL 12/02/23 mouthwash (Paroex Oral Rinse) meclizine 25 mg tablet 25 mg PO TID PRN Vertigo #15 tabs 09/29/24 prochlorperazine maleate 10 mg 10 mg PO Q8H PRN nausea and 10/27/24 tablet (Compazine) vomiting #10 tabs Allergies Allergy/AdvReac Type Severity Reaction Status Date / Time mushroom Allergy Intermediate Vomiting Verified 11/30/24 11:21 Latex, Natural Rubber Allergy Rash Verified 11/30/24 11:21 Review of Systems Review of Systems: Positive nausea vomiting diarrhea Yes all other systems are reviewed and are negative [facility] Past Medical History Attestation statement: The following information was validated with the patient. Medical History Port-A-Cath in place Gallbladder polyp Colon cancer Spinal stenosis Arthritis History of kidney infection Depression Adenomatous polyp of cecum History of anxiety Surgical History History of laparoscopic cholecystectomy History of colon resection H/O colonoscopy Family History Family History Mother Diabetes Afib Heart murmur Social History Social History Household Members: Significant Other Housing: House Are you a primary child care associate to a significant other at home: No (S.O. at home disabled) Do you presently have visiting nurse or other home services: No Alcohol intake: current Alcohol intake frequency: holidays/special occasions only Patient Tobacco Use Status: Current everyday Tobacco user Tobacco use type: Cigarette Cigarettes Per Day: 6 Years Smoked: 37 Smoked in Last 30 Days: Yes Second Hand Smoke Exposure: Yes Substance Use Type: Marijuana Advance Directives: No Advance Directives Information Provided: Yes service: No Current occupational status: employed Current occupation: billing Physical Exam Vital Signs: Vital Signs: Last Vital Signs Temp 98.1 F 11/30/24 13:09 Pulse 70 11/30/24 13:09 Resp 18 11/30/24 13:09 BP 124/70 11/30/24 13:09 Pulse Ox 95 11/30/24 13:09 O2 Del Method Room Air 11/30/24 13:09 BMI result Body Mass Index 22.0 Appearance: Sick appearing female looks stated age Eyes: Pupils equal, round and reactive to light. ENT: Pharynx normal. Neck: Normal inspection. Neck supple. No lymph nodes noted. No crepitus CVS: Normal heart rate and rhythm. Pulses normal. Normal S1 and S2 Respiratory: No respiratory distress. Breath sounds normal. No Wheezing. No rales Abdomen: Soft and nontender. No rigidity. No distention. good BS x4 Skin: Skin warm and dry. Normal skin color. Normal skin turgor. Extremities: No lower extremity edema. Neurovascular intact to all extremities. No Lacerations. No Rash Neuro: Oriented X 3. No motor deficit. No sensory deficit. Moving all extermities. No slurred speech Medications Administered Discontinued Medications Generic Name Dose Route Start Last Admin Trade Name [place]ac[place] PRN Reason Stop Dose Admin Hydromorphone HCl 1 mg 11/30/24 11:55 11/30/24 12:19 Hydromorphone Hcl 1 Mg/Ml Syringe IVPUSH 11/30/24 11:56 1 mg ONCE ONE Administration Protocol Sodium Chloride 1,000 mls @ 999 mls/hr 11/30/24 12:00 11/30/24 12:17 Ns IV 11/30/24 13:00 999 mls/hr .Q1H1M CHENTE Administration Sodium Chloride 1,000 mls @ 999 mls/hr 11/30/24 12:00 11/30/24 12:27 Ns IV 11/30/24 13:00 999 mls/hr .Q1H1M CHENTE Administration Iohexol 100 ml 11/30/24 12:56 11/30/24 13:02 Iohexol 350 Mg/Ml 100 Ml Infus..Btl IV 11/30/24 12:57 85 ml ONCE ONE Administration Ondansetron HCl 4 mg 11/30/24 11:55 11/30/24 12:19 Ondansetron Hcl 4 Mg/2 Ml Vial IVPUSH 11/30/24 11:56 4 mg ONCE ONE Administration Medical Decision Making Medical Decision Making [facility] Narrative: Patient 54 years old presents today with having nausea vomiting diarrhea. Positive history of colon cancer in the past. Status post chemo about a month ago. patient is given Zofran IV fluids with good results. Patient's CT scan of the abdomen on my interpretation showed no acute obstruction abscess perforation. I reviewed radiology's reading which showed no acute finding. Now tolerating p.o. symptomatically feels much improved wants to go home. Patient has chemo tomorrow. Has Zofran at home. Will discharge home. Differential Diagnosis Differential Diagnoses: The differential diagnosis associated with the presentation includes Nausea vomiting, obstruction Admission/Observation Consideration of admission/observation: Escalation of care including admission/observation considered Lab Data MDM Lab Attestation statement: I reviewed the patient's lab results. 11/30/24 12:13 11/30/24 12:13 Labs: Lab Results 11/30/24 11/30/24 Range/Units 12:13 14:25 WBC 10.2 (4.8-10.8) X10*3/uL RBC 4.61 (4.20-5.50) X10*6/uL Hgb 14.4 (12.0-16.0) g/dl Hct 41.6 (37.0-47.0) % MCV 90.2 (80.0-98.0) fL MCH 31.2 (27.0-33.0) pg MCHC 34.6 (31.0-35.0) g/dl RDW 14.2 (11.0-16.0) % Plt Count 252 (160-400) X10*3/uL MPV 8.8 L (9.4-12.3) fL Immature Gran % (Auto) 0.6 H (0.0-0.4) % Neut % (Auto) 83.0 H (45-73) % Lymph % (Auto) 13.3 L (20-40) % [place] % (Auto) 2.5 (2-11) % Eos % (Auto) 0.2 (0-4) % Baso % (Auto) 0.4 (0-2) % Lymph # (Auto) 1.4 (1.2-4.9) X10*3/uL [place] # (Auto) 0.3 (0.1-1.2) X10*3/uL Eos # (Auto) 0.0 (0.0-0.4) X10*3/uL Baso # (Auto) 0.0 (0.0-0.2) X10*3/uL Abs Immat Gran (auto) 0.06 H (0.00-0.03) X10*3/uL Absolute Neuts (auto) 8.5 H (2.0-8.3) x10*3/uL Absolute Nucleated RBC 0.000 (0.0-0.012) X10*3/uL Nucleated RBC % (auto) 0.0 (0.0-0.2) /100WBC Sodium 144 (135-145) mmol/L Potassium 4.1 (3.3-5.1) mmol/L Chloride 107 (96-108) mmol/L Carbon Dioxide 27 (22-29) mmol/L Anion Gap 14 (12-20) BUN 13 (9-16) mg/dL Creatinine 0.74 (0.5-1.4) mg/dL Estim Creat Clear Calc 75.9 Estimated GFR > 60 Random Glucose 148 H (60-115) mg/dL Calcium 10.3 H D (8.4-10.2) mg/dL Total Bilirubin 0.6 (0.0-1.0) mg/dL AST 23 (5-31) U/L ALT 14 (0-31) U/L Alkaline Phosphatase 66 (39-117) U/L Total Protein 7.2 (6.5-8.0) g/dL Albumin 4.8 (3.5-5.0) g/dL Lipase 24 (8-78) U/L Urine Color Yellow Urine Appearance Clear Urine pH 8.0 (5.0-9.0) Ur Specific [place] >= 1.030 H (1.005-1.025) Urine Protein Negative (Neg-Trace) mg/dL Urine Glucose (UA) Negative (Negative) mg/dL Urine Ketones 15 (Negative) mg/dL Urine Blood Negative (Negative) Urine Nitrite Negative (Negative) Ur Leukocyte Esterase Negative (Negative) Urine RBC 0-2 (0-2) /HPF Urine WBC 0-5 (0-5) /HPF Ur Squamous Epith Cells 0-2 (0-2) /HPF Urine Bacteria None Seen (None Seen) Hyaline Casts 0-2 (0-2) /LPF Independent Interpretation I performed an independent interpretation of an: CT Scan ( CT scan of the abdomen pelvis was grossly negative for obstruction abscess perforation) Radiology Impression Discussion of test interpretation with radiology: I have reviewed the radiologist's reading. External Record Review External record reviewed: Inpatient record Chronic Conditions Patient?s care impacted by: Cancer Social Determinants Patient?s care significantly limited by Social Determinants of Health including: Problems related to primary support group Discharge Plan Discharge Clinical Impression: Nausea & vomiting Patient Disposition: Home, Self-Care Instructions: Acute Nausea and Vomiting (ED) Prescriptions: No Action ibuprofen 600 mg tablet 600 mg PO Q6H PRN (Reason: pain) Qty: 30 0RF fluoxetine 10 mg capsule 30 mg PO DAILY Vitamin B and C 1 tab PO DAILY Vitamin D3 1 tab PO DAILY dexamethasone 2 mg Tablet 2 mg PO BID Qty: 30 3RF Rx Instructions: For 2 days after chemotherapy loperamide [Imodium A-D] 2 mg Capsule 2 mg PO Q6H PRN (Reason: Diarrhea) Qty: 30 2RF ondansetron 8 mg Tablet,Disintegrating 8 mg PO Q8H PRN (Reason: Nausea) Qty: 60 2RF prochlorperazine maleate 10 mg Tablet 10 mg PO Q6H PRN (Reason: Nausea) Qty: 30 3RF Magic Mouthwash Diphen/Nystat/Antacid 1:1:1 240 mL Suspension 5 ml PO 3XD Qty: 240 3RF Rx Instructions: nystatin 100,000 unit/mL oral suspension 80 mL; diphenhydramine 12.5 mg/5 mL oral liquid 80 mL; aluminum-mag hydroxide-simethicone 400 mg-400 mg-40 mg/5 mL oral susp 80 mL; Per 240 mL sennosides-docusate sodium [Senna with Docusate Sodium] 8.6-50 mg Tablet 1 tab-cap PO BEDTIME PRN (Reason: Constipation) Qty: 30 0RF lisinopril-hydrochlorothiazide 10-12.5 mg Tablet 1 tab PO DAILY Qty: 30 3RF chlorhexidine gluconate [Paroex Oral Rinse] 0.12 % Mouthwash 15 ml BUCCAL BID Qty: 100 2RF meclizine 25 mg Tablet 25 mg PO TID PRN (Reason: Vertigo ) Qty: 15 0RF prochlorperazine maleate [Compazine] 10 mg tablet 10 mg PO Q8H PRN (Reason: nausea and vomiting) Qty: 10 0RF Referrals: Kieran Mayo MD [Primary Care Provider] - 12/02/24 Print Language: Algerian
[2024-11-30 12:17] LABS: MANUAL DIFF FLAG NO
[2024-11-30] MEDS: 0.9 % Sodium Chloride 1,000 ML 999 ML IV ×2 (12:17→12:27)
[2024-11-30] MEDS: ondansetron HCL 4 MG/2 ML VIAL IVPUSH (12:19)
[2024-11-30] MEDS: HYDROmorphone HCl 1 MG/ML SYRINGE IVPUSH (12:19)
[2024-11-30 12:20] LABS: Basophils Percent Auto 0.4 % (0-2); Eosinophils Percent Auto 0.2 % (0-4); Hematocrit 41.6 % (37.0-47.0); Hemoglobin 14.4 g/dl (12.0-16.0); Imm Gran Abs Auto 0.06 X10*3/uL (0.00-0.03); Imm Gran Pct Auto 0.6 % (0.0-0.4); Lymphocytes Absolute Auto 1.4 X10*3/uL (1.2-4.9); Lymphocytes Percent Auto 13.3 % (20-40); Mean Corpuscular HGB Conc 34.6 g/dl (31.0-35.0); Mean Corpuscular Hemoglobin 31.2 pg (27.0-33.0); Mean Corpuscular Volume 90.2 fL (80.0-98.0); Mean Platelet Volume 8.8 fL (9.4-12.3); Monocytes Absolute Auto 0.3 X10*3/uL (0.1-1.2); Monocytes Percent Auto 2.5 % (2-11); Neutrophils Absolute Auto 8.5 x10*3/uL (2.0-8.3); Platelet Count 252 X10*3/uL (160-400); Red Blood Count 4.61 X10*6/uL (4.20-5.50); Red Cell Distribution Width 14.2 % (11.0-16.0); White Blood Count 10.2 X10*3/uL (4.8-10.8)
[2024-11-30 12:23] VITALS: BP 173/73
[2024-11-30 12:33] LABS: Alanine Aminotransferase 14 U/L (0-31); Albumin Level 4.8 g/dL (3.5-5.0); Alkaline Phosphatase 66 U/L (39-117); Anion Gap 14 (12-20); Aspartate Amino Transferase 23 U/L (5-31); Bilirubin Total 0.6 mg/dL (0.0-1.0); Blood Urea Nitrogen 13 mg/dL (9-16); Calcium 10.3 mg/dL (8.4-10.2); Carbon Dioxide 27 mmol/L (22-29); Chloride 107 mmol/L (96-108); Creatinine Clr Calc Pharmacy 75.9; Estimated Glomerular Filt Rate > 60; Glucose Random 148 mg/dL (60-115); Lipase 24 U/L (8-78); Potassium 4.1 mmol/L (3.3-5.1); Sodium 144 mmol/L (135-145); Total Protein 7.2 g/dL (6.5-8.0)
[2024-11-30] MEDS: iohexoL 350 MG/ML 100 ML INFUS..BTL IV (13:02)
[2024-11-30 13:09] VITALS: BP 124/70; PULSE 70; RESP 18; TEMP 36.7; O2SAT 95
--- NOTE | 2024-11-30 13:19 | PC.NURSE ---
Pt reports relief, denies pain and no vomiting since medication interventions VSS
--- OUTSIDE RECORDS SUMMARY | 2024-11-30 13:53 | XMS_ITS | Clinical Summary ---
Author Organization [employer] Address [address] [place] [address] Care Team Providers Care Revenue Liaison Name Role Phone Unavailable Primary Care Provider [...] Vaccine (2023-2 5 season) 2024 Influenza Vaccine (Season Ended) 2025 Dental X-Ray: Full Mouth 11/19/2026 11/19/2023 RSV [...]
--- NOTE | 2024-11-30 14:21 | PC.NURSE ---
Pt ambulated to and from BR well no complaints no acute distress. Pt states I feel better
[2024-11-30 14:32] LABS: Appearance Urine Clear; Color Urine Yellow; Glucose Urine UA Negative (Negative); Leukocyte Esterase Urine Negative (Negative); Nitrite Urine Negative (Negative); Specific Gravity - Urine >= 1.030 (1.005-1.025); Urine Blood Negative (Negative); Urine Ketones 15 mg/dL (Negative); Urine Protein Negative (Neg-Trace)
[2024-11-30 14:35] LABS: Bacteria Urine None Seen (None Seen); Hyaline Casts Urine 0-2 /LPF (0-2); RBC Urine 0-2 /HPF (0-2); Squamous Epithelial Cell Urine 0-2 /HPF (0-2); WBC Urine 0-5 /HPF (0-5)
[2024-11-30 15:00] VITALS: BP 124/70; PULSE 70; RESP 18; TEMP 36.7; O2SAT 95
--- NOTE | 2024-11-30 16:17 | PC.NURSE ---
Wrong d/c in chart D/C by this RN Port a cath flushed and removed by this food and beverage checker, awaits in car A/O Understands instructions given Will return for worsening sx
== END 2024-11-30 16:18 | disposition home or self-care (01) ==
PROVIDERS: Emergency Provider Emergency Medicine Emergency Medical Services; PCP Internal Medicine
DX: R11.2 Nausea with vomiting, unspecified (principal); C18.9 Malignant neoplasm of colon, unspecified; C78.00 Secondary malignant neoplasm of unspecified lung; Z90.49 Acquired absence of other specified parts of digestive tract; F17.210 Nicotine dependence, cigarettes, uncomplicated; Z79.899 Other long term (current) drug therapy
CPT/HCPCS: 36415; 74177; 80053; 81001; 83690; 85025; 96361; 96374; 96375; 99284; 99285; J1171; J1642; J2405; Q9967

== ENCOUNTER → 2024-11-30 11:55 | Outpatient (BNV) | payer OTHER, SELFPAY | PROVIDERS: Emergency Provider Emergency Medicine Emergency Medical Services; PCP Internal Medicine; Visit Provider Radiology Diagnostic Radiology | DX: R10.30 Lower abdominal pain, unspecified (principal) | CPT/HCPCS: 74177 ==

== ENCOUNTER 2024-12-03 13:33 | Outpatient (REF) | payer OTHER, SELFPAY | END 2024-12-03 13:34 | disposition home or self-care (01) | LOC: HO.MAMMO 13:33 | PROVIDERS: Absent Provider Internal Medicine; PCP Nurse Practitioner Adult Health; Visit Provider Internal Medicine | DX: Z12.31 Encounter for screening mammogram for malignant neoplasm of breast (principal) | CPT/HCPCS: 77063; 77067 ==

== ENCOUNTER → 2024-12-03 14:30 | Outpatient (BNV) | payer OTHER, SELFPAY | PROVIDERS: Absent Provider Internal Medicine; PCP Nurse Practitioner Adult Health; Visit Provider Internal Medicine | DX: Z12.31 Encounter for screening mammogram for malignant neoplasm of breast (principal) | CPT/HCPCS: 77063; 77067 ==

== ENCOUNTER 2024-12-24 15:01 | Outpatient (AMB) | payer OTHER, SELFPAY ==
--- OUTSIDE RECORDS SUMMARY | 2024-12-24 15:13 | XMS_ITS | Clinical Summary ---
Author Organization [employer] Address [address] [place] [address] Care Team Providers Care Marine Design Engineer Name Role Phone Unavailable Primary Care Provider [...]
--- NOTE | 2024-12-24 15:15 | A.OFFPC_ITS ---
Vital Signs 12/24/24 15:35 Height 5 ft 3 in Weight 56.699 kg BMI 22.1 BP 106/66 Temp 97.4 F Temp Source Temporal Artery Scan Pulse Oximetry (%) 98 Oxygen Delivery Method Room Air Intake Visit Reasons: Physical Therapeutic Riding Instructor Required: No Accompanied by: Self / Same As Patient Allergies mushroom Allergy (Intermediate, Verified 11/30/24 11:21) Vomiting Latex, Natural Rubber Allergy (Verified 11/30/24 11:21) Rash HPI HPI Comments History of Present Illness Details 54-year-old female with history of stage IV colon cancer, osteoarthritis, spinal stenosis, anxiety, vertigo presents to the office today for management of chronic conditions, to establish care, and for annual physical exam. She is currently living with her and assists in taking care of her mother who is ill. She is smoking marijuana and recently relapsed on crack cocaine. See janine charles. No other substance use. No alcohol use. She had stopped smoking cigarettes but recently relapsed smoking about 6 cigarettes on a daily basis. She does feel like she can quit on her own. 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 Colon cancer-diagnosed March 2021 s/p right hemicolectomy revealing adenocarcinoma, moderately differentiated, invasive into subserosa. Most recently, CT chest/abdomen and pelvis 10/2024 demonstrated diffuse reticulonodular opacities in the peripheral aspects of both lungs which were felt to be more inflammatory versus infectious, possibly secondary to smoking cocaine which could have affected the lungs in this way. Per onc note, lung ct shoed improvement in pulmonary nodules. She undergoes chemotherapy every 2 weeks and does have port in the right chest. She is on FMLA. She reports she is feeling okay physically overall but her cancer has really taken a toll on her mentally. Has FMLA. Chemo every 2 weeks with port. Reports s/e including vertigo and nausea. Depression/anxiety-she has been quite depressed secondary to her cancer and is awaiting an appointment with a counselor as referred by her oncologist. She previously was doing raking and massages which were helpful and would like to start this again. Unfortunately, she did relapse smoking crack cocaine about 2 months ago but has not used this substance in the last 2 weeks. She had been sober for 30 years prior to this. She will be starting oncology support groups next month. She tells me that she has had thoughts of hurting herself but has never had a plan. States the last time this occurred was several weeks ago. Taking fluoxetine 30 mg daily. Substance use disorder- as above Concerns: As above Health maintenance: Last mammogram 12/03/2024, negative for malignancy. One year follow-up advised Last colonoscopy 05/2022 Dr. Kebede. Upon coming next week ROS: General: No fevers, malaise, unintentional weight loss HEENT: No blurred vision, diplopia. No sore throat, nasal congestion, rhinorrhea, sinus pain, ear pain Neck - no adenopathy Cardiovascular: No chest pain, palpitations, or leg edema Respiratory: No shortness of breath, wheezing, cough GI: No abdominal pain, nausea, vomiting, diarrhea, constipation, melena, hematochezia : No dysuria, hematuria, increased urinary frequency, decreased urinary output. See HPI MSK: No myalgia, back pain, arthralgias Neuro: No headaches, weakness, paresthesias Psych: See HPI Skin: No rashes or lesions EXAM: Constitutional - Awake and Alert, No apparent distress Eyes - PERRLA, EOMI. Anicteric Nose- septum midline, nares clear, no sinus tenderness Mouth/throat- mucosa moist, tongue and uvula midline, no erythema/edema or tonsillar adenopathy. Neck-trachea midline, thyroid symmetric without palpable nodules, no adenopathy Cardiovascular - S1S2, RRR, No edema Respiratory - Normal lung expansion, Normal respiratory effort, No respiratory distress, CTA bilaterally Gastrointestinal - NT / ND; +BS; No rebound or guarding - No CVA tenderness Extremities - no calf tenderness bilaterally, no swelling Musculoskeletal - Normal inspection, normal ROM Skin - Warm/Dry Neurological - Alert & oriented x3, CN II-XII in tact, 5/5 strength BUE and BLE Psychological - Appropriate affect [facility] Medical History (Updated 12/24/24 @ 15:40 by NITESH Henry) Cocaine use Port-A-Cath in place Gallbladder polyp Colon cancer Spinal stenosis Arthritis History of kidney infection Depression Adenomatous polyp of cecum History of anxiety Surgical History History of laparoscopic cholecystectomy History of colon resection H/O colonoscopy Family History Mother Diabetes Afib Heart murmur Social History Household Members: Significant Other Housing: House Are you a primary healthcare educator to a significant other at home: No (S.O. at home disabled) Do you presently have visiting nurse or other home services: No Alcohol intake: current Alcohol intake frequency: holidays/special occasions only Patient Tobacco Use Status: Current everyday Tobacco user Tobacco use type: Cigarette Cigarettes Per Day: 6 Years Smoked: 37 Second Hand Smoke Exposure: Yes Substance Use Type: Marijuana service: No Current occupational status: employed Current occupation: billing Questionnaire PHQ-9 Over the last 2 weeks, how often have you been bothered by any of the following problems? 1. Little interest or pleasure in doing things: several days 2. Feeling down, depressed, or hopeless: several days 3. Trouble falling or staying asleep, or sleeping too much: not at all 4. Feeling tired or having little energy: more than half the days 5. Poor appetite or overeating: several days 6. Feeling bad about yourself - or that you are a failure or have let yourself or your family down: more than half the days 7. Trouble concentrating on things, such as reading the newspaper or watching television: not at all 8. Moving or speaking so slowly that other people could have noticed. Or the opposite - being so fidgety or restless that you have been moving around a lot more than usual: not at all 9. Thoughts that you would be better off or of hurting yourself in some way: several days Total score: 8 Depression Screening Interpretation: Positive Depression Screening Done: Yes 80648 - PHQ-9 Billing: Yes Source: Developed by Drs. Monico Gonzalez, Dorothy Rader, Israel Walls and colleagues, with an educational opal from [employer]. Thrive Questionnaire Date Thrive assessed: 12/24/24 I am a: Patient What is your living situation today?: I have a steady place to live Within the past 12 months, did the food you bought not last and you didn't have the money to get more?: Sometimes True Within the past 12 months, did you worry whether your food would run out before you got money to buy more?: Never true Do you have trouble paying for medicines?: No Do you have trouble getting transportation to medical appointments?: No Do you have trouble paying your heating and electricity bill?: No Do you have trouble taking care of your child, family member or friend?: No Do you have trouble with day-to-day activities such as bathing, preparing meals, shopping, managing finances, etc.?: No Are you currently unemployed and looking for a job?: No Are you interested in more education?: No THRIVE Score: 1 KAMRAN-7 AMB Questionnaire KAMRAN-7 Date KAMRAN - 7 assessed: 12/24/24 Feeling nervous, anxious, or on edge: 2 = More than half the days Not being able to stop or control worryin = Not at all Worrying too much about different things: 1 = Several days Trouble relaxin = Several days Being so restless that it is hard to sit still: 0 = Not at all Becoming easily annoyed or irritable: 2 = More than half the days Feeling afraid as if something awful might happen: 0 = Not at all Total KAMRAN-7 score (0-4 normal; 5-9 mild; 10-14 moderate; 15-21 severe): 6 Source: Developed by Drs. Monico Gonzalez, Dorothy Rader, Israel Walls and colleagues, with an educational opal from [employer]. Physical exam (Primary Care) Vital Signs: Last Vital Signs Temp 97.4 F 12/24/24 15:35 BP 106/66 12/24/24 15:35 Pulse Ox 98 12/24/24 15:35 Oxygen Delivery Method Room Air 12/24/24 15:35 BMI result Body Mass Index 22.1 Tobacco/Smoking Status: Tobacco use Status Patient Tobacco Use Status Current everyday Tobacco 12/24/24 15:19 Tobacco use type Cigarette 12/24/24 15:19 Depression Screening Interpretation: Positive Coding Level of Care Code Est Pt Level 4 (79247) Complex EM visit Add On G2211 Diagnoses Routine medical exam Z00.00 Hyperglycemia R73.9 Colon cancer C18.9 Cocaine use F14.90 Depression F32.9 Additional Codes PHQ-9 - 92941 - PHQ-9 Billing: Yes ([id number]) Assessment & Plan Assessment & Plan (1) Routine medical exam: Code(s): Z00.00 - Encounter for general adult medical examination without abnormal findings Plan: 54-year-old female presents for annual physical exam. Plan as below. Showing late encouraged smoking cessation, declines NRT. Encouraged to% for counseling, declines increase in fluoxetine dose but will contact the office for increase if needed (2) Hyperglycemia: Code(s): R73.9 - Hyperglycemia, unspecified Category: Medical Plan: Has intermittently had hyperglycemia which may be related to steroid use. Check hemoglobin A1c (3) Colon cancer: Code(s): C18.9 - Malignant neoplasm of colon, unspecified Category: Medical Plan: Reviewed most recent oncology note. Continue with chemotherapy schedule as advised. Will check hemoglobin A1c given recurrent steroid use. Continue following with Oncology as scheduled (4) Cocaine use: Code(s): F14.90 - Cocaine use, unspecified, uncomplicated Category: Social Hx Plan: No use in the last 2 weeks. She is referred to counseling. Encouraged contin ued abstinence (5) Depression: Code(s): F32.9 - Major depressive disorder, single episode, unspecified Category: Medical Plan: With anxiety. PHQ-9 score 8, kamran 7 score 6. Continue fluoxetine 30 mg daily. Referred for counseling. Currently no alarm symptoms. Declines increase in fluoxetine at this time Plan Routine screening labs as ordered below Continue with screening mammograms, Pap smears, colonoscopies Continue following for annual skin exams and use sun protection Annual eye exams Wear seat belt in car Recommend regular exercise and healthy diet Follow-up in 6 months Orders: Orders Lipid Panel Today R73.9 - Hyperglycemia, unspecified, Z00.00 - Encounter for general adult medical examination without abnormal findings Hemoglobin A1c Today R73.9 - Hyperglycemia, unspecified, Z00.00 - Encounter for general adult medical examination without abnormal findings Vitamin D 25-OH Total Today R73.9 - Hyperglycemia, unspecified, Z00.00 - Encounter for general adult medical examination without abnormal findings Patient Instructions: [email or web address]
[2024-12-24 15:35] VITALS: BP 106/66; TEMP 36.3; O2SAT 98; BMI 22.1
== END 2024-12-24 15:58 | disposition home or self-care (01) ==
LOC: HO.HMCHD 15:02
PROVIDERS: PCP Nurse Practitioner Adult Health; Visit Provider Physician Assistant
DX: Z00.00 Encounter for general adult medical examination without abnormal findings (principal); R73.9 Hyperglycemia, unspecified; C18.9 Malignant neoplasm of colon, unspecified; F14.90 Cocaine use, unspecified, uncomplicated; F32.9 Major depressive disorder, single episode, unspecified

== ENCOUNTER → 2024-12-24 15:01 | Outpatient (BNVA) | payer OTHER, SELFPAY | PROVIDERS: PCP Nurse Practitioner Adult Health; Visit Provider Physician Assistant | DX: Z00.00 Encounter for general adult medical examination without abnormal findings (principal); R73.9 Hyperglycemia, unspecified; C18.9 Malignant neoplasm of colon, unspecified; F14.90 Cocaine use, unspecified, uncomplicated; F32.9 Major depressive disorder, single episode, unspecified; Z13.30 Encounter for screening examination for mental health and behavioral disorders, unspecified; Z13.31 Encounter for screening for depression | CPT/HCPCS: 96127 ==

== ENCOUNTER 2025-02-18 09:31 | Day surgery (SDC) | payer OTHER, SELFPAY ==
--- OUTSIDE RECORDS SUMMARY | 2025-01-27 15:28 | XMS_ITS | Clinical Summary ---
Author Organization [employer] Address [address] [place] [address] Care Team Providers Care Librarian Special Library Name Role Phone Unavailable Primary Care Provider [...] (2023-2 5 season) 2024 Influenza Vaccine (#1) 2025 Dental X-Ray: Full Mouth 11/19/2026 11/19/2023 [...]
[2025-02-16 15:49] VITALS: BMI 22.1
--- NOTE | 2025-02-17 09:50 | P.CONAN_ITS ---
HPI - Anesthesia Eval Consult details Narrative: 55yo F for Upper Endoscopy and Colonoscopy Colon ca s/p resection 2020 and chemo Hx cocaine use - no further info - Utox DOS Port in situ R chest PMFSH Active Problems Active Problems: All Active Problems Hyperglycemia (Acute) S/P right colectomy (Acute) Depression (Acute) Cocaine use (Acute) Gallbladder polyp (Acute) Colon cancer (Chronic) Past Medical History Medical History (Updated 02/16/25 @ 15:50 by Nissa Hollins RN) History of chemotherapy PONV (postoperative nausea and vomiting) Cocaine use Port-A-Cath in place Gallbladder polyp Colon cancer Spinal stenosis Arthritis History of kidney infection Depression Adenomatous polyp of cecum History of anxiety Family History Family History (Updated 12/24/24 @ 15:51 by NITESH Henry) Mother Diabetes Afib Heart murmur Coronary artery disease Family history of problems with anesthesia: No Surgical History Surgical History (Updated 02/16/25 @ 15:48 by Nissa Hollins RN) History of esophagogastroduodenoscopy (EGD) (05/10/22) Hx of colectomy (2020) History of laparoscopic cholecystectomy (2022) History of colon resection H/O colonoscopy History of Problems with Anesthesia: No Social History Social History Household Members: Significant Other Housing: House Are you a primary memory care program resident to a significant other at home: No (S.O. at home disabled) Do you presently have visiting nurse or other home services: No Alcohol intake: current Alcohol intake frequency: holidays/special occasions only Patient Tobacco Use Status: Current everyday Tobacco user Tobacco use type: Cigarette Cigarettes Per Day: 6 Years Smoked: 37 Second Hand Smoke Exposure: Yes Substance Use Type: Marijuana service: No Current occupational status: employed Current occupation: billing Meds Allergies Allergy/AdvReac Type Severity Reaction Status Date / Time mushroom Allergy Intermediate Vomiting Verified 11/30/24 11:21 Latex, Natural Rubber Allergy Rash Verified 11/30/24 11:21 Home Medications ?Medication ?Instructions ?Recorded ?Confirmed ?Last Taken ?Type fluoxetine 10 mg capsule 30 mg PO DAILY 08/21/2011/2903/30/21 History Vitamin B and C 1 tab PO DAILY 08/01/2111/29 Unknown History Vitamin D3 1 tab PO DAILY 08/01/2111/29 Unknown History Exam Height,Weight and Vital Signs: Height 5 ft 3 in Weight 56.69 kg Pertinent Lab Results Pertinent Lab Results: Laboratory Tests 02/01/25 09:40 WBC 6.3 Hgb 13.3 Hct 38.6 Plt Count 210 Sodium 142 Potassium 4.3 Chloride 107 Carbon Dioxide 28 BUN 9 Creatinine 0.87 Assessment and Plan Assessment Anesthesia Assessment: Chart Reviewed Final Anesthetic Review Family History of Problems with Anesthesia: No History of Problems with Anesthesia: No
--- NOTE | 2025-02-17 09:50 | HO.ANESPROP2 ---
HPI - Anesthesia Eval Consult details Narrative: 55yo F for Upper Endoscopy and Colonoscopy Colon ca s/p resection 2020 and chemo Hx cocaine use - no further info - Utox DOS Port in situ R chest PMFSH Active Problems Active Problems: All Active Problems Hyperglycemia (Acute) S/P right colectomy (Acute) Depression (Acute) Cocaine use (Acute) Gallbladder polyp (Acute) Colon cancer (Chronic) Past Medical History Medical History History of chemotherapy PONV (postoperative nausea and vomiting) Cocaine use Port-A-Cath in place Gallbladder polyp Colon cancer Spinal stenosis Arthritis History of kidney infection Depression Adenomatous polyp of cecum History of anxiety Family History Family History Mother Diabetes Afib Heart murmur Coronary artery disease Family history of problems with anesthesia: No Surgical History Surgical History History of esophagogastroduodenoscopy (EGD) (05/10/22) Hx of colectomy (2020) History of laparoscopic cholecystectomy (2022) History of colon resection H/O colonoscopy History of Problems with Anesthesia: No Social History Social History Household Members: Significant Other Housing: House Are you a primary critical care educator to a significant other at home: No Do you presently have visiting nurse or other home services: No Alcohol intake: current Alcohol intake frequency: holidays/special occasions only Patient Tobacco Use Status: Current everyday Tobacco user Tobacco use type: Cigarette Cigarettes Per Day: 6 Years Smoked: 37 Second Hand Smoke Exposure: Yes Use of substances other than those prescribed or required for medical reasons: Yes Substance Use Type: Marijuana Have you been hit, kicked, punched, or otherwise hurt by someone within the past year? If so, by whom?: No Do you feel safe in your current relationship?: Yes Do you have thoughts of harming others: None Do you have a plan to hurt others: No Plan Do you have the means to hurt others: No Recently lost weight without trying: Yes How much weight loss: 14-23 pounds Eating poorly because of decreased appetite: Yes Nutrition screen score: 5 service: No Current occupational status: employed Current occupation: billing Meds Allergies Allergy/AdvReac Type Severity Reaction Status Date / Time mushroom Allergy Intermediate Vomiting Verified 02/18/25 10:24 Latex, Natural Rubber Allergy Rash Verified 02/18/25 10:24 Home Medications ?Medication ?Instructions ?Recorded ?Confirmed ?Last Taken ?Type Vitamin B and C 1 tab PO DAILY 08/01/21 02/18/25 Unknown History Vitamin D3 1 tab PO DAILY 08/01/21 02/18/25 Unknown History Exam Height,Weight and Vital Signs: Height 5 ft 3 in Weight 56.69 kg Pertinent Lab Results Pertinent Lab Results: Laboratory Tests 02/01/25 09:40 WBC 6.3 Hgb 13.3 Hct 38.6 Plt Count 210 Sodium 142 Potassium 4.3 Chloride 107 Carbon Dioxide 28 BUN 9 Creatinine 0.87 Assessment and Plan Assessment Anesthesia Assessment: Chart Reviewed Final Anesthetic Review Family History of Problems with Anesthesia: No History of Problems with Anesthesia: No
--- NOTE | 2025-02-18 09:40 | PC.NURSE ---
patient admitted to doing crack yesterday. dr. mortensen updated. awaiting interventions.
[2025-02-18] MEDS: Lactated Ringers 1,000 ML 100 ML IVCONT (10:13)
[2025-02-18 10:14] LABS: Cannabinoid Screen Urine POSITIVE (Not Detect)
[2025-02-18 10:21] VITALS: BP 127/71; PULSE 64; RESP 18; TEMP 36.7; O2SAT 97
[2025-02-18 10:22] VITALS: BMI 21.1
--- NOTE | 2025-02-18 10:26 | HO.ANESPROP2 ---
[facility] Active Problems Active Problems: All Active Problems (Updated 02/16/25 @ 15:50 by Nissa Hollins RN) Hyperglycemia (Acute) S/P right colectomy (Acute) Depression (Acute) Cocaine use (Acute) Gallbladder polyp (Acute) Colon cancer (Chronic) Past Medical History Medical History History of chemotherapy PONV (postoperative nausea and vomiting) Cocaine use Port-A-Cath in place Gallbladder polyp Colon cancer Spinal stenosis Arthritis History of kidney infection Depression Adenomatous polyp of cecum History of anxiety Functional capacity: independent ambulation Patient : No Family History Family History Mother Diabetes Afib Heart murmur Coronary artery disease Family history of problems with anesthesia: No Surgical History Surgical History History of esophagogastroduodenoscopy (EGD) (05/10/22) Hx of colectomy (2020) History of laparoscopic cholecystectomy (2022) History of colon resection H/O colonoscopy History of Problems with Anesthesia: No Social History Social History Household Members: Significant Other Housing: House Are you a primary career services coordinator to a significant other at home: No Do you presently have visiting nurse or other home services: No Alcohol intake: current Alcohol intake frequency: holidays/special occasions only Patient Tobacco Use Status: Current everyday Tobacco user Tobacco use type: Cigarette Cigarettes Per Day: 6 Years Smoked: 37 Second Hand Smoke Exposure: Yes Substance Use Type: Marijuana service: No Current occupational status: employed Current occupation: billing Meds Allergies Allergy/AdvReac Type Severity Reaction Status Date / Time mushroom Allergy Intermediate Vomiting Verified 02/18/25 10:24 Latex, Natural Rubber Allergy Rash Verified 02/18/25 10:24 Active Medications: Current Medications Albuterol Sulfate (Albuterol Sulfate (0.083%) 2.5 Mg/3 Ml Vial.Neb) 2.5 mg INHALE ONCE PRN PRN Reason: Shortness of Breath/Wheezing Lactated Ringer's (Lr) 1,000 mls @ 100 mls/hr IVCONT .Q10H CHENTE Last Admin: 02/18/25 10:13 Dose: 100 mls/hr Home Medications ?Medication ?Instructions ?Recorded ?Confirmed ?Last Taken ?Type Vitamin B and C 1 tab PO DAILY 08/01/21 02/18/25 Unknown History Vitamin D3 1 tab PO DAILY 08/01/21 02/18/25 Unknown History Exam Height,Weight and Vital Signs: Height 5 ft 3 in Weight 53.977 kg Last Vital Signs Temp 98.1 F 02/18/25 10:21 Pulse 64 02/18/25 10:21 Resp 18 02/18/25 10:21 BP 127/71 02/18/25 10:21 Pulse Ox 97 02/18/25 10:21 O2 Del Method Room Air 02/18/25 10:21 Pertinent Lab Results Pertinent Lab Results: Laboratory Tests 02/18/25 09:30 Urine Opiates Screen Not Detected Ur Buprenorphine Scrn Not Detected Ur Oxycodone Screen Not Detected Urine Methadone Screen Not Detected Urine Fentanyl Screen Not Detected Ur Barbiturates Screen Not Detected Ur Phencyclidine Scrn Not Detected Ur Amphetamines Screen Not Detected U Benzodiazepines Scrn Not Detected Urine Cocaine Screen POSITIVE H U Marijuana (THC) Screen POSITIVE H Airway Mallampati Class: II TM Dist: >3cm Neck ROM: Full Heart: RRR Lungs: CTA Assessment and Plan Assessment Anesthesia Assessment: Anesthesia Plan Discussed Final Anesthetic Review Family History of Problems with Anesthesia: No History of Problems with Anesthesia: No NPO: Yes ASA Class: III Final Preanesthetic Review: Meds/Allgs Chart Reviewed, Consent Obtained/Reviewed and Anes Risks/Benef Reviewed Patient Risk: Intermediate Procedure Risk: Low Anesthetic Plan Anesthetic Plan: MAC: Disposition: Standard PACU
--- NOTE | 2025-02-18 10:40 | PC.NURSE ---
Dr. Gillette spoke with patient and aware of tox screen results. Stated okay to proceed.
--- NOTE | 2025-02-18 11:02 | MHC.SHP ---
Pre-Procedural Eval Section A - 24 Hr Update-Section A only Date of Service: 02/18/25 The patient is an INPATIENT: No Changes since office visit: No Cold of Flu in the past 2 weeks, No New Medical Problems, No Changes in Medication and No Patient answered all questions The patient has been examined within 24 hours of the surgical procedure. The History & Physical has been completed within 30 days and I have reviewed it.: Yes Section B - Complete if H&P > 30 days Chief Complaint: gerd,cirrhosis of liver,malignant neoplasm Allergies: Allergies Allergy/AdvReac Type Severity Reaction Status Date / Time mushroom Allergy Intermediate Vomiting Verified 02/18/25 10:24 Latex, Natural Rubber Allergy Rash Verified 02/18/25 10:24 Plan I have reviewed the history and physical and performed a pertinent physical examination on my patient. No changes have occurred unless specified. Time Spent With Patient Time: Total time managing care of this patient today ____ minutes.
--- NOTE | 2025-02-18 11:49 | P.BOP_ITS ---
Brief Operative Note Date of Service: 02/18/25 Pre-op diagnosis: cirrhosis screening Surgeon: Jam Kebede MD Anesthesia: MAC Was an Metal Flooring Installer used for this Procedure?: No Estimated blood loss (mL): 0 Pathology: none sent Condition: stable Disposition: PACU
[2025-02-18 11:54] VITALS: BP 86/49; PULSE 63; RESP 16; TEMP 36.4; O2SAT 95
[2025-02-18 12:00] VITALS: BP 96/60; PULSE 64; RESP 20; O2SAT 97
[2025-02-18 12:10] VITALS: BP 105/65; PULSE 62; RESP 20; TEMP 36.3; O2SAT 96
--- NOTE | 2025-02-18 12:10 | OP_ITS ---
DATE OF SERVICE: 02/18/2025 SURGEON: Jam Kebede MD INDICATIONS: History of cirrhosis and prior colon resection for colon cancer. PREOPERATIVE DIAGNOSIS: POSTOPERATIVE DIAGNOSIS: PROCEDURE PERFORMED: ESTIMATED BLOOD LOSS: COMPLICATIONS: ANESTHESIA: ASSISTANTS: SPECIMENS: PROCEDURES PERFORMED: Upper endoscopy, colonoscopy to the cecum, and neoterminal ileum. MEDICATIONS: Monitored anesthesia care. DESCRIPTION OF PROCEDURE: The history and physical were performed. The risks and benefits of the procedure were explained to the patient. The informed consent was obtained. The patient was placed in the left lateral decubitus position. The Olympus video gastroscope was introduced into the esophagus, stomach, and duodenum. Examination was performed. The scope was removed. She was repositioned for colonoscopy. A digital rectal exam was performed and was found to be normal. The Olympus pediatric video colonoscope was introduced into the rectum and advanced to the cecum. The cecum was identified by transillumination, palpation, and identification of the ileocecal valve. Examination was performed. The scope was removed. She tolerated the procedure well and was returned to recovery in stable condition. FINDINGS: Upper endoscopy: 1. Esophagus: The esophagus was normal. No varices were present. There was a small hiatal hernia. 2. Stomach: Stomach showed no evidence of masses, ulcers, or polyps. 3. Duodenum: The bulb and 2nd portion were normal. Colonoscopy: The ileocolonic anastomosis was identified in the right colon at about 80 cm from the anal verge. The neoterminal ileum appeared normal. There was some mild nonspecific ulceration at the ileocolonic anastomosis and there was no evidence of recurrent mass or polyp. The remainder of the colon showed diverticulosis without evidence of diverticulitis. No polyps were identified. There was some liquid stool left, which was suctioned and washed as best as possible. This did limit the exam for detection of small polyps. IMPRESSION: 1. Normal upper endoscopy. 2. Normal colonoscopy. RECOMMENDATIONS: 1. Follow up as needed. 2. Repeat colonoscopy is recommended in 5 years because of prior history of colon cancer. MD JONATHAN Hudson/[place] / [id number]
--- NOTE | 2025-02-18 12:14 | HO.POSTANES ---
Post Anesthesia Evaluation Post Anesthesia Evaluation Date of Service: 02/18/25 Vital Signs: Vital Signs Temp Pulse Resp BP Pulse Ox O2 Del Method 02/18/25 12:00 64 20 96/60 97 Room Air 02/18/25 11:54 97.6 F 63 16 86/49 L 95 Room Air 02/18/25 10:21 98.1 F 64 18 127/71 97 Room Air Anesthesia: Monitored Mental Status: Awake Pain Control: Satisfactory Nausea/Vomiting: None Hydration: Adequate Anesthesia-Related Issues: No Anes. Related Issues
== END 2025-02-18 12:44 | disposition home or self-care (01) ==
PROVIDERS: Nurse Practitioner; Visit Provider Internal Medicine Gastroenterology
PROC: (CPT 45378; principal; 2025-02-18 11:30)
DX: Z12.11 Encounter for screening for malignant neoplasm of colon (principal); C18.9 Malignant neoplasm of colon, unspecified; Z95.828 Presence of other vascular implants and grafts; Z79.899 Other long term (current) drug therapy; Z90.49 Acquired absence of other specified parts of digestive tract; K57.30 Diverticulosis of large intestine without perforation or abscess without bleeding; K21.9 Gastro-esophageal reflux disease without esophagitis; K44.9 Diaphragmatic hernia without obstruction or gangrene; K74.60 Unspecified cirrhosis of liver; K76.0 Fatty (change of) liver, not elsewhere classified; F32.A Depression, unspecified; F41.9 Anxiety disorder, unspecified; R73.9 Hyperglycemia, unspecified; M48.00 Spinal stenosis, site unspecified; Z91.040 Latex allergy status; F14.90 Cocaine use, unspecified, uncomplicated; F12.90 Cannabis use, unspecified, uncomplicated; F17.210 Nicotine dependence, cigarettes, uncomplicated
CPT/HCPCS: 45378; 43235; 80307; J2003; J2704

== ENCOUNTER 2025-03-07 10:06 | Inpatient (IN) | payer OTHER, SELFPAY ==
--- NOTE | 2025-03-07 | ECG_ITS ---
Test Reason : WEAKNESS/N Blood Pressure : */* mmHG Vent. Rate : 53 BPM Atrial Rate : 53 BPM P-R Int : 118 ms QRS Dur : 76 ms QT Int : 460 ms P-R-T Axes : 80 54 68 degrees QTcB Int : 431 ms Sinus bradycardia Possible Left atrial enlargement Borderline ECG When compared with ECG of 19-Mar-2021 12:56, No significant change was found Referred By: Masoud Christianson Electronically Signed By: RHIANNA ALEXIS MD
--- NOTE | ~2025-03-07 | CT_ITS ---
EXAMINATION: CT ABDOMEN AND PELVIS WITH CONTRAST CLINICAL INFORMATION: Abdominal pain COMPARISON: November 30, 2024 and 02/28/2023 TECHNIQUE: Multidetector volumetric images were obtained from the superior aspect of the liver through the pubic symphysis following administration 75 mL of Omnipaque 350 intravenous contrast. Sagittal and coronal reformatted images were obtained on the technologist's workstation. Oral contrast: No This CT examination was performed using dose optimization techniques as appropriate, variously including the following: *Automated exposure control *Adjustment of mA and/or kV according to patient size (this includes techniques or standardized protocols for targeted exams where dose is matched to indication/reason for exam; i.e. extremities or head) *Use of iterative reconstruction technique DLP: 381 mGY*cm FINDINGS: LUNG BASES: Again noted are changes of paraseptal emphysema with fine nodular changes centrally and linear nodular densities peripherally. LIVER, GALLBLADDER, AND BILIARY TREE: The liver is normal in size, shape, and attenuation. No focal hepatic lesion or biliary ductal dilatation is present. Gallbladder is surgically absent. There are clips in the gallbladder fossa. There is chronic intrahepatic and extrahepatic biliary ductal dilation. PANCREAS: Subtle 8 mm hypodensity in the uncinate process has been present since at least 2022 SPLEEN: Unremarkable. ADRENAL GLANDS: 7 x 8 mm left adrenal gland nodule appears similar to the CT on February 28, 2023. Right adrenal gland is unremarkable. KIDNEYS AND URETERS: 3 mm fat attenuation in the lower pole left kidney is consistent with a benign angiomyolipoma. Kidneys are otherwise unremarkable. There is no hydronephrosis. There no stones. BLADDER: Unremarkable. GASTROINTESTINAL TRACT: Again seen are scattered pseudodiverticula in the colon status post resection of the right colon within ileal colonic anastomosis. There is a small sliding hiatal hernia . There is swirling of the mesentery and engorgement of the mesenteric vascularity. Proximal small bowel loops are mildly distended with fluid and gas. Jejunum appears displaced to the right side of the abdomen there is a gradual progression from borderline dilated jejunal loops in the right abdomen to decompressed small bowel in the left abdomen. ABDOMINAL WALL: No significant hernia is appreciated. LYMPH NODES: Normal. VASCULAR: Moderate vascular calcifications are present. PELVIC VISCERA: Small chronic right adnexal cyst is again noted. Uterus is unremarkable. The appendix is unremarkable. OSSEOUS STRUCTURES: Chronic superior endplate fracture of L4 is unchanged. Degenerative changes most severe at L5-S1 are again noted. CT/CT abdomen pelvis w IV con IMPRESSION: There is swirling of the mesenteric vessels and vascular engorgement. The jejunal loops appear displaced toward the right rasing concerning for some degree of volvulus. Jejunal loops are borderline dilated with air-fluid. Beginning medial to the region of the ileocolonic anastomosis, there is slow transition from borderline dilated small bowel to decompressed small bowel in the left abdomen. Early or low-grade obstruction is not ruled out but no abrupt transition zone is identified. Right hemicolectomy. Diverticulosis without sign of infection. There is a small sliding hiatal hernia. Stable chronic changes in the lung bases. Stable hypodensity in the uncinate of pancreas. Stable small left adrenal gland nodule favors a benign origin. Fleischner guidelines were followed. Electronically signed by: Andrew Collado MD 03/07/2025 03:29 PM EDT
[2025-03-07 10:19] VITALS: BP 136/70; PULSE 64; RESP 16; TEMP 36.6; O2SAT 98; BMI 20.2
--- NOTE | 2025-03-07 10:22 | ED.GENADULT ---
HPI - General Adult General Chief complaint: Abdominal Pain Stated complaint: Oncology sent over vomitting Time Seen by Provider: 03/07/25 10:31 Source: patient Mode of arrival: ambulatory Limitations: no limitations History of Present Illness ED Provider: HPI narrative: 55-year-old woman with a history of colon cancer, on chemotherapy, I received a call from Dr. Joyce the patient is coming to the ER she presented to the office with nausea or vomiting right-sided flank pain, she has a recreational crack cocaine use issue, last use last week, no opiate misuse, no IV drug use, smokes marijuana Related Data Home Medications ?Medication ?Instructions ?Recorded ?Confirmed Vitamin B and C 1 tab PO DAILY 08/01/21 02/18/25 Vitamin D3 1 tab PO DAILY 08/01/21 02/18/25 Previous Rx's ?Medication ?Instructions ?Recorded dexamethasone 2 mg tablet 2 mg PO BID #30 tabs 09/19/23 ondansetron 8 mg disintegrating 8 mg PO Q8H PRN Nausea #60 tabs 09/19/23 tablet sennosides 8.6 mg-docusate sodium 1 tab-cap PO BEDTIME PRN 10/24/23 50 mg tablet (Senna with Docusate Constipation #30 tabs Sodium) meclizine 25 mg tablet 25 mg PO TID PRN Vertigo #15 tabs 09/29/24 prochlorperazine maleate 10 mg 10 mg PO Q8H PRN nausea and 10/27/24 tablet (Compazine) vomiting #10 tabs fluoxetine 40 mg capsule 40 mg PO DAILY #90 caps 02/11/25 Allergies Allergy/AdvReac Type Severity Reaction Status Date / Time mushroom Allergy Intermediate Vomiting Verified 03/07/25 10:22 Latex, Natural Rubber Allergy Rash Verified 03/07/25 10:22 Review of Systems Constitutional: Constitutional: Reports as per HPI [facility] Past Medical History Medical History History of chemotherapy PONV (postoperative nausea and vomiting) Cocaine use Port-A-Cath in place Gallbladder polyp Colon cancer Spinal stenosis Arthritis History of kidney infection Depression Adenomatous polyp of cecum History of anxiety Surgical History History of esophagogastroduodenoscopy (EGD) (05/10/22) Hx of colectomy (2020) History of laparoscopic cholecystectomy (2022) History of colon resection H/O colonoscopy Family History Family History Mother Diabetes Afib Heart murmur Coronary artery disease Social History Social History Household Members: Significant Other Housing: House Are you a primary home health care social worker to a significant other at home: No Do you presently have visiting nurse or other home services: No Alcohol intake: current Alcohol intake frequency: holidays/special occasions only Patient Tobacco Use Status: Current everyday Tobacco user Tobacco use type: Cigarette Cigarettes Per Day: 6 Years Smoked: 37 Second Hand Smoke Exposure: Yes Substance Use Type: Marijuana Advance Directives: No Advance Directives Information Provided: Yes service: No Current occupational status: employed Current occupation: billing Physical Exam ED Vital Signs: Vital Signs - 24 hr 03/07/25 10:19 03/07/25 12:25 03/07/25 14:35 Temperature 97.9 F 98.2 F 98 F Pulse Rate 64 60 62 Respiratory Rate 16 16 16 Blood Pressure 136/70 120/62 123/66 Pulse Oximetry 98 98 98 Oxygen Delivery Method Room Air Room Air Room Air BMI result Body Mass Index 20.2 Const Other: Gen: ?Overall well-appearing patient HEENT: PERRLA, EOMI, MMM, Neck: Supple, no LAD CV: RRR, no obvious murmurs appreciated, right-sided port Resp: ?No wheezing rales rhonchi no stridor moving air well Abd: ?Bowel sounds are present, generalized tenderness MSK: FROM, strength 5/5 all extremities Skin: Warm, dry, intact, Neuro: ?Alert and oriented x3, moving upper and lower extremities symmetrically, no obvious facial asymmetry noted Course Course Course Narrative: Rapid medical examination performed in triage by Elisa Abraham PA-C. Patient is a 55 year old assigned female at presenting to the emergency department with stage 4 colon cancer. Patient states she is feeling nauseous and generally unwell. She was given Zofran by oncology upstairs but they recommended she come down. Detailed physical exam and review of systems are deferred to the day treatment clinician/art therapist. Labs ordered. Patient placed back in the waiting room pending room availability and results. Medications Administered Generic Name Dose Route Start Last Admin Trade Name Freq PRN Reason Stop Dose Admin Lactated Ringer's 1,000 mls @ 100 mls/hr 03/07/25 16:30 03/07/25 16:56 Lr IVCONT 100 mls/hr .Q10H CHENTE Administration Discontinued Medications Generic Name Dose Route Start Last Admin Trade Name Freq PRN Reason Stop Dose Admin Diazepam 2.5 mg 03/07/25 11:27 03/07/25 11:44 Diazepam 10 Mg/2 Ml Cartridge IVPUSH 03/07/25 11:28 2.5 mg STAT STA Administration Droperidol 1.25 mg 03/07/25 12:12 03/07/25 12:38 Droperidol 5 Mg/2 Ml Vial IVPUSH 03/07/25 12:13 1.25 mg ONCE ONE Administration Famotidine 20 mg 03/07/25 12:12 03/07/25 12:38 Famotidine/Pf 20 Mg/2 Ml Vial IVPUSH 03/07/25 12:13 20 mg ONCE ONE Administration Sodium Chloride 1,000 mls @ 999 mls/hr 03/07/25 11:30 03/07/25 11:37 Ns IV 03/07/25 12:30 999 mls/hr .Q1H1M CHENTE Administration Iohexol 100 ml 03/07/25 14:48 03/07/25 14:49 Iohexol 350 Mg/Ml 100 Ml Infus..Btl IV 03/07/25 14:49 75 ml ONCE ONE Administration Ondansetron HCl 4 mg 03/07/25 11:27 03/07/25 11:44 Ondansetron Hcl 4 Mg/2 Ml Vial IVPUSH 03/07/25 11:28 4 mg ONCE ONE Administration Medical Decision Making Medical Decision Making MDM Narrative: 11:30 AM 03/07/2025 (Dr. Masoud Christianson): Patient will be worked up for worsening Mets, dehydration, UTI, pyelonephritis, SBO disposition to be determined 12:12 PM 03/07/2025 (Dr. Masoud Christianson): Continues to vomit quite profusely, we will make sure QTC is not prolonged and we will administer droperidol she already received 8 mg of Zofran and IV Valium 2:22 PM 03/07/2025 (Dr. Masoud Christianson): Patient improved with droperidol, still awaiting CT to be done 3:43 PM 03/07/2025 (Dr. Masoud Christianson): I communicated CT report to Dr. Villanueva regarding volvulus versus low-grade obstruction, but I re-evaluated the patient, and she is feeling better, she is not reporting obstipation. And states has been passing gas. 16:26. Patient seen by surgery. Will be admitted for observation overnight. Differential Diagnosis Differential Diagnoses: The differential diagnosis associated with the presentation includes (See above) Admission/Observation Consideration of admission/observation: Escalation of care including admission/observation considered 2022 Emergency Medicine Coding Guide from [employer] on 03/07/2025 All calculations should be rechecked by clinician prior to use RESULT SUMMARY: 5 Estimated Level of Service Problems: High (5) Risk: High (5) Data: Extensive (5) NARRATIVE MDM: This patient's problem complexity is High as patient: with chronic illness(es) with severe exacerbation/progression/side effects. This patient's risk is High due to: overall presentation requiring evaluation for a potentially High-risk process. This patient's data complexity is Extensive due to: -multiple tests ordered -independent interpretation of imaging or EKG -discussion of management/testing with external professional INPUTS: Number and Complexity ?> 1 = 5: chronic illness w/severe exacerbation (a) Risk level ?> 4 = High Tests ordered ?> 3 = >= Tests results reviewed (excluding labs) ?> 1 = 1 Prior external notes reviewed ?> 0 = 0 Assessment requiring and independent historian ?> 0 = No Independent interpretation of tests ?> 1 = Yes Discussed management/test interpretation w/external professional ?> 1 = Yes Consult Healthcare Provider Management of the patient was discussed with: Furniture Finisher Helper (Dr. Joyce) Lab Data MDM Lab Attestation statement: I reviewed the patient's lab results. Labs: Lab Results 03/07/25 Range/Units 11:36 WBC Cancelled RBC Cancelled Hgb Cancelled Hct Cancelled MCV Cancelled MCH Cancelled MCHC Cancelled RDW Cancelled Plt Count Cancelled MPV Cancelled Immature Gran % (Auto) Cancelled Neut % (Auto) Cancelled Lymph % (Auto) Cancelled Independence % (Auto) Cancelled Eos % (Auto) Cancelled Baso % (Auto) Cancelled Lymph # (Auto) Cancelled Independence # (Auto) Cancelled Eos # (Auto) Cancelled Baso # (Auto) Cancelled Abs Immat Gran (auto) Cancelled Absolute Neuts (auto) Cancelled Absolute Nucleated RBC Cancelled Nucleated RBC % (auto) Cancelled Sodium Cancelled Potassium Cancelled Chloride Cancelled Carbon Dioxide Cancelled Anion Gap Cancelled BUN Cancelled Creatinine Cancelled Estim Creat Clear Calc Cancelled Estimated GFR Cancelled Random Glucose Cancelled Calcium Cancelled Magnesium Cancelled Total Bilirubin Cancelled AST Cancelled ALT Cancelled Alkaline Phosphatase Cancelled Total Protein Cancelled Albumin Cancelled Urine Color Yellow Urine Appearance Clear Urine pH 6.0 (5.0-9.0) Ur Specific Nichols 1.020 (1.005-1.025) Urine Protein Negative (Neg-Trace) mg/dL Urine Glucose (UA) Negative (Negative) mg/dL Urine Ketones Negative (Negative) mg/dL Urine Blood Negative (Negative) Urine Nitrite Negative (Negative) Ur Leukocyte Esterase Negative (Negative) COVID-19 (JAVIER) Negative (Negative) COVID-19 Clin Com See Note Influenza Type A (NOLBERTO) Negative (Negative) Influenza Type B (NOLBERTO) Negative (Negative) Influenza A & B Note See Note Independent Interpretation I performed an independent interpretation of an: EKG (53 beats per minute otherwise normal ECG without dysrhythmia, AV gabbie blocks or ST-T changes to suspect underlying ACS, my independent interpretation) Radiology Impression Discussion of test interpretation with radiology: I have reviewed the radiologist's reading. Radiologist Impression: There is swirling of the mesenteric vessels and vascular engorgement. The jejunal loops appear displaced toward the right rasing concerning for some degree of volvulus. Jejunal loops are borderline dilated with air-fluid. Beginning medial to the region of the ileocolonic anastomosis, there is slow transition from borderline dilated small bowel to decompressed small bowel in the left abdomen. Early or low-grade obstruction is not ruled out but no abrupt transition zone is identified. Critical Care Time Critical Care Time Critical Care Time: Yes Total Critical Care Time: 45 Attestation: Time is exclusive of separately billable procedures. Time includes: direct patient care, patient reassessment, coordination of patient care, interpretation of data (laboratory data, pulse oximetry, arterial blood gases and chest xrays), review of patient's medical records, medical consultation and documentation of patient care. Procedures excluded from critical care time: central intravenous line placement and electrocardiography. Discharge Plan Discharge Clinical Impression: Nausea & vomiting Patient Disposition: Admitted As Inpatient Interventions: Admission Worksheet (ED) Last Done: 03/07/25 16:38
[2025-03-07] MEDS: diazePAM 10 MG/2 ML CARTRIDGE 2.5 MG IVPUSH (11:44)
[2025-03-07 11:48] LABS: Appearance Urine Clear; Glucose Urine UA Negative (Negative); PH 6.0 (5.0-9.0); Specific Gravity - Urine 1.020 (1.005-1.025)
[2025-03-07 12:00] LABS: COVID-19 Test Negative (Negative); IDNOW Serial# 08D9AD1C
[2025-03-07 12:05] LABS: IDNOW Serial# 55D5AD1C; Influenza B2 Negative (Negative)
[2025-03-07 12:25] VITALS: BP 120/62; PULSE 60; RESP 16; TEMP 36.8; O2SAT 98
--- OUTSIDE RECORDS SUMMARY | 2025-03-07 12:41 | XMS_ITS | Clinical Summary ---
Author Organization [employer] Address [address] [place] [address] Care Team Providers Care Home Health Lpn Name Role Phone Unavailable Primary Care Provider [...] 2) 2021 COVID-19 Vaccine (2023-2 5 season) 2025 Influenza Vaccine (#1) 2025 Dental X-Ray: Full [...]
[2025-03-07 14:35] VITALS: BP 123/66; PULSE 62; RESP 16; TEMP 36.6; O2SAT 98
[2025-03-07] MEDS: iohexoL 350 MG/ML 100 ML INFUS..BTL IV (14:49)
--- NOTE | 2025-03-07 16:21 | PM.HPGS ---
History of Present Illness History of Present Illness Date of Service: 03/10/25 Chief complaint: nausea and vomitting Narrative: Sary Herrera is a 55 year old female who was sent to the ER by Oncology because of vomiting this morning. She says that she had undergone chemotherapy session last week. She says that yesterday she started to have nausea and vomiting throughout the afternoon. She says that this persisted this morning so she went to see her oncologist and she was sent to the emergency room. She says that this does happen to her after chemotherapy sessions for her colon cancer. She had right colon resection in 2020 for a T3 N1 colon adenocarcinoma but she had follow up CAT scans of the lung which suggestive of metastatic disease so has been undergoing FOLFOX treatment. She says that she now feels well and denies any abdominal pain. She said that the last time she had vomiting was about 2-3 hours ago. Denies any nausea She is passing flatus and has had BMs as well as diarrhea. She looks well currently. Review of Systems Constitutional: Constitutional: Denies chills and Denies fever(s) Cardiovascular: Cardiovascular: Denies chest pain, Denies dyspnea and Denies dyspnea on exertion Respiratory: Respiratory: Denies cough, Denies dyspnea and Denies dyspnea on exertion Gastrointestinal: Gastrointestinal: Denies hematochezia, Denies change in bowel habits and Reports vomiting Genitourinary: Genitourinary: Denies hematuria Musculoskeletal: Musculoskeletal: Denies back pain and Denies limited range of motion Neurologic: Denies focal weakness and Denies convulsions Psychiatric: Psychiatric: Denies depression and Denies mood swings [facility] Past Medical History Medical History History of chemotherapy PONV (postoperative nausea and vomiting) Cocaine use Port-A-Cath in place Gallbladder polyp Colon cancer Spinal stenosis Arthritis History of kidney infection Depression Adenomatous polyp of cecum History of anxiety Family History Family History Mother Diabetes Afib Heart murmur Coronary artery disease Surgical History Surgical History History of esophagogastroduodenoscopy (EGD) (05/10/22) Hx of colectomy (2020) History of laparoscopic cholecystectomy (2022) History of colon resection H/O colonoscopy Social History Social History Household Members: Spouse Housing: House Are you a primary patient care representative to a significant other at home: No Do you presently have visiting nurse or other home services: No Alcohol intake: current Alcohol intake frequency: holidays/special occasions only Patient Tobacco Use Status: Current everyday Tobacco user Tobacco use type: Cigarette Cigarette Packs Per Day: 1 Cigarettes Per Day: 20.0 Years Smoked: 38 Second Hand Smoke Exposure: Yes Substance Use Type: Marijuana service: No Current occupational status: employed Current occupation: billing Meds Allergies Allergy/AdvReac Type Severity Reaction Status Date / Time mushroom Allergy Intermediate Vomiting Verified 03/07/25 10:22 Latex, Natural Rubber Allergy Rash Verified 03/07/25 10:22 Home Medications ?Medication ?Instructions ?Recorded ?Confirmed ?Last Taken ?Type Vitamin B and C 1 tab PO DAILY 08/01/21 03/07/25 03/06/25 History Vitamin D3 1 tab PO DAILY 08/01/21 03/07/25 03/06/25 History Physical Exam Vital Signs: Vital Signs: Last Vital Signs Temp 98 F 03/07/25 14:35 Pulse 62 03/07/25 14:35 Resp 16 03/07/25 14:35 BP 123/66 03/07/25 14:35 Pulse Ox 98 03/07/25 14:35 O2 Del Method Room Air 03/07/25 14:35 BMI result Body Mass Index 20.2 Const: General: comfortable and no acute distress Orientation/consciousness: patient oriented x3 Neck: Neck: Yes no lymphadenopathy Resp: Auscultation: clear to auscultation bilaterally Cardio: Rhythm: regular rhythm GI: Inspection: No distended Palpation (GI): Soft to palpation, nontender and no guarding Neuro: General: patient oriented x3 Results Results Labs: Short CBC 03/07/25 Range/Units 11:36 WBC Cancelled Hgb Cancelled Hct Cancelled Plt Count Cancelled BMP 03/07/25 11:36 Sodium Cancelled Potassium Cancelled Chloride Cancelled Carbon Dioxide Cancelled BUN Cancelled Creatinine Cancelled Calcium Cancelled Liver Function 03/07/25 Range/Units 11:36 Total Bilirubin Cancelled AST Cancelled ALT Cancelled Alkaline Phosphatase Cancelled Albumin Cancelled Urine 03/07/25 Range/Units 11:36 Urine Color Yellow Urine Appearance Clear Urine pH 6.0 (5.0-9.0) Ur Specific Branch 1.020 (1.005-1.025) Urine Protein Negative (Neg-Trace) mg/dL Urine Glucose (UA) Negative (Negative) mg/dL Abdomen CT scan report/results: report reviewed and image reviewed CT scan - pelvis: report reviewed and image reviewed Additional studies: IMPRESSION: There is swirling of the mesenteric vessels and vascular engorgement. The jejunal loops appear displaced toward the right rasing concerning for some degree of volvulus. Jejunal loops are borderline dilated with air-fluid. Beginning medial to the region of the ileocolonic anastomosis, there is slow transition from borderline dilated small bowel to decompressed small bowel in the left abdomen. Early or low-grade obstruction is not ruled out but no abrupt transition zone is identified. Right hemicolectomy. Diverticulosis without sign of infection. There is a small sliding hiatal hernia. Stable chronic changes in the lung bases. Stable hypodensity in the uncinate of pancreas. Stable small left adrenal gland nodule favors a benign origin. Fleischner guidelines were followed. Electronically signed by: Andrew Collado MD 03/07/2025 03:29 PM EDT RP Assessment and Plan (1) Nausea & vomiting: Qualifiers: Vomiting type: bilious vomiting Qualified Code(s): R11.14 - Bilious vomiting Status: Inactive 55-year-old female with known history of colon cancer, undergoing chemotherapy because of pulmonary metastasis, sent to the ER because of nausea or vomiting yesterday and this morning Her symptoms have resolved completely. Her abdomen is soft and benign. She had a CAT scan done in the ER showing some swirling engorgement of the mesenteric vessels, question of early small-bowel obstruction Overall clinical picture currently does not suggest obstruction. She is passing flatus well. Abdomen is soft, benign and nontender. Her nausea or vomiting is likely secondary to her chemotherapy as she has had this problems periodically She looks well overall and is comfortable currently. I will admit her for IV fluids. I will do serial abdominal exam. She can have clear liquids for tonight She understands the plan well and is comfortable with this Her bicarb is normal and she has no leukocytosis. I have discussed the plan with the ED physician. Quality Stroke Does the patient have a stroke diagnosis?: No VTE Prior VTE?: No VTE Risk Level:: Medical - moderate - high VTE Device Contraindication: N/A - Device Ordered VTE Drug Contraindication: N/A - Med Ordered Procedures Date of Service Date of Service: 03/10/25
[2025-03-07] MEDS: Lactated Ringers 1,000 ML 100 ML IVCONT (16:56)
--- NOTE | 2025-03-07 18:27 | PHA.MEDREC ---
Addendum entered by Shemar Sinclair RPh 03/07/25 18:34: Reviwed by [facility]. Pt did not know the doses for Vitamin B, C, and D. Original Note: Pharmacy Consult ? Medication Reconciliation Pharmacy has completed the medication reconciliation. Patient was able to confirm med list.
[2025-03-07 20:04] VITALS: BP 150/81; PULSE 53; RESP 18; TEMP 36.8; O2SAT 98
[2025-03-07 21:05] VITALS: BP 155/77; PULSE 52; RESP 18; TEMP 36.2; O2SAT 95
[2025-03-07 21:11] VITALS: BMI 20.7
[2025-03-08] MEDS: Lactated Ringers 1,000 ML 100 ML IVCONT (01:57)
[2025-03-08 03:18] VITALS: BP 151/67; PULSE 54; RESP 17; TEMP 36.2; O2SAT 97
[2025-03-08 07:19] VITALS: BP 142/74; PULSE 49; RESP 16; TEMP 36.8; O2SAT 97
--- NOTE | 2025-03-08 08:01 | P.PNGS_ITS ---
Subjective Subjective Date of Service: 03/08/25 <Sheyla Brown PA-C - Last Filed: 03/08/25 08:04> 03/08/25 <Kieran Villanueva MD - Last Filed: 03/08/25 09:15> Interval history: Feels improved this morning. Tolerated clear liquids yesterday without any further nausea or vomiting. Denies abd pain. Passing flatus and had a normal BM. Wants to eat food. <Sheyla Brown PA-C - Last Filed: 03/08/25 08:04> Physical Exam 2 Vital Signs: Vital Signs: Last Vital Signs Temp 98.2 F 03/08/25 07:19 Pulse 49 L 03/08/25 07:19 Resp 16 03/08/25 07:19 BP 142/74 H 03/08/25 07:19 Pulse Ox 97 03/08/25 07:19 O2 Del Method Room Air 03/08/25 07:19 BMI result Body Mass Index 20.7 <Sheyla Brown PA-C - Last Filed: 03/08/25 08:04> Const: General: comfortable, no acute distress and alert <Sheyla Brown PA-C - Last Filed: 03/08/25 08:04> Orientation/consciousness: patient oriented x3 <EMMA Steen Last Filed: 03/08/25 08:04> GI: Inspection: Yes normal to inspection and No distended <Sheyla Brown PA-C - Last Filed: 03/08/25 08:04> Palpation (GI): Soft to palpation, nontender and no guarding <Sheyla Brown PA-C - Last Filed: 03/08/25 08:04> Skin: General skin exam: no rashes or lesions noted <EMMA Steen Last Filed: 03/08/25 08:04> Neuro: General: patient oriented x3 and moves all extremities <EMMA Steen Last Filed: 03/08/25 08:04> Objective Data Active Medications Acetaminophen (Acetaminophen 325 Mg Tablet) 650 mg PO Q6H PRN PRN Reason: Pain, Mild 1-3,fever,headache Last Admin: 03/08/25 01:50 Dose: 650 mg Documented By: ELLI Calcium Carbonate (Calcium Carbonate 750 Mg Tab.Chew) 750 mg PO Q4H PRN PRN Reason: Heartburn Heparin Sodium (Porcine) (Heparin Sodium,Porcine 5,000 Unit/Ml Vial) 5,000 unit SUBCUT Q8H [facility] Lactated Ringer's (Lr) 1,000 mls @ 100 mls/hr IVCONT .Q10H [facility] Last Admin: 03/08/25 01:57 Dose: 100 mls/hr Documented By: ELLI Melatonin (Melatonin 3 Mg Tablet) 6 mg PO BEDTIME PRN PRN Reason: Insomnia Ondansetron HCl (Ondansetron Hcl 4 Mg/2 Ml Vial) 4 mg IVPUSH Q8H PRN PRN Reason: Nausea and Vomiting Sodium Chloride (0.9 % Sodium Chloride Flush 3 Ml Syringe) 3 ml IVFLUSH QSHIFT [facility] Last Admin: 03/08/25 00:01 Dose: Not Given Documented By: ELLI Non-Admin Reason: IV Running <Sheyla Brown PA-C - Last Filed: 03/08/25 08:04> Labs CBC & Chem 7: 03/08/25 07:52 <Sheyla Brown PA-C - Last Filed: 03/08/25 08:04> Labs: Laboratory Results - last 24 hr 03/07/25 11:36 MCV Cancelled MCH Cancelled MCHC Cancelled RDW Cancelled Plt Count Cancelled MPV Cancelled Immature Gran % (Auto) Cancelled Neut % (Auto) Cancelled Lymph % (Auto) Cancelled [place] % (Auto) Cancelled Eos % (Auto) Cancelled Baso % (Auto) Cancelled Lymph # (Auto) Cancelled [place] # (Auto) Cancelled Eos # (Auto) Cancelled Baso # (Auto) Cancelled Abs Immat Gran (auto) Cancelled Absolute Neuts (auto) Cancelled Absolute Nucleated RBC Cancelled Nucleated RBC % (auto) Cancelled Anion Gap Cancelled Estim Creat Clear Calc Cancelled Estimated GFR Cancelled Random Glucose Cancelled Calcium Cancelled Magnesium Cancelled Total Bilirubin Cancelled AST Cancelled ALT Cancelled Alkaline Phosphatase Cancelled Total Protein Cancelled Albumin Cancelled Urine Color Yellow Urine Appearance Clear Urine pH 6.0 Ur Specific [place] 1.020 Urine Protein Negative Urine Glucose (UA) Negative Urine Ketones Negative Urine Blood Negative Urine Nitrite Negative Ur Leukocyte Esterase Negative COVID-19 (JAVIER) Negative COVID-19 Clin Com See Note Influenza Type A (NOLBERTO) Negative Influenza Type B (NOLBERTO) Negative Influenza A & B Note See Note <Sheyla Brown PA-C - Last Filed: 03/08/25 08:04> Procedures Date of Service Date of Service: 03/08/25 <Sheyla Brown PA-C - Last Filed: 03/08/25 08:04> 03/08/25 <Kieran Villanueva MD - Last Filed: 03/08/25 09:15> Progress Note: A&P Assessment and plan (1) Nausea & vomiting: Status: Acute <Sheyla Brown PA-C - Last Filed: 03/08/25 08:04> Assessment and Plan: Denies any problems overnight Denies any abdominal pain Denies any vomiting or nausea Abdomen is soft and benign No tenderness Looks well overall Symptoms likely secondary to chemotherapy No surgical issues currently Diet as tolerated Possible DC home later on today Seen and examined independently <Kieran Villanueva MD - Last Filed: 03/08/25 09:15> Assessment and Plan: 55-year-old female with known history of colon cancer, undergoing chemotherapy because of pulmonary metastasis who presented with nausea and vomiting; CT scan done in the ER showing some swirling engorgement of the mesenteric vessels, question of early small-bowel obstruction however overall picture was not suggestive of obstruction. She was admitted for her nausea, vomiting and observation in light of the CT findings. This morning she is improved with resolution of her symptoms with good GI function. her abdomen remains benign and soft/NTND. Will advance to solid diet. Dc to home later today if tolerating. Patient comfortable with plan. <Sheyla Brown PA-C - Last Filed: 03/08/25 08:04> Time Spent With Patient Time: Total time managing care of this patient today ____ minutes. <Sheyla Brown PA-C - Last Filed: 03/08/25 08:04> Quality Stroke Does the patient have a stroke diagnosis?: No <Sheyla Brown PA-C - Last Filed: 03/08/25 08:04> VTE Prior VTE?: No <EMMA Steen Last Filed: 03/08/25 08:04> VTE Risk Level:: Medical - moderate - high <EMMA Steen Last Filed: 03/08/25 08:04> VTE Device Contraindication: N/A - Device Ordered <EMMA Steen Last Filed: 03/08/25 08:04> VTE Drug Contraindication: N/A - Med Ordered <EMMA Steen Last Filed: 03/08/25 08:04>
[2025-03-08 08:33] LABS: Anion Gap 12 (12-20); Blood Urea Nitrogen 5 mg/dL (9-16); Calcium 8.9 mg/dL (8.4-10.2); Carbon Dioxide 28 mmol/L (22-29); Chloride 106 mmol/L (96-108); Creatinine Clr Calc Pharmacy 80.4; Estimated Glomerular Filt Rate > 60; Potassium 4.1 mmol/L (3.3-5.1); Sodium 142 mmol/L (135-145)
--- NOTE | 2025-03-08 13:42 | PM.EVENT ---
Event Note Date of Service: 03/08/25 Event Note: Seen on early afternoon rounds She is tolerating her diet well Denies any nausea or vomiting Denies any abdominal pain She looks well overall Abdomen is soft and very benign Okay to DC home We will de- access the port Time Spent With Patient Time: Total time managing care of this patient today ____ minutes.
--- NOTE | 2025-03-08 14:05 | P.DS_ITS ---
DS: Providers Provider Date of Service: 03/08/25 Date of admission: 03/07/25 16:56 Date of discharge: 03/08/25 Primary care physician: Sally Ordoñez MD Attending physician on admission: Kieran Villanueva Attending physician on discharge: Kieran Villanueva DS: Diagnosis Discharge Diagnosis (1) Nausea & vomiting: Status: Acute DS: Summary Hospital Course Hospital Course: HPI AT ADMISSION: Sary Herrera is a 55 year old female who was sent to the ER by Oncology because of vomiting this morning. She says that she had undergone chemotherapy session last week. She says that yesterday she started to have nausea and vomiting throughout the afternoon. She says that this persisted this morning so she went to see her oncologist and she was sent to the emergency room. She says that this does happen to her after chemotherapy sessions for her colon cancer. She had right colon resection in 2020 for a T3 N1 colon adenocarcinoma but she had follow up CAT scans of the lung which suggestive of metastatic disease so has been undergoing FOLFOX treatment. She says that she now feels well and denies any abdominal pain. She said that the last time she had vomiting was about 2-3 hours ago. Denies any nausea. She is passing flatus and has had BMs as well as diarrhea. CAT scan done in the ER showing some swirling engorgement of the mesenteric vessels, question of early small-bowel obstruction. HOSPITAL COURSE: She was admitted for IV hydration and observation. Her symptoms had resolved completely and she had good GI function. Overall clinical picture was not suggestive of obstruction. Abdomen is soft, benign and nontender and she was clinically appearing well. Her nausea or vomiting is likely secondary to her chemotherapy as she has had this problems periodically. She was started on clear liquids. The following day she felt well and was asymptomatic. She was tolerating liquids without further nausea/vomiting. Her abd remained benign and soft/non tender. She was advanced to a solid diet. She was reassessed later in the day and was tolerating a solid diet without recurrence of symptoms. She felt ready for discharge. She was discharged to home on 03/08/25 in stable condition. She is to follow up with PCP. Status at Discharge Functional status at discharge: independent ambulation Time Attestation Discharge Coordination Time (in mins): 25 Quality: Safe Use of Opioids Does Pt have an Active Cancer Diagnosis on the Problem List?: Yes Opioid Measure Date for [facility] Report: 02/06/25 Opioid Measure Time for [facility] Report: 14:10 Quality: Stroke Does the patient have a stroke diagnosis?: No Physical Exam Vital Signs: Vital Signs: Last Vital Signs Temp 98.2 F 03/08/25 07:19 Pulse 49 L 03/08/25 07:19 Resp 16 03/08/25 07:19 BP 142/74 H 03/08/25 07:19 Pulse Ox 97 03/08/25 07:19 O2 Del Method Room Air 03/08/25 07:19 BMI result Body Mass Index 20.7 Const: General: comfortable, no acute distress and alert Orientation/consciousness: patient oriented x3 Resp: Effort & Inspection: normal respiratory effort GI: Inspection: No distended Palpation (GI): Soft to palpation, nontender and no guarding Neuro: General: patient oriented x3 DS: Data Data Completed and Pending Completed studies during hospitalization [Text1]: Procedures Excision of Right Large Intestine, Open Approach (03/30/21) Release Omentum, Open Approach (03/30/21) Release Right Fallopian Tube, Open Approach (03/30/21) Release Right Ovary, Open Approach (03/30/21) Labs on day of discharge: Laboratory Results - last 24 hr 03/07/25 03/08/25 11:36 07:52 WBC Cancelled RBC Cancelled Hgb Cancelled Hct Cancelled MCV Cancelled MCH Cancelled MCHC Cancelled RDW Cancelled Plt Count Cancelled MPV Cancelled Immature Gran % (Auto) Cancelled Neut % (Auto) Cancelled Lymph % (Auto) Cancelled [place] % (Auto) Cancelled Eos % (Auto) Cancelled Baso % (Auto) Cancelled Lymph # (Auto) Cancelled [place] # (Auto) Cancelled Eos # (Auto) Cancelled Baso # (Auto) Cancelled Abs Immat Gran (auto) Cancelled Absolute Neuts (auto) Cancelled Absolute Nucleated RBC Cancelled Nucleated RBC % (auto) Cancelled Sodium Cancelled 142 Potassium Cancelled 4.1 Chloride Cancelled 106 Carbon Dioxide Cancelled 28 Anion Gap Cancelled 12 BUN Cancelled 5 L Creatinine Cancelled 0.69 Estim Creat Clear Calc Cancelled 80.4 Estimated GFR Cancelled > 60 Random Glucose Cancelled 99 Calcium Cancelled 8.9 Magnesium Cancelled Total Bilirubin Cancelled AST Cancelled ALT Cancelled Alkaline Phosphatase Cancelled Total Protein Cancelled Albumin Cancelled Discharge Plan Discharge Anticipated Discharge Date/Time: 03/08/25 13:40 Patient Disposition: Home, Self-Care Discharge Diagnosis: nausea/vomiting Referrals: Sally Ordoñez MD [Primary Care Provider, Endocrinology] - 1 Week Discharge Medications: Continued fluoxetine 40 mg capsule 40 mg PO DAILY Qty: 90 1RF Vitamin B and C 1 tab PO DAILY Vitamin D3 1 tab PO DAILY Discharge Orders: Discharge Order (Routine); Ordered 03/08/25 Ordered By: Sheyla Brown Diet: Advance to usual diet Activity on Discharge: As tolerated Stand Alone Forms: Patient Portal Discharge page Print Language: Maori Activity Restrictions/Additional Instructions: Follow up with your primary care provider. Call Your Doctor If: ? ? -Your temperature exceeds 101.5? F? ? ? -You experience excessive pain or swelling ? ? -You have an unexpected reaction to medication ? ? -You experience continued vomiting/nausea and are unable to tolerate oral intake Care Plan Goals: Return to baseline health and resume normal activities. Health Concerns: history of colon cancer, undergoing chemotherapy because of pulmonary metastasis nausea/vomiting post chemotherapy Plan of Treatment: Observation, IVF, advance diet as tolerated FOllow up with PCP Assessment: Improved
[2025-03-08 14:16] VITALS: BP 156/81; PULSE 60; RESP 16; TEMP 37; O2SAT 98
--- NOTE | 2025-03-08 14:50 | MHC.CM.PN ---
Addendum entered by Vivian Weaver 03/08/25 15:21: Discharge order received. Original Note: DX Nausea+Vomiting Lives with spouse. Patient discharged prior to being seen by case management. No services ordered. DP Home self care. Patient arranged for transportation home.
--- NOTE | 2025-03-08 15:45 | PC.NURSE ---
Implanted port de-accessed per Mr. Sudeep Villanueva. No heparin administered per MD due to patient's frequent oncology appointments.
== END 2025-03-08 15:47 | disposition home or self-care (01) | DRG 249 ==
LOC: HO.ED 16:38 → HO.EDOVER 16:57 → HO.S3 19:48
PROVIDERS: Physician Assistant Medical; Admitting Provider Surgery; Emergency Provider Emergency Medicine Emergency Medical Services; PCP Internal Medicine; Visit Provider Surgery
DX: R11.2 Nausea with vomiting, unspecified (principal); C78.00 Secondary malignant neoplasm of unspecified lung; T45.1X5A Adverse effect of antineoplastic and immunosuppressive drugs, initial encounter; F17.210 Nicotine dependence, cigarettes, uncomplicated; C18.9 Malignant neoplasm of colon, unspecified; Z20.822 Contact with and (suspected) exposure to COVID-19; Z71.6 Tobacco abuse counseling; Z79.899 Other long term (current) drug therapy
CPT/HCPCS: 36415; 74177; 80048; 81003; 87502; 87635; 93005; 99221; 99285; J1308; J1644; J1790; J2405; J3360; J7120; Q9967

== ENCOUNTER → 2025-03-07 11:27 | Outpatient (BNV) | payer OTHER, SELFPAY | PROVIDERS: Emergency Provider Emergency Medicine; PCP Internal Medicine; Visit Provider Radiology Diagnostic Radiology | DX: R11.10 Vomiting, unspecified (principal) | CPT/HCPCS: 74177 ==

== ENCOUNTER → 2025-03-07 12:11 | Outpatient (BNV) | payer OTHER, SELFPAY | PROVIDERS: Emergency Provider Emergency Medicine; PCP Internal Medicine; Visit Provider Internal Medicine Cardiovascular Disease | DX: R00.1 Bradycardia, unspecified (principal) | CPT/HCPCS: 93010 ==

== ENCOUNTER → 2025-03-07 16:56 | Outpatient (BNV) | payer OTHER, SELFPAY | PROVIDERS: Admitting Provider Surgery; Emergency Provider Emergency Medicine Emergency Medical Services; PCP Internal Medicine; Visit Provider Physician Assistant Surgical | DX: R11.14 Bilious vomiting (principal) | CPT/HCPCS: 99222; 99238; 99499 ==

== ENCOUNTER 2025-03-18 08:36 | Outpatient (REF) | payer OTHER, SELFPAY ==
--- NOTE | ~2025-03-18 | CT_ITS ---
CLINICAL HISTORY: Follow up reticulonodular densities CT chest with contrast Comparison: CT/[place]/SR - CT CHEST WITH IV CONTRAST - 01/27/2024 07:57 AM EDT 07/16/2023 Findings: The heart size is normal. The visualized thyroid and mediastinum are unremarkable. There are findings suggesting chronic interstitial lung disease, progressive from prior exam The bones are intact. IMPRESSION: 1. Possible chronic interstitial lung disease, progressive from previous exam. Correlate with clinical, laboratory, and pulmonary function test results. This document has been electronically signed by: Dario Martel MD on 03/21/2025 08:08:12
--- NOTE | ~2025-03-18 | CT_ITS ---
CLINICAL HISTORY: Restaging CT abdomen and pelvis with contrast Comparison: CT/[place]/SR - CT ABDOMEN PELVIS WITH IV CONTRAST - 03/07/2025 02:47 PM EDT ,08/16/2022 Findings: There are changes of possible chronic interstitial lung disease. Unremarkable solid organs. There are no abnormal findings in the gallbladder fossa. No urolithiasis. No bowel obstruction, pneumoperitoneum, or pneumatosis. Pelvic contents unremarkable. No acute fracture. IMPRESSION: No acute findings. This document has been electronically signed by: Dario Martel MD on 03/21/2025 08:07:58
--- OUTSIDE RECORDS SUMMARY | 2025-03-18 09:12 | XMS_ITS | Clinical Summary ---
Author Organization [employer] Address [address] [place] [address] Care Team Providers Care Otolaryngology Nurse Name Role Phone Unavailable Primary Care Provider [...]
[2025-03-18] MEDS: iohexoL 350 MG/ML 100 ML INFUS..BTL IV (09:27)
== END 2025-03-18 08:37 | disposition home or self-care (01) ==
LOC: HO.CT 08:36
PROVIDERS: PCP Internal Medicine; Visit Provider Internal Medicine
DX: C18.9 Malignant neoplasm of colon, unspecified (principal)
CPT/HCPCS: 71260; 74177; Q9967

== ENCOUNTER → 2025-03-18 08:38 | Outpatient (BNV) | payer OTHER, SELFPAY | PROVIDERS: PCP Internal Medicine; Visit Provider Specialist | DX: C18.9 Malignant neoplasm of colon, unspecified (principal) | CPT/HCPCS: 71260; 74177 ==

== ENCOUNTER 2025-04-05 14:49 | Outpatient (AMB) | payer OTHER, SELFPAY ==
--- NOTE | 2025-04-05 14:56 | MHC.OFFVIS ---
Vital Signs 04/05/25 14:58 Height 5 ft 3 in Weight 120 lb 6 oz BMI 21.3 BP 120/84 Blood Pressure Location Lt brachial Position Sitting Pulse 72 Pulse Source Pulse Oximeter Pulse Oximetry (%) 96 Oxygen Delivery Method Room Air Intake Visit Reasons: Abnormal CT scan Allergies mushroom Allergy (Intermediate, Verified 04/05/25 15:00) Vomiting Latex, Natural Rubber Allergy (Verified 04/05/25 15:00) Rash HPI HPI Abnormal CT scan: Details: Sary is a pleasant 55 year old female, current 40 pack year history, with underlying right-sided colon adenocarcinoma dx in March 2021, s/p right hemicolectomy. She was referred by oncology for pulmonary evaluation. Patient received adjuvant chemotherapy from 05/16/2021 to 11/21/21 and started on palliative chemotherapy 08/2023. Since March 2024 dose was reduced to 80% with 3 weekly intervals due to GI toxicity. She underwent surveillance CT chest 12/2023 which revealed innumerable bilateral pulmonary nodules previously seen 07/16/2023 have all significantly decreased in size. However underwent chest CT performed 11/26/2024 which demonstrated diffuse reticulonodular opacities in the peripheral aspects of both lungs which were new from prior study. Findings consistent with inflammatory/infectious process however metastasis can not be ruled out. During this time patient did admit to relapsing smoking cocaine on a weekly basis which may a contributing factor, although CEA levels were increasing. PET 04/2024 did not reveal any FDG activity within the lungs. Chest CT 02/2025 revealed progression of ILD vs mets. The patient has a significant smoking history, starting at age 13 or 14, with current usage of about a pack a day. She also has secondhand smoke exposure from her . The patient denies a history of asthma or COPD but reports a family history of COPD. She experiences occasional wheezing and shortness of breath, particularly with exertion. The patient reports symptoms suggestive of sleep apnea, including observed apneas during sleep and occasional nocturnal awakenings with choking or gasping. Denies prior sleep study. [facility] Medical History History of chemotherapy PONV (postoperative nausea and vomiting) Cocaine use Port-A-Cath in place Gallbladder polyp Colon cancer Spinal stenosis Arthritis History of kidney infection Depression Adenomatous polyp of cecum History of anxiety Surgical History History of esophagogastroduodenoscopy (EGD) (05/10/22) Hx of colectomy (2020) History of laparoscopic cholecystectomy (2022) History of colon resection H/O colonoscopy Family History Mother Diabetes Afib Heart murmur Coronary artery disease Social History Household Members: Spouse Housing: House Are you a primary family day care provider to a significant other at home: No Do you presently have visiting nurse or other home services: No Alcohol intake: current Alcohol intake frequency: holidays/special occasions only Patient Tobacco Use Status: Current everyday Tobacco user Tobacco use type: Cigarette Cigarette Packs Per Day: 1 Cigarettes Per Day: 20.0 Years Smoked: 38 Second Hand Smoke Exposure: Yes Substance Use Type: Marijuana service: No Current occupational status: employed Current occupation: billing Review of Systems Const Denies chills, Denies excessive sweating, Denies fever(s), Denies headache(s) and Denies night sweats Eyes Denies dry eyes, Denies irritation and Denies itchy eyes ENT Reports Normal hearing present, Denies headache(s), Denies nasal congestion, Denies nasal discharge, Denies post nasal drip and Denies sore throat Card Denies chest pain, Denies chest pain at rest, Denies chest pain with activity, Denies claudication, Denies leg edema, Denies dyspnea, Denies orthopnea and Denies paroxysmal nocturnal dyspnea Resp Denies chest congestion, Denies excessive phlegm production, Denies pain on inspiration, Denies pain with cough, Denies dyspnea and Denies stridor Musc Denies myalgias Neuro Reports Normal hearing present and Denies headache(s) Endo Denies excessive sweating Maximino/Lymph Denies lymphadenopathy Aller/Immun Denies itchy eyes and Denies seasonal rhinorrhea Physical Exam Vital Signs: Last Vital Signs Pulse 72 04/05/25 14:58 BP 120/84 04/05/25 14:58 Pulse Ox 96 04/05/25 14:58 Oxygen Delivery Method Room Air 04/05/25 14:58 BMI result Body Mass Index 21.3 Const General: cooperative, comfortable, no acute distress, well developed and alert Orientation/consciousness: patient oriented x3 Limitations: no limitations HEENT Head: Yes normal to inspection, Yes normocephalic and Yes atraumatic Ears: hearing grossly normal bilaterally and external ears normal Eyes General: appearance normal, both eyes and all related structures Eyelids: Yes eyelids normal Sclerae: sclerae normal EOM: EOMs intact bilaterally Neck Neck: Yes normal visual inspection and Yes no lymphadenopathy Lymphatic: no lymphadenopathy noted Chest Chest palpation & inspection: normal inspection of the chest Resp Effort & Inspection: normal respiratory effort, able to speak in complete sentences, no audible wheezes, no cough, no stridor, not tachypneic, no tripod positioning and no use of accessory muscles Auscultation: clear to auscultation bilaterally Cardio Jugular venous distension: no JVD Rate: regular rate Rhythm: regular rhythm Skin Other: warm, dry General skin exam: no rashes or lesions noted Neuro General: patient oriented x3 Cranial nerves: Yes Normal hearing present Cognition (Neuro): normal cognition Gait exam (Neuro): Normal gait present Extrem General: Yes normal to inspection, Yes capillary refill normal, Yes no clubbing, cyanosis or edema and Yes no pedal edema Psych Appearance: grossly normal and well kempt Speech and movement: Normal speech and movement present and Clear speech present Affect: normal affect Attitude: cooperative Thought process: Normal thought process present Thought content: Normal thought content present Insight: Good insight present (Psych) Judgement: Good judgement present (Psych) Results Reviewed Results Reviewed: [address] [address] [address] Scan Report Signed Patient: Sary Herrera MR#: [id number] : 1970 Acct:[id number] Age/Sex: 55 / F ADM Date: 03/18/25 Loc: HO.CT Attending Dr: Tessa Joyce MD Ordering Physician: Tessa Joyce MD Date of Service: 03/18/25 Procedure(s): CT chest w IV con Accession Number(s): [id number] cc: Tessa Joyce MD; Sally Ordoñez MD~ Report Number: [id number]: Total DLP = 93.20 mGy-cm Reason for Exam: Follow up reticulonodular densities CLINICAL HISTORY: Follow up reticulonodular densities CT chest with contrast Comparison: CT/AR/SR - CT CHEST WITH IV CONTRAST - 01/27/2024 07:57 AM EDT 07/16/2023 Findings: The heart size is normal. The visualized thyroid and mediastinum are unremarkable. There are findings suggesting chronic interstitial lung disease, progressive from prior exam The bones are intact. IMPRESSION: 1. Possible chronic interstitial lung disease, progressive from previous exam. Correlate with clinical, laboratory, and pulmonary function test results. This document has been electronically signed by: Dario Martel MD on 03/21/2025 08:08:12 Dictated By: Dario Martel MD Signed By: <Electronically signed by Dario Martel MD in OV> 03/21/25808 DD/ 7 TD/TT: 03/21/25807 Child Nutrition Assistant: Assessment & Plan Assessment & Plan (1) Colon cancer: Code(s): C18.9 - Malignant neoplasm of colon, unspecified Category: Medical (2) COPD (chronic obstructive pulmonary disease): Code(s): J44.9 - Chronic obstructive pulmonary disease, unspecified Category: Medical (3) Multiple pulmonary nodules: Code(s): R91.8 - Other nonspecific abnormal finding of lung field Category: Medical (4) Witnessed episode of apnea: Code(s): R06.81 - Apnea, not elsewhere classified Category: Medical (5) Nicotine dependence, cigarettes, uncomplicated: Code(s): F17.210 - Nicotine dependence, cigarettes, uncomplicated Category: Medical Plan Patient presents for pulmonary evaluation with known h/o colon adenocarcinoma currently receiving chemotherapy under the care of Dr. Joyce. Recent chest CT revealed multiple pulmonary nodules, mostly peripheral, which could be related to ILD however metastasis can not be ruled out. At this time patient reports chemo is on hold until biopsy performed. Will send for PET and referral will be placed to thoracic for biopsy. Patient reports intermittent respiratory symptoms, possibly related to COPD given smoking history, will empirically trial albuterol MDI PRN. Discussed PFT however patient would like to hold off at this time. She also reports symptoms suggestive of KEL, will send for home sleep study. Emphasized importance of smoking cessation in addition to cessation of substance abuse, patient working towards quitting. All questions were answered and patient is in agreement of plan. Will follow up to review results or sooner if needed. Orders: Referrals Thoracic/General Surgery Referral C18.9 - Malignant neoplasm of colon, unspecified, R91.8 - Other nonspecific abnormal finding of lung field Medications: New albuterol sulfate 90 mcg/actuation 2 puffs inhalation Q4-6H PRN 1 ea 3RF shortness of breath or wheezing Coding Level of Care Code New Pt Level 4 (56055) Complex EM visit Add On G2211 Diagnoses Colon cancer C18.9 COPD (chronic obstructive pulmonary disease) J44.9 Multiple pulmonary nodules R91.8 Witnessed episode of apnea R06.81 Nicotine dependence, cigarettes, uncomplicated F17.210
[2025-04-05 14:58] VITALS: BP 120/84; PULSE 72; O2SAT 96; BMI 21.3
--- OUTSIDE RECORDS SUMMARY | 2025-04-05 18:05 | XMS_ITS | Clinical Summary ---
Author Organization [email or web address] Address [address] [facility] [address] [place] [address] Care Team Providers Care Stone Derrickman And Rigger Name Role Phone Unavailable Primary Care Provider [...]
--- OUTSIDE RECORDS SUMMARY | 2025-04-05 18:05 | XMS_ITS | Patient Health Record ---
Author Organization [facility] Address [address] [place] [address] Care Team Providers Care Budget Specialist Name Role Phone Kieran Mayo MD Primary Care Provider Unavaila Saul Dietrich Unavailable [phone] Reason For Referral No Information Medications Medication SIG (Take, Route, Frequency, Duration) Notes Start Date End Date Status Calcium & Vit D3 Bone Health Active Problems No Known Problems Plan Of Treatment No Information Insurance Providers Payer Name Payer Address Payer Phone Subscriber Number Group Number Insured Name Patient Relationship to Insured Coverage Start Date Coverage End Date [facility] [address] [place] [id number] Sary Womack Self - patient is the insured Medical (General) History Medical History History ICD Code Anxiety Arthritis Cholesterol Headaches
== END 2025-04-05 15:54 | disposition home or self-care (01) ==
LOC: HO.HPSW 14:49
PROVIDERS: PCP Internal Medicine; Visit Provider Nurse Practitioner Family
DX: C18.9 Malignant neoplasm of colon, unspecified (principal); J44.9 Chronic obstructive pulmonary disease, unspecified; R91.8 Other nonspecific abnormal finding of lung field; R06.81 Apnea, not elsewhere classified; F17.210 Nicotine dependence, cigarettes, uncomplicated
CPT/HCPCS: 99204; G2211

== ENCOUNTER 2025-04-12 19:45 | Emergency (ER) | payer OTHER, SELFPAY ==
--- NOTE | ~2025-04-12 | CT_ITS ---
CLINICAL HISTORY: abd pain CT abdomen and pelvis with contrast Comparison: CT/REG/SR - CT ABDOMEN PELVIS W IV CON - 03/18/25 09:01 EDT Findings: CT abdomen: Chronic emphysematous changes lung bases with paraseptal fibrosis. No acute infiltrate or pleural effusion. Unchanged minor height loss along the superior endplates of L2, L3, and L4. No acute fracture. Mild fatty infiltration of the liver is again identified. Gallbladder is surgically absent. There is dilation of the intrahepatic and extrahepatic biliary tree. No discrete filling defects seen within the common bile duct. No focal hepatic mass lesions aside from a 8 mm hypodensity in the superior left lobe of the liver. Main portal vein is patent. Spleen, pancreas, adrenal glands, and kidneys are unremarkable for acute findings. Small hiatal hernia. Fluid distention of the stomach. No dilated small bowel. CT pelvis: Numerous diverticuli within the colon, especially the sigmoid colon. No findings of diverticulitis. Moderate stool throughout the colon. Suture material seen within the colon at the level of the cecum. Air-fluid levels are seen within the right hemipelvis with mildly distended small bowel measuring up to 2.7 cm. This is not considered abnormally dilated. Trace free pelvic fluid. No free air. IMPRESSION: 1. Findings suggest mild enteritis. No findings of obstruction. 2. Likely postcholecystectomy ectasia of the biliary tree. Correlation with the patient's bilirubin level suggested. This document has been electronically signed by: Hoang Acosta MD on 04/13/2025 01:40:49
[2025-04-12 19:53] VITALS: BP 167/89; PULSE 71; RESP 16; TEMP 36.7; O2SAT 98; BMI 20.3
[2025-04-12 20:16] LABS: MANUAL DIFF FLAG NO
[2025-04-12 20:17] LABS: Hematocrit 45.5 % (37.0-47.0); Hemoglobin 15.4 g/dl (12.0-16.0); Imm Gran Abs Auto 0.03 X10*3/uL (0.00-0.03); Imm Gran Pct Auto 0.3 % (0.0-0.4); Lymphocytes Absolute Auto 3.8 X10*3/uL (1.2-4.9); Mean Corpuscular HGB Conc 33.8 g/dl (31.0-35.0); Mean Corpuscular Hemoglobin 31.7 pg (27.0-33.0); Mean Corpuscular Volume 93.6 fL (80.0-98.0); NRBC Abs Auto 0.000 X10*3/uL (0.0-0.012); NRBC Pct Auto 0.0 /100WBC (0.0-0.2); Platelet Count 253 X10*3/uL (160-400); Red Blood Count 4.86 X10*6/uL (4.20-5.50); White Blood Count 9.8 X10*3/uL (4.8-10.8)
[2025-04-12 20:30] LABS: Alanine Aminotransferase 20 U/L (0-31); Albumin Level 5.0 g/dL (3.5-5.0); Alkaline Phosphatase 84 U/L (39-117); Anion Gap 14 (12-20); Aspartate Amino Transferase 21 U/L (5-31); Blood Urea Nitrogen 13 mg/dL (9-16); Calcium 10.9 mg/dL (8.4-10.2); Carbon Dioxide 29 mmol/L (22-29); Chloride 103 mmol/L (96-108); Creatinine Clr Calc Pharmacy 65.1; Estimated Glomerular Filt Rate > 60; Lipase 44 U/L (8-78); Magnesium 1.9 mg/dL (1.6-2.6); Potassium 4.7 mmol/L (3.3-5.1); Sodium 141 mmol/L (135-145); Total Protein 7.5 g/dL (6.5-8.0)
--- OUTSIDE RECORDS SUMMARY | 2025-04-12 22:14 | XMS_ITS | Clinical Summary ---
Author Organization [facility] [address] [facility] [place] Address [address] [place] [address] Phone Care Team Providers Care Ditch Cleaner Name Role Phone Sally Ordoñez MD Primary Care Provider [phone] Social History Tobacco Use Types Packs/Day Years Used Date Smoking Tobacco: Never Assessed Comments Unknown Sex and Gender Information Value Date Recorded Sex Assigned at Not on file Legal Sex Female 7:29 PM EST Gender Identity Not on file Sexual Orientation Not on file Plan of Treatment Upcoming Encounters Date Type Department Care Team (Late st Contact Info) Description 04/15/2025 11:30 AM EDT Consult Thoracic Surgery - [place] [address] [address] Jarrod Holden MD [address] [address] Health Maintenance Due Date Last Done Comments Breast Cancer Screening 1970 Colorectal Cancer Screening: Colonoscopy 1970 DTaP,Tdap,and Td Vaccines (1 - Tdap) 1990 Hepatitis B Vaccines (1 of 3 - 19+ 3-dose series) 1990 Cervical Cancer Screening: P ap Smear 01/13/1992 Pneumococcal Vaccine: 50+ Ye ars (1 of 1 - PCV) 2021 Zoster Vaccines (1 of 2) 2021 Depression Screening 06/30/2024 COVID-19 Vaccine (1 - 2023-2 5 season) 2025 Influenza Vaccine (#1) 2025 HIV Screening 04/12/2025 Hepatitis C Screening 04/12/2025 Social Influencers of Health Screening 04/12/2025 RSV Immunization Adult Patie nts (1 - 1-dose 75+ series) 2046 HIB [...] on patient's age to complete this topic MMR Vaccines Aged Out No longer eligi ble based on patient's age to complete this topic Meningococcal ACWY Vaccine Aged Out N o longer eligible based on patient's age to complete this topic Meningococcal B Vaccine Aged Out No l onger eligible based on patient's age to complete this topic RSV Immunization Patients Un jessy 20 months Aged Out No longer eligible b ased on patient's age to complete this topic Varicella Vaccines Aged Out No longer eligible based on patient's age to complete this topic Insurance Care Teams Ditch Cleaner Relationship Specialty Start Date End Date Sally Ordoñez MD [address] [place] [address] PCP - General Internal Medicine 04/12/25
--- OUTSIDE RECORDS SUMMARY | 2025-04-12 22:14 | XMS_ITS | Clinical Summary ---
Author Organization [employer] Address [address] [facility] [address] [place] [address] Care Team Providers Care Motion Picture Director Name Role Phone Unavailable Primary Care Provider [...]
[2025-04-12 22:34] VITALS: BP 169/91; PULSE 68; RESP 14; TEMP 36.9; O2SAT 99
[2025-04-12 23:47] LABS: Appearance Urine Turbid; Glucose Urine UA Negative (Negative); PH 5.5 (5.0-9.0); Specific Gravity - Urine >= 1.030 (1.005-1.025); UMIC TRIGGER UACC YES
--- NOTE | 2025-04-13 00:04 | ED.GENADULT ---
HPI - General Adult General Chief complaint: Back Pain/Injury Stated complaint: lwr rt abd to back pain/stage 4 colon cancer Time Seen by Provider: 04/12/25 22:52 History of Present Illness HPI narrative: Patient is a 55-year-old female presents today with having abdominal pain it is over the right pelvic brim area radiating to the suprapubic area. Patient has diarrhea that is chronic. Nothing new. Patient denies having any bowel movement today. Positive nausea. Last chemo was 4 weeks ago. Previous history of bowel resection. Previous history of cholecystectomy. Has an ostomy and then had a reanastomosis. Patient from home. No fever no chills. No chest pain or shortness of breath no diaphoresis. No coughing or congestion or upper respiratory symptoms. No leg pain. Related Data Home Medications ?Medication ?Instructions ?Recorded ?Confirmed Vitamin B and C 1 tab PO DAILY 08/01/21 03/28/25 Vitamin D3 1 tab PO DAILY 08/01/21 03/28/25 Previous Rx's ?Medication ?Instructions ?Recorded fluoxetine 40 mg capsule 40 mg PO DAILY #90 caps 02/11/25 dexamethasone 2 mg tablet 2 mg PO BID #30 tabs 03/14/25 albuterol sulfate 90 mcg/actuation 2 puff inhalation Q4-6H PRN 04/05/25 aerosol inhaler shortness of breath or wheezing #1 ea ondansetron 4 mg disintegrating 4 mg PO TID PRN nausea and 04/13/25 tablet vomiting 5 days #10 tabs Allergies Allergy/AdvReac Type Severity Reaction Status Date / Time mushroom Allergy Intermediate Vomiting Verified 04/12/25 19:55 Latex, Natural Rubber Allergy Rash Verified 04/12/25 19:55 Review of Systems Review of Systems: Positive abdominal pain Yes all other systems are reviewed and are negative PMFSH Past Medical History Attestation statement: The following information was validated with the patient. Medical History History of chemotherapy PONV (postoperative nausea and vomiting) Cocaine use Port-A-Cath in place Gallbladder polyp Colon cancer Spinal stenosis Arthritis History of kidney infection Depression Adenomatous polyp of cecum History of anxiety Surgical History History of esophagogastroduodenoscopy (EGD) (05/10/22) Hx of colectomy (2020) History of laparoscopic cholecystectomy (2022) History of colon resection H/O colonoscopy Family History Family History Mother Diabetes Afib Heart murmur Coronary artery disease Social History Social History Household Members: Spouse Housing: House Are you a primary plant health care technician to a significant other at home: No Do you presently have visiting nurse or other home services: No Alcohol intake: current Alcohol intake frequency: holidays/special occasions only Patient Tobacco Use Status: Current everyday Tobacco user Tobacco use type: Cigarette Cigarette Packs Per Day: 1 Cigarettes Per Day: 20.0 Years Smoked: 38 Smoked in Last 30 Days: Yes Second Hand Smoke Exposure: Yes Use of substances other than those prescribed or required for medical reasons: Yes Substance Use Type: Crack/Cocaine and Marijuana Substance Use Frequency: Daily Substance Use Frequency Other:: cocaine once last week Last Used Substance: Hours (ago) Any prior treatment program specific to substance use: No Advance Directives: Yes Advance Directives Information Provided: No Advance Directives on File: No Do you have a plan to hurt others: No Plan service: No Current occupational status: employed Current occupation: billing Physical Exam ED Exam Exam: Appearance: Alert. Oriented X3. No acute distress. Eyes: Pupils equal, round and reactive to light. ENT: Pharynx normal. Neck: Normal inspection. Neck supple. No lymph nodes noted. No crepitus CVS: Normal heart rate and rhythm. Pulses normal. Normal S1 and S2 Respiratory: No respiratory distress. Breath sounds normal. No Wheezing. No rales Abdomen: Soft and nontender. No rigidity. No distention. good BS x4 Skin: Skin warm and dry. Normal skin color. Normal skin turgor. Extremities: No lower extremity edema. Neurovascular intact to all extremities. No Lacerations. No Rash Neuro: Oriented X 3. No motor deficit. No sensory deficit. Moving all extermities. No slurred speech Vital Signs: Vital Signs - 24 hr 04/12/25 19:53 04/12/25 22:34 04/13/25 00:48 Temperature 98.1 F 98.5 F Pulse Rate 71 68 74 Respiratory Rate 16 14 14 Blood Pressure 167/89 H 169/91 H Pulse Oximetry 98 99 Oxygen Delivery Method Room Air Room Air BMI result Body Mass Index 20.3 Medications Administered Discontinued Medications Generic Name Dose Route Start Last Admin Trade Name Heraclio PRN Reason Stop Dose Admin Hydromorphone HCl 0.5 mg 04/13/25 00:02 04/13/25 00:16 Hydromorphone Hcl 0.5 Mg/0.5 Ml Syringe IVPUSH 04/13/25 00:03 0.5 mg ONCE ONE Administration Protocol Hydromorphone HCl 0.5 mg 04/13/25 01:41 04/13/25 01:47 Hydromorphone Hcl 0.5 Mg/0.5 Ml Syringe IVPUSH 04/13/25 01:42 0.5 mg ONCE ONE Administration Protocol Sodium Chloride 1,000 mls @ 999 mls/hr 04/13/25 00:15 04/13/25 01:47 Ns IV 04/13/25 01:15 Infused .Q1H1M CHENTE Infusion Iohexol 85 ml 04/13/25 00:33 04/13/25 00:33 Iohexol 350 Mg/Ml 100 Ml Infus..Btl IV 04/13/25 00:34 85 ml ONCE ONE Administration Ondansetron HCl 4 mg 04/13/25 00:02 04/13/25 00:17 Ondansetron Hcl 4 Mg/2 Ml Vial IVPUSH 04/13/25 00:03 4 mg ONCE ONE Administration Medical Decision Making Medical Decision Making [facility] Narrative: History of colon cancer with possible Mets to the lungs. Now have abdominal pain. Multiple abdominal surgery in the past including colon resection cholecystectomy ostomy and reanastomosis. Now have belly pain. Will get CT scan of the abdomen. The appendix is still there. Patient's pain is over the right lower quadrant. Will also check for kidney stone. In stable condition. Pain medication IV fluids and Zofran given CT showed no obstruction no abscess no perforation question enteritis will discharge patient home. Differential Diagnosis Differential Diagnoses: The differential diagnosis associated with the presentation includes Obstruction, kidney stone, appendicitis, enteritis Admission/Observation Consideration of admission/observation: Escalation of care including admission/observation considered Lab Data [facility] Lab Attestation statement: I reviewed the patient's lab results. 04/12/25 20:10 04/12/25 20:10 Labs: Lab Results 04/12/25 04/12/25 Range/Units 20:10 23:41 WBC 9.8 (4.8-10.8) X10*3/uL RBC 4.86 (4.20-5.50) X10*6/uL Hgb 15.4 (12.0-16.0) g/dl Hct 45.5 (37.0-47.0) % MCV 93.6 (80.0-98.0) fL MCH 31.7 (27.0-33.0) pg MCHC 33.8 (31.0-35.0) g/dl RDW 13.4 (11.0-16.0) % Plt Count 253 D (160-400) X10*3/uL MPV 8.8 L (9.4-12.3) fL Immature Gran % (Auto) 0.3 (0.0-0.4) % Neut % (Auto) 49.2 (45-73) % Lymph % (Auto) 38.9 (20-40) % [place] % (Auto) 6.4 (2-11) % Eos % (Auto) 4.5 H (0-4) % Baso % (Auto) 0.7 (0-2) % Lymph # (Auto) 3.8 (1.2-4.9) X10*3/uL [place] # (Auto) 0.6 (0.1-1.2) X10*3/uL Eos # (Auto) 0.4 (0.0-0.4) X10*3/uL Baso # (Auto) 0.1 (0.0-0.2) X10*3/uL Abs Immat Gran (auto) 0.03 (0.00-0.03) X10*3/uL Absolute Neuts (auto) 4.8 (2.0-8.3) x10*3/uL Absolute Nucleated RBC 0.000 (0.0-0.012) X10*3/uL Nucleated RBC % (auto) 0.0 (0.0-0.2) /100WBC Sodium 141 (135-145) mmol/L Potassium 4.7 (3.3-5.1) mmol/L Chloride 103 (96-108) mmol/L Carbon Dioxide 29 (22-29) mmol/L Anion Gap 14 (12-20) BUN 13 (9-16) mg/dL Creatinine 0.81 (0.5-1.4) mg/dL Estim Creat Clear Calc 65.1 Estimated GFR > 60 Random Glucose 130 H (60-115) mg/dL Calcium 10.9 H D (8.4-10.2) mg/dL Magnesium 1.9 (1.6-2.6) mg/dL Total Bilirubin 0.6 (0.0-1.0) mg/dL AST 21 (5-31) U/L ALT 20 (0-31) U/L Alkaline Phosphatase 84 (39-117) U/L Total Protein 7.5 (6.5-8.0) g/dL Albumin 5.0 (3.5-5.0) g/dL Lipase 44 (8-78) U/L Urine Color Dark Yellow Urine Appearance Turbid Urine pH 5.5 (5.0-9.0) Ur Specific [place] >= 1.030 H (1.005-1.025) Urine Protein 30 (1+) H (Neg-Trace) mg/dL Urine Glucose (UA) Negative (Negative) mg/dL Urine Ketones Trace (Negative) mg/dL Urine Blood Negative (Negative) Urine Nitrite Negative (Negative) Ur Leukocyte Esterase Negative (Negative) Urine RBC 0-2 (0-2) /HPF Urine WBC 0-5 (0-5) /HPF Ur Squamous Epith Cells 11-20 (0-2) /HPF Calcium Oxalate Crystal Present Urine Bacteria 1+ (None Seen) Hyaline Casts 3-5 (0-2) /LPF Independent Interpretation I performed an independent interpretation of an: CT Scan (No obstruction no abscess no perforation) Radiology Impression Discussion of test interpretation with radiology: I have reviewed the radiologist's reading. External Record Review External record reviewed: Inpatient record Discharge Plan Discharge Clinical Impression: Abdominal pain Patient Disposition: Home, Self-Care Instructions: Abdominal Pain (ED) Prescriptions: New ondansetron 4 mg tablet,disintegrating 4 mg PO TID PRN (Reason: nausea and vomiting) 5 Days Qty: 10 0RF No Action fluoxetine 40 mg capsule 40 mg PO DAILY Qty: 90 1RF Vitamin B and C 1 tab PO DAILY Vitamin D3 1 tab PO DAILY dexamethasone 2 mg Tablet 2 mg PO BID Qty: 30 1RF Rx Instructions: Take for 2 days after chemotherapy albuterol sulfate 90 mcg/actuation HFA aerosol inhaler 2 puff inhalation Q4-6H PRN (Reason: shortness of breath or wheezing) Qty: 1 3RF Referrals: Sally Ordoñez MD [Primary Care Provider, Endocrinology] - 04/15/25 Print Language: [place]
[2025-04-13] MEDS: iohexoL 350 MG/ML 100 ML INFUS..BTL 85 ML IV (00:33)
[2025-04-13 00:48] VITALS: PULSE 74; RESP 14
[2025-04-13 01:54] VITALS: BP 155/84; PULSE 65; RESP 15; TEMP 36.4; O2SAT 98
[2025-04-13 01:59] VITALS: BP 155/84; PULSE 65; RESP 15; TEMP 36.4; O2SAT 98
== END 2025-04-13 02:00 | disposition home or self-care (01) ==
PROVIDERS: Emergency Provider Emergency Medicine Emergency Medical Services; PCP Internal Medicine
DX: R10.9 Unspecified abdominal pain (principal); C18.9 Malignant neoplasm of colon, unspecified; C78.00 Secondary malignant neoplasm of unspecified lung; Z72.0 Tobacco use; Z79.899 Other long term (current) drug therapy
CPT/HCPCS: 36415; 74177; 80053; 81001; 83690; 83735; 85025; 99284; J1171; J2405; Q9967

== ENCOUNTER → 2025-04-13 00:02 | Outpatient (BNV) | payer OTHER, SELFPAY | PROVIDERS: Emergency Provider Emergency Medicine Emergency Medical Services; PCP Internal Medicine; Visit Provider Radiology Diagnostic Radiology | DX: K52.9 Noninfective gastroenteritis and colitis, unspecified (principal); R10.84 Generalized abdominal pain | CPT/HCPCS: 74177 ==

== ENCOUNTER 2025-04-15 12:35 | Outpatient (AMB) | payer OTHER, SELFPAY ==
--- OUTSIDE RECORDS SUMMARY | 2025-04-15 11:30 | XMS_ITS | Encounter Summary ---
Author Organization [facility] Address [address] [place] [address] Care Team Providers Care Animal Taxonomist Name Role Phone Sally Ordoñez MD Primary Care Provider [phone] Reason for Visit * Reason Comments Lung Nodule * Consultation (Routine) - Authorized Specialty Diagnoses / Procedures Referred By Raheel hyde Referred To Contact Thoracic Surgery Diagnoses Solitary pulmonary nodule Procedures [place] CONSULTATION OFFICE NEW/ESTAB PATIENT 30 MIN Joana Lilly NP [address] [place] [address] Phone: tel: Thoracic Surgery - [address] [address] Phone: tel: fax: Referral ID Status Reason Start Date Expiration Date V isits Requested Visits Authorized [id number] Authorized 04/12/2025 04/12/2026 1 1 Encounter Details Date Type Department Care Team ([facility] st Contact Info) Description 04/15/2025 11:30 AM EDT Consult Thoracic Surgery - [address] [id number] Jarrod Holden MD [address] [address] Interstitial lung disease (CMS/HCC V24, CMS/HCC V28) (Primary Dx); Multiple pulmonary nodules; Malignant neoplasm of ascending colon (CMS/HCC V24, CMS/HCC V28) Social History Tobacco Use Types Packs/Day Years Used Date Smoking Tobacco: Every Day Cigarettes 1 36.8 Started: 1988 Smokeless Tobacco: Never Tobacco Cessation:Ready to Q uit: Not Asked; Counseling Given: Not Answered Comments Unknown Sex and Gender Information Value Date Recorded Sex Assigned at Not on file Legal Sex Female 7:29 PM EST Gender Identity Not on file Sexual Orientation Not on file documented as of this encounter Last Filed Vital Signs Vital Sign Reading Time Taken Comments Blood Pressure 133/89 04/15/2025 11:27 AM EDT Pulse 86 04/15/2025 11:27 AM EDT Temperature 36.7 C (98 F) 04/15/2025 11:27 AM EDT Respiratory Rate 18 04/15/2025 11:27 AM EDT Oxygen Saturation 97% 04/15/2025 11:27 AM EDT Inhaled Oxygen Concentration - - Weight 52.2 kg (115 lb) 04/15/2025 11:27 AM EDT Height 162.6 cm (5' 4 ) 04/15/2025 11:27 AM EDT Body Mass Index 19.74 04/15/2025 11:27 AM EDT documented in this encounter Progress Notes * Jarrod Holden MD - 04/15/2025 11:30 AM EDT NEW PATIENT CONSULTATION I have obtained verbal consent from Sary Herrera prior to the recording. I have advised Sary Herrera that she may refuse the recording and require the recording to be turned off at any time during this encounter. Name: Sary Herrera : 1970 Date of Visit: 04/15/2025 Referring Physician: Joana Lilly NP Primary Care Physician: Sally Ordoñez MD Chief Complaint Patient presents with Lung Nodule HPI Ms. Herrera is a 55 y.o. female who presents for outpatient consultation regarding the managementof multiple pulmonary nodules/interstitial lung disease in the setting of history of colon cancer. History of Present Illness The patient is a 55-year-old woman who presents for evaluation of lung inflammation and pain. She smokes half a pack per day, started at age 17, and has a history of colon cancer resected with a right hemicolectomy in 2020. She underwent adjuvant chemotherapy from 04/2021 to 10/2021. She also has ahistory of cocaine use. - CT scan of the chest: 12/2023, Innumerable bilateral pulmonary nodules. - CT scan of the chest: 11/26/2024, Diffuse reticular opacities that were new from prior. - CT scan of the chest: 03/18/2025, Progression of these reticular nodular opacities. She reports some weight loss and decreased appetite but does not experience fevers, chills, or soaking sweats. She reports fatigue, shortness of breath with activity, and a cough but does not have hemoptysis. She does not report any new neurologic symptoms. Her chemotherapy has been temporarily halted due to lung inflammation detected on a CT scan. She has been under the care of her oncologist, Dr. Joyce, for regular CT scans. 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 She has been dealing with cancer for 3 years. She was positive at first, went into remission for a year, and then it came back. She has had 2 different kinds of chemotherapy treatments. She experienced a return to use after being drug-free for 30 years, smoking crack cocaine, which she believes exacerbated her condition. She is currently attempting to quit again. She has been struggling with depression, which has worsened. She felt suicidal but no longer feels this way. She has sought help and now sees a counselor every Friday, which has been beneficial. She also attends Reiki sessions, which she finds helpful. She was recently hospitalized at [facility] due to suspected kidney issues. Despite normal blood and urine tests, she noticed blood in her urine last night. The pain persists and is radiating. She plans to visit an urgent care center for further evaluation. PAST SURGICAL HISTORY: - Right hemicolectomy in 2020 SOCIAL HISTORY Tobacco: Smokes half a pack per day. Recreational Drugs: Has a history of cocaine use. FAMILY HISTORY - Cousin: Colon cancer, a week after first chemotherapy treatment Results Imaging - CT scan of the chest: 12/2023, Innumerable bilateral pulmonary nodules. - CT scan of the chest: 11/26/2024, Diffuse reticular opacities that were new from prior. - CT scan of the chest: 03/18/2025, Progression of these reticular nodular opacities. Medical History[1] @ALL@ Current Medications[2] Social History[3] Social History Social History Narrative Not on file Family History[4] Review of Systems General - Negative for: weight loss/gain, fatigue, fever, chills, weakness, difficulty sleeping Head - Negative for: headache, trauma Eyes - Negative for: acute vision change, blurred vision, double vision, eye pain, conjunctival erythema, eyelid pain/swelling/erythema Ears - Negative for: acute change in hearing, tinnitus, ear pain, ear drainage Nose - Negative for: nasal discharge, nosebleed, itching, sinus pain Mouth/Throat - Negative for: sore throat, swollen throat, dry mouth, hoarseness, dysphagia, odynophagia, oral lesions Neck - Negative for: pain, stiffness, swelling, mass/lumps, swollen glands Cardiovascular - Negative for: chest pain/pressure, exertional chest pain, palpitations, lightheadedness, dizziness, orthopnea, extremity edema Respiratory -as above Gastrointestinal - Negative for: abdominal pain, abdominal distention, bloating, nausea, vomiting, early satiety, diarrhea, constipation, BRBPR, melena, poor appetite Genitourinary - Negative for: dysuria, hematura, urinary frequency, urinary urgency, incontinence Musculoskeletal - Negative for: muscle or joint pain, stiffness, back pain, joint swelling or erythema Neurologic - Negative for: dizziness, seizures, weakness, numbness, tingling, tremor, dysarthria, facial droop Hematologic - Negative for: easy bruising, easy bleeding, ecchymosis, petechiae Endocrine - Negative for: polyuriua, polydipsia, heat or cold intolerance Lymphatic - Negative for: swollen nodes, unexplained lumps/bumps in neck/axillae/groin Skin - Negative for: rashes, lumps, itching, dryness, color change, hair/nail changes Psychiatric - Negative for: depression, anxiety, nervousness, stress, memory change, SI/HI Physical Exam Vitals: 04/15/25 1127 BP: 133/89 BP Location: Right arm Patient Position: Sitting BP Cuff Size: Adult Pulse: 86 Resp: 18 Temp: 36.7 ??C (98 ??F) TempSrc: Temporal SpO2: 97% Weight: 52.2 kg (115 lb) Height: 1.626 m (64 ) General: Patient is sitting comfortably in no acute distress, well developed, well nourished Head: Normocephalic, atraumatic, symmetric Eyes: Sclera anicteric, eyelids without edema or erythema, +EOMS intact ENT: Oral mucosa and tongue are moist without lesions or exudates Neck: Soft, supple, symmetric, trachea midline, no crepitus, no mass visualized or palpated Cardiovascular: Regular rate and rhythm, no murmur/rubs/gallops, BUE and BLE without edema, no calftenderness bilaterally Respiratory: Lungs CTAB, breathing nonlabored, speaking in full sentences, on room air. No use of accessory muscles. No obvious chest wall abnormality or deformity Gastrointestinal: Soft, non-tender, non-distended, +normoactive bowel sounds. Lymphatic: no cervical, supraclavicular, infraclavicular, or other lymphadenopathy noted Neurological: Alert and oriented x 3, neurologic exam is grossly normal Psychiatric: No agitation, appropriate affect Pathology Reviewed Micro / Labs Reviewed Radiology Reviewed and interpreted by me directly as above I personally viewed the following imaging studies, in addition to reviewing the dictated report from the reading radiologist Assessment/Plan Problem List Items Addressed This Visit Malignant neoplasm of ascending colon (CMS/HCC V24, CMS/HCC V28) Relevant Orders Case Request Operating Room: Da Aaron wedge lung biopsies (Completed) NPO Instructions Prior to Day of Procedure Basic metabolic panel CBC and differential Prothrombin time with INR Activated partial thromboplastin time Type and screen ECG 12 lead - Procedural (No Charge) Interstitial lung disease (CMS/HCC V24, CMS/HCC V28) - Primary Relevant Medications albuterol HFA (PROAIR HFA ; PROVENTIL HFA ; VENTOLIN HFA) 90 mcg/actuation inhaler Other Relevant Orders Case Request Operating Room: Da Aaron wedge lung biopsies (Completed) NPO Instructions Prior to Day of Procedure Basic metabolic panel CBC and differential Prothrombin time with INR Activated partial thromboplastin time Type and screen ECG 12 lead - Procedural (No Charge) Multiple pulmonary nodules Relevant Medications albuterol HFA (PROAIR HFA ; PROVENTIL HFA ; VENTOLIN HFA) 90 mcg/actuation inhaler Other Relevant Orders Case Request Operating Room: Da Aaron wedge lung biopsies (Completed) NPO Instructions Prior to Day of Procedure Basic metabolic panel CBC and differential Prothrombin time with INR Activated partial thromboplastin time Type and screen ECG 12 lead - Procedural (No Charge) Assessment & Plan 1. Interstitial lung disease. CT scans from December 2023, October 2024, and February 2025 show progression of reticular nodular opacities consistent with interstitial lung disease or progressing metastatic disease. Potential causes of interstitial lung disease, including specific infections, inflammation, autoimmune disorders, smoking, and cancer, were discussed. The procedure for right lung wedge biopsies was explained in detail, including the associated risks such as infection, bleeding, lung damage, and pain. The importance ofpostoperative activities such as ambulation, deep breathing, and coughing was emphasized. The surgery will be scheduled for the first week of April 2025, provided there is no active urinary tract infection. 2. Hematuria. Blood in the urine and persistent radiating pain were reported. Immediate medical attention at an urgent care facility was advised for further evaluation and management of urinary tract issues. The surgery will not proceed if there is an active urinary tract infection. 3. History of colon cancer. History of colon cancer resected with a right hemicolectomy in 2020 and adjuvant chemotherapy from April 2021 to October 2021. Chemotherapy is currently postponed pending further evaluation of the lung condition. Findings from the lung biopsies will guide the future management plan. Total time spent on date of this encounter: 64 minutes. Reviewing patient's chart, Independently reviewing current/past imaging, Visit with the patient, Counseling and educating patient/family on diagnosis, Discussion of ongoing management, Documenting clinical information in the patient's medical record, and Discussion of surgical intervention and/or biopsy Jarrod Holden MD on 04/15/2025 at 12:24 PM EDT CC: Joana iLlly NP Sarah M O'Shea, MD [1] Past Medical History: Diagnosis Date Adenomatous polyp of cecum Arthritis Cocaine use Colon cancer ([facility]/HCC V24, CMS/HCC V28) Depression Gallbladder polyp History of anxiety History of chemotherapy History of kidney infection PONV (postoperative nausea and vomiting) Port-A-Cath in place Spinal stenosis [2] Current Outpatient Medications Medication Sig Dispense Refill albuterol HFA (PROAIR HFA ; PROVENTIL HFA ; VENTOLIN HFA) 90 mcg/actuation inhaler dexAMETHasone (DECADRON) 2 mg tablet TAKE 1 TABLET BY MOUTH TWICE A DAY FOR 2 DAYS FOLLOWING CHEMO FLUoxetine (PROzac) 40 mg capsule Take 1 capsule (40 mg total) by mouth 1 (one) time each day. meclizine (ANTIVERT) 25 mg tablet TAKE 1 TABLET BY MOUTH 3 TIMES A DAY NEEDED FOR VERTIGO ondansetron ODT (ZOFRAN-ODT) 4 mg disintegrating tablet No current facility-administered medications for this visit. [3] Social History Tobacco Use Smoking status: Every Day Current packs/day: 1.00 Average packs/day: 1 pack/day for 36.8 years (36.8 ttl pk-yrs) Types: Cigarettes Start date: 1988 Smokeless tobacco: Never Substance Use Topics Drug use: Yes Types: Marijuana/Cannabis [4] Family History Problem Relation Name Age of Onset Heart murmur Mother Atrial fibrillation Mother Diabetes type I Mother documented in this encounter Plan of Treatment Scheduled Orders Name Type Priority Associated Diagnoses Orde r Schedule Basic metabolic panel Lab Routine Interstitial lung disease (CMS/HCC V24, CMS/HCC V28) Multiple pulmonary nodules Malignant neoplasm of ascending colon (CMS/HCC V24, CMS/HCC V28) 1 Occurrences starting 04/15/2025 until 04/15/2026 CBC and differential Lab Routine Interstitial lung disease (CMS/HCC V24, CMS/HCC V28) Multiple pulmonary nodules Malignant neoplasm of ascending colon (CMS/HCC V24, CMS/HCC V28) 1 Occurrences starting 04/15/2025 until 04/15/2026 Prothrombin time with INR Lab Routine Interstitial lung disease (CMS/HCC V24, CMS/HCC V28) Multiple pulmonary nodules Malignant neoplasm of ascending colon (CMS/HCC V24, CMS/HCC V28) 1 Occurrences starting 04/15/2025 until 04/15/2026 Activated partial thromboplastin time Lab Routine Interstitial lung disease (CMS/HCC V24, CMS/HCC V28) Multiple pulmonary nodules Malignant neoplasm of ascending colon (CMS/HCC V24, CMS/HCC V28) 1 Occurrences starting 04/15/2025 until 04/15/2026 Type and screen Lab Routine Interstitial lung disease (CMS/HCC V24, CMS/HCC V28) Multiple pulmonary nodules Malignant neoplasm of ascending colon (CMS/HCC V24, CMS/HCC V28) 1 Occurrences starting 04/15/2025 until 04/15/2026 ECG 12 lead - Procedural (No Charge) ECG Routine Interstitial lung disease (CMS/HCC V24, CMS/HCC V28) Multiple pulmonary nodules Malignant neoplasm of ascending colon (CMS/HCC V24, CMS/HCC V28) 1 Occurrences starting 04/15/2025 until 04/15/2026 Scheduled Procedures Name Priority Associated Diagnoses Date/Ti me THORACOSCOPY ROBOT TWO Interstitial lung disease ([facility] V24, [facility] V28) Multiple pulmonary nodules Malignant neoplasm of ascending colon ([facility] V24, [facility] V28) documented as of this encounter Goals Goal Patient Goal Type Associated Problems Recent Progress Patient-Stated? Author Autogenerat ed Goal Care Plan Autogenerated Problem No Jarrod Holden MD documented as of this encounter Visit Diagnoses Diagnosis Interstitial lung disease ([facility] V24, [facility] V28)- Primary Postinflammatory pulmonary fibrosis Multiple pulmonary nodules Other diseases of lung, not elsewhere classified Malignant neoplasm of ascending colon ([facility] [facility] V24, [facility] V28) Malignant neoplasm of ascending colon documented in this encounter Historical Medications * This list may reflect changes made after this encounter. albuterol HFA (PROAIR HFA ; PROVENTIL HFA ; VENTOLIN HFA) 90 mcg/actuation inhaler 04/05/2025 dexAMETHasone (DECADRON) 2 mg tablet TAKE 1 TABLET BY MOUTH TWICE A DAY FOR 2 DAYS FOLLOWING CHEMO 03/14/2025 FLUoxetine (PROzac) 40 mg capsule Take 1 capsule (40 mg total) by mouth 1 (one) time each day. 02/11/2025 meclizine (ANTIVERT) 25 mg tablet TAKE 1 TABLET BY MOUTH 3 TIMES A DAY NEEDED FOR VERTIGO 09/29/2024 ondansetron ODT (ZOFRAN-ODT) 4 mg disintegrating tablet 04/13/2025 added in this encounter Orders Nursing Count Last Ordered Date First Orde red Date DIET INSTRUCTIONS TO NURSING 1 04/15/2025 Case Request Count Last Ordered Date First Orde red Date CASE REQUEST OPERATING ROOM 1 04/15/2025 documented in this encounter Additional Health Concerns Active Problems Noted Date Diagnosed Date Autogenerated Problem 04/15/2025 documented as of this encounter Care Teams Animal Taxonomist Relationship Specialty Start Date End Date Sally Ordoñez MD [address] [place] [address] PCP - General Internal Medicine 10/14/25 documented as of this encounter
[2025-04-15 13:04] VITALS: BP 118/82; PULSE 84; TEMP 36.8; O2SAT 96; BMI 20.2
--- NOTE | 2025-04-15 13:04 | AM.OFFWIN_ITS ---
Intake Vital Signs 04/15/25 13:04 Height 5 ft 3 in Weight 114 lb BMI 20.2 BP 118/82 Blood Pressure Location Lt brachial Position Sitting Pulse 84 Pulse Source Pulse Oximeter Temp 98.2 F Temp Source Oral Pulse Oximetry (%) 96 Oxygen Delivery Method Room Air Intake Visit Reasons: EP-kidney pain Intake Note: pt presents with right sided low back pain, newly radiating across lower back and to right hip Patient Tobacco Use Status: Current everyday Tobacco user Allergies mushroom Allergy (Intermediate, Verified 04/15/25 13:13) Vomiting Latex, Natural Rubber Allergy (Verified 04/15/25 13:13) Rash Do you need a note to return to daycare/school/sports/work: No HPI HPI Comments History of Present Illness Details History - The patient is a 55-year-old female pr esenting with concerns of a possible infection with right low back pain. - Musculoskeletal pain began with lower back discomfort, initially thought to be muscular in origin, and worsened with self-massage leading to bruising and swelling. - Pain is described as throbbing, with a severity of 3 to 4 out of 10, and is constant with occasional sharp episodes. - Pain radiates from the back to the fro nt, but not down the buttocks or into the groin. - Patient has a history of colon cancer, which has affected her appetite and caused anxiety regarding her current symptoms. - Recent ER visit revealed no abnormalit ies in blood or urine tests, and a CT scan showed no obstruction or perforation, but questioned enteritis. - Self-reported one episode of blood in her urine was noted after the ER visit, but current urine tests are clear. - Patient experiences nausea and vomitin g, which have subsided today, and reports insomnia due to pain. + Review of Systems - Gastrointestinal: Reports nausea and v omiting, decreased appetite, denies diarrhea. - Genitourinary: Reports hematuria, ronel es current urinary symptoms. - Musculoskeletal: Reports constant thro bbing pain in the lower back, denies pain radiating to buttocks or groin. - Neurological: Reports insomnia due to pain, denies dizziness or headaches. All systems reviewed and are unremarkable except as noted in HPI Physical Exam General: cooperative, healthy appearing and comfortable, patient oriented x3 Head: Yes normal to inspection and Yes normocephalic General nose exam: Normal external nose present Face and sinus: Yes normal facial exam Effort & Inspection: normal respiratory effort and able to speak in complete sentences Back/spine: no CVA tenderness bilaterally cervical, thoracic and lumbar spine normal to inspection cervical ROM normal, thoracic ROM normal, lumbar ROM normal no Cervical, thoracic or lumbar spine tenderness TTP on right lumbar back Extremities: moving all extremities normally [facility] Medical History History of chemotherapy PONV (postoperative nausea and vomiting) Cocaine use Port-A-Cath in place Gallbladder polyp Colon cancer Spinal stenosis Arthritis History of kidney infection Depression Adenomatous polyp of cecum History of anxiety Surgical History History of esophagogastroduodenoscopy (EGD) (05/10/22) Hx of colectomy (2020) History of laparoscopic cholecystectomy (2022) History of colon resection H/O colonoscopy Family History Mother Diabetes Afib Heart murmur Coronary artery disease Social History Household Members: Spouse Housing: House Are you a primary patient care manager to a significant other at home: No Do you presently have visiting nurse or other home services: No Alcohol intake: current Alcohol intake frequency: holidays/special occasions only Patient Tobacco Use Status: Current everyday Tobacco user Tobacco use type: Cigarette Cigarette Packs Per Day: 1 Cigarettes Per Day: 20.0 Years Smoked: 38 Second Hand Smoke Exposure: Yes Substance Use Type: Crack/Cocaine and Marijuana service: No Current occupational status: employed Current occupation: billing Physical Exam Vital Signs: Last Vital Signs Temp 98.2 F 04/15/25 13:04 Pulse 84 04/15/25 13:04 BP 118/82 04/15/25 13:04 Pulse Ox 96 04/15/25 13:04 Oxygen Delivery Method Room Air 04/15/25 13:04 BMI result Body Mass Index 20.2 Assessment & Plan Assessment & Plan (1) Pain in right lumbar region of back: Code(s): M54.50 - Low back pain, unspecified Plan: Plan - reproducible right low back pain, likely musculoskeletal - UA negative for infection or blood - Prescribed NSAIDs and muscle relaxants to manage musculoskeletal pain, with instructions to avoid alcohol and driving due to potential drowsiness. - Recommended use of ice and heating pad for pain relief, with emphasis on the potential benefits of heat for muscle spasms. - Advised to take medications around the clock for two to three days then as needed, to alleviate pain. - Encouraged to monitor symptoms and return if pain persists or worsens. Patient was informed and verbally consented to the use of an ambient scribe for clinic note documentation during this visit. Medications: New naproxen 500 mg PO Q12H PRN 20 tabs 0RF pain cyclobenzaprine 5 mg PO Q8H PRN 20 tabs 0RF Muscle Spasm Coding Level of Care Code Est Pt Level 3 (64972) Diagnoses Pain in right lumbar region of back M54.50
--- OUTSIDE RECORDS SUMMARY | 2025-04-15 15:00 | XMS_ITS | Clinical Summary ---
Author Organization [facility] [address] [facility] Address [address] [place] [address] Phone Care Team Providers Care Interactive Media Marketing Strategist Name Role Phone Sally Ordoñez MD Primary Care Provider [phone] Allergies Active Allergy Reactions Criticality Noted Date Comments Latex 04/15/2025 Mushroom 04/15/2025 Medications ondansetron ODT (ZOFRAN-ODT) 4 mg disintegrating tablet 5 Active meclizine (ANTIVERT) 25 mg tablet TAKE 1 TABLET BY MOUTH 3 TIMES A DAY NEEDED FOR VERTIGO 5 Active FLUoxetine (PROzac) 40 mg capsule Take 1 capsule (40 mg total) by mouth 1 (one) time each day. 5 Active dexAMETHasone (DECADRON) 2 mg tablet TAKE 1 TABLET BY MOUTH TWICE A DAY FOR 2 DAYS FOLLOWING CHEMO 5 Active albuterol HFA (PROAIR HFA ; PROVENTIL HFA ; VENTOLIN HFA) 90 mcg/actuation inhaler 5 Active Active Problems Problem Noted Date Diagnosed Date Malignant neoplasm of ascend ing colon (CMS/HCC V24, CMS/HCC V28) 04/15/2025 Interstitial lung disease (CMS/HCC V24, CMS/HCC V28) 04/15/2025 Multiple pulmonary nodules 04/15/2025 Encounters Date Type Department Care Team Description 04/15/2025 11:30 AM EDT Consult Thoracic Surgery - [facility] [address] [facility] [address] [place] [address] Jarrod Holden MD Interstitial lung disease (CMS/HCC V24, CMS/HCC V28) (Primary Dx); Multiple pulmonary nodules; Malignant neoplasm of ascending colon (CMS/HCC V24, CMS/HCC V28) from Last 3 Months Surgical History Surgery Date Site/Laterality Comments ESOPHAGOGASTRODUODENOSCOPY COLECTOMY 06/30/2020 - 06/29/2021 CHOLECYSTECTOMY 06/30/2022 - 06/29/2023 COLONOSCOPY Medical History Medical History Date Comments History of chemotherapy PONV (postoperative nausea and vomiting) Cocaine use Port-A-Cath in place Gallbladder polyp Colon cancer (CMS/HCC V24, CMS/HCC V28) Spinal stenosis Arthritis Depression History of anxiety Adenomatous polyp of cecum History of kidney infection Family History Medical History Relation Name Comments Atrial fibrillation Mother Diabetes type I Mother Heart murmur Mother Relation Name Status Comments Mother Social History Tobacco Use Types Packs/Day Years Used Date Smoking Tobacco: Every Day Cigarettes 1 36.8 Started: 1988 Smokeless Tobacco: Never Tobacco Cessation:Ready to Q uit: Not Asked; Counseling Given: Not Answered Comments Unknown Sex and Gender Information Value Date Recorded Sex Assigned at Not on file Legal Sex Female 7:29 PM EST Gender Identity Not on file Sexual Orientation Not on file Obstetrics History Last Filed Vital Signs Vital Sign Reading [...] Mass Index 19.74 04/15/2025 11:27 AM EDT Plan of Treatment Scheduled Procedures Name Priority Associated Diagnoses Date/Ti me THORACOSCOPY ROBOT TWO Interstitial lung disease (CMS/HCC V24, CMS/HCC V28) Multiple pulmonary nodules Malignant neoplasm of ascending colon (CMS/HCC V24, CMS/HCC V28) Health Maintenance Due Date Last Done Comments Breast Cancer Screening 1971 Colorectal Cancer Screening: Colonoscopy 1971 DTaP,Tdap,and Td Vaccines (1 - Tdap) 1990 Hepatitis B Vaccines (1 of 3 - 19+ 3-dose series) 1990 Pneumococcal Vaccine: 50+ Years (1 of 2 - PCV) 1990 Cervical Cancer Screening: Pap Smear 01/13/1992 Zoster Vaccines (1 of 2) 2021 Depression Screening 06/30/2024 COVID-19 Vaccine (2024- season) 2025 04/29/2021, 09/29/2020, 09/08/2020, Additional history exists Influenza Vaccine (#1) 2025 , 03/13/2022, 03/18/2021, Additional history exists Cholesterol Screening (Lipid Panel) 04/12/2025 HIV Screening 04/12/2025 Hepatitis C Screening 04/12/2025 Lung Cancer Screening (Low Dose CT) 04/12/2025 Social Influencers of Health Screening 04/12/2025 RSV Immunization Adult Patients (1 - 1-dose 75+ series) 2046 HIB [...] to complete this topic RSV Immunization Patients Under 20 months Aged Out No longer eligible based on patient's age to complete this topic Varicella Vaccines Aged Out No longer eligible based on patient's age to complete this topic Goals Goal Patient Goal Type Associated Problems Recent Progress Patient-Stated? Author Autogenerat ed Goal Care Plan Autogenerated Problem No Jarrod Holden MD Additional Health Concerns Active Problems Noted Date Diagnosed Date Autogenerated Problem 04/15/2025 Insurance [facility] Care Teams Interactive Media Marketing Strategist Relationship Specialty Start Date End Date Sally Ordoñez MD [address] [place] [id number] PCP - General Internal Medicine 04/12/25
--- OUTSIDE RECORDS SUMMARY | 2025-04-15 15:00 | XMS_ITS | Clinical Summary ---
Author Organization [employer] Address [address] [facility] [address] [place] [address] Care Team Providers Care Machine Package Sealer Name Role Phone Unavailable Primary Care Provider [...]
== END 2025-04-15 13:52 | disposition home or self-care (01) ==
PROVIDERS: PCP Internal Medicine; Visit Provider Physician Assistant
DX: Z13.9 Encounter for screening, unspecified (principal); M54.50 Low back pain, unspecified

== ENCOUNTER → 2025-04-15 12:35 | Outpatient (BNVA) | payer OTHER, SELFPAY | PROVIDERS: PCP Internal Medicine; Visit Provider Physician Assistant | DX: M54.50 Low back pain, unspecified (principal); F41.9 Anxiety disorder, unspecified; R11.2 Nausea with vomiting, unspecified | CPT/HCPCS: 81003 ==

== ENCOUNTER 2025-04-25 00:13 | Emergency (ER) | payer OTHER, SELFPAY ==
--- NOTE | 2025-04-25 | ECG_ITS ---
Test Reason : N/V Blood Pressure : */* mmHG Vent. Rate : 74 BPM Atrial Rate : 74 BPM P-R Int : 116 ms QRS Dur : 70 ms QT Int : 408 ms P-R-T Axes : 75 51 48 degrees QTcB Int : 452 ms Normal sinus rhythm Possible Left atrial enlargement Borderline ECG When compared with ECG of 07-Mar-2025 12:11, No significant change was found Referred By: Generic ED Physician Electronically Signed By: NATASHA BARRAZA
--- NOTE | ~2025-04-25 | CT_ITS ---
CLINICAL HISTORY: BRBPR, hx colon CA CT angiography abdomen and pelvis with contrast. 3-D post processing. Comparison: CT/REG/SR - CT ABDOMEN PELVIS W IV CON - 04/13/25 00:[address]/REG/ND/SR - CT CHEST W IV CON - 07/16/23 14:24 EST Findings: Numerous peripherally based small nodules are seen in the lung bases measuring up to 12 mm (axial image 15 of series 10). Cholecystectomy clips are present. Mild central hepatic and extrahepatic biliary ductal dilatation is seen with the CBD measuring 13 mm, which can be seen in post cholecystectomy patients. Subcentimeter left hepatic hypodensity is too small to characterize. 1.4 cm enhancing hypodense lesion is seen in the uncinate process of the pancreas (axial image 36 of series 10). The spleen, bilateral adrenal glands, and bilateral kidneys appear within normal limits. The urinary bladder is partially distended. There is no adenopathy. 1.9 cm right ovarian cyst is present. Colonic diverticulosis is present without evidence of diverticulitis. There is no evidence of active gastrointestinal hemorrhage. There is no evidence of bowel obstruction. The appendix is not visualized. Moderate to severe degenerative changes are seen in the spine, most prominent at L5/S1. Indeterminate 1.2 cm sclerotic lesion is seen at L2. No acute osseous abnormality is identified. IMPRESSION: 1. Colonic diverticulosis without evidence of diverticulitis. No evidence of active gastrointestinal hemorrhage. 2. 1.4 cm enhancing hypodense lesion in the uncinate process of the pancreas, which may represent metastatic disease or adenocarcinoma. 3. Numerous peripherally based nodules in the lung bases measuring up to 12 mm. 4. Indeterminate 1.2 cm sclerotic lesion at L2. Bone scan can be obtained for further evaluation. This document has been electronically signed by: Joshua Lozano on 04/25/2025 07:20:11
[2025-04-25 00:30] VITALS: BP 117/72; PULSE 76; RESP 20; TEMP 36.1; O2SAT 99; BMI 20.7
[2025-04-25 00:50] LABS: MANUAL DIFF FLAG NO
[2025-04-25 00:51] LABS: Hematocrit 36.7 % (37.0-47.0); Hemoglobin 12.3 g/dl (12.0-16.0); Imm Gran Abs Auto 0.04 X10*3/uL (0.00-0.03); Imm Gran Pct Auto 0.4 % (0.0-0.4); Lymphocytes Absolute Auto 2.2 X10*3/uL (1.2-4.9); Mean Corpuscular HGB Conc 33.5 g/dl (31.0-35.0); Mean Corpuscular Hemoglobin 31.2 pg (27.0-33.0); Mean Corpuscular Volume 93.1 fL (80.0-98.0); NRBC Abs Auto 0.000 X10*3/uL (0.0-0.012); NRBC Pct Auto 0.0 /100WBC (0.0-0.2); Platelet Count 264 X10*3/uL (160-400); Red Blood Count 3.94 X10*6/uL (4.20-5.50); White Blood Count 10.5 X10*3/uL (4.8-10.8)
[2025-04-25 01:12] LABS: Alanine Aminotransferase 12 U/L (0-31); Albumin Level 3.8 g/dL (3.5-5.0); Alkaline Phosphatase 74 U/L (39-117); Anion Gap 16 (12-20); Aspartate Amino Transferase 33 U/L (5-31); Blood Urea Nitrogen 13 mg/dL (9-16); Calcium 9.1 mg/dL (8.4-10.2); Carbon Dioxide 24 mmol/L (22-29); Chloride 106 mmol/L (96-108); Creatinine Clr Calc Pharmacy 80.4; Estimated Glomerular Filt Rate > 60; Lipase 26 U/L (8-78); Magnesium 1.7 mg/dL (1.6-2.6); Potassium 4.8 mmol/L (3.3-5.1); Sodium 141 mmol/L (135-145); Total Protein 6.2 g/dL (6.5-8.0)
[2025-04-25 01:14] LABS: Troponin-I High Sensitivity 4.1 ng/L (<3.5-17.0)
--- NOTE | 2025-04-25 01:18 | PC.NURSE ---
pt biba from home, a&ox4, respirations even and unlabored. pt reports x3 episodes of of bright red diarrhea, nausea and vomiting. pt reports she has stage 4 colon cx at this time. vss. rectal temp obtained, no blood noted on temperature probe. 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 MD Villatoro made aware of pt at this time.
--- NOTE | 2025-04-25 02:48 | ED.GIBLEED ---
HPI - GI Bleed General Chief complaint: GI Bleed Stated complaint: ABD Pain Time Seen by Provider: 04/25/25 02:47 Source: patient Mode of arrival: ambulatory Limitations: no limitations History of Present Illness ED Provider: Dr. Tamica Braga HPI Narrative: 55-year-old female with a history of colon cancer status post chemotherapy and radiation presenting with generalized abdominal pain, nausea, vomiting, single episode of bright red blood in diarrhea. Admits that she is currently being treated for colon cancer and gets nauseous and vomits daily at baseline. Admits that she has been feeling nauseous associated with her treatments and has vomited many times. No reported hematemesis. No reported fever. No urinary complaints. Related Data Home Medications ?Medication ?Instructions ?Recorded ?Confirmed dexamethasone 2 mg tablet 2 mg PO BID PRN x2 days after chemo 04/26/25 04/26/25 Previous Rx's ?Medication ?Instructions ?Recorded ondansetron 4 mg disintegrating 4 mg PO TID PRN nausea and 04/13/25 tablet vomiting 5 days #10 tabs cyclobenzaprine 5 mg tablet 5 mg PO Q8H PRN Muscle Spasm #20 04/15/25 tabs naproxen 500 mg tablet 500 mg PO Q12H PRN pain #20 tabs 04/15/25 Allergies Allergy/AdvReac Type Severity Reaction Status Date / Time mushroom Allergy Intermediate Vomiting Verified 04/26/25 10:12 Latex, Natural Rubber Allergy Rash Verified 04/26/25 10:12 Review of Systems Review of Systems: as per HPI, full review of systems performed and negative but for the above mentioned pertinent positives and negatives. [facility] Past Medical History Medical History COPD (chronic obstructive pulmonary disease) History of chemotherapy PONV (postoperative nausea and vomiting) Cocaine use Port-A-Cath in place Gallbladder polyp Colon cancer Spinal stenosis Arthritis History of kidney infection Depression Adenomatous polyp of cecum History of anxiety Surgical History History of esophagogastroduodenoscopy (EGD) (05/10/22) Hx of colectomy (2020) History of laparoscopic cholecystectomy (2022) History of colon resection H/O colonoscopy Family History Family History Mother Diabetes Afib Heart murmur Coronary artery disease Social History Social History Household Members: Significant Other Housing: House Are you a primary rn primary care to a significant other at home: No Do you presently have visiting nurse or other home services: No Alcohol intake: current Alcohol intake frequency: holidays/special occasions only Patient Tobacco Use Status: Current everyday Tobacco user Tobacco use type: Cigarette Cigarette Packs Per Day: 1 Cigarettes Per Day: 10 Years Smoked: 38 Second Hand Smoke Exposure: No Substance Use Type: Marijuana service: No Current occupational status: employed Current occupation: billing Physical Exam Exam: Exam: GENERAL: Ill-Appearing, appears uncomfortable. SKIN: Normal skin color for ethnicity, warm, dry, no rashes noted. HEENT:? Normocephalic, atraumatic, no stridor, dry mucous membranes, dentition intact, EOMI. NECK: Soft, supple, full ROM, midline structures nontender, no step-offs, no deformities, no lymphadenopathy. CHEST: Heart regular rhythm, no murmurs, symmetric chest rise and fall. PULMONARY: Clear to auscultation bilaterally, diminished at the bases, no labored breathing, no wheezes/rhales/rhonchi. ABDOMINAL: Soft, nondistended, left lower quadrant tenderness to palpation without rebound or guarding, quiet bowel sounds in all quadrants. : Deferred. MUSCULOSKELETAL: Normal tone, full range of motion, no deformities, no peripheral edema. NEURO: Alert and oriented x3, CN II through XII intact, equal strength and sensation bilateral upper and lower extremities, no focal neurologic deficits.? PSYCHIATRIC: Flat affect, fluid speech, good eye contact and appropriate demeanor. Vital Signs: Vital Signs: Last Vital Signs Temp 0 F L 04/25/25 08:30 Pulse 79 04/25/25 08:30 Resp 18 04/25/25 08:30 BP 142/73 H 04/25/25 08:30 Pulse Ox 99 04/25/25 08:30 O2 Del Method Room Air 04/25/25 08:30 BMI result Body Mass Index 20.7 Medications Administered Discontinued Medications Generic Name Dose Route Start Last Admin Trade Name Freq PRN Reason Stop Dose Admin Iohexol 80 ml 04/25/25 04:22 04/25/25 04:22 Iohexol 350 Mg/Ml 100 Ml Infus..Btl IV 04/25/25 04:23 80 ml ONCE ONE Administration Medical Decision Making Medical Decision Making [facility] Narrative: Patient presents today with a chief complaint of possible GI bleed. Differential diagnosis includes rectal bleeding from sources such as a fissure, hemorrhoid, lower GI bleed, diverticulitis, upper GI bleeding, peptic ulcer disease, perforation, esophageal bleed, among many others. Broad-based work-up was initiated based on the patient's presentation. CTA does not show evidence of acute bleeding. Patient is improving after fluids, antiemetics. She has follow-up with Oncology and her colorectal surgeon. Discussed importance of follow up as well as strict return precautions to the emergency department. Discharged home in stable condition. Differential Diagnosis Differential Diagnoses: The differential diagnosis associated with the presentation includes (As above) Admission/Observation Consideration of admission/observation: Escalation of care including admission/observation considered Lab Data [facility] Lab Attestation statement: I reviewed the patient's lab results. 04/25/25 00:44 04/25/25 00:44 Labs: Lab Results 04/25/25 04/25/25 Range/Units 00:44 03:00 WBC 10.5 (4.8-10.8) X10*3/uL RBC 3.94 L (4.20-5.50) X10*6/uL Hgb 12.3 (12.0-16.0) g/dl Hct 36.7 L (37.0-47.0) % MCV 93.1 (80.0-98.0) fL MCH 31.2 (27.0-33.0) pg MCHC 33.5 (31.0-35.0) g/dl RDW 12.9 (11.0-16.0) % Plt Count 264 (160-400) X10*3/uL MPV 9.0 L (9.4-12.3) fL Immature Gran % (Auto) 0.4 (0.0-0.4) % Neut % (Auto) 67.8 (45-73) % Lymph % (Auto) 21.3 (20-40) % [place] % (Auto) 5.0 (2-11) % Eos % (Auto) 5.0 H (0-4) % Baso % (Auto) 0.5 (0-2) % Lymph # (Auto) 2.2 (1.2-4.9) X10*3/uL [place] # (Auto) 0.5 (0.1-1.2) X10*3/uL Eos # (Auto) 0.5 H (0.0-0.4) X10*3/uL Baso # (Auto) 0.1 (0.0-0.2) X10*3/uL Abs Immat Gran (auto) 0.04 H (0.00-0.03) X10*3/uL Absolute Neuts (auto) 7.1 (2.0-8.3) x10*3/uL Absolute Nucleated RBC 0.000 (0.0-0.012) X10*3/uL Nucleated RBC % (auto) 0.0 (0.0-0.2) /100WBC Sodium 141 (135-145) mmol/L Potassium 4.8 (3.3-5.1) mmol/L Chloride 106 (96-108) mmol/L Carbon Dioxide 24 (22-29) mmol/L Anion Gap 16 (12-20) BUN 13 (9-16) mg/dL Creatinine 0.69 (0.5-1.4) mg/dL Estim Creat Clear Calc 80.4 Estimated GFR > 60 Random Glucose 164 H (60-115) mg/dL Calcium 9.1 D (8.4-10.2) mg/dL Magnesium 1.7 (1.6-2.6) mg/dL Total Bilirubin 0.4 (0.0-1.0) mg/dL AST 33 H (5-31) U/L ALT 12 (0-31) U/L Alkaline Phosphatase 74 (39-117) U/L Troponin I High Sens 4.1 (<3.5-17.0) ng/L Total Protein 6.2 L (6.5-8.0) g/dL Albumin 3.8 (3.5-5.0) g/dL Lipase 26 (8-78) U/L Urine Color Dark Yellow Urine Appearance Cloudy Urine pH 5.5 (5.0-9.0) Ur Specific [place] >= 1.030 H (1.005-1.025) Urine Protein Trace (Neg-Trace) mg/dL Urine Glucose (UA) Negative (Negative) mg/dL Urine Ketones Trace (Negative) mg/dL Urine Blood Negative (Negative) Urine Nitrite Negative (Negative) Ur Leukocyte Esterase Trace H (Negative) Urine RBC 3-5 H (0-2) /HPF Urine WBC 0-5 (0-5) /HPF Ur Squamous Epith Cells 3-5 (0-2) /HPF Calcium Oxalate Crystal Present Urine Bacteria Trace (None Seen) Hyaline Casts 6-10 (0-2) /LPF Radiology Impression Discussion of test interpretation with radiology: I have reviewed the radiologist's reading. Radiologist Impression: CT ABD/PEL GIB Findings: Numerous peripherally based small nodules are seen in the lung bases measuring up to 12 mm (axial image 15 of series 10). Cholecystectomy clips are present. Mild central hepatic and extrahepatic biliary ductal dilatation is seen with the CBD measuring 13 mm, which can be seen in post cholecystectomy patients. Subcentimeter left hepatic hypodensity is too small to characterize. 1.4 cm enhancing hypodense lesion is seen in the uncinate process of the pancreas (axial image 36 of series 10). The spleen, bilateral adrenal glands, and bilateral kidneys appear within normal limits. The urinary bladder is partially distended. There is no adenopathy. 1.9 cm right ovarian cyst is present. Colonic diverticulosis is present without evidence of diverticulitis. There is no evidence of active gastrointestinal hemorrhage. There is no evidence of bowel obstruction. The appendix is not visualized. Moderate to severe degenerative changes are seen in the spine, most prominent at L5/S1. Indeterminate 1.2 cm sclerotic lesion is seen at L2. No acute osseous abnormality is identified. IMPRESSION: 1. Colonic diverticulosis without evidence of diverticulitis. No evidence of active gastrointestinal hemorrhage. 2. 1.4 cm enhancing hypodense lesion in the uncinate process of the pancreas, which may represent metastatic disease or adenocarcinoma. 3. Numerous peripherally based nodules in the lung bases measuring up to 12 mm. 4. Indeterminate 1.2 cm sclerotic lesion at L2. Bone scan can be obtained for further evaluation. Independent Historian Clinical information obtained from an independent historian. History obtained from or confirmed by: Parent External Record Review External record reviewed: Inpatient record Chronic Conditions Patient?s care impacted by: Cancer and Other (COPD) Social Determinants Patient?s care significantly limited by Social Determinants of Health including: Other Social Determinant of Health Discharge Plan Discharge Clinical Impression: Hematochezia, History of colon cancer Patient Disposition: Home, Self-Care Instructions: Rectal Bleeding (ED) Additional Instructions: Thankfully there is no evidence of active bleeding on your CAT scan. You are likely bleeding due to internal hemorrhoids which are usually painless but can produce quite a bit of blood. There is a concerning spot on your pancreas that should be followed up with your cancer doctors. There is nothing to be done about it emergently though. Try to drink plenty of fluids over the next several days. If you develop any new or worsening symptoms including: Worsening bleeding, fevers greater than 100? or severe abdominal pain, he should return to the hospital immediately. Keep your appointments with your doctors as scheduled. Call 911 with any medical emergency. Prescriptions: No Action ondansetron 4 mg tablet,disintegrating 4 mg PO TID PRN (Reason: nausea and vomiting) 5 Days Qty: 10 0RF dexamethasone 2 mg tablet 2 mg PO BID PRN (Reason: x2 days after chemo) Patient Comments: Patient last took February 2025 Rx Instructions: Take for 2 days after chemotherapy naproxen 500 mg tablet 500 mg PO Q12H PRN (Reason: pain) Qty: 20 0RF cyclobenzaprine 5 mg tablet 5 mg PO Q8H PRN (Reason: Muscle Spasm) Qty: 20 0RF Interventions: ED Discharge Assessment Last Done: 04/25/25 08:30 Discharge Date/Time: 04/25/25 08:31 Print Language: Maltese
[2025-04-25 03:00] VITALS: BP 123/77; PULSE 76; RESP 18; TEMP 37.3; O2SAT 99
[2025-04-25 03:08] LABS: Appearance Urine Cloudy; Glucose Urine UA Negative (Negative); PH 5.5 (5.0-9.0); Specific Gravity - Urine >= 1.030 (1.005-1.025); UMIC TRIGGER UACC YES
[2025-04-25] MEDS: iohexoL 350 MG/ML 100 ML INFUS..BTL 80 ML IV (04:22)
[2025-04-25 06:31] VITALS: BP 131/77; PULSE 73; RESP 15; TEMP 36.6; O2SAT 97
[2025-04-25 08:30] VITALS: BP 142/73; PULSE 79; RESP 18; TEMP -17.7; TEMP 0; O2SAT 99
== END 2025-04-25 08:31 | disposition home or self-care (01) ==
PROVIDERS: Emergency Provider Emergency Medicine; PCP Physician Assistant
DX: K92.1 Melena (principal); R10.9 Unspecified abdominal pain; Z85.038 Personal history of other malignant neoplasm of large intestine; Z92.3 Personal history of irradiation; R11.2 Nausea with vomiting, unspecified
CPT/HCPCS: 36415; 74178; 80053; 81001; 83690; 83735; 84484; 85025; 93005; 99284; 99285; Q9967

== ENCOUNTER → 2025-04-25 00:43 | Outpatient (BNV) | payer OTHER, SELFPAY | PROVIDERS: Emergency Provider Emergency Medicine; PCP Physician Assistant; Visit Provider Internal Medicine | DX: R11.2 Nausea with vomiting, unspecified (principal) | CPT/HCPCS: 93010 ==

== ENCOUNTER → 2025-04-25 03:37 | Outpatient (BNV) | payer OTHER, SELFPAY | PROVIDERS: Emergency Provider Emergency Medicine; PCP Physician Assistant; Visit Provider Radiology Vascular & Interventional Radiology | DX: K57.31 Diverticulosis of large intestine without perforation or abscess with bleeding (principal); K86.89 Other specified diseases of pancreas; R91.8 Other nonspecific abnormal finding of lung field; M89.8X8 Other specified disorders of bone, other site | CPT/HCPCS: 74178 ==

== ENCOUNTER 2025-04-26 10:01 | Inpatient (IN) | payer OTHER, SELFPAY ==
[2025-04-26] VITALS (14 sets, daily range): BP systolic 114–170; BP diastolic 46–89; PULSE 62–86; RESP 16–19; TEMP 36.4–36.9; O2SAT 92–100; BMI 20.7; BMI 23.1
--- NOTE | 2025-04-26 10:57 | ED.GENADULT ---
HPI - General Adult General Chief complaint: Dizziness Stated complaint: FROM WORK, DIZZINESS Time Seen by Provider: 04/26/25 10:10 Source: patient Mode of arrival: ambulatory Limitations: no limitations History of Present Illness HPI narrative: This is a 55 years old the patient presented to the emergency department with a chief complaint of weakness dizziness she was seen yesterday in the emergency department, with rectal bleeding, she has a history of stage IV colon cancer which was diagnosed in 2020. Today she was at work she got really dizzy lightheaded so she came to the ED Onset (ago): hour(s) (1) Radiation: non-radiation Severity: mild Relieving factors: none Exacerbating factors: none Related Data Home Medications ?Medication ?Instructions ?Recorded ?Confirmed dexamethasone 2 mg tablet 2 mg PO BID PRN x2 days after chemo 04/26/25 04/26/25 Previous Rx's ?Medication ?Instructions ?Recorded ondansetron 4 mg disintegrating 4 mg PO TID PRN nausea and 04/13/25 tablet vomiting 5 days #10 tabs cyclobenzaprine 5 mg tablet 5 mg PO Q8H PRN Muscle Spasm #20 04/15/25 tabs naproxen 500 mg tablet 500 mg PO Q12H PRN pain #20 tabs 04/15/25 Allergies Allergy/AdvReac Type Severity Reaction Status Date / Time mushroom Allergy Intermediate Vomiting Verified 04/26/25 10:12 Latex, Natural Rubber Allergy Rash Verified 04/26/25 10:12 Review of Systems Constitutional: Constitutional: Reports no additional constitutional complaints ENT: Reports system reviewed and no additional complaints, except as documented [facility] Past Medical History [facility] Narrative: Stage IV colon cancer Medical History History of chemotherapy PONV (postoperative nausea and vomiting) Cocaine use Port-A-Cath in place Gallbladder polyp Colon cancer Spinal stenosis Arthritis History of kidney infection Depression Adenomatous polyp of cecum History of anxiety Surgical History History of esophagogastroduodenoscopy (EGD) (05/10/22) Hx of colectomy (2020) History of laparoscopic cholecystectomy (2022) History of colon resection H/O colonoscopy Family History Family History Mother Diabetes Afib Heart murmur Coronary artery disease Social History Social History Household Members: Significant Other Housing: House Are you a primary health care legal assistant to a significant other at home: No Do you presently have visiting nurse or other home services: No Alcohol intake: current Alcohol intake frequency: holidays/special occasions only Patient Tobacco Use Status: Current everyday Tobacco user Tobacco use type: Cigarette Cigarette Packs Per Day: 1 Cigarettes Per Day: 10 Years Smoked: 38 Second Hand Smoke Exposure: No Substance Use Type: Marijuana service: No Current occupational status: employed Current occupation: billing Physical Exam ED Exam Exam: No acute distress Vital Signs: Vital Signs - 24 hr 04/26/25 10:10 04/26/25 10:13 04/26/25 11:22 Temperature 97.8 F 97.8 F Pulse Rate 74 74 71 Respiratory Rate 17 17 16 Blood Pressure 124/46 L 124/46 L 114/55 L Pulse Oximetry 100 100 100 Oxygen Delivery Method Room Air Room Air Room Air 04/26/25 13:37 04/26/25 14:39 04/26/25 15:54 Temperature 97.6 F Pulse Rate 80 70 Respiratory Rate 16 18 Blood Pressure 128/77 132/65 Pulse Oximetry 96 99 99 Oxygen Delivery Method Room Air Room Air Room Air BMI result Body Mass Index 20.7 Const General: cooperative Nutritional Appearance: average body habitus Orientation/consciousness: patient oriented x3 Limitations: no limitations HENMT Other: Examination of the head eyes ears nose and throat within normal General nose exam: Normal external nose present Face and sinus: Yes normal facial exam Mouth: Normal oral and palatal mucosa present Throat: Yes posterior oropharynx normal Neck Neck: Yes normal visual inspection Chest Chest palpation & inspection: normal inspection of the chest Resp Effort & Inspection: normal respiratory effort Cardio Jugular venous distension: no JVD Rate: regular rate Rhythm: regular rhythm GI Inspection: Yes normal to inspection Auscultation: normal bowel sounds Skin General skin exam: no rashes or lesions noted Neuro General: patient oriented x3 Cranial nerves: Yes CN's II-XII intact bilaterally Course Reevaluation(s) Reevaluation #1: Hemoglobin is down trending yesterday was 12.3, and today at 11:00 9.4 just rechecked now is down to 8.5, I did a rectal examination she has a heme-positive stools. I think it is very reasonable to admit the patient do a serial H&H she does have history of colon cancer if she continued to drop in hemoglobin she may need transfusion Time: 15:44 Medications Administered Generic Name Dose Route Start Last Admin Trade Name Freq PRN Reason Stop Dose Admin Lactated Ringer's 1,000 mls @ 100 mls/hr 04/26/25 16:15 04/27/25 05:37 Lr IVCONT 100 mls/hr .Q10H CHENTE Administration Sodium Chloride 1,000 mls @ 100 mls/hr 04/26/25 16:15 04/27/25 00:53 Ns IVCONT Not Given .Q10H CHENTE Ondansetron HCl 4 mg 04/26/25 16:06 04/27/25 04:33 Ondansetron Hcl 4 Mg/2 Ml Vial IVPUSH 4 mg Q8H PRN Administration Nausea and Vomiting Pantoprazole Sodium 40 mg 04/27/25 06:30 04/27/25 05:20 Pantoprazole Sodium 40 Mg/10 Ml Vial IVPUSH 40 mg BID@0630,1630 CHENTE Administration Sodium Chloride 3 ml 04/27/25 00:00 04/26/25 22:22 0.9 % Sodium Chloride Flush 3 Ml Syringe IVFLUSH 3 ml QSHIFT CHENTE Administration Discontinued Medications Generic Name Dose Route Start Last Admin Trade Name Freq PRN Reason Stop Dose Admin Sodium Chloride 1,000 mls @ 999 mls/hr 04/26/25 11:00 04/26/25 13:05 Ns IVCONT 04/26/25 12:00 Infused .Q1H1M CHENTE Infusion Sodium Chloride 1,000 mls @ 999 mls/hr 04/26/25 14:00 04/26/25 15:01 Ns IVCONT 04/26/25 15:00 Infused .Q1H1M CHENTE Infusion Pantoprazole Sodium 40 mg 04/26/25 15:46 04/26/25 16:02 Pantoprazole Sodium 40 Mg/10 Ml Vial IVPUSH 04/26/25 15:47 40 mg ONCE ONE Administration Prochlorperazine Edisylate 10 mg 04/26/25 22:29 04/26/25 23:50 Prochlorperazine Edisylate 10 Mg/2 Ml Vial IVPUSH 04/26/25 22:30 10 mg ONCE ONE Administration Medical Decision Making Medical Decision Making [facility] Narrative: Patient is here complaining of dizziness weakness at work today history of stage IV colon cancer it is reasonable to do blood work administer IV fluids electrocardiogram Differential Diagnosis Differential Diagnoses: The differential diagnosis associated with the presentation includes Dehydration/anemia/ Admission/Observation Consideration of admission/observation: Escalation of care including admission/observation considered Lab Data [facility] Lab Attestation statement: I reviewed the patient's lab results. 04/26/25 15:26 04/26/25 11:18 Labs: Lab Results 04/26/25 04/26/25 04/26/25 Range/Units 11:18 13:52 15:26 WBC 8.8 6.7 (4.8-10.8) X10*3/uL RBC 3.00 L D 2.72 L (4.20-5.50) X10*6/uL Hgb 9.4 L D 8.5 L (12.0-16.0) g/dl Hct 27.9 L D 25.7 L (37.0-47.0) % MCV 93.0 94.5 (80.0-98.0) fL MCH 31.3 31.3 (27.0-33.0) pg MCHC 33.7 33.1 (31.0-35.0) g/dl RDW 13.2 13.3 (11.0-16.0) % Plt Count 201 178 (160-400) X10*3/uL MPV 8.6 L 8.5 L (9.4-12.3) fL Immature Gran % (Auto) 0.3 0.1 (0.0-0.4) % Neut % (Auto) 58.7 56.1 (45-73) % Lymph % (Auto) 32.6 33.9 (20-40) % Foard % (Auto) 5.4 5.8 (2-11) % Eos % (Auto) 2.4 3.7 (0-4) % Baso % (Auto) 0.6 0.4 (0-2) % Lymph # (Auto) 2.9 2.3 (1.2-4.9) X10*3/uL Foard # (Auto) 0.5 0.4 (0.1-1.2) X10*3/uL Eos # (Auto) 0.2 0.3 (0.0-0.4) X10*3/uL Baso # (Auto) 0.1 0.0 (0.0-0.2) X10*3/uL Abs Immat Gran (auto) 0.03 0.01 (0.00-0.03) X10*3/uL Absolute Neuts (auto) 5.2 3.8 (2.0-8.3) x10*3/uL Absolute Nucleated RBC 0.000 0.000 (0.0-0.012) X10*3/uL Nucleated RBC % (auto) 0.0 0.0 (0.0-0.2) /100WBC Sodium 140 (135-145) mmol/L Potassium 4.6 (3.3-5.1) mmol/L Chloride 105 (96-108) mmol/L Carbon Dioxide 28 (22-29) mmol/L Anion Gap 12 (12-20) BUN 12 (9-16) mg/dL Creatinine 0.62 (0.5-1.4) mg/dL Estim Creat Clear Calc 85.8 Estimated GFR > 60 Random Glucose 96 (60-115) mg/dL Calcium 9.6 (8.4-10.2) mg/dL Total Bilirubin 0.5 (0.0-1.0) mg/dL AST 21 (5-31) U/L ALT 16 (0-31) U/L Alkaline Phosphatase 65 (39-117) U/L Total Protein 5.7 L (6.5-8.0) g/dL Albumin 3.8 (3.5-5.0) g/dL Stool Occult Blood POSITIVE (NEGATIVE) Blood Type Antibody Screen Crossmatch 04/26/25 Range/Units 15:54 WBC (4.8-10.8) X10*3/uL RBC (4.20-5.50) X10*6/uL Hgb (12.0-16.0) g/dl Hct (37.0-47.0) % MCV (80.0-98.0) fL MCH (27.0-33.0) pg MCHC (31.0-35.0) g/dl RDW (11.0-16.0) % Plt Count (160-400) X10*3/uL MPV (9.4-12.3) fL Immature Gran % (Auto) (0.0-0.4) % Neut % (Auto) (45-73) % Lymph % (Auto) (20-40) % Foard % (Auto) (2-11) % Eos % (Auto) (0-4) % Baso % (Auto) (0-2) % Lymph # (Auto) (1.2-4.9) X10*3/uL Foard # (Auto) (0.1-1.2) X10*3/uL Eos # (Auto) (0.0-0.4) X10*3/uL Baso # (Auto) (0.0-0.2) X10*3/uL Abs Immat Gran (auto) (0.00-0.03) X10*3/uL Absolute Neuts (auto) (2.0-8.3) x10*3/uL Absolute Nucleated RBC (0.0-0.012) X10*3/uL Nucleated RBC % (auto) (0.0-0.2) /100WBC Sodium (135-145) mmol/L Potassium (3.3-5.1) mmol/L Chloride (96-108) mmol/L Carbon Dioxide (22-29) mmol/L Anion Gap (12-20) BUN (9-16) mg/dL Creatinine (0.5-1.4) mg/dL Estim Creat Clear Calc Estimated GFR Random Glucose (60-115) mg/dL Calcium (8.4-10.2) mg/dL Total Bilirubin (0.0-1.0) mg/dL AST (5-31) U/L ALT (0-31) U/L Alkaline Phosphatase (39-117) U/L Total Protein (6.5-8.0) g/dL Albumin (3.5-5.0) g/dL Stool Occult Blood (NEGATIVE) Blood Type O Positive Antibody Screen NEGATIVE Crossmatch See Detail Critical Care Time Critical Care Time Critical Care Time: Yes Total Critical Care Time: 60 Attestation: GI bleeding requiring multiple reeval and recheck CBC Discharge Plan Discharge Clinical Impression: Weakness, Acute GI bleeding Patient Disposition: Admitted As Inpatient Interventions: Admission Worksheet (ED) Last Done: 04/26/25 17:09 Discharge Date/Time: 04/26/25 17:54
[2025-04-26 11:22] LABS: MANUAL DIFF FLAG NO
[2025-04-26 11:23] LABS: Hematocrit 27.9 % (37.0-47.0); Hemoglobin 9.4 g/dl (12.0-16.0); Imm Gran Abs Auto 0.03 X10*3/uL (0.00-0.03); Imm Gran Pct Auto 0.3 % (0.0-0.4); Lymphocytes Absolute Auto 2.9 X10*3/uL (1.2-4.9); Mean Corpuscular HGB Conc 33.7 g/dl (31.0-35.0); Mean Corpuscular Hemoglobin 31.3 pg (27.0-33.0); Mean Corpuscular Volume 93.0 fL (80.0-98.0); NRBC Abs Auto 0.000 X10*3/uL (0.0-0.012); NRBC Pct Auto 0.0 /100WBC (0.0-0.2); Platelet Count 201 X10*3/uL (160-400); Red Blood Count 3.00 X10*6/uL (4.20-5.50); White Blood Count 8.8 X10*3/uL (4.8-10.8)
[2025-04-26 11:42] LABS: Alanine Aminotransferase 16 U/L (0-31); Albumin Level 3.8 g/dL (3.5-5.0); Alkaline Phosphatase 65 U/L (39-117); Anion Gap 12 (12-20); Aspartate Amino Transferase 21 U/L (5-31); Blood Urea Nitrogen 12 mg/dL (9-16); Calcium 9.6 mg/dL (8.4-10.2); Carbon Dioxide 28 mmol/L (22-29); Chloride 105 mmol/L (96-108); Creatinine Clr Calc Pharmacy 85.8; Estimated Glomerular Filt Rate > 60; Potassium 4.6 mmol/L (3.3-5.1); Sodium 140 mmol/L (135-145); Total Protein 5.7 g/dL (6.5-8.0)
--- OUTSIDE RECORDS SUMMARY | 2025-04-26 13:08 | XMS_ITS | Encounter Summary ---
Author Organization [facility] Address [address] [place] [address] Care Team Providers Care Valet Service Attendant Name Role Phone Sally Ordoñez MD Primary Care Provider [phone] Reason for Visit * Reason Onset Date Comments Procedure 04/26/2025 Encounter Details Date Type Department Care Team ([facility] Contact Info) Description 04/26/2025 Telephone Thoracic Surgery - [address] [place] [address] Licha Alicia MA Social History Tobacco Use Types Packs/Day Years Used Date Smoking Tobacco: Every Day Cigarettes 1 36.8 Started: 1988 Smokeless Tobacco: Never Comments Unknown Sex and Gender Information Value Date Recorded Sex Assigned at Not on file Legal Sex Female 7:29 PM EST Gender Identity Not on file Sexual Orientation Not on file documented as of this encounter Progress Notes * Licha Alicia MA - 04/26/2025 9:57 AM EDT Called to speak w/ Sary to find out why she Cx showing up to PAT today. She stated she was at [place] [facility] over the weekend for bleeding a lot and extensive diarrhea. She was told to return if she felt weak or dizzy of if symptom got worse. Today she feels so dizzy she felt like she was going to pass out. Her surgery is scheduled for 05-03-25 and pat now r/s to the . Do you want to hold off on the surgery on our end for now until we know what is going on with her health and what the cause from this is. She was going to have a da olga RT wedge lung bx documented in this encounter Plan of Treatment Upcoming Encounters Date Type Department Care Team (Latest Contact Info) Description 04/28/2025 10:30 AM EDT Pre-Admission Testing [facility] Pre-Admission Testing [address] [place] [phone] 05/03/2025 7:30 AM EST Hospital Encounter [facility] [place] [address] [place] [phone] Jarrod Holden MD [address] [place] [phone] 05/03/2025 7:30 AM EST - 05/03/2025 11:30 AM EST Surgery [facility] [place] [address] [place] [phone] Jarrod Holden MD [address] [place] [phone] DaVinci wedge lung biopsies [[id number] (CPT ) +2 more] 05/12/2025 2:00 PM EST Office Visit Thoracic Surgery - [place] [address] [phone] Jarrod Holden MD [address] [place] [phone] Scheduled Procedures Name Priority Associated Diagnoses Date/Ti wv THORACOSCOPY ROBOT TWO Interstitial lung disease (CMS/HCC V24, CMS/HCC V28) Multiple pulmonary nodules Malignant neoplasm of ascending colon (CMS/HCC V24, CMS/HCC V28) 05/03/2025 7:30 AM EST documented as of this encounter Goals Goal Patient Goal Type Associated Problems Recent Progress Patient-Stated? Author Autogenerat ed Goal Care Plan Autogenerated Problem No Jarrod Holden MD documented as of this encounter Visit Diagnoses Not on filedocumented in this encounter Additional Health Concerns Active Problems Noted Date Diagnosed Date Autogenerated Problem 04/15/2025 documented as of this encounter Care Teams Valet Service Attendant Relationship Specialty Start Date End Date O'Cleaning, Sally M, MD [address] [place] [address] PCP - General Internal Medicine 04/12/25 documented as of this encounter
--- OUTSIDE RECORDS SUMMARY | 2025-04-26 13:08 | XMS_ITS | Clinical Summary ---
Author Organization [facility] [address] [facility] Address [address] [place] [address] Phone Care Team Providers Care Surgical Elastic Knitter Name Role Phone Sally Ordoñez MD Primary Care Provider [phone] Allergies Active Allergy Reactions Criticality Noted Date Comments Latex 04/15/2025 Mushroom 04/15/2025 Medications ondansetron ODT (ZOFRAN-ODT) 4 mg disintegrating tablet 04/13/20 25 Active meclizine (ANTIVERT) 25 mg tablet TAKE 1 TABLET BY MOUTH 3 TIMES A DAY NEEDED FOR VERTIGO 09/30/19 25 Active FLUoxetine (PROzac) 40 mg capsule Take 1 capsule (40 mg total) by mouth 1 (one) time each day. 02/12/20 25 Active dexAMETHasone (DECADRON) 2 mg tablet TAKE 1 TABLET BY MOUTH TWICE A DAY FOR 2 DAYS FOLLOWING CHEMO 03/14/20 25 Active albuterol HFA (PROAIR HFA ; PROVENTIL HFA ; VENTOLIN HFA) 90 mcg/actuation inhaler 04/05/20 25 025 Discontinued Active Problems Problem Noted Date Diagnosed Date Malignant neoplasm of ascend ing colon (CMS/HCC V24, CMS/HCC V28) 04/15/2025 Interstitial lung disease (CMS/HCC V24, CMS/HCC V28) 04/15/2025 Multiple pulmonary nodules 04/15/2025 Encounters Date Type Department Care Team Description 04/26/2025 Telephone Thoracic Surgery [facility] [address] [facility] [address] [place] [phone] Licha Alicia MA 04/20/2025 Telephone Thoracic Surgery - [place] [address] [facility] [address] [place] [address] Licha Alicia MA 04/15/2025 11:30 AM EDT Consult Thoracic Surgery - [place] [address] [facility] [address] [place] [phone] Jarrod Holden MD Interstitial lung disease (CMS/HCC [...] polyp of cecum History of kidney infection GERD (gastroesophageal reflux disease) GI (gastrointestinal bleed) Diverticulosis Shortness of breath Family History Medical History Relation Name Comments [...] EDT Inhaled Oxygen Concentration - - Weight 50.8 kg (112 lb) 04/25/2025 2:00 PM EDT Height 162.6 cm (5' 4 ) 04/25/2025 2:00 PM EDT Body Mass Index 19.22 04/25/2025 2:00 PM EDT Plan of Treatment Upcoming Encounters Date Type Department Care Team (Latest Contact Info) Description 04/28/2025 10:30 AM EDT Pre-Admission Testing [facility] Pre-Admission Testing [address] [place] [phone] 05/03/2025 7:30 AM EST Hospital Encounter [facility] Main OR [address] [place] [phone] Jarrod Holden MD [address] [place] [phone] 05/03/2025 7:30 AM EST - 05/03/2025 11:30 AM EST Surgery [facility] OR [address] [place] [phone] Jarrod Holden MD [address] [place] [phone] DaVinci wedge lung biopsies [[id number] (CPT ) +2 more] 05/12/2025 2:00 PM EST Office Visit Thoracic Surgery - [place] [address] [facility] [address] [place] [phone] Jarrod Holden MD [address] [place] [phone] Scheduled Procedures Name Priority Associated Diagnoses Date/Ti me THORACOSCOPY ROBOT TWO Interstitial lung disease (CMS/HCC V24, CMS/HCC V28) Multiple pulmonary nodules Malignant neoplasm of ascending colon (CMS/HCC V24, CMS/HCC V28) 05/03/2025 7:30 AM EST Health Maintenance Due Date Last Done Comments Breast Cancer Screening 1971 Colorectal Cancer Screening: Colonoscopy 1971 DTaP,Tdap,and Td Vaccines (1 - Tdap) 1990 Hepatitis B Vaccines (1 of 3 - 19+ 3-dose series) 1990 Pneumococcal Vaccine: 50+ Years (1 of 2 - PCV) 1990 Cervical Cancer Screening: Pap Smear 01/13/1992 Zoster Vaccines (1 of 2) 2021 Depression Screening 06/30/2024 COVID-19 Vaccine ( season) 2025 04/29/2021, 09/29/2020, 09/08/2020, Additional history [...] Date Diagnosed Date Autogenerated Problem 04/15/2025 Insurance Care Teams Surgical Elastic Knitter Relationship Specialty Start Date End Date Sally Ordoñez MD [address] [place] [phone] PCP - General Internal Medicine 04/12/25
--- OUTSIDE RECORDS SUMMARY | 2025-04-26 13:08 | XMS_ITS | Clinical Summary ---
Author Organization [employer] Address [address] [place] [address] [address] [place] [address] Care Team Providers Care Cloud Infrastructure Architect Name Role Phone Unavailable Primary Care Provider [...]
[2025-04-26 13:59] LABS: OBS Int Ctl Valid YES; OBS1 POSITIVE (NEGATIVE)
[2025-04-26 15:29] LABS: MANUAL DIFF FLAG NO
[2025-04-26 15:35] LABS: Hematocrit 25.7 % (37.0-47.0); Hemoglobin 8.5 g/dl (12.0-16.0); Imm Gran Abs Auto 0.01 X10*3/uL (0.00-0.03); Imm Gran Pct Auto 0.1 % (0.0-0.4); Lymphocytes Absolute Auto 2.3 X10*3/uL (1.2-4.9); Mean Corpuscular HGB Conc 33.1 g/dl (31.0-35.0); Mean Corpuscular Hemoglobin 31.3 pg (27.0-33.0); Mean Corpuscular Volume 94.5 fL (80.0-98.0); NRBC Abs Auto 0.000 X10*3/uL (0.0-0.012); NRBC Pct Auto 0.0 /100WBC (0.0-0.2); Platelet Count 178 X10*3/uL (160-400); Red Blood Count 2.72 X10*6/uL (4.20-5.50); White Blood Count 6.7 X10*3/uL (4.8-10.8)
[2025-04-26] MEDS: Lactated Ringers 1,000 ML 100 ML IVCONT (16:24)
--- NOTE | 2025-04-26 16:43 | PM.IMHP ---
History of Present Illness Date of Service: 04/26/25 Chief Complaint: Symptomatic GI bleed 55-year-old female with known history of colon cancer stage IV initially presented 1027 to ER with complaints of rectal bleeding and dizziness. Hemoglobin stable at that time a 12.3. Patient states she has been having multiple bright red stools and today work felt extremely dizzy. She presented initially to the ER her hemoglobin has not dropped from 12.3-9.4; repeat hemoglobin approximate 3 hours later now 8.5. She has not stooled today by her account. She follows with Dr. Joyce for her colon cancer Review of Systems Review of Systems: Denies chest pain Denies shortness of breath Denies nausea vomiting diarrhea Admits to bright red blood from rectum with dizziness [facility] Medical History History of chemotherapy PONV (postoperative nausea and vomiting) Cocaine use Port-A-Cath in place Gallbladder polyp Colon cancer Spinal stenosis Arthritis History of kidney infection Depression Adenomatous polyp of cecum History of anxiety Family History Mother Diabetes Afib Heart murmur Coronary artery disease Surgical History History of esophagogastroduodenoscopy (EGD) (05/10/22) Hx of colectomy (2020) History of laparoscopic cholecystectomy (2022) History of colon resection H/O colonoscopy Social History Household Members: Spouse Housing: House Are you a primary child care counselor to a significant other at home: No Do you presently have visiting nurse or other home services: No Alcohol intake: current Alcohol intake frequency: holidays/special occasions only Patient Tobacco Use Status: Current everyday Tobacco user Tobacco use type: Cigarette Cigarette Packs Per Day: 1 Cigarettes Per Day: 20.0 Years Smoked: 38 Smoked in Last 30 Days: No Second Hand Smoke Exposure: Yes Use of substances other than those prescribed or required for medical reasons: Yes Substance Use Type: Marijuana Substance Use Frequency: Occasionally Advance Directives: Yes Advance Directives Information Provided: Yes Advance Directives on File: No Do you have a plan to hurt others: No Plan Patient : No service: No Current occupational status: employed Current occupation: billing [employer] Allergies Allergy/AdvReac Type Severity Reaction Status Date / Time mushroom Allergy Intermediate Vomiting Verified 04/26/25 10:12 Latex, Natural Rubber Allergy Rash Verified 04/26/25 10:12 Active Medications: Current Medications Acetaminophen (Acetaminophen 325 Mg Tablet) 650 mg PO Q6H PRN PRN Reason: Pain, Mild 1-3,fever,headache Calcium Carbonate (Calcium Carbonate 750 Mg Tab.Chew) 750 mg PO Q4H PRN PRN Reason: Heartburn Lactated Ringer's (Lr) 1,000 mls @ 100 mls/hr IVCONT .Q10H [facility] Last Admin: 04/26/25 16:24 Dose: 100 mls/hr Sodium Chloride (Ns) 1,000 mls @ 100 mls/hr IVCONT .Q10H [facility] Last Admin: 04/26/25 16:22 Dose: Not Given Magnesium Hydroxide (Milk Of Magnesia 30 Ml Oral.Susp) 30 ml PO DAILY PRN PRN Reason: Constipation Melatonin (Melatonin 3 Mg Tablet) 6 mg PO BEDTIME PRN PRN Reason: Insomnia Ondansetron HCl (Ondansetron Hcl 4 Mg/2 Ml Vial) 4 mg IVPUSH Q8H PRN PRN Reason: Nausea and Vomiting Pantoprazole Sodium (Pantoprazole Sodium 40 Mg/10 Ml Vial) 40 mg IVPUSH BID@0630,1630 [facility] Sodium Chloride (0.9 % Sodium Chloride Flush 3 Ml Syringe) 3 ml IVFLUSH QSHIFT [facility] Home Medications ?Medication ?Instructions ?Recorded ?Confirmed ?Last Taken ?Type Vitamin B and C 1 tab PO DAILY 08/01/21 04/19/25 03/06/25 History Vitamin D3 1 tab PO DAILY 08/01/21 04/19/25 03/06/25 History fluoxetine 40 mg capsule 40 mg PO DAILY PRN yes 04/15/25 04/19/25 Unknown History Physical Exam Vital Signs and Narrative: Vital Signs: Last Vital Signs Temp 97.6 F 04/26/25 15:54 Pulse 70 04/26/25 15:54 Resp 18 04/26/25 15:54 BP 132/65 04/26/25 15:54 Pulse Ox 99 04/26/25 15:54 O2 Del Method Room Air 04/26/25 15:54 BMI result Body Mass Index 20.7 Const: Other: Awake alert ill-appearing Resp: Other: Clear to auscultation bilaterally no rales rhonchi or wheezes Cardio: Other: No S4; positive S1-S2; no S3 murmurs rubs or gallops GI: Other: Soft nontender nondistended quiet bowel sounds at this time Extrem: Other: No edema bilaterally Results Labs 04/26/25 15:26 04/26/25 11:18 Labs: Laboratory Results - last 24 hr 04/26/25 04/26/25 04/26/25 11:18 13:52 15:26 MCV 93.0 94.5 MCH 31.3 31.3 MCHC 33.7 33.1 RDW 13.2 13.3 Plt Count 201 178 MPV 8.6 L 8.5 L Immature Gran % (Auto) 0.3 0.1 Neut % (Auto) 58.7 56.1 Lymph % (Auto) 32.6 33.9 [place] % (Auto) 5.4 5.8 Eos % (Auto) 2.4 3.7 Baso % (Auto) 0.6 0.4 Lymph # (Auto) 2.9 2.3 [place] # (Auto) 0.5 0.4 Eos # (Auto) 0.2 0.3 Baso # (Auto) 0.1 0.0 Abs Immat Gran (auto) 0.03 0.01 Absolute Neuts (auto) 5.2 3.8 Absolute Nucleated RBC 0.000 0.000 Nucleated RBC % (auto) 0.0 0.0 Anion Gap 12 Estim Creat Clear Calc 85.8 Estimated GFR > 60 Random Glucose 96 Calcium 9.6 Total Bilirubin 0.5 AST 21 ALT 16 Alkaline Phosphatase 65 Total Protein 5.7 L Albumin 3.8 Stool Occult Blood POSITIVE Blood Type Antibody Screen 04/26/25 15:54 MCV MCH MCHC RDW Plt Count MPV Immature Gran % (Auto) Neut % (Auto) Lymph % (Auto) [place] % (Auto) Eos % (Auto) Baso % (Auto) Lymph # (Auto) [place] # (Auto) Eos # (Auto) Baso # (Auto) Abs Immat Gran (auto) Absolute Neuts (auto) Absolute Nucleated RBC Nucleated RBC % (auto) Anion Gap Estim Creat Clear Calc Estimated GFR Random Glucose Calcium Total Bilirubin AST ALT Alkaline Phosphatase Total Protein Albumin Stool Occult Blood Blood Type O Positive Antibody Screen NEGATIVE Assessment and Plan (1) Acute GI bleeding: Status: Acute (2) Colon cancer: Qualifiers: Colon location: unspecified part of colon Qualified Code(s): C18.9 - Malignant neoplasm of colon, unspecified Status: Chronic (3) COPD (chronic obstructive pulmonary disease): Qualifiers: COPD type: unspecified COPD Qualified Code(s): J44.9 - Chronic obstructive pulmonary disease, unspecified Status: Acute Plan 55-year-old female with metastatic stage IV colon cancer presents with bright red blood per rectum and symptomatic anemia. She states over the last 48 hours she has had multiple bright red stools. 1. Lower GI bleed (in the backdrop of stage IV colon cancer) -given drop today in ER. .. transfuse 2 units of packed red cells with the anticipation of further decrease in hemoglobin -follow CBC daily -GI consult with Dr. Kebede -clear liquid diet 2. COPD -stable and well compensated -continue outpatient therapies Full code Pneumatics Will require at least 2 midnights going forward of inpatient stay to facilitate workup for lower GI bleed in the backdrop of stage IV colon cancer. She will also need specialist consultation. This can not be achieved a lesser acute setting Quality Stroke Does the patient have a stroke diagnosis?: No VTE Prior VTE?: No VTE Risk Level:: Medical - moderate - high VTE Device Contraindication: N/A - Device Ordered VTE Drug Contraindication: Treatment Not Indicated
--- NOTE | 2025-04-26 16:50 | HO.NURTONUR ---
55 yr old female admitted due decreased H&H. Pt comes to ED with complaint of dizziness and feeling week. She reports a history of colon cancer and was seen here on 04/25/25 for rectal bleeding. Today she reports she was at work and had sudden onset of dizziness with standing. She also reports feeling weak with poor PO intake. A&Ox3 VSS, afebrile. Pt ambulates independently without assisting devices. H&H drawn x2 today with noted decreasing levels. (+) occult stool. 18g LAC LR running @ 100ml/hr Clear liquid diet.
--- NOTE | 2025-04-26 17:32 | PHA.MEDREC ---
Pharmacy Consult ? Medication Reconciliation Pharmacy has completed the medication reconciliation. Spoke with patient to confirm. She is no longer taking fluoxetine, stopped 1 month ago. She never started taking mirtazepine. She also stopped taking her vitamins due to not being able to keep anything down. She last took dexamethasone sometime in February after her last chemo treatment. She reports not taking any medications before arriving to the hospital.
--- NOTE | 2025-04-26 20:40 | PC.NURSE ---
Blood product received, AMELIE Ashley as witness. Pt is AOX4, Lung sounds clear, VSS, pt resting comfortably at this time, will continue to monitor.
[2025-04-26] MEDS: 0.9 % Sodium Chloride Flush 3 ML SYRINGE IVFLUSH (22:22)
[2025-04-27 00:12] VITALS: BP 176/86; PULSE 57; RESP 16; TEMP 36.6
[2025-04-27 00:40] VITALS: BP 167/80; PULSE 58; RESP 18; TEMP 36.4
[2025-04-27 03:18] VITALS: BP 132/95; PULSE 77; RESP 18; TEMP 36.3; O2SAT 97
[2025-04-27] MEDS: Lactated Ringers 1,000 ML 100 ML IVCONT ×3 (05:37→23:53)
[2025-04-27 06:51] LABS: MANUAL DIFF FLAG NO
[2025-04-27 07:05] LABS: Hematocrit 30.4 % (37.0-47.0); Hemoglobin 10.3 g/dl (12.0-16.0); Imm Gran Abs Auto 0.03 X10*3/uL (0.00-0.03); Imm Gran Pct Auto 0.4 % (0.0-0.4); Lymphocytes Absolute Auto 1.8 X10*3/uL (1.2-4.9); Mean Corpuscular HGB Conc 33.9 g/dl (31.0-35.0); Mean Corpuscular Hemoglobin 30.6 pg (27.0-33.0); Mean Corpuscular Volume 90.2 fL (80.0-98.0); NRBC Abs Auto 0.000 X10*3/uL (0.0-0.012); NRBC Pct Auto 0.0 /100WBC (0.0-0.2); Platelet Count 179 X10*3/uL (160-400); Red Blood Count 3.37 X10*6/uL (4.20-5.50); White Blood Count 7.0 X10*3/uL (4.8-10.8)
[2025-04-27 07:19] LABS: Glucose, Whole Blood 130 mg/dL (60-115)
[2025-04-27 07:20] LABS: Alanine Aminotransferase 8 U/L (0-31); Albumin Level 3.4 g/dL (3.5-5.0); Alkaline Phosphatase 56 U/L (39-117); Anion Gap 12 (12-20); Aspartate Amino Transferase 21 U/L (5-31); Blood Urea Nitrogen 8 mg/dL (9-16); Carbon Dioxide 24 mmol/L (22-29); Chloride 106 mmol/L (96-108); Creatinine Clr Calc Pharmacy 84.4; Estimated Glomerular Filt Rate > 60; Potassium 4.0 mmol/L (3.3-5.1); Sodium 138 mmol/L (135-145); Total Protein 5.1 g/dL (6.5-8.0)
[2025-04-27 07:24] LABS: Calcium 8.5 mg/dL (8.4-10.2)
[2025-04-27 08:00] VITALS: BP 135/70; PULSE 68; RESP 18; TEMP 36.7; O2SAT 97
--- NOTE | 2025-04-27 09:35 | MHC.CM.PN ---
CELENAA from work DX GIB Recent DX Stage IV colon CA. Patient lives with S.O. She is independent with all functional mobility. She works + Drives No DME No services. HCP is on file PCP Edith W[place] Home self care S.O. will provide transportation home.
--- NOTE | 2025-04-27 14:03 | HO.PM.IMPN ---
Subjective Subjective Date of Service: 04/27/25 Interval History: Multiple loose stools overnight all bloody. Minimal pain Review of Systems Denies chest pain Denies shortness of breath Denies nausea vomiting diarrhea Admits to bright red blood from rectum with dizziness Physical Exam Vital Signs: Vital Signs: Last Vital Signs Temp 98.1 F 04/27/25 08:00 Pulse 68 04/27/25 08:00 Resp 18 04/27/25 08:00 BP 135/70 04/27/25 08:00 Pulse Ox 97 04/27/25 08:00 O2 Del Method Room Air 04/27/25 08:00 BMI result Body Mass Index 23.1 Const: Other: Awake alert ill-appearing Resp: Other: Clear to auscultation bilaterally no rales rhonchi or wheezes Cardio: Other: No S4; positive S1-S2; no S3 murmurs rubs or gallops GI: Other: Soft nontender nondistended quiet bowel sounds at this time Extrem: Other: No edema bilaterally Objective Data Active Medications Acetaminophen (Acetaminophen 325 Mg Tablet) 650 mg PO Q6H PRN PRN Reason: Pain, Mild 1-3,fever,headache Calcium Carbonate (Calcium Carbonate 750 Mg Tab.Chew) 750 mg PO Q4H PRN PRN Reason: Heartburn Lactated Ringer's (Lr) 1,000 mls @ 100 mls/hr IVCONT .Q10H [facility] Last Admin: 04/27/25 05:37 Dose: 100 mls/hr Documented By: QUIN Sodium Chloride (Ns) 1,000 mls @ 100 mls/hr IVCONT .Q10H [facility] Last Admin: 04/27/25 12:22 Dose: Not Given Documented By: NYDIA Non-Admin Reason: LR order per Magnesium Hydroxide (Milk Of Magnesia 30 Ml Oral.Susp) 30 ml PO DAILY PRN PRN Reason: Constipation Melatonin (Melatonin 3 Mg Tablet) 6 mg PO BEDTIME PRN PRN Reason: Insomnia Ondansetron HCl (Ondansetron Hcl 4 Mg/2 Ml Vial) 4 mg IVPUSH Q8H PRN PRN Reason: Nausea and Vomiting Last Admin: 04/27/25 04:33 Dose: 4 mg Documented By: QUIN Pantoprazole Sodium (Pantoprazole Sodium 40 Mg/10 Ml Vial) 40 mg IVPUSH BID@0630,1630 [facility] Last Admin: 04/27/25 05:20 Dose: 40 mg Documented By: QUIN Sodium Chloride (0.9 % Sodium Chloride Flush 3 Ml Syringe) 3 ml IVFLUSH QSHIFT [facility] Last Admin: 04/27/25 07:12 Dose: Not Given Documented By: LUCIEN Non-Admin Reason: IV Running Labs 04/27/25 06:34 04/27/25 06:34 Labs: Laboratory Results - last 24 hr 04/26/25 04/26/25 04/27/25 15:26 15:54 06:34 MCV 94.5 90.2 MCH 31.3 30.6 MCHC 33.1 33.9 RDW 13.3 14.3 Plt Count 178 179 MPV 8.5 L 9.0 L Immature Gran % (Auto) 0.1 0.4 Neut % (Auto) 56.1 64.5 Lymph % (Auto) 33.9 25.0 [place] % (Auto) 5.8 6.6 Eos % (Auto) 3.7 2.9 Baso % (Auto) 0.4 0.6 Lymph # (Auto) 2.3 1.8 [place] # (Auto) 0.4 0.5 Eos # (Auto) 0.3 0.2 Baso # (Auto) 0.0 0.0 Abs Immat Gran (auto) 0.01 0.03 Absolute Neuts (auto) 3.8 4.5 Absolute Nucleated RBC 0.000 0.000 Nucleated RBC % (auto) 0.0 0.0 Anion Gap 12 Estim Creat Clear Calc 84.4 Estimated GFR > 60 POC Glucose Random Glucose 123 H Calcium 8.5 D Total Bilirubin 1.0 AST 21 ALT 8 Alkaline Phosphatase 56 Total Protein 5.1 L Albumin 3.4 L Blood Type O Positive Antibody Screen NEGATIVE Crossmatch See Detail 04/27/25 07:16 MCV MCH MCHC RDW Plt Count MPV Immature Gran % (Auto) Neut % (Auto) Lymph % (Auto) [place] % (Auto) Eos % (Auto) Baso % (Auto) Lymph # (Auto) [place] # (Auto) Eos # (Auto) Baso # (Auto) Abs Immat Gran (auto) Absolute Neuts (auto) Absolute Nucleated RBC Nucleated RBC % (auto) Anion Gap Estim Creat Clear Calc Estimated GFR POC Glucose 130 H Random Glucose Calcium Total Bilirubin AST ALT Alkaline Phosphatase Total Protein Albumin Blood Type Antibody Screen Crossmatch Assessment and Plan (1) Acute GI bleeding: Status: Acute (2) Colon cancer: Status: Chronic (3) COPD (chronic obstructive pulmonary disease): Status: Acute Plan 55-year-old female with metastatic stage IV colon cancer presents with bright red blood per rectum and symptomatic anemia. She states over the last 48 hours she has had multiple bright red stools. 1. Lower GI bleed (in the backdrop of stage IV colon cancer) -good response to transfusion -follow CBC daily -GI consult with Dr. Kebede -clear liquid diet 2. COPD -stable and well compensated -continue outpatient therapies Full code Pneumatics Will need ongoing hospitalization for workup of GI bleed and specialist consultation Quality Stroke Does the patient have a stroke diagnosis?: No VTE Prior VTE?: No VTE Risk Level:: Medical - moderate - high VTE Device Contraindication: N/A - Device Ordered VTE Drug Contraindication: Treatment Not Indicated
[2025-04-27 15:26] VITALS: BP 114/55; PULSE 70; RESP 18; TEMP 36.6; O2SAT 98
[2025-04-27 19:16] VITALS: BP 136/73; PULSE 77; RESP 19; TEMP 36.1; O2SAT 100
--- NOTE | 2025-04-28 01:08 | CONS_ITS ---
DATE OF SERVICE: 04/27/2025 REFERRING PHYSICIAN: Dr. Meraz REASON FOR CONSULTATION: GI bleeding. HISTORY OF PRESENT ILLNESS: The patient is a pleasant 55-year-old woman who was admitted to the hospital after presenting to the emergency room on April 25 with complaints of rectal bleeding. She has a history of colon cancer and last underwent colonoscopy on February 18 of this year, this was basically normal. She had an intact ileocolonic anastomosis with no evidence of recurrence. She had upper endoscopy at the same time because of a history of cirrhosis and no varices or portal hypertensive gastropathy were identified. She states she developed rectal bleeding the day before admission. There was no associated abdominal pain. She does not take blood thinners. She did have some dizziness, but did not pass out. Laboratory studies on admission showed a hematocrit of 36.7 on admission, down from 42, which dropped to 29.7. She did receive 2 units of packed red blood cells. The patient provides cellphone photos, which show blood and clots in the toilet bowl. Currently, she feels well. She has had some rectal bleeding since admission, but CT angiography showed no evidence of active GI bleeding. Diverticulosis was noted on her previous colonoscopy. We reviewed this today. PAST MEDICAL HISTORY: 1. Colon cancer, status post chemotherapy. 2. Spinal stenosis. 3. Anxiety/depression. 4. History of substance use. CURRENT MEDICATIONS: Her current medication list is reviewed in the chart. ALLERGIES: HER ALLERGY LIST IS REVIEWED. FAMILY HISTORY: This is reviewed with the patient and is noncontributory. SOCIAL HISTORY: There is no current tobacco, alcohol, or substance abuse. She does smoke 1/2 pack per day by her report and uses marijuana. REVIEW OF SYSTEMS: SKIN: No pruritus. HEENT: Negative. CARDIOPULMONARY: No shortness of breath or chest pain. GASTROINTESTINAL: As above. GENITOURINARY: Negative. NEUROPSYCHIATRIC: Negative. PHYSICAL EXAMINATION: GENERAL: Reveals a pleasant female, lying comfortably in bed. VITAL SIGNS: Reviewed in the electronic medical record and are stable. SKIN: Anicteric. HEENT: Shows no scleral icterus. NECK: Without lymphadenopathy or thyromegaly. LUNGS: Clear. HEART: Shows regular rate and rhythm. S1, S2. No murmur. ABDOMEN: Soft without focal masses or tenderness. Bowel sounds are present. No organomegaly is noted. EXTREMITIES: Without edema. LABORATORY DATA AND IMAGING STUDIES: Reviewed in detail. IMPRESSION: Gastrointestinal bleeding. Her presentation appears consistent with diverticular bleeding based on her history and previous examination. At this time, colonoscopy will not provide any useful information given her recent findings at the time of her colonoscopy in January. I discussed this with her. If she does have recurrent bleeding, I would recommend nuclear medicine blood scanning and further evaluation pending these results. Her diet can be advanced as tolerated. Thanks for asking me to see her. I will follow her in the hospital with you. MD JONATHAN Hudson/[place] / [phone]
[2025-04-28 03:56] VITALS: BP 133/65; PULSE 64; RESP 14; TEMP 36.2; O2SAT 96
[2025-04-28 07:06] VITALS: BP 126/67; PULSE 81; RESP 16; TEMP 36.6; O2SAT 99
--- NOTE | 2025-04-28 09:42 | P.PNGI_ITS ---
Subjective Subjective Date of Service: 04/28/25 Interval History: feels good no more bleeding no c/o abd pain Critical Care Time (minutes): 0 Physical Exam 2 Vital Signs: Vital Signs: Last Vital Signs Temp 98 F 04/28/25 07:06 Pulse 81 04/28/25 07:06 Resp 16 04/28/25 07:06 BP 126/67 04/28/25 07:06 Pulse Ox 99 04/28/25 07:06 O2 Del Method Room Air 04/28/25 07:06 BMI result Body Mass Index 23.1 GI: Other: abd is soft and nontender Objective Data Labs 04/27/25 06:34 04/27/25 06:34 Procedures Date of Service Date of Service: 04/28/25 Progress Note: A&P Assessment and plan (1) Acute GI bleeding: Status: Acute Assessment and Plan: diverticular bleeding has stopped discussed colonoscopy, not necessary at this time advance diet d/c when stable. Time Spent With Patient Time: Total time managing care of this patient today ____ minutes. Quality Stroke Does the patient have a stroke diagnosis?: No VTE Prior VTE?: No VTE Risk Level:: Medical - moderate - high VTE Device Contraindication: N/A - Device Ordered VTE Drug Contraindication: Treatment Not Indicated
[2025-04-28 09:52] LABS: MANUAL DIFF FLAG NO
[2025-04-28 09:58] LABS: Hematocrit 29.3 % (37.0-47.0); Hemoglobin 9.6 g/dl (12.0-16.0); Imm Gran Abs Auto 0.02 X10*3/uL (0.00-0.03); Imm Gran Pct Auto 0.4 % (0.0-0.4); Lymphocytes Absolute Auto 1.8 X10*3/uL (1.2-4.9); Mean Corpuscular HGB Conc 32.8 g/dl (31.0-35.0); Mean Corpuscular Hemoglobin 30.3 pg (27.0-33.0); Mean Corpuscular Volume 92.4 fL (80.0-98.0); NRBC Abs Auto 0.000 X10*3/uL (0.0-0.012); NRBC Pct Auto 0.0 /100WBC (0.0-0.2); Platelet Count 198 X10*3/uL (160-400); Red Blood Count 3.17 X10*6/uL (4.20-5.50); White Blood Count 5.3 X10*3/uL (4.8-10.8)
--- NOTE | 2025-04-28 12:31 | PM.DS ---
DS: Providers Provider Date of Service: 04/28/25 Date of admission: 04/26/25 16:06 Date of discharge: 04/28/25 Primary care physician: NITESH Henry Consults: 04/26/25 16:41 Consult to Gastroenterology Routine Consulting Provider: Jam Kebede Reason for consultation: GIB Has provider been notified: No DS: Diagnosis Discharge Diagnosis (1) Acute GI bleeding: Status: Acute DS: Summary Hospital Course Hospital Course: 55-year-old female with known history of colon cancer stage IV initially presented 1027 to ER with complaints of rectal bleeding and dizziness. Hemoglobin stable at that time a 12.3. Patient states she has been having multiple bright red stools and today work felt extremely dizzy. She presented initially to the ER her hemoglobin has not dropped from 12.3-9.4; repeat hemoglobin approximate 3 hours later now 8.5. Hospital Course Patient was admitted to general medical floor and transfused 2 units of packed red cells with appropriate response. During the 1st 24 hours patient had several bloody stools and has had none since that time. She was seen in consultation by GI who felt given recent colonoscopy this was likely a diverticular bleed and no other intervention was indicated. Her diet was advanced and she continued to be without bloody stool. Her hemoglobin remained stable. At this point she is medically acceptable for discharge and will follow up with Oncology and GI as scheduled Time Attestation Discharge Coordination Time (in mins): 35 Quality: Safe Use of Opioids Does Pt have an Active Cancer Diagnosis on the Problem List?: No Quality: Stroke Does the patient have a stroke diagnosis?: No Physical Exam Vital Signs: Vital Signs: Last Vital Signs Temp 98 F 04/28/25 07:06 Pulse 81 04/28/25 07:06 Resp 16 04/28/25 07:06 BP 126/67 04/28/25 07:06 Pulse Ox 99 04/28/25 07:06 O2 Del Method Room Air 04/28/25 07:06 BMI result Body Mass Index 23.1 Const: Other: Awake alert ill-appearing Resp: Other: Clear to auscultation bilaterally no rales rhonchi or wheezes Cardio: Other: No S4; positive S1-S2; no S3 murmurs rubs or gallops GI: Other: Soft nontender nondistended quiet bowel sounds at this time Extrem: Other: No edema bilaterally DS: Data Data Completed and Pending Completed studies during hospitalization [Text1]: Procedures Excision of Right Large Intestine, Open Approach (03/30/21) Release Omentum, Open Approach (03/30/21) Release Right Fallopian Tube, Open Approach (03/30/21) Release Right Ovary, Open Approach (03/30/21) Labs on day of discharge: Laboratory Results - last 24 hr 04/28/25 09:26 WBC 5.3 RBC 3.17 L Hgb 9.6 L Hct 29.3 L MCV 92.4 MCH 30.3 MCHC 32.8 RDW 13.9 Plt Count 198 MPV 8.9 L Immature Gran % (Auto) 0.4 Neut % (Auto) 55.5 Lymph % (Auto) 33.9 [place] % (Auto) 5.1 Eos % (Auto) 4.7 H Baso % (Auto) 0.4 Lymph # (Auto) 1.8 [place] # (Auto) 0.3 Eos # (Auto) 0.3 Baso # (Auto) 0.0 Abs Immat Gran (auto) 0.02 Absolute Neuts (auto) 3.0 Absolute Nucleated RBC 0.000 Nucleated RBC % (auto) 0.0 Discharge Plan Discharge Anticipated Discharge Date/Time: 04/28/25 12:29 Patient Disposition: Home, Self-Care Discharge Diagnosis: Diverticular Bleed Referrals: Edith Walker PA [Primary Care Provider, Hospitalist] - 1 Week Discharge Medications: Continued ondansetron 4 mg tablet,disintegrating 4 mg PO TID PRN (Reason: nausea and vomiting) 5 Days Qty: 10 0RF dexamethasone 2 mg tablet 2 mg PO BID PRN (Reason: x2 days after chemo) Patient Comments: Patient last took February 2025 Rx Instructions: Take for 2 days after chemotherapy naproxen 500 mg tablet 500 mg PO Q12H PRN (Reason: pain) Qty: 20 0RF cyclobenzaprine 5 mg tablet 5 mg PO Q8H PRN (Reason: Muscle Spasm) Qty: 20 0RF Discharge Orders: Discharge Order (Routine); Ordered 04/28/25 Ordered By: Jhon Meraz Diet: Advance to usual diet Activity on Discharge: As tolerated Stand Alone Forms: Patient Portal Discharge page Print Language: Belarusian Care Plan Goals: Resume all meds as taken prior to hospitalization Health Concerns: Follow up with GI and Oncology as scheduled Plan of Treatment: Return if bleeding reoccurs Assessment: See discharge summary
--- NOTE | 2025-04-28 13:28 | MHC.CM.PN ---
PT MEDICALLY CLEARED TO DC HOME TODAY WITH NO SERVICES S/O TO TRANSPORT
--- NOTE | 2025-04-30 07:19 | P.CDIM_ITS ---
PROVIDER RESPONSE TEXT: To clarify, the appropriate diagnosis supported by the clinical indicators: Acute blood loss anemia: suspected QUERY TEXT: PHYSICIAN'S DOCUMENTATION REQUEST Date of Query: 04/28/2025 09:40 AM EDT Patient Name: Sary Herrera Admit Date: 04/26/2025 Dear Jhon Meraz DO, A review of the medical record indicates additional documentation may be needed. Please review below and update the documentation accordingly. Clinical Indicators: ED: Dizziness, weakness, lightheaded. H&P 04/26/25 - Lower GI bleed (in the backdrop of stage IV colon cancer). Progress note 04/27/25 - Multiple loose stools overnight all bloody. H/H 8.5/25.7 BP 114/55 L Transfused 2 units PRBC Symptomatic anemia GI noted Gastrointestinal bleeding. Her presentation appears consistent with diverticular bleeding based on her history. Based on the above, could you clarify which of the following is the most likely type of anemia you are evaluating, treating, and/or monitoring? Acute blood loss anemia possible, suspected, resolved etc. Acute blood loss anemia with baseline chronic anemia (specify type) Other specified anemia Other (explain) Clinically unable to determine (explain) Thank you, Jeniffer Walker, CCS, CDIS Use of terms such as suspected, likely, concern for, or probable (associated with a specific diagnosis that is being evaluated, monitored, or treated as if it exists) are acceptable and can be coded in the inpatient setting, when documented at the time of discharge. Please use your independent medical judgment in providing your response. THIS QUERY IS PART OF THE PERMANENT MEDICAL RECORD
== END 2025-04-28 12:55 | disposition home or self-care (01) | DRG 244 ==
LOC: HO.ED 15:46 → HO.EDOVER 16:19 → HO.S3 17:08
PROVIDERS: Admitting Provider Hospitalist; Emergency Provider Emergency Medicine; PCP Physician Assistant; Visit Provider Hospitalist
DX: K57.31 Diverticulosis of large intestine without perforation or abscess with bleeding (principal); C18.9 Malignant neoplasm of colon, unspecified; D62 Acute posthemorrhagic anemia; D63.0 Anemia in neoplastic disease; F17.210 Nicotine dependence, cigarettes, uncomplicated; J44.9 Chronic obstructive pulmonary disease, unspecified; Z98.0 Intestinal bypass and anastomosis status; Z71.6 Tobacco abuse counseling; Z79.899 Other long term (current) drug therapy
CPT/HCPCS: 36415; 80053; 82272; 82947; 85025; 86850; 86900; 86901; 86923; 99285; J0737; J2405; J2470; J7120; P9016

== ENCOUNTER → 2025-04-26 16:06 | Outpatient (BNV) | payer OTHER, SELFPAY | PROVIDERS: Admitting Provider Hospitalist; Emergency Provider Emergency Medicine; PCP Physician Assistant; Visit Provider Hospitalist | DX: K92.2 Gastrointestinal hemorrhage, unspecified (principal); C18.9 Malignant neoplasm of colon, unspecified; J44.9 Chronic obstructive pulmonary disease, unspecified | CPT/HCPCS: 99223 ==

== ENCOUNTER 2025-06-07 14:09 | Emergency (ER) | payer OTHER, SELFPAY ==
--- NOTE | ~2025-06-07 | CT_ITS ---
CLINICAL HISTORY: dyspnea, high risk wells criteria CT angiography chest with contrast. 3D Postprocessing. Comparison: CT/REG/SR - CT GI BLEED ABD PEL WO/W IVCON - 04/25/25 04:06 EDT Findings: The heart is normal size. RV/LV ratio is normal. The thoracic aorta is normal caliber. No pulmonary artery filling defects. The visualized thyroid and mediastinum are unremarkable. Interval worsening of innumerable predominantly peripheral nodularity throughout the lungs. No mediastinal or hilar lymphadenopathy. The visualized upper abdomen is unremarkable. No acute fractures. IMPRESSION: 1. No pulmonary embolus. No acute aortic syndrome. 2. Interval worsening of innumerable predominantly peripheral nodularity throughout the lungs. No mediastinal or hilar lymphadenopathy. Differentials include lymphangitic carcinomatosis, chronic interstitial lung disease or atypical pneumonia. This document has been electronically signed by: Marcel Ricks MD on 06/07/2025 23:06:25
--- NOTE | ~2025-06-07 | CT_ITS ---
CLINICAL HISTORY: low back pain, history of metastatic cancer CT lumbar spine without contrast Comparison: CT/REG/SR - CT ABDOMEN PELVIS W IV CON - 04/13/25 00:28 EDT Findings: 1.5 cm ill-defined sclerotic lesion within the right-sided L2 vertebral body. Mild superior endplate compression deformities of L2 and L4 vertebral bodies. No acute fractures or dislocations. Moderate multilevel spondylosis with disc space narrowing, endplate sclerosis, osteophytosis and facet arthropathy, most notably at L5 S1 with moderate spinal canal and neural foraminal narrowing. Visualized abdominal contents unremarkable. IMPRESSION: 1.5 cm ill-defined sclerotic lesion within the right-sided L2 vertebral body which could represent osteoblastic metastatic disease. Moderate multilevel spondylosis of the lumbar spine, most notably at L5-S1 with moderate spinal canal and neural foraminal narrowing. This document has been electronically signed by: Marcel Ricks MD on 06/07/2025 22:57:42
[2025-06-07 14:18] VITALS: BP 133/86; PULSE 99; O2SAT 100
[2025-06-07 14:40] VITALS: BP 141/82; PULSE 89; RESP 18; TEMP 36.8; O2SAT 98; BMI 17.9
--- NOTE | 2025-06-07 14:51 | ECG_ITS ---
Test Reason : LIGHTHEADEDNESS Blood Pressure : */* mmHG Vent. Rate : 83 BPM Atrial Rate : 83 BPM P-R Int : 126 ms QRS Dur : 72 ms QT Int : 374 ms P-R-T Axes : 93 59 68 degrees QTcB Int : 439 ms Poor data quality Normal sinus rhythm Normal ECG When compared with ECG of 25-Apr-2025 00:43, T wave amplitude has decreased in Anterior leads Referred By: Kishore Rubio Electronically Signed By: RHIANNA ALEXIS MD
--- NOTE | 2025-06-07 14:51 | ED_ITS ---
HPI - General Adult General Chief complaint: Weakness Stated complaint: lightheaded, nausea Time Seen by Provider: 06/07/25 21:06 Source: patient Mode of arrival: ambulatory Limitations: no limitations History of Present Illness ED Provider: Dr. Tamica Braga HPI narrative: 55-year-old female with history of stage IV colon cancer (last chemotherapy February) and recent hospitalization for GI bleeding requiring transfusions (approx 6 weeks ago) presents for evaluation of worsening back pain and shortness of breath. * Pain: Constant, located in the ?kidney area,? radiates across lower back and up toward the ribs. Described as internal; not worsened by mid-back palpation. Present for >1 month and progressively worsening. Unable to get comfortable or sleep; required Ambien last night (took her 's prescription). * SOB: Mostly on exertion (e.g., walking short distances to car); denies resting dyspnea. No frequent cough. * Dizziness: Intermittent, felt dizzy at work today but did not lose consciousness. * Pleuritic component: Pain increases with deep breaths. * Chest pain: Earlier today and about a week ago; currently resolved. * Urinary: No dysuria or hematuria. Reports difficulty initiating urination (?have to force it out?). * Bowel: Intermittent diarrhea with blood; denies tarry stools, notes stools appear pale. Poor appetite and significant unintentional weight loss. * Oncology history: PET scan ~3 weeks ago reportedly showed ?inflammation? and ?infection? per oncologist; patient was told about a lung infection about a week ago but was not given antibiotics. Lung biopsy scheduled. Not currently on chemotherapy (patient hesitant). * Medications: Zofran for nausea; occasional acetaminophen 500 mg; Ambien last night for sleep. * Allergies: Denies known medication allergies. * Exposures: Works full-time; no known sick contacts. * Associated symptoms: No fever reported. Related Data Home Medications ?Medication ?Instructions ?Recorded ?Confirmed dexamethasone 2 mg tablet 2 mg PO BID PRN x2 days afte r chemo 04/26/25 05/06/25 Previous Rx's ?Medication ?Instructions ?Recorded ondansetron 4 mg disintegrating 4 mg PO TID PRN nausea and 04/13/25 tablet vomiting 5 days #10 tabs cyclobenzaprine 5 mg tablet 5 mg PO Q8H PRN Muscle Spa sm #20 04/15/25 tabs naproxen 500 mg tablet 500 mg PO Q12H PRN pain #20 tabs 04/15/25 diazepam 2 mg tablet (Valium) 2 mg PO BEDTIME PRN slee p #10 tabs 06/08/25 oxycodone 5 mg tablet 5 mg PO Q8H PRN breakthrough pain, 06/08/25 severe #10 tabs Allergies Allergy/AdvReac Type Severity Reaction Status Date / Time mushroom Allergy Intermediate Vomiting Verified 06/07/25 14:43 Latex, Natural Rubber Allergy Rash Verified 06/07/25 14:43 Review of Systems 2 Review of Systems: as per HPI, full review of systems performed and negative but for the above mentioned pertinent positives and negatives. [facility] Past Medical History Medical History COPD (chronic obstructive pulmonary disease) History of chemotherapy PONV (postoperative nausea and vomiting) Cocaine use Port-A-Cath in place Gallbladder polyp Colon cancer Spinal stenosis Arthritis History of kidney infection Depression Adenomatous polyp of cecum History of anxiety Surgical History History of esophagogastroduodenoscopy (EGD) (05/10/22) Hx of colectomy (2020) History of laparoscopic cholecystectomy (2022) History of colon resection H/O colonoscopy (~02/18/25) Family History Family History Mother Diabetes Afib Heart murmur Coronary artery disease Social History Social History Household Members: Significant Other Housing: House Are you a primary animal daycare provider to a significant other at home: No Do you presently have visiting nurse or other home services: No Alcohol intake: current Alcohol intake frequency: holidays/special occasions only Patient Tobacco Use Status: Current everyday Tobacco user Tobacco use type: Cigarette Cigarette Packs Per Day: 1 Cigarettes Per Day: 10 Years Smoked: 38 Second Hand Smoke Exposure: No Substance Use Type: Crack/Cocaine service: No Current occupational status: employed Current occupation: billing Physical Exam ED Exam Exam: GENERAL: Ill-Appearing, appears uncomfortable. SKIN: Normal skin color for ethnicity, warm, dry, no rashes noted. HEENT:? Normocephalic, atraumatic, no stridor, dry mucous membranes, dentition intact, EOMI. NECK: Soft, supple, full ROM, midline structures nontender, no step-offs, no deformities, no lymphadenopathy. CHEST: Heart regular rhythm, no murmurs, symmetric chest rise and fall. PULMONARY: Clear to auscultation bilaterally, diminished at the bases, no labored breathing, no wheezes/rhales/rhonchi. ABDOMINAL: Soft, nondistended, nontender, positive bowel sounds in all quadrants. : Deferred. MUSCULOSKELETAL: Normal tone, full range of motion, no deformities, no peripheral edema, TTP over the right lateral lumbar spine diffusely, no midline tenderness, no stepoffs, neurovascularly intact distally. NEURO: Alert and oriented x3, CN II through XII intact, equal strength and sensation bilateral upper and lower extremities, no focal neurologic deficits.? PSYCHIATRIC: Tearful, fluid speech, good eye contact and appropriate demeanor. Vital Signs: Vital Signs - 24 hr 06/07/25 14:40 06/07/25 19:44 06/07/25 22:23 Temperature 98.3 F 96.8 F 98.8 F Pulse Rate 89 96 76 Respiratory Rate 18 16 14 Blood Pressure 141/82 H 136/82 145/83 H Pulse Oximetry 98 98 97 Oxygen Delivery Method Room Air Room Air Room Air 06/08/25 01:54 06/08/25 02:35 Temperature 97.8 F 97.8 F Pulse Rate 76 76 Respiratory Rate 16 16 Blood Pressure 153/94 H 153/94 H Pulse Oximetry 97 97 Oxygen Delivery Method Room Air Room Air BMI result Body Mass Index 17.9 Course Course Course Narrative: RME: 55-year-old female history of stage IV colon cancer with last chemo treatment February on recent PET scan shows increased nausea lungs presents to ED for generalized weakness described as fatigue. Patient denies any chest pain or shortness of breath. Medications Administered Discontinued Medications Generic Name Dose Route Start Last Admin Trade Name Freq PRN Reason Stop Dose Admin Heparin Sodium (Porcine) 50 units 06/08/25 01:53 06/08/25 02:19 Heparin Sodium,Porcine Flush 50 Units/5 Ml Syringe IVFLUSH 06/08/25 01:54 50 units ONCE ONE Administration Hydromorphone HCl 0.5 mg 06/07/25 21:34 06/07/25 21:49 Hydromorphone Hcl 0.5 Mg/0.5 Ml Syringe IVPUSH 06/07/25 21:35 0.5 mg ONCE ONE Administration Protocol Hydromorphone HCl 0.5 mg 06/08/25 00:09 06/08/25 00:14 Hydromorphone Hcl 0.5 Mg/0.5 Ml Syringe IVPUSH 06/08/25 00:10 0.5 mg ONCE ONE Administration Protocol Lactated Ringer's 1,000 mls @ 999 mls/hr 06/07/25 21:34 06/08/25 01:02 Lr IV 06/07/25 22:34 Infused .Q1H1M ONE Infusion Iohexol 65 ml 06/07/25 22:09 06/07/25 22:11 Iohexol 350 Mg/Ml 100 Ml Infus..Btl IV 06/07/25 22:10 65 ml ONCE ONE Administration Ondansetron HCl 4 mg 06/07/25 21:34 06/07/25 21:49 Ondansetron Hcl 4 Mg/2 Ml Vial IVPUSH 06/07/25 21:35 4 mg ONCE ONE Administration Medical Decision Making Medical Decision Making MDM Narrative: 55-year-old woman with metastatic colon cancer, recent GI bleed, and new constant flank/back pain. Differential diagnosis is certainly broad and includes but is not limited to metastatic disease of the spine, pathologic fracture, infection such as pyelonephritis, vascular pathology, among many others.? Imaging demonstrates probable bony metastasis (sclerotic L2 lesion) and progressive pulmonary nodularity. No acute infection or PE identified. Problem #1 ? Flank/lower-back pain due to probable bony metastasis Assessment: CT lumbar spine shows sclerotic L2 lesion suspicious for osteoblastic metastatic disease; no fracture. Plan: * Provide analgesia in ED; prescription for oral opioid analgesic on discharge. * Arrange prompt outpatient follow-up with oncology for further evaluation and management of bone metastasis. Problem #2 ? Dyspnea on exertion / pleuritic pain Assessment: CT chest negative for PE; worsening pulmonary nodularity likely malignant. No infectious signs today. Plan: * Symptomatic care; advise return for new/worsening respiratory symptoms. * Outpatient oncology follow-up and scheduled lung biopsy. Problem #3 ? Nausea, poor oral intake, possible mild dehydration Plan: * IV fluids and IV Zofran provided. Problem #4 ? Colon cancer with recent lower GI bleeding / diverticulosis Assessment: No active bleeding today but ongoing intermittent bloody diarrhea. Plan: * Document episodes; continue close outpatient GI/oncology follow-up. Problem #5 ? Anxiety / insomnia Plan: * Prescription for short-acting benzodiazepine for anxiolysis and sleep. * Reviewed risks/benefits, including additive sedation when combined with opioids and increased fall risk; patient verbalized understanding and will avoid concurrent use when possible. Disposition: Stable for discharge home with prescriptions for pain control and benzodiazepine for sleep/anxiolysis. Detailed return precautions provided. Follow-up with oncology and GI as scheduled; encouraged to call or return for worsening pain, new neurologic deficits, fever, or respiratory distress Differential Diagnosis Differential Diagnoses: The differential diagnosis associated with the presentation includes (as above) Admission/Observation Consideration of admission/observation: Escalation of care including admission/observation considered Lab Data MDM Lab Attestation statement: I reviewed the patient's lab results. 06/07/25 15:17 06/07/25 15:17 Labs: Lab Results 06/07/25 06/07/25 06/07/25 Range/Units 15:17 19:51 21:26 WBC 8.4 (4.8-10.8) X10*3/uL RBC 4.45 D (4.20-5.50) X10*6/uL Hgb 12.7 D (12.0-16.0) g/dl Hct 38.6 (37.0-47.0) % MCV 86.7 (80.0-98.0) fL MCH 28.5 (27.0-33.0) pg MCHC 32.9 (31.0-35.0) g/dl RDW 13.5 (11.0-16.0) % Plt Count 314 (160-400) X10*3/uL MPV 8.6 L (9.4-12.3) fL Immature Gran % (Auto) 0.4 (0.0-0.4) % Neut % (Auto) 62.5 (45-73) % Lymph % (Auto) 26.3 (20-40) % [place] % (Auto) 6.2 (2-11) % Eos % (Auto) 3.8 (0-4) % Baso % (Auto) 0.8 (0-2) % Lymph # (Auto) 2.2 (1.2-4.9) X10*3/uL [place] # (Auto) 0.5 (0.1-1.2) X10*3/uL Eos # (Auto) 0.3 (0.0-0.4) X10*3/uL Baso # (Auto) 0.1 (0.0-0.2) X10*3/uL Abs Immat Gran (auto) 0.03 (0.00-0.03) X10*3/uL Absolute Neuts (auto) 5.3 (2.0-8.3) x10*3/uL Absolute Nucleated RBC 0.000 (0.0-0.012) X10*3/uL Nucleated RBC % (auto) 0.0 (0.0-0.2) /100WBC PT 13.4 (11.2-13.5) SEC INR 1.1 (0.9-1.1) APTT 35.7 H (26.7-34.1) SEC Sodium 140 (135-145) mmol/L Potassium 3.6 (3.3-5.1) mmol/L Chloride 103 (96-108) mmol/L Carbon Dioxide 29 (22-29) mmol/L Anion Gap 12 (12-20) BUN 8 L (9-16) mg/dL Creatinine 0.66 (0.5-1.4) mg/dL Estim Creat Clear Calc 72.8 Estimated GFR > 60 Random Glucose 114 (60-115) mg/dL Calcium 9.6 (8.4-10.2) mg/dL Magnesium 1.8 (1.6-2.6) mg/dL Total Bilirubin 0.3 (0.0-1.0) mg/dL AST 19 (5-31) U/L ALT 14 (0-31) U/L Alkaline Phosphatase 107 (39-117) U/L Total Creatine Kinase 37 (26-140) U/L Troponin I High Sens 2.8 (<3.5-17.0) ng/L Total Protein 6.7 (6.5-8.0) g/dL Albumin 4.4 (3.5-5.0) g/dL Beta HCG, Quant 3 mIU/mL Urine Color Dark Yellow Urine Appearance Cloudy Urine pH 5.5 (5.0-9.0) Ur Specific [place] >= 1.030 H (1.005-1.025) Urine Protein Trace (Neg-Trace) mg/dL Urine Glucose (UA) Negative (Negative) mg/dL Urine Ketones Trace (Negative) mg/dL Urine Blood Negative (Negative) Urine Nitrite Negative (Negative) Ur Leukocyte Esterase Negative (Negative) COVID-19 (JAVIER) Negative (Negative) COVID-19 Clin Com See Note Influenza Type A (NOLBERTO) Negative (Negative) Influenza Type B (NOLBERTO) Negative (Negative) Influenza A & B Note See Note Blood Type O Positive Antibody Screen NEGATIVE Radiology Impression Discussion of test interpretation with radiology: I have reviewed the radiologist's reading. Radiologist Impression: CT lumbar spine without contrast Comparison: CT/REG/SR - CT ABDOMEN PELVIS W IV CON - 04/13/25 00:28 EDT Findings: 1.5 cm ill-defined sclerotic lesion within the right-sided L2 vertebral body. Mild superior endplate compression deformities of L2 and L4 vertebral bodies. No acute fractures or dislocations. Moderate multilevel spondylosis with disc space narrowing, endplate sclerosis, osteophytosis and facet arthropathy, most notably at L5 S1 with moderate spinal canal and neural foraminal narrowing. Visualized abdominal contents unremarkable. IMPRESSION: 1.5 cm ill-defined sclerotic lesion within the right-sided L2 vertebral body which could represent osteoblastic metastatic disease. Moderate multilevel spondylosis of the lumbar spine, most notably at L5-S1 with moderate spinal canal and neural foraminal narrowing. CT angiography chest with contrast. 3D Postprocessing. Comparison: CT/REG/SR - CT GI BLEED ABD PEL WO/W IVCON - 04/25/25 04:06 EDT Findings: The heart is normal size. RV/LV ratio is normal. The thoracic aorta is normal caliber. No pulmonary artery filling defects. The visualized thyroid and mediastinum are unremarkable. Interval worsening of innumerable predominantly peripheral nodularity throughout the lungs. No mediastinal or hilar lymphadenopathy. The visualized upper abdomen is unremarkable. No acute fractures. IMPRESSION: 1. No pulmonary embolus. No acute aortic syndrome. 2. Interval worsening of innumerable predominantly peripheral nodularity throughout the lungs. No mediastinal or hilar lymphadenopathy. Differentials include lymphangitic carcinomatosis, chronic interstitial lung disease or atypical pneumonia. External Record Review External record reviewed: Inpatient record Prescription Management I considered prescription management with: Pain Medication Chronic Conditions Patient?s care impacted by: Cancer Social Determinants Patient?s care significantly limited by Social Determinants of Health including: Other Social Determinant of Health Discharge Plan Discharge Clinical Impression: Colon cancer metastasized to bone, Acute lumbar back pain, Nausea and vomiting, Generalized muscle weakness Patient Disposition: Home, Self-Care Instructions: Bone Metastasis (ED) Additional Instructions: Please follow up with your oncologist as soon as possible. The spots in your spine are concerning for potential bone metastases and you need to follow up with the oncologist to make a plan going forward. In the meantime, you may take medications for pain as needed. Do not take oxycodone and Valium at the same time as they can make you drowsy and you can stop breathing if you take too much of these medications together. Do not drive or operate machinery if you are using these medications. Return to the emergency department immediately with any new or worsening symptoms including: Loss of bowel or bladder control, numbness/weakness in your legs, fevers greater than 100?, any new symptom that concerns you. Call 911 with any medical emergency. Prescriptions: New oxycodone 5 mg tablet 5 mg PO Q8H PRN (Reason: breakthrough pain, severe) Qty: 10 0RF Rx Instructions: Partial Fill upon patient request. diazepam [Valium] 2 mg tablet 2 mg PO BEDTIME PRN (Reason: sleep) Qty: 10 0RF No Action ondansetron 4 mg tablet,disintegrating 4 mg PO TID PRN (Reason: nausea and vomiting) 5 Days Qty: 10 0RF dexamethasone 2 mg tablet 2 mg PO BID PRN (Reason: x2 days after chemo) Patient Comments: Patient last took February 2025 Rx Instructions: Take for 2 days after chemotherapy naproxen 500 mg tablet 500 mg PO Q12H PRN (Reason: pain) Qty: 20 0RF cyclobenzaprine 5 mg tablet 5 mg PO Q8H PRN (Reason: Muscle Spasm) Qty: 20 0RF Interventions: ED Discharge Assessment Last Done: 06/08/25 02:35 Discharge Date/Time: 06/08/25 02:35 Print Language: Frisian
[2025-06-07 15:22] LABS: MANUAL DIFF FLAG NO
[2025-06-07 15:24] LABS: Hematocrit 38.6 % (37.0-47.0); Hemoglobin 12.7 g/dl (12.0-16.0); Imm Gran Abs Auto 0.03 X10*3/uL (0.00-0.03); Imm Gran Pct Auto 0.4 % (0.0-0.4); Lymphocytes Absolute Auto 2.2 X10*3/uL (1.2-4.9); Mean Corpuscular HGB Conc 32.9 g/dl (31.0-35.0); Mean Corpuscular Hemoglobin 28.5 pg (27.0-33.0); Mean Corpuscular Volume 86.7 fL (80.0-98.0); NRBC Abs Auto 0.000 X10*3/uL (0.0-0.012); NRBC Pct Auto 0.0 /100WBC (0.0-0.2); Platelet Count 314 X10*3/uL (160-400); Red Blood Count 4.45 X10*6/uL (4.20-5.50); White Blood Count 8.4 X10*3/uL (4.8-10.8)
[2025-06-07 15:32] LABS: INTERNATIONAL NORM RATIO 1.1 (0.9-1.1); Prothrombin Time 13.4 SEC (11.2-13.5)
[2025-06-07 15:34] LABS: Partial Thromboplastin Time 35.7 SEC (26.7-34.1)
[2025-06-07 15:37] LABS: Alanine Aminotransferase 14 U/L (0-31); Albumin Level 4.4 g/dL (3.5-5.0); Alkaline Phosphatase 107 U/L (39-117); Anion Gap 12 (12-20); Aspartate Amino Transferase 19 U/L (5-31); Blood Urea Nitrogen 8 mg/dL (9-16); Calcium 9.6 mg/dL (8.4-10.2); Carbon Dioxide 29 mmol/L (22-29); Chloride 103 mmol/L (96-108); Creatinine Clr Calc Pharmacy 72.8; Estimated Glomerular Filt Rate > 60; Magnesium 1.8 mg/dL (1.6-2.6); Potassium 3.6 mmol/L (3.3-5.1); Sodium 140 mmol/L (135-145); Total Protein 6.7 g/dL (6.5-8.0)
[2025-06-07 15:49] LABS: Troponin-I High Sensitivity 2.8 ng/L (<3.5-17.0)
[2025-06-07 19:44] VITALS: BP 136/82; PULSE 96; RESP 16; TEMP 36; O2SAT 98
[2025-06-07 20:13] LABS: Appearance Urine Cloudy; Glucose Urine UA Negative (Negative); PH 5.5 (5.0-9.0); Specific Gravity - Urine >= 1.030 (1.005-1.025)
[2025-06-07] MEDS: Lactated Ringers 1,000 ML 999 ML IV (21:49)
[2025-06-07] MEDS: iohexoL 350 MG/ML 100 ML INFUS..BTL 65 ML IV (22:11)
[2025-06-07 22:15] LABS: COVID-19 Test Negative (Negative); IDNOW Serial# 55D5AD1C; IDNOW Serial# 58CA691E
[2025-06-07 22:16] LABS: Influenza B2 Negative (Negative)
[2025-06-07 22:23] VITALS: BP 145/83; PULSE 76; RESP 14; TEMP 37.1; O2SAT 97
--- NOTE | 2025-06-08 | PC.NURSE ---
This casualty underwriter assumed care of this Pt at 2300. Pt A&Ox3, reports 8/10 back pain, pt medicated per MAR. Pt has fluids running per MAR, through right side port. Pt ambulated to BR independently with steady gait.
[2025-06-08 01:54] VITALS: BP 153/94; PULSE 76; RESP 16; TEMP 36.6; O2SAT 97
[2025-06-08] MEDS: Heparin Sodium,Porcine Flush 50 UNITS/5 ML SYRINGE IVFLUSH (02:19)
[2025-06-08 02:35] VITALS: BP 153/94; PULSE 76; RESP 16; TEMP 36.6; O2SAT 97
== END 2025-06-08 02:35 | disposition home or self-care (01) ==
PROVIDERS: Physician Assistant; Emergency Provider Emergency Medicine; PCP Physician Assistant
DX: C18.9 Malignant neoplasm of colon, unspecified (principal); C79.51 Secondary malignant neoplasm of bone; R11.2 Nausea with vomiting, unspecified; R53.1 Weakness; R55 Syncope and collapse; M54.50 Low back pain, unspecified; Z92.21 Personal history of antineoplastic chemotherapy; Z03.818 Encounter for observation for suspected exposure to other biological agents ruled out
CPT/HCPCS: 36415; 71275; 72131; 80053; 81003; 82550; 83735; 84484; 84702; 85025; 85610; 85730; 86850; 86900; 86901; 87502; 87635; 93005; 96361; 96374; 96375; 99285; J1171; J1642; J2405; J7120; Q9967

== ENCOUNTER → 2025-06-07 14:51 | Outpatient (BNV) | payer OTHER, SELFPAY | PROVIDERS: Visit Provider Internal Medicine Cardiovascular Disease | DX: R42 Dizziness and giddiness (principal) | CPT/HCPCS: 93010 ==

== ENCOUNTER → 2025-06-07 21:36 | Outpatient (BNV) | payer OTHER, SELFPAY | PROVIDERS: Emergency Provider Emergency Medicine; PCP Physician Assistant; Visit Provider Student in an Organized Health Care Education/Training Program | DX: R06.00 Dyspnea, unspecified (principal); S34.112A Complete lesion of L2 level of lumbar spinal cord, initial encounter; M47.816 Spondylosis without myelopathy or radiculopathy, lumbar region | CPT/HCPCS: 71275; 72131 ==

== ENCOUNTER 2025-06-20 17:14 | Inpatient (IN) | payer OTHER, SELFPAY ==
[2025-06-20 17:22] VITALS: BP 134/81; PULSE 77; RESP 18; TEMP 36.8; O2SAT 98; BMI 19.0
--- NOTE | 2025-06-20 18:10 | ED.GENADULT ---
HPI - General Adult General Chief complaint: General Medical Stated complaint: Sent from Onc Time Seen by Provider: 06/20/25 18:10 History of Present Illness ED Provider: Irving PEREZ narrative: The patient is a 55-year-old woman who has metastatic colon cancer. Today she saw her oncologist and she expressed her desire to go into hospice care instead of continue active treatment. Her oncologist thought this was a reasonable decision. The patient lives at home with her but her is disabled and and the patient does not think that her would be able to manage looking after her. Related Data Home Medications ?Medication ?Instructions ?Recorded ?Confirmed acetaminophen 325 mg tablet 650 mg PO Q6H PRN Pain (Scale 06/20/25 06/20/25 Score 1-3) morphine 15 mg tablet,extended 15 mg PO TID pain 06/20/25 06/20/25 release Previous Rx's ?Medication ?Instructions ?Recorded ondansetron 4 mg disintegrating 4 mg PO TID PRN nausea and 04/13/25 tablet vomiting 5 days #10 tabs diazepam 2 mg tablet (Valium) 2 mg PO BEDTIME PRN sleep #10 tabs 06/08/25 naloxone 4 mg/actuation nasal spray 1 spray intranasal Q2M #2 ea 06/09/25 Allergies Allergy/AdvReac Type Severity Reaction Status Date / Time mushroom Allergy Intermediate Vomiting Verified 06/20/25 17:24 Latex, Natural Rubber Allergy Rash Verified 06/20/25 17:24 Review of Systems Review of Systems: Yes all other systems are reviewed and are negative PMFSH Past Medical History Medical History COPD (chronic obstructive pulmonary disease) History of chemotherapy PONV (postoperative nausea and vomiting) Cocaine use Port-A-Cath in place Gallbladder polyp Colon cancer Spinal stenosis Arthritis History of kidney infection Depression Adenomatous polyp of cecum History of anxiety Surgical History History of esophagogastroduodenoscopy (EGD) (05/10/22) Hx of colectomy (2020) History of laparoscopic cholecystectomy (2022) History of colon resection H/O colonoscopy (~02/18/25) Family History Family History Mother Diabetes Afib Heart murmur Coronary artery disease Social History Social History Household Members: Significant Other Housing: House Are you a primary career orientation teacher to a significant other at home: No Do you presently have visiting nurse or other home services: No Alcohol intake: current Alcohol intake frequency: holidays/special occasions only Patient Tobacco Use Status: Current everyday Tobacco user Tobacco use type: Cigarette Cigarette Packs Per Day: 1 Cigarettes Per Day: 10 Years Smoked: 38 Second Hand Smoke Exposure: No Substance Use Type: Crack/Cocaine Advance Directives: No Advance Directives Information Provided: Yes service: No Current occupational status: employed Current occupation: billing Physical Exam ED Vital Signs: Vital Signs - 24 hr 06/20/25 17:22 06/20/25 18:58 Temperature 98.2 F 98.7 F Pulse Rate 77 82 Respiratory Rate 18 14 Blood Pressure 134/81 134/70 Pulse Oximetry 98 98 Oxygen Delivery Method Room Air Room Air BMI result Body Mass Index 19.0 Const Other: The patient is a cachectic, chronically ill-appearing 55-year-old. She looks much older than her age. She looks quite weak and frail. HENMT Other: Face is symmetrical, mucous membranes moist. Eyes Other: Pupils are round equal, conjunctivae are clear, extraocular movements intact Neck Neck: Yes normal visual inspection, Yes full ROM and Yes no JVD Resp Effort & Inspection: normal respiratory effort Auscultation: clear to auscultation bilaterally Cardio Rate: regular rate Rhythm: regular rhythm Heart sounds: S1 normal heart sound present and S2 normal heart sound present GI Other: Abdomen is without rebound or guarding Skin Other: Skin is dry and unremarkable Neuro Other: The patient is awake and alert with a normal mental status. Cranial nerves are grossly intact. She seems to move her extremities symmetrically. Extrem Other: The patient has very thin extremities Medications Administered Discontinued Medications Generic Name Dose Route Start Last Admin Trade Name Freq PRN Reason Stop Dose Admin Hydromorphone HCl 1 mg 06/20/25 19:15 06/20/25 19:41 Hydromorphone Hcl 1 Mg/Ml Syringe IVPUSH 06/20/25 19:16 1 mg ONCE ONE Administration Protocol Morphine Sulfate 15 mg 06/20/25 18:10 06/20/25 18:13 Morphine Sulfate Immed Release 15 Mg Tablet PO 06/20/25 18:11 15 mg ONCE ONE Administration Medical Decision Making Medical Decision Making [facility] Narrative: The patient is a 55-year-old female with a long history of metastatic colon cancer who has recently been receiving palliative treatments. The patient has been on oral morphine at home for chronic pains. Patient had an appointment today at the oncology office and announced that she no longer wishes to engage in active care but would like to enter hospice treatment. She feels that her symptoms are intractable with her current pain medication regime with the oral morphine. She was sent to the emergency room with a plan for symptom stabilization and pain control with discussion about getting onto hospice. Discharge Plan Discharge Clinical Impression: Intractable pain, Metastatic cancer Patient Disposition: Admitted As Inpatient
[2025-06-20] MEDS: Morphine Sulfate Immed Release 15 MG TABLET PO (18:13)
[2025-06-20 18:58] VITALS: BP 134/70; PULSE 82; RESP 14; TEMP 37.1; O2SAT 98
--- OUTSIDE RECORDS SUMMARY | 2025-06-20 19:01 | XMS_ITS | Encounter Summary ---
Author Organization [facility] Address [address] [place] [address] Care Team Providers Care Clinic Charge Nurse Name Role Phone Sally Ordoñez MD Primary Care Provider [phone] Reason for Visit * Reason Onset Date Comments Procedure 06/01/2025 Pre op surgery p ost op Encounter Details Date Type Department Care Team ([facility] st Contact Info) Description 06/01/2025 Telephone Thoracic Surgery - [address] [phone] Licha Alicia MA Social History Tobacco Use Types Packs/Day Years Used Date Smoking Tobacco: Every Day Cigarettes 1 37 Started: 1987 Smokeless Tobacco: Never Comments Unknown Sex and Gender Information Value Date Recorded Sex Assigned at Not on file Legal Sex Female 7:29 PM EST Gender Identity Not on file Sexual Orientation Not on file documented as of this encounter Progress Notes * Toshia Novoa RN - 06/20/2025 10:15 AM EST Spoke to patient and she has not been feeling well since her last chemo treatment. I did let her know she has no meds to hold the am of her procedure. She knows she has to be NPO midnight the night before her procedure. She was reminded of her PAT appointment tomorrow. She will arrive for 10:00 to the 3rd floor on 06/28. * Licha Alicia MA - 06/01/2025 9:41 AM EST Spoke with sary on today and gave them the following dates and times: - PAT is on 06/21/25 at 10:00 am arrive 15 minutes prior at Patient Registration then take the elevators to the 3rd floor and check-in at the Online Facilitator desk. - Surgery is on 06/28/25 at 11:30 am , arrival at 10:00 am and check-in at same Online Facilitator desk. - Post Op is on 07/07/25 at 1:15pm with Dr Holden . Patient has HNE will submit request for prior auth if needed. documented in this encounter Plan of Treatment Upcoming Encounters Date Type Department Care Team (Latest Contact Info) Description 06/21/2025 10:30 AM EST Pre-Admission Testing [facility] Pre-Admission Testing [address] [place] [phone] 06/28/2025 11:30 AM EST Hospital Encounter [facility] OR [address] [place] [phone] Jarrod Holden MD [address] [place] [phone] 06/28/2025 11:30 AM EST - 06/28/2025 3:30 PM EST Surgery [address] [phone] Jarrod Holden MD [address] [place] [phone] DaVinci wedge lung biopsies [[id number] (CPT ) +2 more] 07/07/2025 1:15 PM EST Office Visit Thoracic Surgery - [place] [address] [phone] Jarrod Holden MD [address] [place] [phone] Scheduled Procedures Name Priority Associated Diagnoses Date/Ti me THORACOSCOPY ROBOT TWO Interstitial lung disease (CMS/HCC V24, CMS/HCC V28) Multiple pulmonary nodules Malignant neoplasm of ascending colon ([facility]/HCC V24, [facility]/HCC V28) 06/28/2025 11:30 AM EST documented as of this encounter Goals Goal Patient Goal Type Associated Problems Recent Progress Patient-Stated? Author Autogenerat ed Goal Care Plan Autogenerated Problem No Jarrod Holden MD documented as of this encounter Visit Diagnoses Not on filedocumented in this encounter Additional Health Concerns Active Problems Noted Date Diagnosed Date Autogenerated Problem 04/15/2025 documented as of this encounter Care Teams Clinic Charge Nurse Relationship Specialty Start Date End Date Sally Ordoñez MD [address] [place] [address] PCP - General Internal Medicine 04/12/25 documented as of this encounter
--- OUTSIDE RECORDS SUMMARY | 2025-06-20 19:01 | XMS_ITS | Clinical Summary ---
Author Organization [employer] Address [address] [facility] 7t [place] [address] Care Team Providers Care Dentures Lab Technician Name Role Phone Unavailable Primary Care Provider [...] Vaccines (1 of 2) 2021 COVID-19 Vaccine (1 - 2024-2 6 season) 2025 Influenza Vaccine (#1) 2025 Dental [...]
--- OUTSIDE RECORDS SUMMARY | 2025-06-20 19:01 | XMS_ITS | Clinical Summary ---
Author Organization [facility] Address [address] [place] [address] Phone Care Team Providers Care Top Loader Name Role Phone Sally Ordoñez MD Primary Care Provider [phone] Allergies Active Allergy Reactions Criticality Noted Date Comments Latex 04/15/2025 Mushroom 04/15/2025 Medications ondansetron ODT (ZOFRAN-ODT) 4 mg disintegrating tablet 5 Active meclizine (ANTIVERT) 25 mg tablet TAKE 1 TABLET BY MOUTH 3 TIMES A DAY NEEDED FOR VERTIGO 5 Active FLUoxetine (PROzac) 40 mg capsule Take 1 capsule (40 mg total) by mouth 1 (one) time each day. Active dexAMETHasone (DECADRON) 2 mg tablet TAKE 1 TABLET BY MOUTH TWICE A DAY FOR 2 DAYS FOLLOWING CHEMO 5 Active Active Problems Problem Noted Date Diagnosed Date Malignant neoplasm of ascending colon 04/15/2025 Interstitial lung disease 04/15/2025 Multiple pulmonary nodules 04/15/2025 Encounters Date Type Department Care Team Description 06/01/2025 Telephone Thoracic Surgery - [place] [address] [phone] Licha Alicia MA 05/18/2025 7:44 AM EST - 05/18/2025 11:59 PM EST Hospital Encounter [facility] PET Scan [address] [place] [address] Other nonspecific abnormal finding of lung field Discharge Disposition: Home or Self Care 04/26/2025 Telephone Thoracic Surgery - [address] [place] [phone] Licha Alicia [place] 04/20/2025 Telephone Thoracic Surgery - [address] [phone] AliciaLicha emmanuel [place] 04/15/2025 11:30 AM EDT Consult Thoracic Surgery - [address] [phone] Jarrod Holden MD Interstitial lung disease (CMS/HCC [...] 1 37 Started: 1987 Smokeless Tobacco: Never Tobacco Cessation:Ready to Q uit: Not Asked; Counseling Given: Not Answered Comments Unknown Sex and Gender Information Value Date Recorded Sex Assigned at Not on file Legal Sex Female 7:29 PM EST Gender Identity Not on file Sexual Orientation Not on file Last Filed Vital Signs Vital Sign Reading [...] Description 06/21/2025 10:30 AM EST Pre-Admission Testing [facility] Pre-Admission Testing [address] [place] [phone] 06/28/2025 11:30 AM EST Hospital Encounter [facility] Main OR [address] [place] [phone] Jarrod Holden MD [address] [place] [phone] 06/28/2025 11:30 AM EST - 06/28/2025 3:30 PM EST Surgery [facility] Main OR [address] [place] [phone] Jarrod Holden MD [address] [place] [phone] DaVinci wedge lung biopsies [[id number] (CPT ) +2 more] 07/07/2025 1:15 PM EST Office Visit Thoracic Surgery - [place] [address] [facility] [address] [place] [phone] Jarrod Holden MD [address] [place] [phone] Scheduled Procedures Name Priority Associated Diagnoses Date/Ti me THORACOSCOPY ROBOT TWO Interstitial lung disease (CMS/HCC V24, CMS/HCC V28) Multiple pulmonary nodules Malignant neoplasm of ascending colon (CMS/HCC V24, CMS/HCC V28) 06/28/2025 11:30 AM EST Health Maintenance Due Date Last [...] Additional history exists Influenza Vaccine (#1) 2025 3, 03/13/2022, 03/18/2021, Additional history exists Cholesterol Screening [...] Plan Autogenerated Problem No Jarrod Holden MD Procedures Procedure Name Priority Date/Time Associated Diagnosis Comments PET CT SKULL TO MID THIGH INITIAL Routine 05/18/2025 10:19 AM EST Other nonspecific abnormal finding of lung field from Last 3 Months Results * PET CT Skull to Mid Thigh Initial (05/18/2025 10:19 AM EST) Anatomical Region Laterality Modality Body Radiographic Myra ging 05/30/2025 3:27 PM EST Impressions 05/30/2025 3:46 PM EST FDG avid left supraclavicular, mediastinal and hilar nodes with FDG avid peripheral reticulonodular airspace disease within the lower lobes. Findings are nonspecific and may represent infectious/inflammatory process with neoplasm not excluded. FDG avid foci within the upper abdomen are nonspecific and may represent lymphadenopathy versus pancreatic head lesion. Focal activity along the distal sigmoid colon may represent mild diverticulitis. Focal activity within the L1 and L2 vertebral bodies are suspicious for metastatic disease. -------- FINAL REPORT -------- Dictated By: Eugenia Gonzalez Dictated Date: 05/30/2025 15:27 ET Assigned Physician: Eugenia Gonzalez Reviewed and Electronically Signed By: Eugenia Gonzalez Signed Date: 05/30/2025 15:46 ET Workstation ID: [id number] Transcribed By: Self Edit Transcribed Date: 05/30/2025 15:27 ET Narrative 05/30/2025 3:46 PM EST INDICATION: Pulmonary nodules, initial treatment strategy Prior relevant studies: Outside CT scan of the chest from March 18, 2025. Radiopharmaceutical: 13.7 mCi of F-18 FDG IV. Blood glucose: 92 mg/dl. PROCEDURE: Routine body FDG PET-CT imaging was performed from the skull base to the mid thighs and reconstructed in axial, coronal, and sagittal planes at the computer workstation with fused data from both the PET imaging study and attenuation correction CT. The CT portion of the examination was done strictly for attenuation correction and is not a true diagnostic CT examination. CTDI: 3.56 mGy FINDINGS: HEAD AND NECK: Left-sided FDG avid supraclavicular nodes with SUV max up to 3.2. THORAX: Multiple FDG avid mediastinal nodes SUV max up to 5.1 within the prevascular space anterior to the AP window. Bilateral hilar FDG avid nonspecific max of 5.8 on the left and 3.0 on the right. Increased activity noted within peripheral reticulonodular airspace disease more severe within the posterior lower lobes with SUV max of 5.7 on the right and 6.5 on the left. ABDOMEN/PELVIS: Focus of increased FDG activity noted between the head of the pancreas and duodenum with SUV max of 5.6. 2 foci of increased activity noted along the proximal celiac region with SUV max of 7.6. Focus of activity noted along the distal sigmoid colon with SUV max of 6.9 without associated mass abnormality on CT imaging. Mild focal diverticulitis cannot be excluded. MUSCULOSKELETAL: Increased activity noted within the L2 vertebral body with mild focal sclerosis noted with SUV max of 8.5. Focal activity noted along the anterior right lateral aspect of the L1 vertebral body with SUV max up to 6.9. No definite mass noted with thickening of the adjacent diaphragmatic crura. Focal activity noted towards the anterior left aspect of the L2 vertebral body without focal bony abnormality with SUV max up to 7.5. Procedure Note Eugenia Gonzalez MD - 05/30/2025 INDICATION: Pulmonary nodules, initial treatment strategy Prior relevant studies: Outside CT scan of the chest from February. Radiopharmaceutical: 13.7 mCi of F-18 FDG IV. Blood glucose: 92 mg/dl. PROCEDURE: Routine body FDG PET-CT imaging was performed from the skullbase to the mid thighs and reconstructed in axial, coronal, and sagittalplanes at the computer workstation with fused data from both the PETimaging study and attenuation correction CT. The CT portion of theexamination was done strictly for attenuation correction and is not a truediagnostic CT examination. CTDI: 3.56 mGy FINDINGS: HEAD AND NECK: Left-sided FDG avid supraclavicular nodes with SUV max upto 3.2. THORAX: Multiple FDG avid mediastinal nodes SUV max up to 5.1 within theprevascular space anterior to the AP window. Bilateral hilar FDG avid nonspecific max of 5.8 on the left and 3.0 on theright. Increased activity noted within peripheral reticulonodular airspacedisease more severe within the posterior lower lobes with SUV max of 5.7on the right and 6.5 on the left. ABDOMEN/PELVIS: Focus of increased FDG activity noted between the head ofthe pancreas and duodenum with SUV max of 5.6. 2 foci of increased activity noted along the proximal celiac region withSUV max of 7.6. Focus of activity noted along the distal sigmoid colon with SUV max of 6.9without associated mass abnormality on CT imaging. Mild focaldiverticulitis cannot be excluded. MUSCULOSKELETAL: Increased activity noted within the L2 vertebral bodywith mild focal sclerosis noted with SUV max of 8.5. Focal activity noted along the anterior right lateral aspect of the [id number] body with SUV max up to 6.9. No definite mass noted withthickening of the adjacent diaphragmatic crura. Focal activity noted towards the anterior left aspect of the L2 vertebralbody without focal bony abnormality with SUV max up to 7.5. IMPRESSION: FDG avid left supraclavicular, mediastinal and hilar nodes with FDG avidperipheral reticulonodular airspace disease within the lower lobes.Findings are nonspecific and may represent infectious/inflammatory processwith neoplasm not excluded. FDG avid foci within the upper abdomen are nonspecific and may representlymphadenopathy versus pancreatic head lesion. Focal activity along the distal sigmoid colon may represent milddiverticulitis. Focal activity within the L1 and L2 vertebral bodies are suspicious formetastatic disease. -------- FINAL REPORT -------- Dictated By: Eugenia Gonzalez Dictated Date: 05/30/2025 15:27 ET Assigned Physician: Eugenia Gonzalez Reviewed and Electronically Signed By: Eugenia Gonzalez Signed Date: 05/30/2025 15:46 ET Workstation ID: [id number] Transcribed By: Self Edit Transcribed Date: 05/30/2025 15:27 ET Junior Rocha MD IM NM PROCEDURES Final Result from Last 3 Months Additional Health Concerns Active Problems Noted Date Diagnosed Date Autogenerated Problem 04/15/2025 Insurance [facility] Care Teams Top Loader Relationship Specialty Start Date End Date Sally Ordoñez MD [address] [place] [phone] PCP - General Internal Medicine 04/12/25
--- NOTE | 2025-06-20 20:20 | P.HPHOSP_ITS ---
History of Present Illness Date of Service: 06/20/25 Chief Complaint: Metastatic Ca , intractable pain A 55-year-old female with a several-year history of metastatic colon cancer, refractory to palliative chemotherapy, who presents for hospitalization due to intractable cancer-related pain that is no longer adequately controlled with her current home morphine regimen. She was evaluated by her oncologist today, and both the patient and the oncology team agreed that further disease-directed therapy is unlikely to provide benefit. The patient has expressed a desire to transition to hospice care and focus on comfort-directed treatment. She is not currently enrolled in hospice. Given worsening pain and poor symptom control at home, Oncology Case Management recommended inpatient admission for pain management and hospice evaluation. The patient lives at home with her ; however, he is disabled, and she does not feel he can safely manage her care at home at this time. [id number] discussions were initiated during this encounter. The patient is considering hospice enrollment and wishes to defer final decisions regarding DNR/DNI status until tomorrow so that her may be present for the discussion. Review of Systems Review of Systems: Yes all other systems are reviewed and are negative [facility] Medical History COPD (chronic obstructive pulmonary disease) History of chemotherapy PONV (postoperative nausea and vomiting) Cocaine use Port-A-Cath in place Gallbladder polyp Colon cancer Spinal stenosis Arthritis History of kidney infection Depression Adenomatous polyp of cecum History of anxiety Family History Mother Diabetes Afib Heart murmur Coronary artery disease Surgical History History of esophagogastroduodenoscopy (EGD) (05/10/22) Hx of colectomy (2020) History of laparoscopic cholecystectomy (2022) History of colon resection H/O colonoscopy (~02/18/25) Social History Household Members: Significant Other Housing: House Are you a primary rn palliative care to a significant other at home: No Do you presently have visiting nurse or other home services: No Alcohol intake: current Alcohol intake frequency: holidays/special occasions only Patient Tobacco Use Status: Current everyday Tobacco user Tobacco use type: Cigarette Cigarette Packs Per Day: 1 Cigarettes Per Day: 10 Years Smoked: 38 Second Hand Smoke Exposure: No Substance Use Type: Crack/Cocaine Advance Directives: No Advance Directives Information Provided: Yes service: No Current occupational status: employed Current occupation: billing Meds Allergies Allergy/AdvReac Type Severity Reaction Status Date / Time mushroom Allergy Intermediate Vomiting Verified 06/20/25 17:24 Latex, Natural Rubber Allergy Rash Verified 06/20/25 17:24 Home Medications ?Medication ?Instructions ?Recorded ?Confirmed ?Last Taken ?Type dexamethasone 2 mg tablet 2 mg PO BID PRN x2 days afte r chemo 04/26/25 06/20/25 Unknown History Physical Exam Vital Signs and Narrative: Vital Signs: Last Vital Signs Temp 98.7 F 06/20/25 18:58 Pulse 82 06/20/25 18:58 Resp 14 06/20/25 18:58 BP 134/70 06/20/25 18:58 Pulse Ox 98 06/20/25 18:58 O2 Del Method Room Air 06/20/25 18:58 BMI result Body Mass Index 19.0 Const: Other: Constitutional : interactive, not in distress, frail looking Cardiovascular : no JVP, no lower extremity edema Respiratory : bilateral chest movement, not in resp distress Gastrointestinal: soft, lax, Non tender Skin : Warm, Dry Neurological : Alert & oriented , No focal deficit Assessment and Plan (1) Metastatic cancer: Status: Acute (2) Intractable pain: Status: Acute (3) Nicotine dependence, cigarettes, uncomplicated: Status: Acute (4) Colon cancer: Qualifiers: Colon location: unspecified part of colon Qualified Code(s): C18.9 - Malignant neoplasm of colon, unspecified Status: Acute Plan A 55-year-old female with a several-year history of metastatic colon cancer, refractory to palliative chemotherapy, who presents for hospitalization due to intractable cancer-related pain that is no longer adequately controlled with her current home morphine regimen. Intractable abdominal pain 2/2 Metastatic Coloc Cancer Required multiple IV Dilauded in ED to improve her pain Continue IV Dilaudid PRN Zofran IV for nausea CW consult for home hospice arragement Diazepam PRN for anxiety Bowel regimen PRN Discussed GOC and she wants to sign MOLST form when her is available tomorrow Hx smoking Nicotine patches while inpatient Pending MED REC DVT PPx Lovenox The patient will need 2 overnight hospital stay for management of intractable abdominal pain Quality Stroke Does the patient have a stroke diagnosis?: No VTE Prior VTE?: No VTE Risk Level:: Medical - moderate - high VTE Device Contraindication: Treatment Not Indicated VTE Drug Contraindication: N/A - Med Ordered
--- NOTE | 2025-06-20 20:29 | MHC.CM.ED ---
CM met with patient at the request of Dr. Byers. Pt came to the ED from oncology. Medical record reviewed. Pt has Colon CA with mets to bone and possibly lung. Pt has decided to transition to Hospice and comfort measures. Pt is in extreme pain. Pt and her met with transportation worker, Deacon. Deacon placed a referral to oncology. According to medical record, Deacon spoke with Sylvia from [facility] hospice. CM will place referral in Care Port. Pt is not GIP hospice. Pt will be admitted for intractable pain. Pt tells CM that she would like to have hospice at home. States she has people that can help her and her . States she already has a hospital bed. Pt is very emotional. States she just cannot tolerate this pain any more. Dr. Byers is aware Will admit.
--- NOTE | 2025-06-20 20:36 | PHA.MEDREC ---
Pharmacy Consult ? Medication Reconciliation Pharmacy has completed the medication reconciliation. Spoke with patient in the ED. Patient only taking zofran/morphine/tylenol at this time.
--- NOTE | 2025-06-20 22:00 | PC.NURSE ---
Pt reporting 7/10 pain and nausea. Medicate with PRN medications per MAR. Pt refused Lovenox.
[2025-06-20 23:32] VITALS: BP 131/78; PULSE 78; RESP 14; TEMP 36.9; O2SAT 98
[2025-06-21 00:37] VITALS: BMI 18.5
[2025-06-21] MEDS: oxyCODONE HCl Immed Release 5 MG TABLET PO ×2 (00:50→09:42)
[2025-06-21] MEDS: 0.9 % Sodium Chloride Flush 3 ML SYRINGE IVFLUSH ×3 (00:51→23:25)
[2025-06-21 01:04] VITALS: BP 126/81; PULSE 74; RESP 18; TEMP 36.3; O2SAT 95
[2025-06-21 05:53] VITALS: BP 125/76; PULSE 82; RESP 18; TEMP 36.1; O2SAT 96
[2025-06-21 07:41] VITALS: BP 120/74; PULSE 78; RESP 18; TEMP 36.4; O2SAT 97
--- NOTE | 2025-06-21 09:05 | P.PNIM_ITS ---
Subjective Subjective Date of Service: 06/21/25 Interval History: 01/06 pain Physical Exam Exam: Exam: Alert oriented x3, frail appearing and some pain Vital Signs: Vital Signs: Last Vital Signs Temp 97.6 F 06/21/25 07:41 Pulse 78 06/21/25 07:41 Resp 18 06/21/25 07:41 BP 120/74 06/21/25 07:41 Pulse Ox 97 06/21/25 07:41 O2 Del Method Room Air 06/21/25 07:41 BMI result Body Mass Index 18.5 Objective Data Active Medications Acetaminophen (Acetaminophen 325 Mg Tablet) 650 mg PO Q6H PRN PRN Reason: Pain, Mild 1-3,fever,headache Calcium Carbonate (Calcium Carbonate 750 Mg Tab.Chew) 750 mg PO Q4H PRN PRN Reason: Heartburn Diazepam (Diazepam 2 Mg Tablet) 2 mg PO TID PRN PRN Reason: anxiety/restlessness Diazepam (Diazepam 2 Mg Tablet) 2 mg PO BEDTIME PRN PRN Reason: Sleep Enoxaparin Sodium (Enoxaparin Sodium 40 Mg/0.4 Ml Syringe) 40 mg SUBCUT Q24H [facility] Last Admin: 06/20/25 21:36 Dose: Not Given Documented By: JOSE Non-Admin Reason: Patient Refused Hydromorphone HCl (Hydromorphone Hcl 1 Mg/Ml Syringe) 0.5 mg IVPUSH Q4H PRN; Protocol PRN Reason: Pain, Severe (Pain Scale 7-10) Last Admin: 06/21/25 07:04 Dose: 0.5 mg Documented By: TRISTON Magnesium Hydroxide (Milk Of Magnesia 30 Ml Oral.Susp) 30 ml PO DAILY PRN PRN Reason: Constipation Melatonin (Melatonin 3 Mg Tablet) 6 mg PO BEDTIME PRN PRN Reason: Insomnia Morphine Sulfate (Morphine Sulfate Er 15 Mg Tablet.Er) 15 mg PO TID [facility] Nicotine (Nicotine 14 Mg Patch.Td24) 14 mg TRANSDERMA DAILY [facility] Ondansetron HCl (Ondansetron Hcl 4 Mg/2 Ml Vial) 4 mg IVPUSH Q8H PRN PRN Reason: Nausea and Vomiting Last Admin: 06/20/25 21:35 Dose: 4 mg Documented By: JOSE Oxycodone HCl (Oxycodone Hcl Immed Release 5 Mg Tablet) 5 mg PO Q6H PRN PRN Reason: Pain, Moderate(Pain Scale 4-6) Last Admin: 06/21/25 00:50 Dose: 5 mg Documented By: REINA Polyethylene Glycol (Polyethylene Glycol 3350 17 Gm Powd.Pack) 17 gm PO DAILY PRN PRN Reason: Constipation Sodium Chloride (0.9 % Sodium Chloride Flush 3 Ml Syringe) 3 ml IVFLUSH QSHIFT CHENTE Last Admin: 06/21/25 00:51 Dose: 3 ml Documented By: REINA Assessment and Plan (1) Metastatic cancer: Status: Acute Plan 55F PMH metastatic colon cancer refractory to palliative chemotherapy presented with intractable pain Intractable abdominal pain due to metastatic colon cancer Continue MS Contin 15 t.i.d. hydromorphone for breakthrough pain, diazepam for anxiety Bowel regimen Hospice eval DVT prophylaxis with Lovenox Full code pending hospice eval reason for continued hospitalization: Working on pain control Quality Stroke Does the patient have a stroke diagnosis?: No VTE Prior VTE?: No VTE Risk Level:: Medical - moderate - high VTE Device Contraindication: Treatment Not Indicated VTE Drug Contraindication: N/A - Med Ordered
[2025-06-21] MEDS: Morphine Sulfate ER 15 MG TABLET.ER PO (09:07)
[2025-06-21 10:53] VITALS: BMI 18.5
--- NOTE | 2025-06-21 10:57 | MHC.CLN ---
CONSULT PT IS MODERATELY MALNOURISHED-QUALIFIES FOR NON-SEVERE MALNUTRITION IN THE CONTEXT OF CHRONIC ILLNESS PT WITH 14% SIGNIFICANT WT LOSS X 6 MONTHS WITH CHRONIC POOR PO INTAKE PT ADMITTED WITH INTRACTABLE PAIN AND GOAL IS HOSPICE EVAL REGULAR DIET PRIMARY GOAL IS COMFORT WILL PROVIDE SUPPORT NEEDED SEE FULL ASSESSMENT
[2025-06-21 14:00] VITALS: BP 132/75; PULSE 77; RESP 16; TEMP 36.2; O2SAT 98
--- NOTE | 2025-06-21 14:40 | MHC.CM.PN ---
Addendum entered by Jazmín Garza 06/21/25 16:26: [facility] WILL TRANSPORT [facility] IS NOT CONTRACTED. [facility] BOOKED FOR 11 AM 06/22 PER [facility]ARA AT [facility] RUN # [id number]. Addendum entered by Jazmín Garza 06/21/25 15:31: CM MET WITH PT AT BEDSIDE TO DISCUSS PLAN. PT WOULD LIKE TO GO HOME TOMORROW 06/22/25, WITH HOSPICE. MD NOTIFIED AND AGREEABLE TO THIS PLAN. [facility]LS TRANSPORT BOOKED FOR 11 AM VIA [employer] AND [facility]. Original Note: C IN TO DO A HOSPICE INFORMATIONAL WITH PT AT BEDSIDE. PT IS AGREEABLE TO HOSPICE AT HOME WITH [facility]. PT'S PAIN IS BETTER CONTROLLED BUT CONTINUES TO EXPERIENCE NAUSEA. PROVIDER UPDATED AND CM WILL AWAIT ADMIT PLAN FROM [facility].
--- NOTE | 2025-06-21 15:33 | P.DS_ITS ---
DS: Providers Provider Date of admission: 06/20/25 20:17 Date of discharge: 06/22/25 Primary care physician: NITESH Henry Consults: 06/20/25 18:28 Consult to Case Management Stat Comment: DS: Diagnosis Discharge Diagnosis (1) Metastatic cancer: Status: Acute DS: Summary Hospital Course Hospital Course: from initial hpi: 55-year-old female with a several-year history of metastatic colon cancer, refractory to palliative chemotherapy, who presents for hospitalization due to intractable cancer-related pain that is no longer adequately controlled with her current home morphine regimen. She was evaluated by her oncologist today, and both the patient and the oncology team agreed that further disease-directed therapy is unlikely to provide benefit. The patient has expressed a desire to transition to hospice care and focus on comfort-directed treatment. She is not currently enrolled in hospice. Given worsening pain and poor symptom control at home, Oncology Case Management recommended inpatient admission for pain management and hospice evaluation. The patient lives at home with her ; however, he is disabled, and she does not feel he can safely manage her care at home at this time. [id number] discussions were initiated during this encounter. The patient is considering hospice enrollment and wishes to defer final decisions regarding DNR/DNI status until tomorrow so that her may be present for the discussion. hospital course: Patient was admitted for intractable abdominal pain due to metastatic colon cancer. She was continued on her long-acting morphine and hydromorphone for breakthrough pain was added as well as diazepam for anxiety with improvement in her symptoms. She was seen by hospice and arrangements were made to continue comfort care/end of life care at home. Time Attestation Discharge Coordination Time (in mins): 33 Quality: Safe Use of Opioids Does Pt have an Active Cancer Diagnosis on the Problem List?: Yes Opioid Measure Date for [facility] Report: 05/22/25 Opioid Measure Time for [facility] Report: 15:33 Quality: Stroke Does the patient have a stroke diagnosis?: No Physical Exam Exam: Exam: Alert oriented x3, frail appearing pain better controlled Vital Signs: Vital Signs: Last Vital Signs Temp 97.1 F 06/21/25 14:00 Pulse 77 06/21/25 14:00 Resp 16 06/21/25 14:00 BP 132/75 06/21/25 14:00 Pulse Ox 98 06/21/25 14:00 O2 Del Method Room Air 06/21/25 07:41 BMI result Body Mass Index 18.5 DS: Data Data Completed and Pending Completed studies during hospitalization [Text1]: Procedures Excision of Right Large Intestine, Open Approach (03/30/21) Release Omentum, Open Approach (03/30/21) Release Right Fallopian Tube, Open Approach (03/30/21) Release Right Ovary, Open Approach (03/30/21) Transfusion of Nonautologous Red Blood Cells into Peripheral Vein, Percutaneous Approach (04/26/25) Discharge Plan Discharge Anticipated Discharge Date/Time: 06/22/25 11:00 Patient Disposition: Hospice - Home Discharge Diagnosis: intractable pain from metastatic cancer Referrals: Edith Walker PA [Primary Care Provider, Hospitalist] - 1 Week Discharge Medications: New morphine concentrate 100 mg/5 mL (20 mg/mL) solution 5 mg PO Q1H PRN (Reason: Pain/Dyspnea) 15 Days Qty: 30 0RF Rx Instructions: Partial Fill upon patient request. lorazepam 0.5 mg tablet 0.5 mg PO Q6H PRN (Reason: anxiety/restlessness) 4 Days Qty: 16 0RF lorazepam [Lorazepam Intensol] 2 mg/mL concentrate 0.5 mg PO Q4H PRN (Reason: anxiety/restlessness) Qty: 30 0RF Continued naloxone 4 mg/actuation [place],Non-Aerosol 1 spray INTRANASAL Q2M Qty: 2 0RF Rx Instructions: spray 1 dose into ONE nostril; alternate nostrils w each dose until help arrives ondansetron 4 mg tablet,disintegrating 4 mg PO TID PRN (Reason: nausea and vomiting) 5 Days Qty: 10 0RF diazepam [Valium] 2 mg tablet 2 mg PO BEDTIME PRN (Reason: sleep) Qty: 10 0RF morphine 15 mg tablet extended release 15 mg PO TID Rx Instructions: Partial Fill upon patient request. acetaminophen 325 mg Tablet 650 mg PO Q6H PRN (Reason: Pain (Scale Score 1-3)) Diet: Advance to usual diet Activity on Discharge: As tolerated Stand Alone Forms: Patient Portal Discharge page Print Language: Brazilian Care Plan Goals: comfort Health Concerns: abdominal pain from colon cancer Plan of Treatment: home hospice, pain control Assessment: see above
[2025-06-22 05:59] VITALS: BP 122/70; PULSE 83; RESP 16; TEMP 36.6; O2SAT 98
[2025-06-22] MEDS: 0.9 % Sodium Chloride Flush 3 ML SYRINGE IVFLUSH (07:39)
[2025-06-22 07:48] VITALS: BP 118/72; PULSE 81; RESP 18; TEMP 36.6; O2SAT 96
--- NOTE | 2025-06-22 08:04 | P.DS_ITS ---
DS: Providers Provider Date of admission: 06/20/25 20:17 Date of discharge: 06/22/25 Primary care physician: NITESH Henry Consults: 06/20/25 18:28 Consult to Case Management Stat Comment: Attending physician on discharge: Portia Ceja Discharging clinician: Portia Ceja DS: Diagnosis Discharge Diagnosis (1) Metastatic cancer: Status: Acute DS: Summary Hospital Course Hospital Course: hpi(h&P): 55-year-old female with a several-year history of metastatic colon cancer, refractory to palliative chemotherapy, who presents for hospitalization due to intractable cancer-related pain that is no longer adequately controlled with her current home morphine regimen. She was evaluated by her oncologist today, and both the patient and the oncology team agreed that further disease-directed therapy is unlikely to provide benefit. The patient has expressed a desire to transition to hospice care and focus on comfort-directed treatment. She is not currently enrolled in hospice. Given worsening pain and poor symptom control at home, Oncology Case Management recommended inpatient admission for pain management and hospice evaluation. The patient lives at home with her ; however, he is disabled, and she does not feel he can safely manage her care at home at this time. [id number] discussions were initiated during this encounter. The patient is considering hospice enrollment and wishes to defer final decisions regarding DNR/DNI status until tomorrow so that her may be present for the discussion. hospital course: Patient was admitted for intractable abdominal pain due to metastatic colon cancer. She was continued on her long-acting morphine and hydromorphone for breakthrough pain was added as well as diazepam for anxiety with improvement in her symptoms. She was seen by hospice and arrangements were made to continue comfort care/end of life care at home. Patient says that she can not tolerate morphine, requesting Dilaudid because she was taking IV Dilaudid during this admission. Switched to p.o. Dilaudid upon discharge. please see discharge Summary from yesterday (06/21/25). assessment plan coordination time spent 35 minutes. Time Attestation Total time managing care of this patient today: 35 mintues. Discharge Coordination Time (in mins): 35min Quality: Safe Use of Opioids Does Pt have an Active Cancer Diagnosis on the Problem List?: Yes Opioid Measure Date for CMS Report: 05/23/25 Opioid Measure Time for CMS Report: 13:51 Quality: Stroke Does the patient have a stroke diagnosis?: No Physical Exam Exam: Exam: Alert oriented x3, frail, pain controllted Vital Signs: Vital Signs: Last Vital Signs Temp 97.9 F 06/22/25 07:48 Pulse 81 06/22/25 07:48 Resp 18 06/22/25 07:48 BP 118/72 06/22/25 07:48 Pulse Ox 96 06/22/25 07:48 O2 Del Method Room Air 06/22/25 07:48 BMI result Body Mass Index 18.5 DS: Data Data Completed and Pending Completed studies during hospitalization [Text1]: Procedures Excision of Right Large Intestine, Open Approach (03/30/21) Release Omentum, Open Approach (03/30/21) Release Right Fallopian Tube, Open Approach (03/30/21) Release Right Ovary, Open Approach (03/30/21) Transfusion of Nonautologous Red Blood Cells into Peripheral Vein, Percutaneous Approach (04/26/25) Discharge Plan Discharge Anticipated Discharge Date/Time: 06/22/25 11:00 Patient Disposition: Hospice - Home Discharge Diagnosis: intractable pain from metastatic cancer Referrals: Edith Walker PA [Primary Care Provider, Hospitalist] - 1 Week Discharge Medications: New lorazepam 0.5 mg tablet 0.5 mg PO Q6H PRN (Reason: anxiety/restlessness) 4 Days Qty: 16 0RF lorazepam [Lorazepam Intensol] 2 mg/mL concentrate 0.5 mg PO Q4H PRN (Reason: anxiety/restlessness) Qty: 30 0RF docusate sodium [Colace] 100 mg capsule 100 mg PO DAILY PRN (Reason: constipation) Qty: 60 0RF polyethylene glycol 3350 [Miralax] 17 gram/dose powder 17 g PO DAILY Qty: 238 0RF hydromorphone [Dilaudid] 2 mg tablet 2 mg PO Q6H PRN (Reason: pain) Qty: 30 0RF Rx Instructions: Partial Fill upon patient request. Continued naloxone 4 mg/actuation [place],Non-Aerosol 1 spray INTRANASAL Q2M Qty: 2 0RF Rx Instructions: spray 1 dose into ONE nostril; alternate nostrils w each dose until help arrives ondansetron 4 mg tablet,disintegrating 4 mg PO TID PRN (Reason: nausea and vomiting) 5 Days Qty: 10 0RF diazepam [Valium] 2 mg tablet 2 mg PO BEDTIME PRN (Reason: sleep) Qty: 10 0RF acetaminophen 325 mg Tablet 650 mg PO Q6H PRN (Reason: Pain (Scale Score 1-3)) Discontinued morphine 15 mg tablet extended release 15 mg PO TID Rx Instructions: Partial Fill upon patient request. Discharge Orders: Discharge Order (Routine); Ordered 06/22/25 Ordered By: Portia Ceja Diet: Advance to usual diet Activity on Discharge: As tolerated Stand Alone Forms: Patient Portal Discharge page Print Language: Kosovan Care Plan Goals: comfort Health Concerns: abdominal pain from colon cancer Plan of Treatment: home hospice, pain control Assessment: see above Discharge Date/Time: 06/22/25 13:50
[2025-06-22 08:05] VITALS: RESP 16
--- NOTE | 2025-06-22 10:42 | MHC.CM.PN ---
Discharged patient has decided to stay. She will not dc to home on hospice today. Transport has been canceled. [facility] hospice assessment scheduled for 12pm. Dr Dr Ceja notified.
--- NOTE | 2025-06-22 12:22 | HO.PM.IMPN ---
Subjective Subjective Date of Service: 06/22/25 Interval History: pain Review of Systems says pain is more tolerable Review of Systems: Yes all other systems are reviewed and are negative Physical Exam Exam: Exam: Alert oriented x3, frail appearing,more comfortable pain cota. Vital Signs: Vital Signs: Last Vital Signs Temp 97.9 F 06/22/25 07:48 Pulse 81 06/22/25 07:48 Resp 16 06/22/25 08:05 BP 118/72 06/22/25 07:48 Pulse Ox 96 06/22/25 07:48 O2 Del Method Room Air 06/22/25 07:48 BMI result Body Mass Index 18.5 Objective Data Active Medications Acetaminophen (Acetaminophen 325 Mg Tablet) 650 mg PO Q6H PRN PRN Reason: Pain, Mild 1-3,fever,headache Calcium Carbonate (Calcium Carbonate 750 Mg Tab.Chew) 750 mg PO Q4H PRN PRN Reason: Heartburn Diazepam (Diazepam 2 Mg Tablet) 2 mg PO TID PRN PRN Reason: anxiety/restlessness Last Admin: 06/22/25 03:46 Dose: 2 mg Documented By: QUIN Diazepam (Diazepam 2 Mg Tablet) 2 mg PO BEDTIME PRN PRN Reason: Sleep Enoxaparin Sodium (Enoxaparin Sodium 40 Mg/0.4 Ml Syringe) 40 mg SUBCUT Q24H [facility] Last Admin: 06/21/25 21:34 Dose: Not Given Documented By: QUIN Non-Admin Reason: Patient Refused Hydromorphone HCl (Hydromorphone Hcl 1 Mg/Ml Syringe) 1 mg IVPUSH Q3H PRN; Protocol PRN Reason: Pain, Severe (Pain Scale 7-10) Last Admin: 06/22/25 07:39 Dose: 1 mg Documented By: ARASH Hydromorphone HCl (Hydromorphone Hcl 2 Mg Tablet) 1 mg PO Q3H PRN PRN Reason: Pain, Moderate(Pain Scale 4-6) Magnesium Hydroxide (Milk Of Magnesia 30 Ml Oral.Susp) 30 ml PO DAILY PRN PRN Reason: Constipation Melatonin (Melatonin 3 Mg Tablet) 6 mg PO BEDTIME PRN PRN Reason: Insomnia Morphine Sulfate (Morphine Sulfate Er 15 Mg Tablet.Er) 15 mg PO TID [facility] Last Admin: 06/22/25 08:11 Dose: Not Given Documented By: ARASH Non-Admin Reason: Patient Refused Nicotine (Nicotine 14 Mg Patch.Td24) 14 mg TRANSDERMA DAILY [facility] Last Admin: 06/22/25 08:12 Dose: Not Given Documented By: ARASH Non-Admin Reason: Patient Refused Ondansetron HCl (Ondansetron Hcl 4 Mg/2 Ml Vial) 4 mg IVPUSH Q8H PRN PRN Reason: Nausea and Vomiting Last Admin: 06/21/25 17:30 Dose: 4 mg Documented By: TRISTON Oxycodone HCl (Oxycodone Hcl Immed Release 5 Mg Tablet) 5 mg PO Q6H PRN PRN Reason: Pain, Moderate(Pain Scale 4-6) Last Admin: 06/21/25 09:42 Dose: 5 mg Documented By: DONA Polyethylene Glycol (Polyethylene Glycol 3350 17 Gm Powd.Pack) 17 gm PO DAILY PRN PRN Reason: Constipation Sodium Chloride (0.9 % Sodium Chloride Flush 3 Ml Syringe) 3 ml IVFLUSH QSHIFT [facility] Last Admin: 06/22/25 07:39 Dose: 3 ml Documented By: ARASH Assessment and Plan (1) Metastatic cancer: Status: Acute Plan 55F PMH metastatic colon cancer refractory to palliative chemotherapy presented with intractable pain Intractable abdominal pain due to metastatic colon cancer adjusted to po dilaudid ,continue iv, diazepam for anxiety Bowel regimen Hospice eval DVT prophylaxis with Lovenox Full code pending hospice eval reason for continued hospitalization: Working on pain control Quality Stroke Does the patient have a stroke diagnosis?: No VTE Prior VTE?: No VTE Risk Level:: Medical - moderate - high VTE Device Contraindication: Treatment Not Indicated VTE Drug Contraindication: N/A - Med Ordered
== END 2025-06-22 13:50 | disposition hospice, home (50) | DRG 861 ==
LOC: HO.ED 19:45 → HO.EDOVER 20:22 → HO.S3 06-21 00:07
PROVIDERS: Admitting Provider Student in an Organized Health Care Education/Training Program; Emergency Provider Emergency Medicine; PCP Physician Assistant; Visit Provider Internal Medicine
DX: G89.3 Neoplasm related pain (acute) (chronic) (principal); Z51.5 Encounter for palliative care; C79.9 Secondary malignant neoplasm of unspecified site; C18.9 Malignant neoplasm of colon, unspecified; F41.9 Anxiety disorder, unspecified; F17.210 Nicotine dependence, cigarettes, uncomplicated; Z71.6 Tobacco abuse counseling; Z79.891 Long term (current) use of opiate analgesic; Z79.899 Other long term (current) drug therapy
CPT/HCPCS: 99285; J1171; J2405

== ENCOUNTER → 2025-06-20 20:17 | Outpatient (BNV) | payer OTHER, SELFPAY | PROVIDERS: Admitting Provider Student in an Organized Health Care Education/Training Program; Emergency Provider Emergency Medicine; PCP Physician Assistant; Visit Provider Student in an Organized Health Care Education/Training Program | DX: C79.9 Secondary malignant neoplasm of unspecified site (principal); R52 Pain, unspecified; F17.210 Nicotine dependence, cigarettes, uncomplicated; C18.9 Malignant neoplasm of colon, unspecified | CPT/HCPCS: 99223 ==

== ENCOUNTER 2025-06-22 13:57 | Inpatient (IN) | payer OTHER, SELFPAY ==
--- NOTE | 2025-06-22 14:05 | P.EN_ITS ---
Event Note Date of Service: 06/22/25 Event Note: h&P note for [facility] hospice: 55-year-old female with a several-year history of metastatic colon cancer, refractory to palliative chemotherapy, who presents for hospitalization due to intractable cancer-related pain that is no longer adequately controlled with her current home morphine regimen. She was evaluated by her oncologist today, and both the patient and the oncology team agreed that further disease-directed therapy is unlikely to provide benefit. The patient has expressed a desire to transition to hospice care and focus on comfort-directed treatment. She is not currently enrolled in hospice. Given worsening pain and poor symptom control at home, Oncology Case Management recommended inpatient admission for pain management and hospice evaluation. The patient lives at home with her ; however, he is disabled, and she does not feel he can safely manage her care at home at this time. [id number] discussions were initiated during this encounter. The patient is considering hospice enrollment and wishes to defer final decisions regarding DNR /DNI status until tomorrow so that her may be present for the discussion. hospital course: Patient was admitted for intractable abdominal pain due to metastatic colon cancer. She was continued on her long-acting morphine and hydromorphone for breakthrough pain was added as well as diazepam for anxiety with improvement in her symptoms. She was seen by hospice and arrangements were made to continue comfort care/end of life care at home. please see discharge Summary from yesterday (06/21/25). Further discussion with the hospice team with the patient patient now switched to GI P hospice-medications switched to methadone, Dilaudid, p.r.n. Ativan Physical Exam Exam: Exam: Alert oriented x3, frail, pain controllted Vital Signs: Vital Signs: Last Vital Signs Temp 97.9 F 06/22/25 07:48 Pulse 81 06/22/25 07:48 Resp 18 06/22/25 07:48 BP 118/72 06/22/25 07:48 Pulse Ox 96 06/22/25 07:48 O2 Del Method Room Air 06/22/25 07:48 BMI result Body Mass Index 18.5 assessment plan coordination time spent 35 minutes. Time Spent With Patient Time: Total time managing care of this patient today ____ minutes.
--- OUTSIDE RECORDS SUMMARY | 2025-06-22 14:10 | XMS_ITS | Encounter Summary ---
Author Organization [facility] Address [address] [place] [address] Care Team Providers Care Welding Machine Operator Gas Name Role Phone Sally Ordoñez MD Primary Care Provider [phone] Reason for Visit * Reason Onset Date Comments Procedure 06/01/2025 Pre op surgery p ost op Encounter Details Date Type Department Care Team ([facility] st Contact Info) Description 06/01/2025 Telephone Thoracic Surgery - [address] [address] Licha Alicia MA Social History [...] the 3rd floor and check-in at the National Insurance Officer desk. - Surgery is on 06/28/25 at 11:30 am , arrival at 10:00 am and check-in at same National Insurance Officer desk. - Post Op is on 07/07/25 at 1:15pm with Dr Holden . Patient has HNE will submit request for prior auth if needed. documented in this encounter Plan of Treatment Upcoming Encounters Date Type Department Care Team (Latest Contact Info) Description 06/28/2025 11:30 AM EST Hospital Encounter [address] [phone] Jarrod Holden MD [address] [place] [phone] 06/28/2025 11:30 AM EST - 06/28/2025 3:30 PM EST Surgery [facility] [address] [place] [phone] Jarrod Holden MD [address] [place] [phone] DaVinci wedge lung biopsies [[id number] (CPT ) +2 more] 07/07/2025 1:15 PM EST Office Visit Thoracic Surgery - [place] [address] [facility] [address] [place] [phone] Jarrod Holden MD [address] [place] [phone] Scheduled Procedures Name Priority Associated Diagnoses Date/Ti me THORACOSCOPY ROBOT TWO Interstitial lung disease (CMS/HCC V24, CMS/HCC V28) Multiple pulmonary nodules Malignant neoplasm of ascending colon (CMS/HCC V24, CMS/HCC V28) 06/28/2025 11:30 AM EST documented as [...] documented as of this encounter Care Teams Welding Machine Operator Gas Relationship Specialty Start Date End Date Sally Ordoñez MD [address] [place] [address] PCP - General Internal Medicine 04/12/25 documented as of this encounter
--- OUTSIDE RECORDS SUMMARY | 2025-06-22 14:10 | XMS_ITS | Clinical Summary ---
Author Organization [employer] Address [address] [facility] [address] [address] [place] [address] Care Team Providers Care Power And Recovery Supervisor Name Role Phone Unavailable Primary Care [...]
--- OUTSIDE RECORDS SUMMARY | 2025-06-22 14:10 | XMS_ITS | Clinical Summary ---
Author Organization [facility] [address] [facility] Address [address] [place] [address] Phone Care Team Providers Care Buckle Stapler Name Role Phone Sally Ordoñez MD Primary Care Provider [phone] Allergies Active Allergy Reactions Criticality Noted Date [...] Team Description 06/01/2025 Telephone Thoracic Surgery - [place] [address] [address] Licha Alicia [place] 05/18/2025 7:44 AM EST - 05/18/2025 11:59 PM EST Hospital Encounter [facility] PET Scan [address] [place] [address] Other nonspecific abnormal finding of lung field Discharge Disposition: Home or Self Care 04/26/2025 Telephone Thoracic Surgery - [address] [place] [phone] Licha Alicia [place] 04/20/2025 Telephone Thoracic Surgery - [address] [phone] AliciaLicha emmanuel [place] 04/15/2025 11:30 AM EDT Consult Thoracic Surgery - [address] [phone] Jarrod Holden MD Interstitial lung disease (CMS/HCC [...] Description 06/28/2025 11:30 AM EST Hospital Encounter [facility] Main OR [address] [place] [phone] Jarrod Holden MD [address] [place] [phone] 06/28/2025 11:30 AM EST - 06/28/2025 3:30 PM EST Surgery [facility] OR [address] [place] [phone] Jarrod Holden MD [address] [place] [phone] DaVinci wedge lung biopsies [49398 (CPT ) +2 more] 07/07/2025 1:15 PM EST Office Visit Thoracic Surgery - [place] [address] [phone] Jarrod Holden MD [address] [place] [phone] Scheduled Procedures Name Priority Associated Diagnoses Date/Ti [...] Signed Date: 05/30/2025 15:46 ET Workstation ID: [id number] Transcribed By: Self Edit Transcribed Date: 05/30/2025 [...] the anterior right lateral aspect of the [id number] body with SUV max up to 6.9. [...] Signed Date: 05/30/2025 15:46 ET Workstation ID: [id number] Transcribed By: Self Edit Transcribed Date: 05/30/2025 15:27 ET Junior Rocha MD IM NM PROCEDURES Final Result from Last 3 Months Additional Health Concerns Active Problems Noted Date Diagnosed Date Autogenerated Problem 04/15/2025 Insurance [facility] Care Teams Buckle Stapler Relationship Specialty Start Date End Date Sally Ordoñez MD [address] [place] [address] PCP - General Internal Medicine 04/12/25
--- NOTE | 2025-06-22 14:20 | MHC.CM.PN ---
Patient was planned for dc home today with hospice [facility]. Further pain management is required. She has been assessed and qualifies for GIP : DX Pain management . GIP Hospice in place. DP Home with [facility] one ss managed.
[2025-06-22 16:00] VITALS: BP 118/57; PULSE 75; RESP 16; TEMP 37.1; O2SAT 96; BMI 16.6
--- NOTE | 2025-06-22 17:16 | PC.NURSE ---
Patient changed from inpatient to [facility] hospice. Admission assessment and risk assessment completed.
[2025-06-22 19:30] VITALS: BP 113/65; PULSE 82; RESP 18; TEMP 36.8; O2SAT 96
[2025-06-23 03:01] VITALS: BP 117/59; PULSE 78; RESP 18; TEMP 36.1; O2SAT 95
[2025-06-23 08:15] VITALS: BP 128/73; PULSE 80; RESP 15; TEMP 36.1; O2SAT 96
--- NOTE | 2025-06-23 14:14 | P.PNIM_ITS ---
Subjective Subjective Date of Service: 06/23/25 Interval History: hospice Review of Systems says pain is more tolerable with pain meds seems comfortable Review of Systems: Yes all other systems are reviewed and are negative Physical Exam Exam: Exam: Alert oriented x3, frail appearing and some pain but more tolerable . Vital Signs: Vital Signs: Last Vital Signs Temp 96.9 F 06/23/25 08:15 Pulse 80 06/23/25 08:15 Resp 15 06/23/25 08:15 BP 128/73 06/23/25 08:15 Pulse Ox 96 06/23/25 08:15 O2 Del Method Room Air 06/23/25 08:15 BMI result Body Mass Index 16.6 Objective Data Active Medications Hydromorphone HCl (Hydromorphone Hcl 2 Mg Tablet) 2 mg PO Q4H PRN PRN Reason: Pain, Severe (Pain Scale 7-10) Last Admin: 06/23/25 13:42 Dose: 2 mg Documented By: OBINNA Influenza Virus Vaccine (Flu Vacc Ny7685-94(6mo Up)/Pf 0.5 Ml Syringe) 0.5 ml IM .ONCE ONE Stop: 06/23/26 09:01 Lorazepam (Lorazepam 0.5 Mg Tablet) 0.5 mg SUBLINGUAL Q4H PRN PRN Reason: anxiety/restlessness Last Admin: 06/23/25 02:50 Dose: 0.5 mg Documented By: ELLI Methadone HCl (Methadone Hcl 5 Mg Tablet) 5 mg PO BID [facility] Last Admin: 06/23/25 08:39 Dose: 5 mg Documented By: OBINNA Senna/Docusate Sodium (Sennosides/Docusate Sodium Tablet) 2 tab PO BEDTIME [facility] Last Admin: 06/22/25 20:43 Dose: 2 tab Documented By: ELLI Sodium Chloride (0.9 % Sodium Chloride Flush 3 Ml Syringe) 3 ml IVFLUSH QSHIFT [facility] Last Admin: 06/23/25 08:41 Dose: Not Given Documented By: OBINNA Non-Admin Reason: No Access Assessment and Plan (1) Colon cancer: Status: Acute (2) Metastatic cancer: Status: Acute Plan Patient was admitted for intractable abdominal pain due to metastatic colon cancer. She was continued on her long-acting morphine and hydromorphone for breakthrough pain was added as well as diazepam for anxiety with improvement in her symptoms. She was seen by hospice and arrangements were made to continue comfort care/end of life care at home. please see discharge Summary from yesterday (06/21/25). Further discussion with the hospice team with the patient patient now switched to GI P hospice-medications switched to methadone, Dilaudid, p.r.n. Ativan, bowel regimen . Quality Stroke Does the patient have a stroke diagnosis?: No VTE Prior VTE?: No VTE Risk Level:: Medical - moderate - high VTE Device Contraindication: N/A - Device Ordered VTE Drug Contraindication: N/A - Med Ordered
--- NOTE | 2025-06-23 14:37 | MHC.CM.PN ---
PT IS [facility]IP HOSPICE. CM WILL CONTINUE TO FOLLOW FOR ANY CHANGE TO PLAN.
[2025-06-23 15:58] VITALS: BP 112/69; PULSE 89; RESP 20; TEMP 36.8; O2SAT 96
[2025-06-23 19:14] VITALS: BP 103/60; PULSE 88; RESP 18; TEMP 36.4; O2SAT 96
[2025-06-24 03:59] VITALS: BP 117/75; PULSE 80; RESP 16; TEMP 36.9; O2SAT 92
[2025-06-24 08:00] VITALS: BP 111/56; PULSE 86; RESP 18; TEMP 36.6; O2SAT 95
--- NOTE | 2025-06-24 11:01 | P.DS_ITS ---
DS: Providers Provider Date of admission: 06/22/25 13:57 Date of discharge: 06/24/25 Primary care physician: Unknown Physician Attending physician on discharge: Portia Ceja Discharging clinician: Portia Ceja DS: Diagnosis Discharge Diagnosis (1) Colon cancer: Status: Acute (2) Metastatic cancer: Status: Acute DS: Summary Hospital Course Hospital Course: HPI:55-year-old female with a several-year history of metastatic colon cancer, refractory to palliative chemotherapy, who presents for hospitalization due to intractable cancer-related pain that is no longer adequately controlled with her current home morphine regimen. She was evaluated by her oncologist today, and both the patient and the oncology team agreed that further disease-directed therapy is unlikely to provide benefit. The patient has expressed a desire to transition to hospice care and focus on comfort-directed treatment. She is not currently enrolled in hospice. Given worsening pain and poor symptom control at home, Oncology Case Management recommended inpatient admission for pain management and hospice evaluation. The patient lives at home with her ; however, he is disabled, and she does not feel he can safely manage her care at home at this time. [id number] discussions were initiated during this encounter. The patient is considering hospice enrollment and wishes to defer final decisions regarding DNR/DNI status until tomorrow so that her may be present for the discussion. hospital course: Patient was admitted for intractable abdominal pain due to metastatic colon cancer. She was continued on her long-acting morphine and hydromorphone for breakthrough pain was added as well as diazepam for anxiety with improvement in her symptoms. She was seen by hospice and arrangements were made to continue comfort care/end of life care at home. Patient says that she can not tolerate morphine, requesting Dilaudid because she was taking IV Dilaudid during this admission. Subsequently hospice recommended [facility] and switched to p.o. methadone, lorazepam and Dilaudid which patient was started on and patient pain is much more tolerable and she feels comfortable. Bowel regimen also added. assessment plan coordination time spent 35 minutes. Time Attestation Total time managing care of this patient today: 40 mintues. Discharge Coordination Time (in mins): 40 min Quality: Safe Use of Opioids Does Pt have an Active Cancer Diagnosis on the Problem List?: No Quality: Stroke Does the patient have a stroke diagnosis?: No Physical Exam Exam: Exam: Alert oriented x3, frail appearing and some pain but more tolerable . Vital Signs: Vital Signs: Last Vital Signs Temp 97.8 F 06/24/25 08:00 Pulse 86 06/24/25 08:00 Resp 18 06/24/25 08:00 BP 111/56 L 06/24/25 08:00 Pulse Ox 95 06/24/25 08:00 O2 Del Method Room Air 06/24/25 08:00 BMI result Body Mass Index 16.6 DS: Data Data Completed and Pending Completed studies during hospitalization [Text1]: Procedures Excision of Right Large Intestine, Open Approach (03/30/21) Release Omentum, Open Approach (03/30/21) Release Right Fallopian Tube, Open Approach (03/30/21) Release Right Ovary, Open Approach (03/30/21) Transfusion of Nonautologous Red Blood Cells into Peripheral Vein, Percutaneous Approach (04/26/25) Discharge Plan Discharge Anticipated Discharge Date/Time: 06/24/25 10:54 Patient Disposition: Hospice - Home Discharge Diagnosis: colon cancer ,hospice Referrals: [facility] [Outside] - 1 Day Referral Note: [facility] will continue care at home Physician,Unknown J [Primary Care Provider, Medical] - 1 Week Discharge Medications: New hydromorphone 2 mg Tablet 2 mg PO Q4H PRN (Reason: Pain, Severe (Pain Scale 7-10)) Qty: 20 0RF Rx Instructions: Partial Fill upon patient request. lorazepam 0.5 mg Tablet 0.5 mg sublingual Q4H PRN (Reason: Anxiety/Restlessness) Qty: 16 0RF methadone 5 mg Tablet 5 mg PO BID Qty: 20 0RF Rx Instructions: Partial Fill upon patient request. Continued naloxone 4 mg/actuation [place],Non-Aerosol 1 spray INTRANASAL Q2M Qty: 2 0RF Rx Instructions: spray 1 dose into ONE nostril; alternate nostrils w each dose until help arrives acetaminophen 325 mg Tablet 650 mg PO Q6H PRN (Reason: Pain (Scale Score 1-3)) docusate sodium [Colace] 100 mg capsule 100 mg PO DAILY PRN (Reason: constipation) Qty: 60 0RF polyethylene glycol 3350 [Miralax] 17 gram/dose powder 17 g PO DAILY Qty: 238 0RF ondansetron 4 mg tablet,disintegrating 4 mg PO TID PRN (Reason: nausea and vomiting) 5 Days Qty: 10 0RF Discontinued diazepam [Valium] 2 mg tablet 2 mg PO BEDTIME PRN (Reason: sleep) Qty: 10 0RF lorazepam 0.5 mg tablet 0.5 mg PO Q6H PRN (Reason: anxiety/restlessness) 4 Days Qty: 16 0RF lorazepam [Lorazepam Intensol] 2 mg/mL concentrate 0.5 mg PO Q4H PRN (Reason: anxiety/restlessness) Qty: 30 0RF hydromorphone [Dilaudid] 2 mg tablet 2 mg PO Q6H PRN (Reason: pain) Qty: 30 0RF Rx Instructions: Partial Fill upon patient request. Discharge Orders: Discharge Order (Routine); Ordered 06/24/25 Ordered By: Portia Ceja Diet: Advance to usual diet Activity on Discharge: As tolerated Stand Alone Forms: Patient Portal Discharge page Print Language: Kinyarwanda Care Plan Goals: home with hospice Health Concerns: home with hospice Plan of Treatment: home with hospice . Assessment: hospice with hospice . Discharge Date/Time: 06/24/25 12:10
--- NOTE | 2025-06-24 11:08 | MHC.CM.PN ---
Per hospice and MD patient medically cleared for dc home w/ and [facility]. will provide transport home at noon. RN aware.
[2025-06-24 11:25] VITALS: BP 101/61; PULSE 91; RESP 18; TEMP 36.8; O2SAT 96
== END 2025-06-24 12:10 | disposition hospice, home (50) | DRG 948 ==
PROVIDERS: Admitting Provider Internal Medicine; Visit Provider Internal Medicine
DX: G89.3 Neoplasm related pain (acute) (chronic) (principal); C18.9 Malignant neoplasm of colon, unspecified; C79.9 Secondary malignant neoplasm of unspecified site; Z51.5 Encounter for palliative care; F17.210 Nicotine dependence, cigarettes, uncomplicated; Z71.6 Tobacco abuse counseling; Z79.899 Other long term (current) drug therapy

== ENCOUNTER → 2025-06-22 13:57 | Outpatient (BNV) | payer OTHER, SELFPAY | PROVIDERS: Admitting Provider Internal Medicine; Visit Provider Internal Medicine | DX: C18.9 Malignant neoplasm of colon, unspecified (principal); C79.9 Secondary malignant neoplasm of unspecified site | CPT/HCPCS: 99231; 99499 ==